=== PATIENT | female | born 1945 | race Caucasian/White ===

== ENCOUNTER → 2020-07-30 13:06 | Outpatient (REF) | payer MEDICARE, MEDICAID, SELFPAY ==
--- NOTE | 2020-07-30 13:00 | CA_ITS ---
Transthoracic Echocardiogram Patient (Last, First, Middle): Edie Morales, Gender: Female Date of : 1945 Age: 75 Procedure Date: 07/30/2020 Procedure Type: Transthoracic Echocardiogram Location: OP Height: 167.64 cm Weight: 73.48 kg BSA: 1.83 m2 Heart Rate: bpm BP: 140 / 76 mmHg Access Specialist: MICHAELLE Referring MD: Jose Alberto Vang MD Symptoms: 125.10 CAD Z95.5 Stented coronary artery Study Quality: Good ECG Rhythm: Sinus Conclusions: - The left ventricular systolic function is normal. The visually estimated ejection fraction is between 65-70%. - Aortic valve sclerosis but without any significant stenosis. - There is mild mitral annular calcification. Findings Left Ventricle Normal left ventricular cavity size. There is mildly increased left ventricular wall thickness. The left ventricular systolic function is normal. The visually estimated ejection fraction is between 65-70%. There is no evidence of regional wall motion abnormalities. Evidence suggests grade I (mild) diastolic dysfunction. Right Ventricle Normal right ventricular cavity size and systolic function. Aortic Valve There is a normal trileaflet aortic valve. There is mild calcification of the aortic valve. The peak aortic gradient is 20 mmHg.The mean gradient is 11 mmHg. There is no aortic valve regurgitation. No significant aortic stenosis. Mitral Valve The mitral valve appears normal. There is mild mitral annular calcification. There is no mitral valve regurgitation. There is no mitral valve stenosis. Pulmonic Valve The pulmonic valve was not well visualized. Tricuspid Valve Normal tricuspid valve structure. There is trace tricuspid valve regurgitation. The pulmonary artery systolic pressure is normal. Great Vessels The aortic annulus is normal in size. Venous The inferior vena cava is normal in size and collapses greater than 50% with inspiration. Pericardium/Pleural There is no evidence of pericardial effusion. Prior Study Comparison No significant change compared to prior study dated: 02/23/2018. Measurements 2D Linear Measurements IVSd: 1.22 0.6-0.9/0.6-1.0 cm LVIDd: 2.87 3.9-5.3/4.2-5.9 cm LVIDs: 1.86 2.0-3.6 cm LVPWd: 1.20 0.7-1.1 cm Ao Root: 3.09 2.1-3.5 cm LV Mass: 128.86 67-162/88-224 g LVOT Diam: 2.27 3.0+(-)1.3 cm 2D Systolic Function EF 4C: 66.00 >55% Mitral Valve MV Pk E: 0.55 MV PK A: 0.87 MV Decel Time: 232.92 E/A: 0.63 E'Lateral: 0.06 E'Medial: 0.06 E/E' Med: 9.07 Decel [place]: 2.34 Aortic Valve AoV Pk Maxi: 2.32 AoV Mn Maxi: 1.53 AoV VTI: 0.42 AoV Pk Grad: 20.09 Aov Mn Grad: 10.56 LYLE: 1.80 LVOT LVOT Pk Maxi: 0.92 LVOT Mn Maxi: 0.68 LVOT VTI: 0.19 LVOT Pk Grad: 3.35 LVOT Mn Grad: 2.04 LVOT Diam: 2.27 LVOT Area: 4.04 Diastolic Function MV Pk E: 0.55 MV Pk A: 0.87 E/A: 0.63 E'Medial: 0.06 E/E' Med: 9.07 E' Laterial: 0.06 Tricuspid Valve TR Pk Maxi: 2.54 TR Pk Grad: 25.79 RA Press: 3.00 RVSP: 28.00 Great Vessels Aorta Ao Root-2D: 3.09 2.0-3.7 cm Updated in Other Vendor System with Status of Final Fan Bee MD electronically signed on 07/31/2020 2:07:29 PM with status of Final
== END ==
LOC: HO.CARD 13:06
PROVIDERS: Visit Provider Internal Medicine Cardiovascular Disease
DX: I25.10 Atherosclerotic heart disease of native coronary artery without angina pectoris (principal); I48.0 Paroxysmal atrial fibrillation; Z95.5 Presence of coronary angioplasty implant and graft
CPT/HCPCS: 93306

== ENCOUNTER → 2020-09-30 15:00 | Outpatient (BNVA) | payer MEDICARE, MEDICAID, SELFPAY | PROVIDERS: PCP Internal Medicine; Visit Provider Internal Medicine Cardiovascular Disease | DX: Z51.81 Encounter for therapeutic drug level monitoring (principal) | CPT/HCPCS: 93005 ==

== ENCOUNTER 2020-10-01 11:24 | Outpatient (REF) | payer MEDICARE, MEDICAID, SELFPAY | END 2020-10-01 11:25 | disposition home or self-care (01) | LOC: HO.LAB 11:24 | PROVIDERS: Visit Provider Internal Medicine | DX: Z20.828 Contact with and (suspected) exposure to other viral communicable diseases (principal) | CPT/HCPCS: C9803; U0003 ==

== ENCOUNTER → 2020-12-30 13:28 | Outpatient (BNVA) | payer MEDICARE, MEDICAID, SELFPAY | PROVIDERS: PCP Internal Medicine; Visit Provider Internal Medicine Cardiovascular Disease | DX: I25.10 Atherosclerotic heart disease of native coronary artery without angina pectoris (principal); I48.0 Paroxysmal atrial fibrillation; Z79.899 Other long term (current) drug therapy | CPT/HCPCS: 93005; 99212 ==

== ENCOUNTER → 2021-01-08 11:17 | Outpatient (BNVA) | payer MEDICARE, MEDICAID, SELFPAY | PROVIDERS: PCP Internal Medicine; Visit Provider Urology | DX: Z13.89 Encounter for screening for other disorder (principal) | CPT/HCPCS: Q3014 ==

== ENCOUNTER → 2021-02-05 15:13 | Outpatient (BNVA) | payer MEDICARE, MEDICAID, SELFPAY | PROVIDERS: PCP Internal Medicine; Visit Provider Urology | DX: N32.81 Overactive bladder (principal); Z96.0 Presence of urogenital implants | CPT/HCPCS: 99212 ==

== ENCOUNTER 2021-02-23 07:52 | Day surgery (SDC) | payer MEDICARE, MEDICAID, SELFPAY ==
[2021-02-18 10:50] VITALS: BMI 27.4
[2021-02-18 11:53] VITALS: BMI 27.6
--- NOTE | 2021-02-19 14:28 | HO.ANESPROP2 ---
Documented by User: Dorothy Segura 02/19/21 14:29 HPI - Anesthesia Eval Consult details Narrative: 75yo F for Interstim Lead Removal and replacement prn opioids per routine cardiol visit 12/2020 - cad stable, paf stable PMFSH Active Problems Active Problems: All Active Problems (Updated 02/18/21 @ 11:54 by Nori Gonzalez) Gout (Acute) Overactive bladder (Acute) Mixed hyperlipidemia (Acute) Paroxysmal atrial fibrillation (Acute) CAD (coronary artery disease) (Acute) Past Medical History Medical History (Updated 02/18/21 @ 11:54 by Nori Gonzalez) CAD (coronary artery disease) COVID-19 vaccine series completed Mixed hyperlipidemia Paroxysmal atrial fibrillation Presence of Watchman left atrial appendage closure device Family History Family History Father Cancer Mother Heart disease Pancreatic cancer Sister Heart disease Surgical History Surgical History History of bladder surgery History of cataract surgery History of cholecystectomy History of hysterectomy Stented coronary artery Social History Social History Smoking Status: Former smoker Smoking Quit Date: 1999 Are you DNR?: No Advance Directives: No Advance Directives Information Provided: No Advance Directives on File: No Meds Allergies Allergy/AdvReac Type Severity Reaction Status Date / Time acetaminophen [From TYLENOL] AdvReac Intermediate DIZZINESS, Verified 02/18/21 11:52 VOMITING levofloxacin [From LEVAQUIN] AdvReac Intermediate NAUSEA & Verified 02/18/21 11:52 VOMITING Home Medications Medication Instructions Recorded Confirmed Last Taken Type alendronate 70 mg tablet 70 mg PO QWEEK 12/30/20 02/18/21 Unknown History budesonide-formoterol HFA 160 2 puff INHALATION BID 12/30/20 02/18/21 Unknown History mcg-4.5 mcg/actuation aerosol inhaler calcium carbonate 600 mg (1,500 1 tab PO DAILY 12/30/20 02/18/21 Unknown History mg)-vitamin D3 400 unit tablet docusate sodium 100 mg capsule 100 mg PO BID 12/30/20 02/18/21 Unknown History alprazolam 0.5 mg tablet 0.5 mg PO BID 01/08/21 02/18/21 02/23/21 History venlafaxine 150 mg 150 mg PO QAM 01/08/21 02/18/21 Unknown History capsule,extended release 24 hr aspirin [Aspir-81] 81 mg PO DAILY 02/18/21 02/18/21 Unknown History Exam Exam Date and Time: February 19, 2021 1428 Height,Weight and Vital Signs: Height 5 ft 5 in Weight 75.296 kg Narrative Narrative: EKG 12/2020 normal sinus rhythm with poor R-wave progression most likely due to lead placement with normal QT interval Assessment and Plan Assessment Anesthesia Assessment: Chart Reviewed Documented by User: Holley Meehan 02/23/21 09:39 [facility] Past Medical History Medical History (Updated 02/18/21 @ 11:54 by Nori Gonzalez) CAD (coronary artery disease) COVID-19 vaccine series completed Mixed hyperlipidemia Paroxysmal atrial fibrillation Presence of Watchman left atrial appendage closure device Family History Family History Father Cancer Mother Heart disease Pancreatic cancer Sister Heart disease Surgical History Surgical History History of bladder surgery History of cataract surgery History of cholecystectomy History of hysterectomy Stented coronary artery Social History Social History Smoking Status: Former smoker Smoking Quit Date: 1999 Are you DNR?: No Advance Directives: No Advance Directives Information Provided: No Advance Directives on File: No Meds Allergies Allergy/AdvReac Type Severity Reaction Status Date / Time acetaminophen [From TYLENOL] AdvReac Intermediate DIZZINESS, Verified 02/18/21 11:52 VOMITING levofloxacin [From LEVAQUIN] AdvReac Intermediate NAUSEA & Verified 02/18/21 11:52 VOMITING Home Medications Medication Instructions Recorded Confirmed Last Taken Type alendronate 70 mg tablet 70 mg PO QWEEK 12/30/20 02/18/21 Unknown History budesonide-formoterol HFA 160 2 puff INHALATION BID 12/30/20 02/18/21 Unknown History mcg-4.5 mcg/actuation aerosol inhaler calcium carbonate 600 mg (1,500 1 tab PO DAILY 12/30/20 02/18/21 Unknown History mg)-vitamin D3 400 unit tablet docusate sodium 100 mg capsule 100 mg PO BID 12/30/20 02/18/21 Unknown History alprazolam 0.5 mg tablet 0.5 mg PO BID 01/08/21 02/18/21 02/23/21 History venlafaxine 150 mg 150 mg PO QAM 01/08/21 02/18/21 Unknown History capsule,extended release 24 hr aspirin [Aspir-81] 81 mg PO DAILY 02/18/21 02/18/21 Unknown History Exam Airway Mallampati Class: II (Top front caps) TM Dist: >3cm Neck ROM: Full Heart: RRR Lungs: CtA Assessment and Plan Assessment Anesthesia Assessment: Anesthesia Plan Discussed and Chart Reviewed Final Anesthetic Review NPO: Yes ASA Class: III Final Preanesthetic Review: No Changes in Pt Med Stat and Consent Obtained/Reviewed Patient Risk: Intermediate Procedure Risk: Intermediate Anesthetic Plan Anesthetic Plan: MAC: Disposition: Standard PACU
[2021-02-23 08:49] VITALS: BP 153/101; PULSE 78; RESP 16; TEMP 35.8; O2SAT 97
[2021-02-23] MEDS: Lactated Ringers 1,000 ML 100 ML IVCONT (09:03)
[2021-02-23] MEDS: Metoclopramide HCl 10 MG/2 ML VIAL IVPUSH (09:49)
--- NOTE | 2021-02-23 09:54 | PC.NURSE ---
medicated for nasuea no vomitting.
--- NOTE | 2021-02-23 10:11 | PC.NURSE ---
patient states her nausea is alot better. the rep was by the bedside speaking to patient. aware of her plan
--- NOTE | 2021-02-23 10:18 | MHC.SHP ---
Pre-Procedural Eval Section A The patient is an INPATIENT: No Changes since office visit: No Cold of Flu in the past 2 weeks, No New Medical Problems, No Changes in Medication and No Patient answered all questions The History & Physical has been completed within 30 days and I have reviewed it.: Yes Section B Chief Complaint: overactive bladder Allergies: Allergies Allergy/AdvReac Type Severity Reaction Status Date / Time acetaminophen [From TYLENOL] AdvReac Intermediate DIZZINESS, Verified 02/18/21 11:52 VOMITING levofloxacin [From LEVAQUIN] AdvReac Intermediate NAUSEA & Verified 02/18/21 11:52 VOMITING Plan Diagnosis/Plan: Unchanged (Interstim battery change) I have reviewed the history and physical and performed a pertinent physical examination on my patient. No changes have occurred unless specified.
[2021-02-23 11:13] VITALS: BP 118/63; PULSE 65; RESP 16; TEMP 37.1; O2SAT 96
[2021-02-23 11:18] VITALS: BP 139/70; PULSE 65; RESP 16; O2SAT 97
--- NOTE | 2021-02-23 11:19 | W.PM.OPN ---
Operative Note Operative Note Date of Service: 02/23/21 Narrative: PreOperative Diagnosis: Interstim Battery Post Operative Diagnosis: Interstim Battery Procedure: Interstim battery placement Surgeon: Dr Keyon Darnell Anesthesia: Sedation Indications for procedure: interstim batery Procedure: After informed consent was verified the patient was brought to the operating room and placed in a prone position. Patient anesthesia was administered. The prior incision was prepped and draped. Checked post come out performed. Antibiotics have been given. Local anesthetic was infiltrated cc in skin. Using a 15 blade incision was made to the implanted device. Plantar device was freed and delivered from the incision. It was disconnected from its lead. A new device was then attached to the lead. It was sewn onto the fascia with a 2-0 silk suture. The pocket was deepened slightly the device placed. The fascia at top closed. The device was then tested using the transmitted. All leads were active. The skin incision was reapproximated with interrupted 3-0 Vicryl. Skin was closed with a 4-0 running Monocryl. Dressing was placed. She tolerated the procedure well and was transferred in stable condition to recovery area Pathology: battery Drains: []
[2021-02-23 11:23] VITALS: BP 149/78; PULSE 57; RESP 16; O2SAT 97
[2021-02-23 11:28] VITALS: BP 132/77; PULSE 52; RESP 16
[2021-02-23 11:35] VITALS: PULSE 56; RESP 16; O2SAT 97
== END 2021-02-23 12:46 | disposition home or self-care (01) ==
PROVIDERS: PCP Internal Medicine; Visit Provider Urology
PROC: (CPT 64590; principal; 2021-02-23 09:40)
DX: Z46.2 Encounter for fitting and adjustment of other devices related to nervous system and special senses (principal); N32.81 Overactive bladder; I25.10 Atherosclerotic heart disease of native coronary artery without angina pectoris; Z98.61 Coronary angioplasty status; I48.0 Paroxysmal atrial fibrillation; Z79.01 Long term (current) use of anticoagulants; Z79.82 Long term (current) use of aspirin; Z79.899 Other long term (current) drug therapy; Z87.891 Personal history of nicotine dependence
CPT/HCPCS: 64590; C1767; C1787; J0690; J2250; J2765; J3010

== ENCOUNTER → 2021-03-11 11:26 | Outpatient (BNVA) | payer MEDICARE, MEDICAID, SELFPAY | PROVIDERS: PCP Internal Medicine; Referring Provider Internal Medicine; Visit Provider Nurse Practitioner Family | DX: Z01.810 Encounter for preprocedural cardiovascular examination (principal); I25.10 Atherosclerotic heart disease of native coronary artery without angina pectoris; I48.0 Paroxysmal atrial fibrillation; Z95.818 Presence of other cardiac implants and grafts; E78.2 Mixed hyperlipidemia; N32.81 Overactive bladder | CPT/HCPCS: 93005; 99212 ==

== ENCOUNTER → 2021-06-30 13:40 | Outpatient (BNVA) | payer MEDICARE, MEDICAID, SELFPAY | PROVIDERS: PCP Internal Medicine; Referring Provider Internal Medicine; Visit Provider Internal Medicine Cardiovascular Disease | DX: I48.0 Paroxysmal atrial fibrillation (principal); I25.10 Atherosclerotic heart disease of native coronary artery without angina pectoris | CPT/HCPCS: 93005; 99212 ==

== ENCOUNTER 2021-08-27 13:31 | Outpatient (REF) | payer MEDICARE, MEDICAID, SELFPAY ==
--- NOTE | ~2021-08-27 | MM_ITS ---
EXAMINATION: MM SCREENING DIGITAL BREAST TOMOSYNTHESIS, BILATERAL CLINICAL INFORMATION: Screening. Asymptomatic. The lifetime risk of breast cancer based on the Tyrer-Cuzick Model is 3.4%. COMPARISON: Mammography: December 17, 2019 and studies dating back to August 20, 2016 TECHNIQUE: Digital breast tomosynthesis is performed in both the craniocaudal and mediolateral oblique views along with computer-aided detection (CAD). Synthesized 2D images are generated from the tomosynthesis. FINDINGS: There are scattered areas of fibroglandular density (ACR BI-RADS breast composition Category b). There are no significant masses, abnormal calcifications, or other abnormalities. MM/MM tomosynthesis screening BI IMPRESSION: There are no significant changes from prior study. ASSESSMENT: BI-RADS 1: Negative RECOMMENDATION: Routine annual mammography screening. This patient's information was entered into a reminder system with a target due date for their next mammogram.
[2021-08-27 14:59] LABS: Cholesterol 150 mg/dL; HDL Cholesterol 76 mg/dL; LDL Cholesterol Calculated 63 mg/dl; Triglycerides 58 mg/dL
[2021-08-27 15:00] LABS: Alanine Aminotransferase 17 U/L (0-31); Albumin Level 4.2 g/dL (3.5-5.0); Alkaline Phosphatase 29 U/L (39-117); Anion Gap 11 (12-20); Aspartate Amino Transferase 29 U/L (5-31); Bilirubin Total 0.5 mg/dL (0.0-1.0); Blood Urea Nitrogen 23 mg/dL (9-16); Calcium 9.5 mg/dL (8.4-10.2); Carbon Dioxide 29 mmol/L (22-29); Chloride 104 mmol/L (96-108); Estimated Glomerular Filt Rate 50; Glucose Fasting 85 mg/dL (60-99); Potassium 4.4 mmol/L (3.3-5.1); Sodium 140 mmol/L (135-145); Total Protein 6.4 g/dL (6.5-8.0)
[2021-08-27 15:26] LABS: Erythrocyte Sedimentation Rate 7 MM/HR (0-20)
[2021-08-29 08:11] LABS: Lyme Blot 1.78 index
[2021-08-29 10:37] LABS: Lyme Abs Screen POSITIVE
[2021-08-31 15:41] LABS: IgA 75 mg/dL (70-320); IgG 689 mg/dL (600-1540); IgM 33 mg/dL (50-300)
[2021-09-02 11:22] LABS: 18 KD (IgG) Band NON-REACTIVE; 23 KD (IgG) Band NON-REACTIVE; 23 KD (IgM) Band NON-REACTIVE; 28 KD (IgG) Band NON-REACTIVE; 30 KD (IgG) Band NON-REACTIVE; 39 KD (IgM) Band NON-REACTIVE; 41 KD (IgM) Band NON-REACTIVE; 45 KD (IgG) Band NON-REACTIVE; 58 KD (IgG) Band NON-REACTIVE; 66 KD (IgG) Band NON-REACTIVE; 93 KD (IgG) Band NON-REACTIVE; Lyme IgG Blot Interp NEGATIVE (NEGATIVE); Lyme IgM Blot Interp NEGATIVE (NEGATIVE)
== END 2021-08-27 13:32 | disposition home or self-care (01) ==
LOC: HO.MAMMO 13:31
PROVIDERS: Internal Medicine Cardiovascular Disease; Nurse Practitioner Family; Absent Provider Psychiatry & Neurology Neurology; PCP Internal Medicine; Visit Provider Internal Medicine
DX: Z12.31 Encounter for screening mammogram for malignant neoplasm of breast (principal); Z13.1 Encounter for screening for diabetes mellitus; G62.9 Polyneuropathy, unspecified; I25.10 Atherosclerotic heart disease of native coronary artery without angina pectoris
CPT/HCPCS: 36415; 77063; 77067; 80053; 80061; 82784; 85652; 86334; 86617; 86618

== ENCOUNTER → 2021-09-16 13:00 | Outpatient (BNVA) | payer MEDICARE, MEDICAID, SELFPAY | PROVIDERS: PCP Internal Medicine | DX: N32.81 Overactive bladder (principal) | CPT/HCPCS: 51798; 99212 ==

== ENCOUNTER → 2021-10-06 12:57 | Outpatient (BNVA) | payer MEDICARE, MEDICAID, SELFPAY | PROVIDERS: PCP Internal Medicine; Referring Provider Internal Medicine; Visit Provider Internal Medicine Cardiovascular Disease ==

== ENCOUNTER → 2022-01-05 13:16 | Outpatient (BNVA) | payer MEDICARE, MEDICAID, SELFPAY | PROVIDERS: PCP Internal Medicine; Referring Provider Internal Medicine; Visit Provider Internal Medicine Cardiovascular Disease | DX: I48.0 Paroxysmal atrial fibrillation (principal); I25.10 Atherosclerotic heart disease of native coronary artery without angina pectoris | CPT/HCPCS: 93005; 99212 ==

== ENCOUNTER → 2022-01-19 11:38 | Outpatient (REF) | payer MEDICARE, MEDICAID, SELFPAY ==
--- NOTE | 2022-01-19 11:43 | HM_ITS ---
Conclusion: 1. Patient was monitored for total period of 3 days and 3 hours 2. Baseline of normal sinus rhythm with average heart rate of 67 beats per minute 3. 5 short episodes of supra tachycardia longest lasting 8 beats 4. No episodes of atrial fibrillation 5. No significant pauses or bradycardia noted 6. Total of 463 PACs accounting for 0.15% total burden account for occasional PACs 7. 1 patient reported event correlated with PACs MTDD
== END ==
LOC: HO.CARD 11:38
PROVIDERS: Visit Provider Internal Medicine Cardiovascular Disease
DX: I48.0 Paroxysmal atrial fibrillation (principal)
CPT/HCPCS: 93242

== ENCOUNTER → 2022-02-09 10:22 | Outpatient (BNVA) | payer MEDICARE, MEDICAID, SELFPAY | PROVIDERS: PCP Internal Medicine; Visit Provider Surgery Vascular Surgery | DX: I83.11 Varicose veins of right lower extremity with inflammation (principal) | CPT/HCPCS: 99202 ==

== ENCOUNTER 2022-03-03 13:27 | Outpatient (REF) | payer MEDICARE, MEDICAID, SELFPAY ==
--- NOTE | ~2022-03-03 | US_ITS ---
EXAMINATION: NONINVASIVE ASSESSMENT OF THE ARTERIES OF BOTH LOWER EXTREMITIES WITH ANKLE PRESSURE MEASUREMENTS, ANKLE BRACHIAL INDICES, PVR MEASUREMENTS AND BILATERAL LOWER EXTREMITY DUPLEX. CLINICAL INFORMATION: Peripheral vascular disease. TECHNIQUE: Ankle pressure measurements, ankle brachial indices and PVR tracings were obtained of the lower extremity arterial system bilaterally. In addition, duplex Doppler techniques with wave form analysis and measurement of velocities in the common femoral, profunda femoral, superficial femoral, popliteal and tibial arteries was performed. The study was performed only at rest. COMPARISON: Lower extremity arterial ultrasound and JR on 08/08/2019 FINDINGS: NONINVASIVE ASSESSMENT OF THE ARTERIES OF BOTH LOWER EXTREMITIES WITH ABIs: RIGHT LEG: Right ankle-brachial index: 1.11 PVR (ankle): Irregular, dampened LEFT LEG: Ankle-brachial index: 1.10 PVR (ankle): Irregular, dampened BILATERAL LOWER EXTREMITY DUPLEX ULTRASOUND: RIGHT LEG: Common femoral artery: 184 cm/s, Diastolic flow reversal: Yes Profunda femoris artery: 54 cm/s, Diastolic flow reversal: Yes Superficial femoral artery (proximal): 86 cm/s, Diastolic flow reversal: Yes Superficial femoral artery (mid): 82 cm/s, Diastolic flow reversal: Yes Stent (mid SFA): Proximal: 88 cm/s, triphasic flow Mid: 81 cm/s, biphasic flow Distal: 128 cm/s, triphasic flow Superficial femoral artery (distal): 125 cm/s, Diastolic flow reversal: Yes Popliteal artery: 89 cm/s, Diastolic flow reversal: Yes Posterior tibial artery: 103 cm/s, Diastolic flow reversal: Yes Peroneal artery: 58 cm/s, Diastolic flow reversal: Yes LEFT LEG: Common femoral artery: 133 cm/s, Diastolic flow reversal: Yes Profunda femoris artery: 80 cm/s, Diastolic flow reversal: Yes Superficial femoral artery (proximal): 84 cm/s, Diastolic flow reversal: Yes Superficial femoral artery (mid): 66 cm/s, Diastolic flow reversal: Yes Superficial femoral artery (distal): 159 cm/s, Diastolic flow reversal: Yes Popliteal artery: 85 cm/s, Diastolic flow reversal: Yes Posterior tibial artery: 98 cm/s, Diastolic flow reversal: Yes Peroneal artery: 76 cm/s, Diastolic flow reversal: Yes US/US arterial duplex LE BI IMPRESSION: RIGHT LEG: JR 1.11. Duplex reveals a patent mid SFA stent. No hemodynamically significant stenosis identified. LEFT LEG: JR 1.1. No hemodynamically significant stenosis identified on duplex. JR Reference: - >0.97-1.25 = normal - no significant arterial disease - 0.75-0.96 = mild peripheral arterial disease - 0.5-0.74 = moderate peripheral arterial disease - <0.50 = severe peripheral arterial disease
== END 2022-03-03 13:28 | disposition home or self-care (01) ==
LOC: HO.US 13:27
PROVIDERS: Visit Provider Surgery Vascular Surgery
DX: I73.9 Peripheral vascular disease, unspecified (principal)
CPT/HCPCS: 93923; 93925

== ENCOUNTER → 2022-03-11 12:42 | Outpatient (BNVA) | payer MEDICARE, MEDICAID, SELFPAY | PROVIDERS: PCP Internal Medicine | DX: N32.81 Overactive bladder (principal); R33.9 Retention of urine, unspecified; Z79.899 Other long term (current) drug therapy | CPT/HCPCS: 51798; 99212 ==

== ENCOUNTER 2022-03-23 13:00 | Outpatient (REF) | payer MEDICARE, MEDICAID, SELFPAY ==
--- NOTE | ~2022-03-23 | US_ITS ---
EXAMINATION: US LOWER EXTREMITY VENOUS (REFLUX EXAM), BILATERAL CLINICAL INDICATION: Chronic venous insufficiency with lower extremity varicose veins COMPARISON: None. TECHNIQUE: Color flow triplex imaging and compression Doppler was performed to evaluate both the deep and the superficial systems bilaterally. To evaluate the superficial system, the examination was performed in the upright position. Color-flow Doppler ultrasound and compression ultrasound were utilized. In addition, maneuvers were utilized to demonstrate reflux. FINDINGS: 1. DEEP VENOUS ULTRASOUND OF THE RIGHT LOWER EXTREMITY: Common Femoral Vein: Compressible, normal respiratory variation and augmented flow. Femoral Vein: Compressible, normal color flow and augmentation. Popliteal Vein: Compressible, normal augmentation. Deep Reflux: There is no evidence of reflux in the deep system in either the common femoral vein or the popliteal vein. There is no evidence of a Mckeon's cyst. 2. SUPERFICIAL ULTRASOUND WITH DOPPLER OF RIGHT LOWER EXTREMITY: GREAT SAPHENOUS VEIN: Saphenofemoral Junction: 8.6 mm; No evidence of reflux. Proximal Thigh: 2.6 mm; No evidence of reflux. Mid Thigh: 1.9 mm; No evidence of reflux. Above Knee: 2.3 mm; No evidence of reflux. At Knee: 1.7 mm; No evidence of reflux. Below Knee: 2.0 mm; No evidence of reflux. Mid Calf: 1.4 mm; No evidence of reflux. Ankle: 1.3 mm; No evidence of reflux. DUPLICATED GREAT SAPHENOUS VEIN: There is a lateral duplicated great saphenous vein measuring 2.8 mm without significant reflux. SMALL SAPHENOUS VEIN: Proximal: 1.8 mm; No evidence of reflux. Distal: 1.8 mm; No evidence of reflux. VEIN OF GIACOMINI: None Imaged. PERFORATORS: None Imaged VARICOSITIES: There is a varicose vein branch in the posterior calf measuring 5.1 mm. There is a varicose vein branch arising from the lateral duplicated great saphenous vein in the proximal thigh measuring 2.1 mm extending through the mid to thigh without significant reflux. Varicose vein branches is seen in the thigh arising from the great saphenous vein measuring 2.1 mm without significant reflux 3. DEEP VENOUS ULTRASOUND OF THE LEFT LOWER EXTREMITY: Common Femoral Vein: Compressible, normal respiratory variation and augmented flow. Femoral Vein: Compressible, normal color flow and augmentation. Popliteal Vein: Compressible, normal augmentation. Deep Reflux: There is no evidence of reflux in the deep system in either the common femoral vein or the popliteal vein. There is no evidence of a Mckeon's cyst. 4. SUPERFICIAL ULTRASOUND WITH DOPPLER OF LEFT LOWER EXTREMITY: GREAT SAPHENOUS VEIN: Saphenofemoral Junction: 9.0 mm; No evidence of reflux. Proximal Thigh: 2.7 mm; No evidence of reflux. Mid Thigh: 3.0 mm; No evidence of reflux. Above Knee: 2.4 mm; No evidence of reflux. At Knee: 2.0 mm; No evidence of reflux. Below Knee: 2.2 mm; No evidence of reflux. Mid Calf: 1.6 mm; No evidence of reflux. Ankle: 1.8 mm; No evidence of reflux. DUPLICATED GREAT SAPHENOUS VEIN: There is a lateral duplicated great saphenous vein in the thigh measuring 5.3 mm extending into the mid to thigh without significant reflux SMALL SAPHENOUS VEIN: Proximal: 2.7 mm; No evidence of reflux. Distal: 2.0 mm; No evidence of reflux. VEIN OF GIACOMINI: None Imaged. PERFORATORS: There is a large library acquisitions technician vein in the distal posterior calf measuring 5.0 mm with reflux measuring 1.8 seconds. VARICOSITIES: Small varicosities are seen arising off the great saphenous vein in the mid thigh measuring 1.7 mm without significant reflux and at the the measuring 2.0 mm without significant reflux US/US venous duplex LE BI IMPRESSION: 1. No evidence of deep venous thrombosis 2. No significant reflux in the bilateral great saphenous and small saphenous veins. 3. There is a library acquisitions technician vein in the left posterior calf with moderate reflux 4. Multiple small bilateral varicose veins as described above
== END 2022-03-23 13:01 | disposition home or self-care (01) ==
LOC: HO.US 13:00
PROVIDERS: Visit Provider Surgery Vascular Surgery
DX: I83.11 Varicose veins of right lower extremity with inflammation (principal)
CPT/HCPCS: 93970

== ENCOUNTER → 2022-03-30 10:23 | Outpatient (BNVA) | payer MEDICARE, MEDICAID, SELFPAY | PROVIDERS: PCP Internal Medicine; Visit Provider Surgery Vascular Surgery | DX: I73.9 Peripheral vascular disease, unspecified (principal); I83.11 Varicose veins of right lower extremity with inflammation | CPT/HCPCS: 99212 ==

== ENCOUNTER → 2022-04-06 14:48 | Outpatient (BNVA) | payer MEDICARE, MEDICAID, SELFPAY | PROVIDERS: PCP Internal Medicine; Referring Provider Internal Medicine; Visit Provider Internal Medicine Cardiovascular Disease | DX: I48.0 Paroxysmal atrial fibrillation (principal) | CPT/HCPCS: 93005 ==

== ENCOUNTER → 2022-07-22 12:55 | Outpatient (BNVA) | payer MEDICARE, MEDICAID, SELFPAY | PROVIDERS: PCP Internal Medicine; Visit Provider Urology | DX: N32.81 Overactive bladder (principal); R33.9 Retention of urine, unspecified | CPT/HCPCS: 51798; 93005; 99212 ==

== ENCOUNTER 2022-09-03 13:00 | Outpatient (REF) | payer MEDICARE, MEDICAID, SELFPAY ==
--- NOTE | ~2022-09-03 | MM_ITS ---
EXAMINATION: MM SCREENING DIGITAL BREAST TOMOSYNTHESIS, BILATERAL CLINICAL INFORMATION: Screening. Asymptomatic. Family history breast cancer, sister. The lifetime risk of breast cancer based on the Tyrer-Cuzick Model is 4%. COMPARISON: Mammography: 08/27/2021, 12/17/2019, 10/19/2018 TECHNIQUE: Digital breast tomosynthesis is performed in both the craniocaudal and mediolateral oblique views along with computer-aided detection (CAD). Synthesized 2D images are generated from the tomosynthesis. FINDINGS: There are scattered areas of fibroglandular density (ACR BI-RADS breast composition Category b). There are no significant masses, abnormal calcifications, or other abnormalities. No developing density or architectural abnormality. The axilla are unremarkable. No significant changes. MM/MM tomosynthesis screening BI IMPRESSION: No mammographic evidence of malignancy. ASSESSMENT: BI-RADS 1: Negative RECOMMENDATION: Routine annual mammography screening. This patient's information was entered into a reminder system with a target due date for their next mammogram.
== END 2022-09-03 13:01 | disposition home or self-care (01) ==
LOC: HO.MAMMO 13:00
PROVIDERS: Visit Provider Internal Medicine
DX: Z12.31 Encounter for screening mammogram for malignant neoplasm of breast (principal)
CPT/HCPCS: 77063; 77067

== ENCOUNTER → 2022-10-05 14:52 | Outpatient (BNVA) | payer MEDICARE, MEDICAID, SELFPAY | PROVIDERS: PCP Internal Medicine; Referring Provider Internal Medicine; Visit Provider Internal Medicine Cardiovascular Disease | DX: R94.31 Abnormal electrocardiogram [ECG] [EKG] (principal) | CPT/HCPCS: 93005 ==

== ENCOUNTER 2022-12-10 08:52 | Outpatient (REF) | payer MEDICARE, MEDICAID, SELFPAY ==
[2022-12-10 11:26] LABS: MANUAL DIFF FLAG NO
[2022-12-10 11:52] LABS: Basophils Absolute Auto 0.1 X10*3/uL (0.0-0.2); Basophils Percent Auto 1.5 % (0-2); Eosinophils Absolute Auto 0.3 X10*3/uL (0.0-0.4); Eosinophils Percent Auto 6.9 % (0-4); Hematocrit 42.9 % (37.0-47.0); Hemoglobin 13.3 g/dl (12.0-16.0); Imm Gran Abs Auto 0.06 X10*3/uL (0.00-0.03); Imm Gran Pct Auto 1.3 % (0.0-0.4); Lymphocytes Absolute Auto 1.2 X10*3/uL (1.2-4.9); Lymphocytes Percent Auto 24.2 % (20-40); Mean Corpuscular Hemoglobin 27.7 pg (27.0-33.0); Mean Corpuscular Volume 89.4 fL (80.0-98.0); Mean Platelet Volume 10.5 fL (9.4-12.3); Monocytes Absolute Auto 0.4 X10*3/uL (0.1-1.2); Neutrophils Absolute Auto 2.8 x10*3/uL (2.0-8.3); Neutrophils Percent Auto 58.1 % (45-73); Platelet Count 253 X10*3/uL (160-400); Red Cell Distribution Width 13.9 % (11.0-16.0); White Blood Count 4.8 X10*3/uL (4.8-10.8)
[2022-12-10 12:37] LABS: Alanine Aminotransferase 14 U/L (0-31); Albumin Level 4.2 g/dL (3.5-5.0); Alkaline Phosphatase 27 U/L (39-117); Anion Gap 11 (12-20); Aspartate Amino Transferase 29 U/L (5-31); Bilirubin Total 0.7 mg/dL (0.0-1.0); Blood Urea Nitrogen 18 mg/dL (9-16); Calcium 9.4 mg/dL (8.4-10.2); Carbon Dioxide 32 mmol/L (22-29); Chloride 106 mmol/L (96-108); Cholesterol 156 mg/dL; Estimated Glomerular Filt Rate 49; Glucose Fasting 76 mg/dL (60-99); HDL Cholesterol 74 mg/dL; LDL Cholesterol Calculated 69 mg/dl; Potassium 4.2 mmol/L (3.3-5.1); Sodium 145 mmol/L (135-145); Thyroid Stimulating Hormone 2.54 uIU/mL (0.32-4.0); Total Protein 6.3 g/dL (6.5-8.0); Triglycerides 69 mg/dL
== END 2022-12-10 08:53 | disposition home or self-care (01) ==
LOC: HO.HMGCLDS 08:52
PROVIDERS: PCP Internal Medicine; Visit Provider Internal Medicine
DX: E03.9 Hypothyroidism, unspecified (principal); E78.5 Hyperlipidemia, unspecified; N28.9 Disorder of kidney and ureter, unspecified; D64.9 Anemia, unspecified
CPT/HCPCS: 36415; 80053; 80061; 84443; 85025

== ENCOUNTER 2023-01-11 10:35 | Outpatient (REF) | payer MEDICARE, MEDICAID, SELFPAY ==
--- NOTE | ~2023-01-11 | XR_ITS ---
EXAMINATION: XR HIP, RIGHT CLINICAL INFORMATION: Right hip pain. COMPARISON: CT scan of the abdomen and pelvis dated 04/11/2017. TECHNIQUE: Two views of the right hip. FINDINGS: There is generalized osteopenia. Minimal bilateral hip degenerative joint changes are seen. An osseous density seen lateral to the superolateral margin of the acetabulum. The soft tissues are unremarkable. XR/XR hip RT min 2V IMPRESSION: Mild right hip degenerative joint changes. Small osseous density along the superolateral margin of the acetabulum is nonspecific, but was seen on the previous CT scan is likely degenerative in nature or secondary to old injury.
== END 2023-01-11 10:36 | disposition home or self-care (01) ==
LOC: HO.HMGCX 10:35
PROVIDERS: PCP Internal Medicine; Visit Provider Nurse Practitioner Family
DX: M25.551 Pain in right hip (principal); I48.0 Paroxysmal atrial fibrillation; I25.10 Atherosclerotic heart disease of native coronary artery without angina pectoris
CPT/HCPCS: 73502; 93005; 99212

== ENCOUNTER → 2023-01-20 13:28 | Outpatient (BNVA) | payer MEDICARE, MEDICAID, SELFPAY | PROVIDERS: PCP Internal Medicine; Visit Provider Urology | DX: N32.81 Overactive bladder (principal); R33.9 Retention of urine, unspecified | CPT/HCPCS: 51798; 99212 ==

== ENCOUNTER 2023-03-29 13:02 | Outpatient (REF) | payer MEDICARE, MEDICAID, SELFPAY ==
--- NOTE | ~2023-03-29 | US_ITS ---
EXAMINATION: Noninvasive assessment of the bilateral lower extremities with ARTERIAL DUPLEX and ANKLE BRACHIAL INDICES (ABIs). CLINICAL INFORMATION: Peripheral vascular disease TECHNIQUE: Duplex Doppler techniques with waveform analysis and measurement of velocities in the bilateral common femoral, profunda femoris, superficial femoral, popliteal and tibial arteries were performed. Additionally, ankle pulse volume recordings, ankle pressure measurements and ankle brachial indices were obtained of the lower extremity arterial system bilaterally. The study was performed only at rest. COMPARISON: 03/03/2022 FINDINGS: DIRECT DUPLEX DOPPLER FINDINGS: RIGHT LEG: Common femoral artery: 196 cm/s, phasicity: Biphasic, focal calcified plaque Profunda femoris artery: 96 cm/s, phasicity: Biphasic Superficial femoral artery (proximal): 145 cm/s, phasicity: Triphasic Superficial femoral artery (mid): 213 cm/s, phasicity: Triphasic. Focal heavily calcified plaque Superficial femoral artery (distal): 88.5 cm/s, phasicity: Triphasic Popliteal artery: 122 cm/s, phasicity: Triphasic Posterior tibial artery: 102 cm/s, phasicity: Biphasic Peroneal artery: 50.7 cm/s, phasicity: Triphasic LEFT LEG: Common femoral artery: 146 cm/s, phasicity: Triphasic Profunda femoris artery: 129 cm/s, phasicity: Biphasic Superficial femoral artery (proximal): 105 cm/s, phasicity: Biphasic Superficial femoral artery (mid): 137 cm/s, phasicity: Biphasic. Focal calcified plaque Superficial femoral artery (distal): 83.8 cm/s, phasicity: Biphasic Popliteal artery: 90.3 cm/s, phasicity: Biphasic Posterior tibial artery: 112 cm/s, phasicity: Biphasic Peroneal artery: 58.1 cm/s, phasicity: Biphasic Focal nodular scarring seen in the proximal left thigh ANKLE-BRACHIAL INDEX: Right: 1.04? Left: 1.12 ANKLE PRESSURES: Right: PT 169, DP 163 Left: PT?182, DP?168 ANKLE PVR WAVEFORMS: Right: Abnormal Left: Normal US/US arterial duplex LE BI IMPRESSION: Right leg: Normal ankle brachial index. Focal calcified plaque in the mid superficial femoral artery with elevated velocity consistent with a moderate stenosis Left leg: Normal ankle brachial index. Focal calcified plaque in the mid superficial femoral artery without significant stenosis JR Reference: - >1.4 = calcified vessels - 0.9 - 1.4 = normal - no significant arterial disease - 0.7 - 0.89 = mild peripheral arterial disease - 0.51 - 0.69 = moderate peripheral arterial disease - ? 0.50 = severe peripheral arterial disease - < .30 = critical arterial disease
== END 2023-03-29 13:03 | disposition home or self-care (01) ==
LOC: HO.US 13:02
PROVIDERS: PCP Internal Medicine; Visit Provider Surgery Vascular Surgery
DX: I70.213 Atherosclerosis of native arteries of extremities with intermittent claudication, bilateral legs (principal)
CPT/HCPCS: 93923; 93925

== ENCOUNTER → 2023-04-20 14:59 | Outpatient (BNVA) | payer MEDICARE, MEDICAID, SELFPAY | PROVIDERS: PCP Internal Medicine; Visit Provider Internal Medicine Cardiovascular Disease | DX: I48.91 Unspecified atrial fibrillation (principal); Z79.899 Other long term (current) drug therapy | CPT/HCPCS: 93005; Q3014 ==

== ENCOUNTER 2023-05-10 14:22 | Outpatient (AMB) | payer MEDICARE, MEDICAID, SELFPAY ==
--- NOTE | 2023-05-10 14:23 | A.OFFVIS_ITS ---
Intake Intake Visit Reasons: 1 yr f/u s/p arterial 03/29/23 Intake Note: Patient is here for a 1 year follow up after arterial US 03/29/23. patient c/o Cedric LE pain more on the left Allergies acetaminophen [From TYLENOL] Adverse Reaction (Intermediate, Verified 05/10/23 14:26) DIZZINESS, VOMITING levofloxacin [From LEVAQUIN] Adverse Reaction (Intermediate, Verified 05/10/23 14:26) NAUSEA & VOMITING HPI 1 yr f/u s/p arterial 03/29/23 HPI Details Very pleasant 78-year-old female presents for follow-up regarding peripheral vascular disease. She has most recently lost about 60 lb through diet and exercise. She has been fairly active in she notes that her left leg has been causing her discomfort. She reports that after block she is describing some calf discomfort. She is a nonsmoker nondiabetic. She has been maintained on aspirin and statin. She now presents for follow-up with noninvasive testing. [facility] Medical History CAD (coronary artery disease) COVID-19 vaccine series completed Diabetic neuropathy Hyperlipidemia Mixed hyperlipidemia Neuropathy Paroxysmal atrial fibrillation Post-menopausal Presence of Watchman left atrial appendage closure device Retention of urine Screening for diabetes mellitus Surgical History History of bladder surgery History of cataract surgery History of cholecystectomy History of colonoscopy History of hysterectomy History of rotator cuff surgery Stented coronary artery Family History Father Cancer Mother Heart disease Pancreatic cancer Sister Heart disease Social History Housing: House Alcohol intake: never Patient Tobacco Use Status: Never used Tobacco e-Cigarette/Vaping Use: Never Used Second Hand Smoke Exposure: No service: No Current occupational status: retired Cognitive needs: No Hearing needs: Yes Vision needs: Yes Review of Systems Const All systems reviewed & are unremarkable except as noted in HPI and below Reports no additional complaints ENT Reports Normal hearing present Card Denies chest pain, Denies chest pain at rest, Denies chest pain with activity and Denies pedal edema Resp Denies cough GI Denies abdominal pain Musc Denies abnormal gait, Denies muscle cramps and Denies radiating pain into limb Skin/Breast Denies skin ulcer and Denies wounds Neuro Reports Normal hearing present and Denies abnormal gait Psych Reports no additional complaints Physical Exam Const General: cooperative, healthy appearing and comfortable Orientation/consciousness: oriented to person, oriented to place and oriented to time HEENT Head: Yes normal to inspection Neck Neck: Yes normal visual inspection Carotids: no bruits Chest Chest palpation & inspection: normal inspection of the chest Resp Effort & Inspection: normal respiratory effort and able to speak in complete sentences Auscultation: clear to auscultation bilaterally, no crackles, no rales, no rhonchi and no wheezes Cardio Other: Bilateral DP signals. In particular she does not have a palpable left DP or PT pulse Rate: regular rate Rhythm: regular rhythm Heart sounds: S1 normal heart sound present and S2 normal heart sound present Bruits: no carotid bruits Peripheral pulses: Peripheral pulses 2+ throughout GI Inspection: Yes normal to inspection Skin Wounds: no wounds Hair: normal Neuro General: oriented to person, oriented to place and oriented to time Cranial nerves: Yes CN's II-XII intact bilaterally and Yes Normal hearing present Cognition (Neuro): normal cognition Motor exam (neuro): 5/5 motor strength present throughout Extrem Other: venous exam: No significant superficial varicosities or spider telangiectasias, minimal edema General: No clubbing, No cyanosis and No edema Psych Appearance: grossly normal Mental Status: mental status grossly normal Speech and movement: Normal speech and movement present Results Reviewed Results Reviewed: Noninvasive arterial testing dated 03/29/2023 demonstrates JR on the right of 1.04 and on the left of 1.1 to of concern is there is a focal calcified plaque within the mid SFA. After which he goes down to monophasic flow. Assessment & Plan Assessment & Plan (1) PAD (peripheral artery disease): Code(s): I73.9 - Peripheral vascular disease, unspecified Plan: Patient notes leg pain when walking distances. I have discussed the pathophysiology of peripheral vascular disease with the patient. I have also discussed risk factor modification. I have reviewed the patient's arterial testing which reveals left SFA disease. the patient would benefit from a left leg endovascular peripheral angiogram with possible angioplasty, stent, and/or atherectomy. This has been discussed in detail with the patient along with risks, benefits, and complications. This includes but is not limited to bleeding, infection, heart attack, need for emergent surgical repair, limb isc hemia, blood vessel damage, bleeding, puncture, kidney injury, bruising, allergic reaction, and skin reaction. The patient demonstrates a clear understanding. We will schedule for the next appropriate time. Thank you for allowing us to assist in this patient's care. Coding Level of Care Code Est Pt Level 4 (83730) Diagnoses PAD (peripheral artery disease) I73.9
== END 2023-05-10 14:41 | disposition home or self-care (01) ==
PROVIDERS: PCP Internal Medicine; Visit Provider Surgery Vascular Surgery
DX: I73.9 Peripheral vascular disease, unspecified (principal)
CPT/HCPCS: 99214

== ENCOUNTER → 2023-05-10 14:22 | Outpatient (BNVA) | payer MEDICARE, MEDICAID, SELFPAY | PROVIDERS: PCP Internal Medicine; Visit Provider Surgery Vascular Surgery | DX: I73.9 Peripheral vascular disease, unspecified (principal) | CPT/HCPCS: 99212 ==

== ENCOUNTER 2023-05-11 07:35 | Day surgery (SDC) | payer MEDICARE, MEDICAID, SELFPAY ==
[2023-05-11] VITALS (10 sets, daily range): BP systolic 123–176; BP diastolic 64–87; PULSE 52–61; RESP 20; TEMP 36.1–37; O2SAT 93–97; BMI 26.3
[2023-05-11 08:10] LABS: MANUAL DIFF FLAG NO
[2023-05-11 08:17] LABS: Basophils Percent Auto 0.8 % (0-2); Eosinophils Absolute Auto 0.4 X10*3/uL (0.0-0.4); Eosinophils Percent Auto 6.8 % (0-4); Hematocrit 39.2 % (37.0-47.0); Hemoglobin 12.3 g/dl (12.0-16.0); Imm Gran Abs Auto 0.01 X10*3/uL (0.00-0.03); Imm Gran Pct Auto 0.2 % (0.0-0.4); Lymphocytes Absolute Auto 1.1 X10*3/uL (1.2-4.9); Lymphocytes Percent Auto 21.9 % (20-40); Mean Corpuscular HGB Conc 31.4 g/dl (31.0-35.0); Mean Corpuscular Hemoglobin 27.3 pg (27.0-33.0); Mean Corpuscular Volume 86.9 fL (80.0-98.0); Monocytes Absolute Auto 0.5 X10*3/uL (0.1-1.2); Monocytes Percent Auto 10.5 % (2-11); Neutrophils Absolute Auto 3.1 x10*3/uL (2.0-8.3); Neutrophils Percent Auto 59.8 % (45-73); Platelet Count 208 X10*3/uL (160-400); Red Blood Count 4.51 X10*6/uL (4.20-5.50); Red Cell Distribution Width 14.1 % (11.0-16.0); White Blood Count 5.2 X10*3/uL (4.8-10.8)
[2023-05-11 08:26] LABS: Blood Urea Nitrogen 21 mg/dL (9-16); Creatinine Clr Calc Pharmacy 48.9; Estimated Glomerular Filt Rate 56
[2023-05-11 09:18] LABS: Glucose, Whole Blood 88 mg/dL (60-115)
--- NOTE | 2023-05-11 11:02 | P.OP_ITS ---
Operative Note Operative Note Date of Service: 05/11/23 Narrative: Angiogram report from [facility] Preoperative diagnosis: Atherosclerosis of Left lower extremity with activity limiting claudication Postoperative diagnosis: Same Procedure: 1. Ultrasound-guided right common femoral access 2. Aortogram with left lower extremity runoff Surgeon:Aamir Roper M.D., FACS, RPVI School Office Assistant:None Anesthesia: Local with moderate conscious sedation. Total intraservice moderate sedation time was 28 minutes. I monitored the patient's level of consciousness and physiologic status continuously throughout the procedure. Specimens:none Drains:none Estimated blood loss: Less than 10 ml Implant: none Indications: very pleasant 78-year-old female presents for evaluation regarding left lower extremity discomfort. Upon workup in noninvasive testing there was concern of SFA disease. She now presents for endovascular intervention. The patient has signed the informed consent after reviewing risks, complications, benefits, and alternatives previously discussed with the patient. The patient was given the opportunity to ask any additional questions or voice any concerns. All questions were answered to the patient's satisfaction. Procedure in detail: Patient was brought to the angiography suite prior to which a time-out was called for patient identification and site verification. Bilateral groins were prepped and draped in the standard surgical fashion. Under ultrasound guidance Right common femoral was punctured with micro puncture needle and wire. Subsequently a precision 4 Icelandic sheath was then placed. Bentson wire was advanced to the level of the aorta. 4 Icelandic Flush catheter was brought up and parked at the level of the renal arteries. Aortogram was then undertaken. Catheter was brought down to the level of the iliac bifurcation. Iliacs were subsequently imaged. Catheter was then brought in up and over to the left side SFA. Runoff study was then undertaken. multiple orthogonal views were undertaken at the SFA region. No flow-limiting stenosis was noted. Completion runoff was also performed. It was then discovered no intervention was indicated. Catheter wire sheath was removed. Direct pressure was held for 10 minutes. Patient tolerated the procedure well returned to recovery with stable vitals. Interpretation of films: 1. Ultrasound demonstrates appropriate femoral puncture. Image of which was saved. 2. Aortogram demonstrates appropriate caliber aorta. Minimal disease. Appropriate take-off of the renals. 3. Iliac images demonstrate No significant disease moderate tortuosity 4. left Leg Common femoral artery: no significant disease Profundus Femoris: No significant disease Superficial femoral artery: mild calcifications at [place] Popliteal artery (p1,p2,p3): no significant disease Anterior tibial artery: patent Peroneal artery: patent but diminutive Posterior tibial artery: patent and dominant runoff Dorsalis pedis/plantar arch: incomplete Conclusion: 1. successful diagnostic angiogram no intervention indicated, significant scoliosis of the back noted. Suspect may be back related. 2. Anticoagulation status: no change This note is constructed using voice recognition software. While every effort has been made to ensure accuracy, flatwork feeder errors may have been included. Thank you for allowing me to participate in the care of your patient. Yours sincerely, Aamir Roper MD, FACS, R.P.V.I.
[2023-05-11] MEDS: oxyCODONE HCl Immed Release 5 MG TABLET PO (12:43)
== END 2023-05-11 15:45 | disposition home or self-care (01) ==
PROVIDERS: PCP Internal Medicine; Visit Provider Surgery Vascular Surgery
DX: I70.212 Atherosclerosis of native arteries of extremities with intermittent claudication, left leg (principal); E11.40 Type 2 diabetes mellitus with diabetic neuropathy, unspecified; M79.662 Pain in left lower leg; M41.9 Scoliosis, unspecified; E78.2 Mixed hyperlipidemia; I48.0 Paroxysmal atrial fibrillation; I25.10 Atherosclerotic heart disease of native coronary artery without angina pectoris; Z79.82 Long term (current) use of aspirin; Z79.899 Other long term (current) drug therapy; Z95.5 Presence of coronary angioplasty implant and graft; Z88.1 Allergy status to other antibiotic agents; Z88.8 Allergy status to other drugs, medicaments and biological substances
CPT/HCPCS: 36247; 36415; 75630; 76937; 82565; 82947; 84520; 85025; C1769; C1887; J1643; J2250; J3010; Q9967

== ENCOUNTER → 2023-05-11 07:35 | Outpatient (BNV) | payer MEDICARE, MEDICAID, SELFPAY | PROVIDERS: PCP Internal Medicine; Visit Provider Surgery Vascular Surgery | DX: I70.212 Atherosclerosis of native arteries of extremities with intermittent claudication, left leg (principal) | CPT/HCPCS: 36247; 75625; 75710; 76937; 99152 ==

== ENCOUNTER 2023-06-02 13:52 | Outpatient (AMB) | payer MEDICARE, MEDICAID, SELFPAY ==
--- NOTE | 2023-06-02 13:55 | A.OFFVIS_ITS ---
Intake Intake Visit Reasons: follow up left leg angiogram Intake Note: Patient is here for a 2 week follow up after left leg angiogram. patient c/o leg pain Allergies acetaminophen [From TYLENOL] Adverse Reaction (Intermediate, Verified 06/02/23 13:56) DIZZINESS, VOMITING levofloxacin [From LEVAQUIN] Adverse Reaction (Intermediate, Verified 06/02/23 13:56) NAUSEA & VOMITING HPI follow up left leg angiogram HPI Details Very pleasant 78-year-old female presents for follow-up evaluation status post angiogram. She had originally complaint of some lower extremity pain and claudication type symptoms. She had undergone diagnostic angiogram which demonstrated no significant flow-limiting stenosis. Upon further discussion with her she notes that she has significant pain in the calf it almost feels that she has a knife coming in to her leg. Upon further discussion she had prior pain management evaluation many years ago. She had even undergone physical therapy and back injections. Id provided minimal relief. She now presents for routine follow-up. Of note she has lost nearly 25 lb of intended weight loss through diet and exercise. [facility] Medical History CAD (coronary artery disease) COVID-19 vaccine series completed Diabetic neuropathy Hyperlipidemia Mixed hyperlipidemia Neuropathy Paroxysmal atrial fibrillation Post-menopausal Presence of Watchman left atrial appendage closure device Retention of urine Screening for diabetes mellitus Surgical History History of bladder surgery History of cataract surgery History of cholecystectomy History of colonoscopy History of hysterectomy History of rotator cuff surgery Stented coronary artery Family History Father Cancer Mother Heart disease Pancreatic cancer Sister Heart disease Social History Housing: House Alcohol intake: never Patient Tobacco Use Status: Never used Tobacco e-Cigarette/Vaping Use: Never Used Second Hand Smoke Exposure: No service: No Current occupational status: retired Cognitive needs: No Hearing needs: Yes Vision needs: Yes Review of Systems Const All systems reviewed & are unremarkable except as noted in HPI and below Reports no additional complaints ENT Reports Normal hearing present Card Denies chest pain, Denies chest pain at rest, Denies chest pain with activity and Denies pedal edema Resp Denies cough GI Denies abdominal pain Musc Denies abnormal gait, Denies muscle cramps and Denies radiating pain into limb Skin/Breast Denies skin ulcer and Denies wounds Neuro Reports Normal hearing present and Denies abnormal gait Psych Reports no additional complaints Physical Exam Const General: cooperative, healthy appearing and comfortable Orientation/consciousness: oriented to person, oriented to place and oriented to time HEENT Head: Yes normal to inspection Neck Neck: Yes normal visual inspection Carotids: no bruits Chest Chest palpation & inspection: normal inspection of the chest Resp Effort & Inspection: normal respiratory effort and able to speak in complete sentences Auscultation: clear to auscultation bilaterally, no crackles, no rales, no rhonchi and no wheezes Cardio Other: Bilateral DP signals Rate: regular rate Rhythm: regular rhythm Heart sounds: S1 normal heart sound present and S2 normal heart sound present Bruits: no carotid bruits Peripheral pulses: Peripheral pulses 2+ throughout GI Inspection: Yes normal to inspection Skin Wounds: no wounds Hair: normal Neuro General: oriented to person, oriented to place and oriented to time Cranial nerves: Yes CN's II-XII intact bilaterally and Yes Normal hearing present Cognition (Neuro): normal cognition Motor exam (neuro): 5/5 motor strength present throughout Extrem Other: venous exam: No significant superficial varicosities or spider telan giectasias, minimal edema General: No clubbing, No cyanosis and No edema Psych Appearance: grossly normal Mental Status: mental status grossly normal Speech and movement: Normal speech and movement present Results Reviewed Results Reviewed: Angiogram from 05/11/2023 was reviewed with images. No significant stenosis noted. 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 I did review the pathophysiology of peripheral vascular disease with the patient. In addition we did discuss routine conservative measures including a healthy diet and the importance of exercise and ambulation. We did discuss risk factor modification. The patient will continue to to follow-up with surveillance follow-up in approximately 1 year. Thank you for allowing us to participate in this patient's care. If there are any questions or concerns please do not hesitate to contact us. (2) Lower extremity pain: Code(s): M79.606 - Pain in leg, unspecified Plan: Unclear etiology of lower extremity pain it does not appear to be vascular is angiogram was within normal limits. I do believe this is more back and spine related. I have taken the liberty ordering a pain management referral. It has been several years since she has seen a pain management doctor. Also of note she did have a neurology evaluation on 06/01/2022 which is indicative of neuropathy as well. Once again I do not believe that this is vascular in nature but we will continue to have a surveillance follow-up with her. Thank you for allowing us to assist in her care. If there are any questions or concerns please do not hesitate to contact us Orders: Orders US arterial duplex LE BI 364 Days I73.9 - Peripheral vascular disease, unspecified Referrals Pain Management Referral G57.92 - Unspecified mononeuropathy of left lower limb, M54.9 - Dorsalgia, unspecified Coding Level of Care Code Est Pt Level 4 (67521) Diagnoses PAD (peripheral artery disease) I73.9 Lower extremity pain M79.606
== END 2023-06-02 14:11 | disposition home or self-care (01) ==
PROVIDERS: PCP Internal Medicine; Visit Provider Surgery Vascular Surgery
DX: I73.9 Peripheral vascular disease, unspecified (principal); M79.604 Pain in right leg; M79.605 Pain in left leg
CPT/HCPCS: 99214

== ENCOUNTER → 2023-06-02 13:52 | Outpatient (BNVA) | payer MEDICARE, MEDICAID, SELFPAY | PROVIDERS: PCP Internal Medicine; Visit Provider Surgery Vascular Surgery | DX: I73.9 Peripheral vascular disease, unspecified (principal); M79.606 Pain in leg, unspecified | CPT/HCPCS: 99212 ==

== ENCOUNTER 2023-06-22 13:50 | Outpatient (AMB) | payer MEDICARE, MEDICAID, SELFPAY ==
--- NOTE | 2023-06-22 13:55 | A.OFFVIS_ITS ---
Intake Vital Signs 06/22/23 13:56 Height 5 ft 5 in Weight 162 lb BMI 27.0 BP 142/92 H Blood Pressure Location Lt brachial Position Sitting Respiration 16 Pulse 86 Pulse Source Pulse Oximeter Pulse Oximetry (%) 98 Oxygen Delivery Method Room Air Intake Visit Reasons: Neuropathy of Left Lower Extremity/Back Pain Allergies acetaminophen [From TYLENOL] Adverse Reaction (Intermediate, Verified 06/22/23 13:54) DIZZINESS, VOMITING levofloxacin [From LEVAQUIN] Adverse Reaction (Intermediate, Verified 06/22/23 13:54) NAUSEA & VOMITING HPI HPI Comments History of Present Illness Details Edie is a very pleasant 78 year old female who presents to the office today for evaluation and management of her painful peripheral neuropathy. She reports suffering with this burning pain to both feet for the last 1.5 years. She has tried amitriptyline, gabapentin and lyrica without relief. She has tried home exercises and found only minimal relief with ice. She has been evaluated by neurology, had EMG and most recently was referred here for evaluation by vascular as they are concerned it is related to her back. Patient denies pain in back, buttocks, thighs or upper legs. She endorses intermittent cramping of her calves but denies burning, shocking pain of the lower legs. Patient reports she has had multiple evaluations over the last year with imaging and testing but still has no answers. She is not diabetic nor does she drink alcohol. Last ETOH use was 8 years ago. She endorses family history of peripheral neuropathy. Pain today is reported as 6/10, burning and tingling. Pain is worse during the night and often keeps her from sleeping. In terms of muscle damage condition is described as aching, hot, burning, tiring, exhausting, numb, throbbing, shocking, tingling, pins and needles. Pain is negatively impacting patient's mood, normal work, relationships with people, sleeping and walking. [facility] Medical History CAD (coronary artery disease) COVID-19 vaccine series completed Diabetic neuropathy Hyperlipidemia Mixed hyperlipidemia Neuropathy Paroxysmal atrial fibrillation Post-menopausal Presence of Watchman left atrial appendage closure device Retention of urine Screening for diabetes mellitus Surgical History History of bladder surgery History of cataract surgery History of cholecystectomy History of colonoscopy History of hysterectomy History of rotator cuff surgery Stented coronary artery Family History Father Cancer Mother Heart disease Pancreatic cancer Sister Heart disease Social History Housing: House Alcohol intake: never Patient Tobacco Use Status: Never used Tobacco e-Cigarette/Vaping Use: Never Used Second Hand Smoke Exposure: No service: No Current occupational status: retired Cognitive needs: No Hearing needs: Yes Vision needs: Yes Review of Systems Const All systems reviewed & are unremarkable except as noted in HPI and below Physical Exam Vital Signs: Last Vital Signs Pulse 86 06/22/23 13:56 Resp 16 06/22/23 13:56 BP 142/92 H 06/22/23 13:56 Pulse Ox 98 06/22/23 13:56 Oxygen Delivery Method Room Air 06/22/23 13:56 BMI result Body Mass Index 27.0 General: awake, alert, oriented. Answers questions appropriately. Fully engaged in examination. Skin: warm, dry. small abrasion noted to left medial midfoot without drainage, erythema or lymphadenopathy HEENT: Normocephalic. Hearing intact. Cardiac: External chest normal in appearance. Respiratory: No cough, audible wheezing or stridor. Abdomen: without gross distension. MS: No obvious swelling or deformities. Able to transition from sit to stand unassisted. Ambulates with bilaterally normal heel strike and toe off Neurological: Oriented to person, place, time and situation. Thought process intact. Psychiatric: Appropriate mood and affect. Good judgment and insight. Results Reviewed Results Reviewed: EMG results from progress note dated 03/02/2022 [facility]: Assessment & Plan Assessment & Plan (1) Peripheral neuropathy: Code(s): G62.9 - Polyneuropathy, unspecified Plan Edie is a very pleasant 78 year old female who presents to the office today for evaluation and management of her chronic bilateral peripheral edema. Patient has been suffering with this pain for greater than one year, failure of conservative treatment including multiple medications and home exercises. Discussed options for treatment including Qutenza and SCS. Patient advised that SCS would require psych eval prior to moving forward with trial. 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 Order has sent for insurance approval. If patient does not receive adequate pain relief with Qutenza will plan for SCS. Patient to follow up here for Qutenza application, she will be expecting a call to schedule once insurance has approved. She may follow up sooner if needed. Coding Level of Care Code New Pt Level 4 (43358) Diagnoses Peripheral neuropathy G62.9
[2023-06-22 13:56] VITALS: BP 142/92; PULSE 86; RESP 16; O2SAT 98; BMI 27.0
== END 2023-06-22 14:50 | disposition home or self-care (01) ==
PROVIDERS: PCP Internal Medicine; Visit Provider Registered Nurse Emergency
DX: G62.9 Polyneuropathy, unspecified (principal)
CPT/HCPCS: 99204

== ENCOUNTER → 2023-06-22 13:50 | Outpatient (BNVA) | payer MEDICARE, MEDICAID, SELFPAY | PROVIDERS: PCP Internal Medicine; Visit Provider Registered Nurse Emergency ==

== ENCOUNTER → 2023-07-14 10:20 | Outpatient (BNVA) | payer MEDICARE, MEDICAID, SELFPAY | PROVIDERS: PCP Internal Medicine; Visit Provider Internal Medicine Cardiovascular Disease ==

== ENCOUNTER 2023-07-19 19:10 | Inpatient (IN) | payer MEDICARE, MEDICAID, SELFPAY ==
--- NOTE | ~2023-07-19 | XR_ITS ---
EXAMINATION: XR CHEST CLINICAL INFORMATION: TIA COMPARISON: 10/27/2017 TECHNIQUE: Frontal view of the chest was obtained. FINDINGS: Heart size normal. No evidence of CHF. Bibasilar atelectasis is seen. No lung masses, consolidations or effusions. Degenerative changes in the spine with scoliosis. Again seen is right paratracheal opacity similar to prior consistent with tortuous vasculature. XR/XR chest 1V IMPRESSION: No acute intrathoracic disease. Bibasilar atelectasis.
--- NOTE | ~2023-07-19 | MR_ITS ---
MRI OF THE BRAIN WITHOUT IV CONTRAST INDICATION: TIA. COMPARISON: Head CT and CTA head and neck 07/29/2023. TECHNIQUE: Multiplanar multisequence MR imaging of the brain was obtained without IV contrast. FINDINGS: There is no hydrocephalus, extra-axial surface collection, or herniation. There is global cerebral volume loss and there is moderate chronic microangiopathy. The major flow voids at the skull base are preserved. There is no acute infarct on diffusion-weighted imaging. There is no intracranial hemorrhage on the gradient recalled echo acquisition. The midline structures are normal. The cerebellar tonsils are normally positioned. The cerebellum and brainstem are normal. The craniocervical junction is normal. Osseous marrow signal intensity is homogenous. The visualized soft tissues are unremarkable. MR/MR head/brain wo con IMPRESSION: - No acute intracranial findings. No acute infarcts. - There is global cerebral volume loss and there is moderate chronic microangiopathy.
--- NOTE | ~2023-07-19 | CT_ITS ---
EXAMINATION: CT ANGIOGRAM HEAD CT ANGIOGRAM NECK CLINICAL INFORMATION: Reason for Exam Slurred speech COMPARISON: None. TECHNIQUE: Test bolus sequences followed by intravenous administration 70 mL of Omnipaque 350. Helical imaging was performed in the axial plane from the aortic arch to the skull vertex. Delayed postcontrast imaging of the head was also performed. The data was processed at the technologist development's workstation for generation of MIP sequences. Angled MIPs and volume rendered reformatted images were also generated at an offline 3D workstation. Stenoses are assessed in accordance with Mcgee et al. Quantification of Carotid Stenosis on CT Angiography. AJR 2006. 27(1):13-19. [address] CT examination was performed using dose optimization techniques as appropriate, variously including the following: *Automated exposure control *Adjustment of mA and/or kV according to patient size (this includes techniques or standardized protocols for targeted exams where dose is matched to indication/reason for exam; i.e. extremities or head) *Use of iterative reconstruction technique DLP: 1475.89 mGy-cm FINDINGS: CT HEAD: Mild generalized parenchymal volume loss. Presumed mild chronic microangiopathy. Age indeterminate possibly chronic foci of ischemia within the bilateral basal ganglia/internal capsules. Postcontrast technique limits assessment for intracranial hemorrhage however none is suspected. No extra-axial fluid collection. No significant mass effect or herniation. No pathologic intracranial enhancement or regional oligemia within the limitations of CT. Lens extractions. Trace scattered paranasal sinus mucosal disease with sclerotic wall thickening of the left greater than right maxillary sinus [place] compatible with chronic sinusitis. Trace left mastoid effusion. Osseous structures are intact. CTA HEAD: Motion artifact and venous contamination significantly limits assessment of the distal vasculature, which is largely nondiagnostic. Apparent relatively abrupt tapering of an right M2 inferior division branch (image 129, series 8) is presumably artifactual however high-grade stenosis in this location is not excluded. However calcific plaque along the bilateral carotid siphons and intradural vertebral arteries without associated luminal narrowing. No aneurysms and no high flow vascular malformations. Timing of the contrast bolus allows assessment of the major dural venous sinuses, which all opacify normally CTA NECK: Suboptimal timing of contrast bolus. Two vessel branching pattern of the arch with left common carotid artery arising from the brachiocephalic trunk. Moderate calcific atherosclerosis of the aortic arch and great vessel origins contributes to approximately 60% stenosis of the left subclavian artery origin.The common carotid arteries are widely patent. Calcific plaque at the bilateral carotid bifurcations/carotid bulbs contributes to approximately 50% stenosis of the left ICA origin and mild (less than 50%) stenosis of the right proximal ICA. The remainder of the cervical segments opacify normally with short segment retropharyngeal course of the mid portions. The left vertebral artery is dominant. The vertebral artery ostia are widely patent. Both vertebral arteries are widely patent throughout their extracranial cervical course. CT NECK: Heterogeneous multinodular left thyroid gland with coarse calcification and dominant thyroid nodule measuring 9 mm below size criteria for imaging follow-up. Enlarged left level IIa lymph node without otherwise morphologically suspicious features, possibly reactive. Extensive emphysematous changes in the lungs. Advanced cervical spondylosis, notably contributing to apparent severe C4-C5 and C5-C6 greater than C3-C4 spinal canal stenosis with mass effect along the cord and multilevel high-grade neural foraminal stenosis. CT/CT angio head neck stroke IMPRESSION: 1. Age indeterminate possibly chronic foci of ischemia within the bilateral basal ganglia/internal capsules without acute intracranial hemorrhage. 2. Motion artifact and venous contamination significantly limits assessment of the distal vasculature, which is largely nondiagnostic. Apparent relatively abrupt tapering of a right M2 inferior division branch is presumably artifactual however high-grade stenosis in this location is not excluded. 3. Calcific atherosclerosis contributes to approximately 50% stenosis of the left ICA origin and mild stenosis of the right ICA origin, and approximately 60% stenosis of the left subclavian artery origin. 4. Advanced cervical spondylosis, notably contributing to apparent severe C4-C5 and C5-C6 greater than C3-C4 spinal canal stenosis with mass effect along the cord and multilevel high-grade neural foraminal stenosis. If there is referrable myelopathy/radiculopathy, further evaluation of these findings with dedicated cervical spine MRI may be performed as clinically warranted. Findings were communicated to Dr Araujo on 07/19/2023 at 9:14 PM and it was ascertained that the content and urgency of the report was understood at the time of direct communication.
--- NOTE | ~2023-07-19 | CT_ITS ---
EXAMINATION: CT head for stroke CLINICAL INFORMATION: Reason for Exam Stroke COMPARISON: None. TECHNIQUE: Contiguous axial imaging was performed from the skull base to vertex without intravenous contrast. Sagittal and coronal reformatted images were obtained. This CT examination was performed using dose optimization techniques as appropriate, variously including the following: * Automated exposure control * Adjustment of mA and/or kV according to patient size (this includes techniques or standardized protocols for targeted exams where dose is matched to indication/reason for exam; i.e. extremities or head) Use of iterative reconstruction technique DLP: 695.92 mGy-cm FINDINGS: Mild global cerebral volume loss. Asymmetry of the lateral ventricles with the left larger than the right. Patchy periventricular and deep white matter hypoattenuation is nonspecific but likely reflects sequelae of mild chronic microangiopathy. Age indeterminate hypodensities within the bilateral basal ganglia/anterior limbs of the internal capsules could be more definitively imaged on MRI. Otherwise no large territorial acute edematous infarction. No acute intracranial hemorrhage or extra-axial fluid collection. No mass lesion, significant mass effect, or herniation pattern. Intracranial calcific atherosclerosis. The orbits are grossly normal. Chronic mucoperiosteal thickening of the left maxillary sinus [place]. A couple of opacified left mastoid air cells. Osseous structures are intact. CT/CT head for stroke IMPRESSION: Age indeterminate hypodensities within the bilateral basal ganglia/anterior limbs of the internal capsules could be more definitively imaged on MRI. Otherwise no large territorial acute edematous infarction. No acute intracranial hemorrhage. Mild global cerebral volume loss and presumably chronic microangiopathic changes. Findings were communicated to Dr. Araujo on 07/19/2023 at 7:33 PM.
[2023-07-19 19:16] VITALS: BP 203/99; PULSE 64; O2SAT 100
--- NOTE | 2023-07-19 19:17 | ECG_ITS ---
Test Reason : stroke Blood Pressure : / mmHG Vent. Rate : 061 BPM Atrial Rate : 061 BPM P-R Int : 174 ms QRS Dur : 088 ms QT Int : 444 ms P-R-T Axes : 041 019 027 degrees QTc Int : 446 ms Normal sinus rhythm Normal ECG When compared with ECG of 27-OCT-2017 02:46, No significant change was found Referred By: Dania Araujo Electronically Signed By:MARY LINDSEY
[2023-07-19 19:18] VITALS: BP 191/83; PULSE 76; RESP 16; TEMP 36.7; O2SAT 96; BMI 27.5
--- NOTE | 2023-07-19 19:19 | ED.NEUROSD ---
HPI - Neuro Symptoms/Deficit General Chief Complaint: Stroke Stated Complaint: Stroke symptoms Time Seen by Provider: 07/19/23 19:15 Source: patient Mode of arrival: ambulatory Limitations: no limitations History of Present Illness HPI Narrative: 78-year-old female came in by ambulance for evaluation of stroke. Patient was speaking with her son over the phone about an hour ago (18:30) when she felt it was difficult to express herself and find the words, patient at the same time felt generalized weakness and mid chest pain, patient do not recall having a focal weakness or deficit. On arrival to the ED patient has no focal neurological deficit however however patient still thinks that she is speaking funny no aphasia is appreciated in the ED. Related Data Home Medications Medication Instructions Recorded Confirmed alendronate 70 mg tablet 70 mg PO QWEEK 12/30/20 03/08/23 budesonide-formoterol HFA 160 2 puff inhalation BID 12/30/20 03/08/23 mcg-4.5 mcg/actuation aerosol inhaler calcium carbonate 600 mg-vitamin 1 tab PO DAILY 12/30/20 03/08/23 D3 10 mcg (400 unit) tablet aspirin 81 mg tablet,delayed 81 mg PO DAILY 02/18/21 03/08/23 release vitamin B complex (B 1 tab PO DAILY 06/30/21 03/08/23 Complex-Vitamin B12 tablet) vitamin E 200 unit capsule 200 unit PO DAILY 06/30/21 03/08/23 buspirone 5 mg tablet 5 mg PO BID 07/22/22 03/08/23 pregabalin 75 mg capsule 75 mg PO BID 07/22/22 03/08/23 amitriptyline 10 mg tablet 10 mg PO DAILY 01/11/23 03/08/23 venlafaxine 150 mg 150 mg PO QAM 01/11/23 03/08/23 capsule,extended release 24 hr Previous Rx's Medication Instructions Recorded nitroglycerin 0.4 mg sublingual 0.4 mg sublingual Q5M PRN chest 04/21/21 tablet pain #90 tabs mirabegron 50 mg tablet,extended 50 mg PO .every other day 90 days 07/22/22 release 24 hr (Myrbetriq) #45 tabs sennosides 8.6 mg tablet (Senna 17.2 mg (2 x 8.6 mg) PO BEDTIME 08/26/22 Laxative) #180 tabs omeprazole 20 mg capsule,delayed 20 mg PO DAILY #90 caps 11/07/22 release fenofibrate nanocrystallized 145 145 mg PO DAILY #90 tabs 11/08/22 mg tablet rosuvastatin 40 mg tablet 40 mg PO DAILY #90 tabs 03/07/23 oxycodone-acetaminophen 5 mg-325 1 tab PO Q6H PRN pain #120 tabs 04/22/23 mg tablet (Percocet) dronedarone 400 mg tablet (Multaq) 400 mg PO BID #180 tabs 06/06/23 docusate sodium 100 mg capsule 100 mg PO BID PRN for constipation 07/19/23 #180 caps Allergies Allergy/AdvReac Type Severity Reaction Status Date / Time acetaminophen [From TYLENOL] AdvReac Intermediate DIZZINESS, Verified 07/19/23 19:37 VOMITING levofloxacin [From LEVAQUIN] AdvReac Intermediate NAUSEA & Verified 07/19/23 19:37 VOMITING Review of Systems Review of Systems: All other systems are reviewed and are negative Constitutional: Reports as per HPI and Reports no additional constitutional complaints Eyes: Reports as per HPI and Reports no additional eye complaints Reports system reviewed and no additional complaints, except as documented Cardiovascular: Reports as per HPI and Reports no additional cardiovascular complaints Respiratory: Reports as per HPI and Reports no additional respiratory complaints Gastrointestinal: Reports as per HPI and Reports no additional gastrointestinal complaints Genitourinary: Reports no additional female genitourinary complaints Musculoskeletal: Reports no additional musculoskeletal complaints Skin/Breast: Reports system reviewed and no additional complaints, except as docu Psychiatric: Reports no additional psychiatric complaints Endocrine: Reports no additional endocrine complaints Hematologic/Lymphatic: Reports no additional hematologic/lymphatic complaints Allergic/Immunologic: Reports no additional allergic/immunologic complaints Reports system reviewed and no additional complaints, except as documented and Reports Abnormal speech present [facility] Past Medical History Medical History Retention of urine Hyperlipidemia Neuropathy Diabetic neuropathy Post-menopausal Screening for diabetes mellitus COVID-19 vaccine series completed Presence of Watchman left atrial appendage closure device Mixed hyperlipidemia Paroxysmal atrial fibrillation CAD (coronary artery disease) Surgical History History of colonoscopy History of rotator cuff surgery Stented coronary artery History of cataract surgery History of bladder surgery History of hysterectomy History of cholecystectomy Family History Family History Father Cancer Mother Heart disease Pancreatic cancer Sister Heart disease Social History Social History Housing: House Alcohol intake: never Patient Tobacco Use Status: Never used Tobacco Smoked in Last 30 Days: No e-Cigarette/Vaping Use: Never Used Second Hand Smoke Exposure: No Use of substances other than those prescribed or required for medical reasons: No Advance Directives: Yes Advance Directives Information Provided: No Advance Directives on File: No service: No Current occupational status: retired Cognitive needs: No Hearing needs: Yes Vision needs: Yes Physical Exam Vital Signs: Vital Signs: Last Vital Signs Temp 98.2 F 07/19/23 19:44 Pulse 59 07/19/23 19:44 Resp 15 07/19/23 19:44 BP 200/88 H 07/19/23 19:44 Pulse Ox 96 07/19/23 19:44 O2 Del Method Room Air 07/19/23 19:44 BMI result Body Mass Index 27.5 Vital signs have been reviewed and appear to be correct. Blood pressure elevated. Heart rate normal. Respiratory rate normal. Temperature normal. Oxygen saturation normal. Appearance: Alert. Oriented X3. No acute distress. Head: Normal external exam. Normocephalic. Atraumatic. No Barriga signs noted. No raccoon eyes noted Eyes: PERRLA. EOMI. Conjunctiva and sclera normal. Eyelids normal. ENT: TM's Normal. Pharynx normal. Uvula midline. Moist mucous membranes. No trismus noted. No drooling noted. No muffled voice noted. Neck: Normal inspection. Neck supple. FROM. No adenopathy. Thyroid Normal. No meningeal signs. No neck mass noted. CVS: Normal heart rate and rhythm. Heart sound normal. No murmurs noted. Pulses normal throughout. Respiratory: No respiratory distress. Painless inspiration. Breath sounds normal. No wheezes/rales/rhonchi noted. Chest nontender. No accessory muscle usage noted or decreased air movement noted. Abdomen: Soft and nontender. Bowel sounds normal in all 4 quadrants. No distention noted. No organomegaly noted. No visible injury noted. Back: No CVA tenderness. Full range of motion noted. Skin: Skin warm and dry. Normal skin color. Normal skin turgor. No rashes/lesions/lacerations noted. Extremities: No lower extremity edema. Extremities exhibit normal range of motion. Extremities nontender. Neuro: Oriented X 3. Cranial nerve exam: II-XII are grossly intact No motor deficit. No sensory deficit. Reflexes normal. Course Reevaluation(s) Reevaluation #1: 78-year-old female history of hypertension presented with symptoms of TIA, patient's symptoms all resolved while she is in the emergency department, CT head showing no acute stroke, patient is not a candidate for anti thrombosis for improvement of the symptoms, CT angio unfortunately is sub optimal and not diagnostic. Will administer aspirin, 5 mg of amlodipine for blood pressure control. Time: 21:14 Medications Administered Discontinued Medications Generic Name Dose Route Start Last Admin Trade Name Freq PRN Reason Stop Dose Admin Iohexol 100 ml 07/19/23 20:33 07/19/23 20:33 Iohexol 350 Mg/Ml 100 Ml Infus..Btl IV 07/19/23 20:34 70 ml ONCE ONE Administration Medical Decision Making Differential Diagnosis Differential Diagnoses: The differential diagnosis associated with the presentation includes (CVA, TIA, hypertensive urgency, intracranial bleed, electrolyte abnormality, severe anemia, ACS.) Admission/Observation Consideration of admission/observation: Escalation of care including admission/observation considered Consult Healthcare Provider Management of the patient was discussed with: Hospitalist (Dr. Huffman) Lab Data MDM Lab Attestation statement: I reviewed the patient's lab results. 07/19/23 19:40 07/19/23 19:40 Labs: Lab Results 07/19/23 07/19/23 07/19/23 Range/Units 19:18 19:19 19:40 WBC 4.7 L (4.8-10.8) X10*3/uL RBC 4.38 (4.20-5.50) X10*6/uL Hgb 12.0 (12.0-16.0) g/dl Hct 37.8 (37.0-47.0) % MCV 86.3 (80.0-98.0) fL MCH 27.4 (27.0-33.0) pg MCHC 31.7 (31.0-35.0) g/dl RDW 14.4 (11.0-16.0) % Plt Count 212 (160-400) X10*3/uL MPV 10.6 (9.4-12.3) fL Immature Gran % (Auto) 0.4 (0.0-0.4) % Neut % (Auto) 61.2 (45-73) % Lymph % (Auto) 23.5 (20-40) % Davidson % (Auto) 8.5 (2-11) % Eos % (Auto) 5.8 H (0-4) % Baso % (Auto) 0.6 (0-2) % Lymph # (Auto) 1.1 L (1.2-4.9) X10*3/uL Davidson # (Auto) 0.4 (0.1-1.2) X10*3/uL Eos # (Auto) 0.3 (0.0-0.4) X10*3/uL Baso # (Auto) 0.0 (0.0-0.2) X10*3/uL Abs Immat Gran (auto) 0.02 (0.00-0.03) X10*3/uL Absolute Neuts (auto) 2.9 (2.0-8.3) x10*3/uL Absolute Nucleated RBC 0.000 (0.0-0.012) X10*3/uL Nucleated RBC % (auto) 0.0 (0.0-0.2) /100WBC PT 11.6 (11.1-13.3) SEC Whole Blood PT 12.5 (11.1-13.5) sec INR 1.0 (0.9-1.1) Whole Blood INR 1.0 (0.9-1.1) APTT 26.5 (26.0-36.4) SEC Sodium 140 (135-145) mmol/L Potassium 3.8 (3.3-5.1) mmol/L Chloride 107 (96-108) mmol/L Carbon Dioxide 25 (22-29) mmol/L Anion Gap 12 (12-20) BUN 21 H (9-16) mg/dL Creatinine 0.87 (0.5-1.4) mg/dL Estim Creat Clear Calc 55.0 Estimated GFR > 60 POC Glucose 91 (60-115) mg/dL Random Glucose 77 (60-115) mg/dL Calcium 9.5 (8.4-10.2) mg/dL Total Creatine Kinase 86 (26-140) U/L Troponin I High Sens 6.5 (<3.5-17.0) ng/L Independent Interpretation I performed an independent interpretation of an: EKG (Normal sinus rhythm at 61 beats per minute, normal intervals, no ST-T changes, no change from previous EKG.), Plain X-Ray (No acute pathology.) and CT Scan (Head: No acute intracranial pathology.) Radiology Impression Discussion of test interpretation with radiology: I have reviewed the radiologist's reading. NIH Stroke Scale Internal: Initial- Upon Arrival Level of Consciousness: Alert Level of Consciousness Questions: Answers both questions correctly Level of Consciousness Commands: Performs both tasks correctly Best Gaze: Normal Visual: No visual loss Facial Palsy: Normal Motor Arm (Right): No drift Motor Arm (Left): No drift Motor Leg (Right): No drift Motor Leg (Left): No drift Limb Ataxia: Absent Sensory: Normal Best Language: No aphasia Dysarthia: Normal Extinction and Inattention: No abnormality Score: 0 Discharge Plan Discharge Clinical Impression: Brain TIA, Hypertensive urgency Patient Disposition: Admitted As Inpatient Prescriptions: No Action nitroglycerin 0.4 mg tablet, sublingual 0.4 mg sublingual Q5M PRN (Reason: chest pain) Qty: 90 8RF Rx Instructions: do not exceed 3 doses per episode sennosides [Senna Laxative] 8.6 mg tablet 17.2 mg PO BEDTIME Qty: 180 4RF omeprazole 20 mg capsule,delayed release(DR/EC) 20 mg PO DAILY Qty: 90 8RF fenofibrate nanocrystallized 145 mg tablet 145 mg PO DAILY Qty: 90 3RF rosuvastatin 40 mg tablet 40 mg PO DAILY Qty: 90 3RF oxycodone-acetaminophen [Percocet] 5-325 mg tablet 1 tab PO Q6H PRN (Reason: pain) Qty: 120 0RF Multaq 400 mg tablet 400 mg PO BID Qty: 180 3RF docusate sodium 100 mg capsule 100 mg PO BID PRN (Reason: for constipation) Qty: 180 3RF aspirin 81 mg Tablet,Delayed Release (Dr/Ec) 81 mg PO DAILY alendronate 70 mg tablet 70 mg PO QWEEK budesonide-formoterol 160-4.5 mcg/actuation HFA aerosol inhaler 2 puff inhalation BID calcium carbonate-vitamin D3 600 mg(1,500mg) -400 unit tablet 1 tab PO DAILY vitamin E 200 unit capsule 200 unit PO DAILY vitamin B complex [B Complex-Vitamin B12] Tablet 1 tab PO DAILY amitriptyline 10 mg tablet 10 mg PO DAILY venlafaxine 150 mg capsule,extended release 24hr 150 mg PO QAM buspirone 5 mg tablet 5 mg PO BID pregabalin 75 mg capsule 75 mg PO BID Myrbetriq 50 mg tablet extended release 24 hr 50 mg PO .every other day 90 Days Qty: 45 3RF
[2023-07-19 19:24] LABS: Prothrombin Time Whole Bld POC 12.5 sec (11.1-13.5)
[2023-07-19 19:25] LABS: Glucose, Whole Blood 91 mg/dL (60-115)
[2023-07-19 19:44] VITALS: BP 200/88; PULSE 59; RESP 15; TEMP 36.8; O2SAT 96
--- NOTE | 2023-07-19 19:45 | MHC.EDTECH ---
THIS PCT JUST ASSUMED CARE OF PATIENT ,EKG TAKEN AND WAS READ BY PROVIDER ,RN RAUL IS AWARE OF PT HIGH BP ,PT WAS CHANGE INTO HOSPITAL ATTIRE ,BLOOD DRAWN AND SENT TO LAB .
[2023-07-19 19:46] LABS: MANUAL DIFF FLAG NO
[2023-07-19 19:52] LABS: Basophils Percent Auto 0.6 % (0-2); Eosinophils Absolute Auto 0.3 X10*3/uL (0.0-0.4); Eosinophils Percent Auto 5.8 % (0-4); Hematocrit 37.8 % (37.0-47.0); Imm Gran Abs Auto 0.02 X10*3/uL (0.00-0.03); Imm Gran Pct Auto 0.4 % (0.0-0.4); Lymphocytes Absolute Auto 1.1 X10*3/uL (1.2-4.9); Lymphocytes Percent Auto 23.5 % (20-40); Mean Corpuscular HGB Conc 31.7 g/dl (31.0-35.0); Mean Corpuscular Hemoglobin 27.4 pg (27.0-33.0); Mean Corpuscular Volume 86.3 fL (80.0-98.0); Mean Platelet Volume 10.6 fL (9.4-12.3); Monocytes Absolute Auto 0.4 X10*3/uL (0.1-1.2); Monocytes Percent Auto 8.5 % (2-11); Neutrophils Absolute Auto 2.9 x10*3/uL (2.0-8.3); Neutrophils Percent Auto 61.2 % (45-73); Platelet Count 212 X10*3/uL (160-400); Red Blood Count 4.38 X10*6/uL (4.20-5.50); Red Cell Distribution Width 14.4 % (11.0-16.0); White Blood Count 4.7 X10*3/uL (4.8-10.8)
[2023-07-19 19:59] LABS: Prothrombin Time 11.6 SEC (11.1-13.3)
--- OUTSIDE RECORDS SUMMARY | 2023-07-19 20:01 | XMS_ITS | Continuity of Care Document ---
Author Name Unknown Organization [facility] ion Address [address] [place] [address]- Care Team Providers Care Mac Developer Name Role Phone Shar Schmid MD Primary Care Physician [place] [facility] [place] - 09/25/[address] [address]- Discharge Disposition: A-D/C Home Attending Physician: Shar Schmid MD Admitting Physician: Shar Schmid MD Referring Physician: Shar Schmid MD Allergies, Adverse Reactions, Alerts Substance Reaction Severity Status Levaquin 1 Active Tylenol Active 1pt reports she got dizzy, and sick to her stomach Medications acetaminophen-oxyCODONE 325 mg-5 mg oral tablet Refills 0, Tot. Refills 0, Maintenance, 03/17/21 11:51:00 EDT, Partial fill upon patient request ifthe prescription is for a schedule II opioid drug. Start Date: 03/17/21 Status: Ordered alendronate 70 mg oral tablet 1 tablet = 70 mg, By Mouth, Every week, # 12 tablet, 0 Refills, Maintenance, 03/12/21 14:35:00 EDT,Tablet, Partial fill upon patient request if the prescription is for a schedule II opioid drug. Start Date: 03/12/21 Status: Ordered ALPRAZolam 0.5 mg oral tablet 0.5 mg, 1, tablet, By Mouth, 2 times a day, Refills 0, Maintenance, 03/12/21 14:37:00 EDT, Partial fill upon patient request if the prescription is for a schedule II opioid drug. Start Date: 03/12/21 Status: Ordered aspirin 81 mg oral delayed release tablet 81 mg, 1, tablet, By Mouth, Daily, # 30 tablet, Refills 0, Maintenance, 03/12/21 14:39:00 EDT, Partial fill upon patient request if the prescription is for a schedule II opioid drug. Start Date: 03/12/21 Status: Ordered calcium /vitamin d 3 calcium /vitamin d 3, By Mouth, Refills 0, Maintenance, 03/12/21 14:36:00 EDT, Supply Start Date: 03/12/21 Status: Ordered Crestor 40 mg oral tablet 1 tablet = 40 mg, By Mouth, Daily, # 30 tablet, 0 Refills, Maintenance, 03/12/21 14:37:00 EDT, Tablet, Partial fill upon patient request if the prescription is for a schedule II opioid drug. Start Date: 03/12/21 Status: Ordered Docusate = 100 mg, By Mouth, 2 times a day, 0 Refills, Maintenance, 03/12/21 14:36:00 EDT, Partial fill uponpatient request if the prescription is for a schedule II opioid drug. Start Date: 03/12/21 Status: Ordered fenofibrate fenofibrate, By Mouth, Refills 0, Maintenance, 03/12/21 14:38:00 EDT, Supply Start Date: 03/12/21 Status: Ordered Multaq = 400 mg, By Mouth, 2 times a day, 0 Refills, Maintenance, 09/30/20 14:29:00 EST, Partial fill uponpatient request if the prescription is for a schedule II opioid drug. Start Date: 09/30/20 Status: Ordered Myrbetriq = 50 mg, By Mouth, Daily, 0 Refills, Maintenance, 03/12/21 14:35:00 EDT, Partial fill upon patient request if the prescription is for a schedule II opioid drug. Start Date: 03/12/21 Status: Ordered pro air pro air, Refills 0, Maintenance, 03/12/21 14:39:00 EDT, Supply Start Date: 03/12/21 Status: Ordered Senna By Mouth, 0 Refills, Maintenance, 03/12/21 14:37:00 EDT, Partial fill upon patient request if the prescription is for a schedule II opioid drug. Start Date: 03/12/21 Status: Ordered Venlafaxine By Mouth, 0 Refills, Maintenance, 09/30/20 14:15:00 EST, Partial fill upon patient request if the prescription is for a schedule II opioid drug. Start Date: 09/30/20 Status: Ordered vitamin B 12 vitamin B 12, By Mouth, Refills 0, Maintenance, 03/12/21 14:37:00 EDT, Supply Start Date: 03/12/21 Status: Ordered vitamin e vitamin e, By Mouth, Refills 0, Maintenance, 03/12/21 14:39:00 EDT, Supply Start Date: 03/12/21 Status: Ordered Xanax 0.5 mg oral tablet 0.5 mg, 1, tablet, By Mouth, 3 times a day, Refills 0, Maintenance, 09/30/20 14:16:00 EST, Partial fill upon patient request if the prescription is for a schedule II opioid drug. Start Date: 09/30/20 Status: Ordered Problem List Condition Effective Dates Status Health Status Inform ant Left rotator cuff tear(Confirmed) Active
--- OUTSIDE RECORDS SUMMARY | 2023-07-19 20:01 | XMS_ITS | Continuity of Care Document ---
Author Name Unknown Organization [facility] Address [address] [place] [id number]- Care Team Providers Care Community Recreation Coordinator Name Role Phone Shar Schmid MD Primary Care Physician [phone] Encounter [facility] [place] Date(s): 12/16/20 - 01/15/[address] [address] Attending Physician: Nallely Parker Admitting Physician: Admtr, Nallely Referring Physician: Admtr, Ar8 Allergies, Adverse Reactions, Alerts Substance Reaction Severity Status Levaquin 1 Active 1pt reports she got dizzy, and sick to her stomach Medications Multaq = 400 mg, By Mouth, 2 times a day, 0 Refills, Maintenance, 09/30/20 14:29:00 EST, Partial fill uponpatient request if the prescription is for a schedule II opioid drug. Start Date: 09/30/20 Status: Ordered Omeprazole By Mouth, Daily, 0 Refills, Maintenance, 09/30/20 14:14:00 EST, Partial fill upon patient request if the prescription is for a schedule II opioid drug. Start Date: 09/30/20 Status: Ordered Venlafaxine By Mouth, 0 Refills, Maintenance, 09/30/20 14:15:00 EST, Partial fill upon patient request if the prescription is for a schedule II opioid drug. Start Date: 09/30/20 Status: Ordered Xanax 0.5 mg oral tablet 0.5 mg, 1, tablet, By Mouth, 3 times a day, Refills 0, Maintenance, 09/30/20 14:16:00 EST, Partial fill upon patient request if the prescription is for a schedule II opioid drug. Start Date: 09/30/20 Status: Ordered
--- OUTSIDE RECORDS SUMMARY | 2023-07-19 20:01 | XMS_ITS | Continuity of Care Document ---
Author Name Unknown Organization [facility] ter Address [address] [place] [address]- Care Team Providers Care Fbi Sharpshooter Name Role Phone Sharmaine GALLARDO, Shar Schulte Primary Care Physician Encounter [facility] Date(s): 09/27/19 - 09/27/[address] [address]- [facility] Attending Physician: Amber GALLARDO, Perfecto Askew
--- OUTSIDE RECORDS SUMMARY | 2023-07-19 20:01 | XMS_ITS | Continuity of Care Document ---
Author Name Unknown Organization [facility] ion Address [address] [place] [address]- Care Team Providers Care Inventory Control Specialist Name Role Phone Sharmaine GALLARDO, Shar Schulte Primary Care Physician [phone] Encounter [facility] [place] Date(s): 06/25/21 - 07/25/[address] [address] Attending Physician: Nallely Parker Admitting Physician: AdmtrNallely Referring Physician: Admtr, Ar8 Allergies, Adverse Reactions, [...]
--- OUTSIDE RECORDS SUMMARY | 2023-07-19 20:01 | XMS_ITS | Continuity of Care Document ---
Author Name Unknown Organization [facility] ion Address [address] [place] [address]- Care Team Providers Care Pilot Steam Yacht Name Role Phone Shar Schmid MD Primary Care Physician [phone] [place] [facility] [place] 03/24/21 - 08/18/[address] [address]- Discharge Disposition: A-D/C Home Attending Physician: Shar Serra MD Admitting Physician: Shar Serra MD Referring Physician: Shar Serra MD Allergies, Adverse Reactions, Alerts Substance Reaction [...]
--- OUTSIDE RECORDS SUMMARY | 2023-07-19 20:01 | XMS_ITS | Continuity of Care Document ---
Author Name Unknown Organization [facility] Address [address] [place] [address]- Care Team Providers Care Twist Tester Name Role Phone Shar Schmid MD Primary Care Physician [place] [facility] [place] - 12/22/[address] [address]- Discharge Disposition: A-D/C Home Attending Physician: Shar [...]
[2023-07-19 20:02] LABS: Partial Thromboplastin Time 26.5 SEC (26.0-36.4)
[2023-07-19 20:05] LABS: Anion Gap 12 (12-20); Blood Urea Nitrogen 21 mg/dL (9-16); Calcium 9.5 mg/dL (8.4-10.2); Carbon Dioxide 25 mmol/L (22-29); Chloride 107 mmol/L (96-108); Estimated Glomerular Filt Rate > 60; Glucose Random 77 mg/dL (60-115); Potassium 3.8 mmol/L (3.3-5.1); Sodium 140 mmol/L (135-145)
[2023-07-19 20:06] LABS: Stroke Lab Use COMPLETE
[2023-07-19 20:12] LABS: Troponin-I High Sensitivity 6.5 ng/L (<3.5-17.0)
[2023-07-19] MEDS: iohexoL 350 MG/ML 100 ML INFUS..BTL IV (20:33)
[2023-07-19] MEDS: amLODIPine Besylate 5 MG TABLET PO (21:37)
[2023-07-19] MEDS: Aspirin 325 MG TABLET PO (21:38)
--- NOTE | 2023-07-19 21:46 | PHA.MEDREC ---
Pharmacy Consult ? Medication Reconciliation Pharmacy has completed the medication reconciliation. Patient was able to confirm medications based on list in EMR/claim. Patient reported buspar is BID instead of TID and mirabegron is now daily instead of every other day. At the end of interview, patient stated she wished her doctor would take her of the blood thinner. I ask what blood thinner she was on because there were none in the list we went through. Patient report Eliquis or whatever the generic is and reported it was prescribed by Dr. Vang. I read through all of Dr. Vang's reports, patient has no history on Eliquis since 2020. Called pharmacy to confirm that it has not been prescribed, [facility] has no records of Eliquis. Joanne Pimentel, PharmD
[2023-07-19 21:57] VITALS: BP 192/93; PULSE 63; RESP 16; TEMP 36.8; O2SAT 98
--- NOTE | 2023-07-19 22:06 | PM.IMHP ---
History of Present Illness Date of Service: 07/19/23 Chief Complaint: Difficulty talking 78-year-old female with history of proximal atrial fibrillation status post Watchman device, hyperlipidemia who presented to the emergency room with expressive aphasia. patient was on the phone with her son and all of sudden was having difficulty with word finding, dizziness, headache and chest discomfort. CT of the head and CT of the head and neck demonstrate no acute finding. Her blood pressure has been extremely elevated with a peak systolic of 200 and has been given 5 mg of Norvasc. Her symptom at this point have all resolved. Review of Systems Review of Systems: Gen: no fever Resp: no sob, no cough CV: no chest, no BRAND, no leg edema GI: No n/v, no abd pain Neuro: No confusion Yes all other systems are reviewed and are negative [facility] Medical History Retention of urine Hyperlipidemia Neuropathy Diabetic neuropathy Post-menopausal Screening for diabetes mellitus COVID-19 vaccine series completed Presence of Watchman left atrial appendage closure device Mixed hyperlipidemia Paroxysmal atrial fibrillation CAD (coronary artery disease) Family History Father Cancer Mother Heart disease Pancreatic cancer Sister Heart disease Surgical History History of colonoscopy History of rotator cuff surgery Stented coronary artery History of cataract surgery History of bladder surgery History of hysterectomy History of cholecystectomy Social History Housing: House Alcohol intake: never Patient Tobacco Use Status: Never used Tobacco Smoked in Last 30 Days: No e-Cigarette/Vaping Use: Never Used Second Hand Smoke Exposure: No Use of substances other than those prescribed or required for medical reasons: No Advance Directives: Yes Advance Directives Information Provided: No Advance Directives on File: No service: No Current occupational status: retired Cognitive needs: No Hearing needs: Yes Vision needs: Yes Meds Allergies Allergy/AdvReac Type Severity Reaction Status Date / Time acetaminophen [From TYLENOL] AdvReac Intermediate DIZZINESS, Verified 07/19/23 19:37 VOMITING levofloxacin [From LEVAQUIN] AdvReac Intermediate NAUSEA & Verified 07/19/23 19:37 VOMITING Home Medications Medication Instructions Recorded Confirmed Last Taken Type alendronate 70 mg tablet 70 mg PO SHERIDAN 12/30/20 07/19/23 Unknown History budesonide-formoterol HFA 160 2 puff inhalation BID 12/30/20 07/19/23 Unknown History mcg-4.5 mcg/actuation aerosol inhaler calcium carbonate 600 mg-vitamin 1 tab PO DAILY 12/30/20 07/19/23 Unknown History D3 10 mcg (400 unit) tablet aspirin 81 mg tablet,delayed 81 mg PO BEDTIME 02/18/21 07/19/23 Unknown History release vitamin B complex (B 1 tab PO BEDTIME 06/30/21 07/19/23 Unknown History Complex-Vitamin B12 tablet) vitamin E 200 unit capsule 200 unit PO BEDTIME 06/30/21 07/19/23 Unknown History buspirone 5 mg tablet 5 mg PO BID 07/22/22 07/19/23 Unknown History amitriptyline 10 mg tablet 20 mg PO DAILY 01/11/23 07/19/23 Unknown History venlafaxine 150 mg 150 mg PO QAM 01/11/23 07/19/23 Unknown History capsule,extended release 24 hr albuterol sulfate 90 mcg/actuation 1 puff inhalation Q4-6H PRN 07/19/23 07/19/23 Unknown History aerosol inhaler Wheezing fenofibrate nanocrystallized 145 145 mg PO BEDTIME 07/19/23 07/19/23 Unknown History mg tablet mirabegron 50 mg tablet,extended 50 mg PO DAILY 07/19/23 07/19/23 Unknown History release 24 hr (Myrbetriq) omeprazole 20 mg capsule,delayed 20 mg PO BEDTIME 07/19/23 07/19/23 Unknown History release rosuvastatin 40 mg tablet 40 mg PO BEDTIME 07/19/23 07/19/23 Unknown History Physical Exam Vital Signs and Narrative: Vital Signs: Last Vital Signs Temp 98.2 F 07/19/23 21:57 Pulse 63 07/19/23 21:57 Resp 16 07/19/23 21:57 BP 192/93 H 07/19/23 21:57 Pulse Ox 98 07/19/23 21:57 O2 Del Method Room Air 07/19/23 21:57 BMI result Body Mass Index 27.5 Const: Other: Constitutional: Alert, in no distress, overweight. Mental Status: Oriented to person, place and time. Eyes: Pupils are equal, round and reactive to light. Ear, Nose and Throat: Oropharynx clear, mucous membranes moist. Respiratory: Clear to auscultation. No wheezing, rales or rhonchi. Cardiovascular: S1 S2 regular. No murmurs, rubs or gallops. Gastrointestinal: Abdomen soft, non-tender, non-distended. Normal bowel sounds.? Neurologic: Cranial nerves II-XII grossly intact. No focal neurological deficits. Moves all extremities spontaneously.? Skin: No rashes or lesions.? Musculoskeletal: No cyanosis or clubbing. Psychiatric: Normal mood and affect? Results Labs 07/19/23 19:40 07/19/23 19:40 Labs: Laboratory Results - last 24 hr 07/19/23 07/19/23 07/19/23 19:18 19:19 19:40 MCV 86.3 MCH 27.4 MCHC 31.7 RDW 14.4 Plt Count 212 MPV 10.6 Immature Gran % (Auto) 0.4 Neut % (Auto) 61.2 Lymph % (Auto) 23.5 [place] % (Auto) 8.5 Eos % (Auto) 5.8 H Baso % (Auto) 0.6 Lymph # (Auto) 1.1 L [place] # (Auto) 0.4 Eos # (Auto) 0.3 Baso # (Auto) 0.0 Abs Immat Gran (auto) 0.02 Absolute Neuts (auto) 2.9 Absolute Nucleated RBC 0.000 Nucleated RBC % (auto) 0.0 PT 11.6 Whole Blood PT 12.5 INR 1.0 Whole Blood INR 1.0 APTT 26.5 Anion Gap 12 Estim Creat Clear Calc 55.0 Estimated GFR > 60 POC Glucose 91 Random Glucose 77 Calcium 9.5 Total Creatine Kinase 86 Imaging Radiologist's Impressions: Impressions Head CT 07/19/23 19:23 IMPRESSION: Age indeterminate hypodensities within the bilateral basal ganglia/anterior limbs of the internal capsules could be more definitively imaged on MRI. Otherwise no large territorial acute edematous infarction. No acute intracranial hemorrhage. Mild global cerebral volume loss and presumably chronic microangiopathic changes. Findings were communicated to Dr. Araujo on 07/19/2023 at 7:33 PM. Head/Neck CTA 07/19/23 20:45 IMPRESSION: 1. Age indeterminate possibly chronic foci of ischemia within the bilateral basal ganglia/internal capsules without acute intracranial hemorrhage. 2. Motion artifact and venous contamination significantly limits assessment of the distal vasculature, which is largely nondiagnostic. Apparent relatively abrupt tapering of a right M2 inferior division branch is presumably artifactual however high-grade stenosis in this location is not excluded. 3. Calcific atherosclerosis contributes to approximately 50% stenosis of the left ICA origin and mild stenosis of the right ICA origin, and approximately 60% stenosis of the left subclavian artery origin. 4. Advanced cervical spondylosis, notably contributing to apparent severe C4-C5 and C5-C6 greater than C3-C4 spinal canal stenosis with mass effect along the cord and multilevel high-grade neural foraminal stenosis. If there is referrable myelopathy/radiculopathy, further evaluation of these findings with dedicated cervical spine MRI may be performed as clinically warranted. Findings were communicated to Dr Araujo on 07/19/2023 at 9:14 PM and it was ascertained that the content and urgency of the report was understood at the time of direct communication. Assessment and Plan (1) Hypertensive urgency: Status: Acute (2) Brain TIA: Status: Acute Plan 78-year-old female with a proximal atrial fibrillation not anticoagulated hypertension that is not treated. Presented to the emergency room with expressive aphasia that has been transient, clinical presentation consistent with hypertension emergency, TIA or even stroke not manifested on CT HTN urgency--started on Norvasc 5 in ED, IV Hydralazine or Labetalol for SBP> 190 TIA or possible stroke--high risk for stroke in light of history of AFIB and not anticoagulated, Neuro eval, MRI to definatively rule stroke, neurology consultation. Continue aspirin, continue statin. paroxysmal AFIB, s/p Watchman device, EKG shows sinus rhythm. 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 Time Spent With Patient Time: Total time managing care of this patient today ____ minutes. Quality Stroke Does the patient have a stroke diagnosis?: No VTE Prior VTE?: No VTE Risk Level:: Medical - moderate - high VTE Device Contraindication: Treatment Not Indicated VTE Drug Contraindication: N/A - Med Ordered
[2023-07-19 22:44] VITALS: BP 168/87; PULSE 72; RESP 16; TEMP 36.1; O2SAT 98
[2023-07-20] VITALS (8 sets, daily range): BP systolic 139–182; BP diastolic 67–86; PULSE 54–64; RESP 13–20; TEMP 35.7–36.8; O2SAT 94–98; BMI 26.4
[2023-07-20] MEDS: busPIRone HCl 5 MG TABLET PO ×3 (01:27→21:16)
--- NOTE | 2023-07-20 01:56 | MHC.EDTECH ---
0200 rounding done ,vitals sign taken ,pt was hungry ,saltines crackers and helene josseline given ,pt not happy because its too noisy ,rn aware ,pt continue to be on library monitor ,will continue to monitor .
--- NOTE | 2023-07-20 05:57 | PC.NURSE ---
report given to NISA Jarvis on med/tele
[2023-07-20 07:22] LABS: Cholesterol 152 mg/dL (<200); HDL Cholesterol 70 mg/dL (>40); LDL Cholesterol Calculated 73 mg/dL (<100); Triglycerides 48 mg/dL (<150)
[2023-07-20] MEDS: Mirabegron 50 MG TAB.ER.24H PO (07:46)
[2023-07-20] MEDS: Venlafaxine HCl ER 150 MG CAP.ER.24H PO (07:47)
[2023-07-20] MEDS: Calcium + Vitamin D 250 MG TABLET 500 MG PO (07:47)
[2023-07-20] MEDS: Amitriptyline HCl 10 MG TABLET 20 MG PO (07:47)
[2023-07-20] MEDS: Dronedarone HCl 400 MG TABLET PO ×2 (07:48→21:15)
--- NOTE | 2023-07-20 09:01 | MHC.CM.PN ---
IMM 07/20/23 Pt lives alone in her own home, she does not have any home health services or equipment, she was independent. Her son is HCP, copy of document was requested, she will ask her son to bring it in today. She has used [facility] in the past and agrees to again if it is recommended. Plan is home with services if needed, her son will transport her home. CM to follow and assist with dc.
--- NOTE | 2023-07-20 14:36 | P.PNIM_ITS ---
Subjective Subjective Date of Service: 07/20/23 Interval History: Admitted for expressive aphasia, all symptoms resolved has normal speech, passed swallow eval, complaining of chronic headaches, denies visual symptoms, no weakness numbness, no prior history of CVA, tolerating diet no nausea, no vomiting ,no abdominal pain. Review of Systems All other symptoms reviewed and negative. Physical Exam 2 Vital Signs: Vital Signs: Last Vital Signs Temp 97.8 F 07/20/23 11:39 Pulse 59 07/20/23 11:39 Resp 20 07/20/23 11:39 BP 168/78 H 07/20/23 11:39 Pulse Ox 95 07/20/23 11:39 O2 Del Method Room Air 07/20/23 11:39 BMI result Body Mass Index 26.4 Const: Other: General awake alert x3, sitting comfortably, in no acute distress. Neck supple no JVD. CVS regular rate rhythm, Respiratory lungs clear to auscultation, no respiratory distress, no wheeze, no rhonchi. Gastrointestinal abdomen soft, non tender, bowel sounds audible Extremities no edema. Neuro nonfocal , speech clear pupils equal reactive to light and accommodation Skin no rash Psych appropriate affect Objective Data Active Medications Acetaminophen (Acetaminophen 325 Mg Tablet) 650 mg PO Q6H PRN PRN Reason: Pain, Mild (Pain Scale 1-3) Al Hydroxide/Mg Hydroxide (Magnesium Hydrox/Alum Hydrox 30 Ml Oral.Susp) 30 ml PO Q4H PRN PRN Reason: Heartburn/Nausea Albuterol Sulfate (Albuterol Sulfate 90 Mcg 8 Gm Inhaler) 1 puff INHALE Q4H PRN PRN Reason: Wheezing Amitriptyline HCl (Amitriptyline Hcl 10 Mg Tablet) 20 mg PO DAILY [facility] Last Admin: 07/20/23 07:47 Dose: 20 mg Documented By: SERGEY Aspirin (Aspirin Enteric Coated 81 Mg Tablet.) 81 mg PO BEDTIME [facility] Atorvastatin Calcium (Atorvastatin Calcium 80 Mg Tablet) 80 mg PO BEDTIME [facility] Buspirone HCl (Buspirone Hcl 5 Mg Tablet) 5 mg PO BID [facility] Last Admin: 07/20/23 07:47 Dose: 5 mg Documented By: SERGEY Calcium Carbonate/Cholecalciferol (Calcium + Vitamin D 250 Mg Tablet) 500 mg PO DAILY [facility] Last Admin: 07/20/23 07:47 Dose: 500 mg Documented By: SERGEY Docusate Sodium (Docusate Sodium 100 Mg Capsule) 100 mg PO BID PRN PRN Reason: for constipation Dronedarone (Dronedarone Hcl 400 Mg Tablet) 400 mg PO BID [facility] Last Admin: 07/20/23 07:48 Dose: 400 mg Documented By: SERGEY Fenofibrate (Fenofibrate 160 Mg Tablet) 160 mg PO BEDTIME [facility] Last Admin: 07/20/23 02:36 Dose: Not Given Documented By: CHRISTIANNE Non-Admin Reason: Med Not Available Fluticasone/Vilanterol (Fluticasone/Vilanterol 200/25 Blst.W.Dev) 1 puff INHALE RDAILY [facility] Last Admin: 07/20/23 07:53 Dose: Not Given Documented By: INCK Non-Admin Reason: pharmacy called Hydralazine HCl (Hydralazine Hcl 20 Mg/Ml Vial) 5 mg IVPUSH Q6H PRN; Protocol PRN Reason: SBP > 180 Melatonin (Melatonin 3 Mg Tablet) 6 mg PO BEDTIME PRN PRN Reason: Insomnia Mirabegron (Mirabegron 50 Mg Tab.Er.24h) 50 mg PO DAILY [facility] Last Admin: 07/20/23 07:46 Dose: 50 mg Documented By: SERGEY Multivitamins/Vitamin C (Multivitamin Tablet) 1 tab PO BEDTIME [facility] Nitroglycerin (Nitroglycerin 0.4 Mg Tab.Subl) 0.4 mg SUBLINGUAL Q5M PRN PRN Reason: chest pain Omeprazole (Omeprazole 20 Mg Capsule.Dr) 20 mg PO BEDTIME [facility] Ondansetron HCl (Ondansetron Hcl 4 Mg/2 Ml Vial) 4 mg IVPUSH Q8H PRN PRN Reason: Nausea and Vomiting Oxycodone HCl (Oxycodone Hcl Immed Release 5 Mg Tablet) 5 mg PO Q6H PRN PRN Reason: Headache Senna (Sennosides 8.6 Mg Tablet) 17.2 mg PO BEDTIME [facility] Venlafaxine HCl (Venlafaxine Hcl Er 150 Mg Cap.Er.24h) 150 mg PO DAILY [facility] Last Admin: 07/20/23 07:47 Dose: 150 mg Documented By: SERGEY Labs 07/19/23 19:40 07/19/23 19:40 Labs: Laboratory Results - last 24 hr 07/19/23 07/19/23 07/19/23 19:18 19:19 19:40 MCV 86.3 MCH 27.4 MCHC 31.7 RDW 14.4 Plt Count 212 MPV 10.6 Immature Gran % (Auto) 0.4 Neut % (Auto) 61.2 Lymph % (Auto) 23.5 Leake % (Auto) 8.5 Eos % (Auto) 5.8 H Baso % (Auto) 0.6 Lymph # (Auto) 1.1 L Leake # (Auto) 0.4 Eos # (Auto) 0.3 Baso # (Auto) 0.0 Abs Immat Gran (auto) 0.02 Absolute Neuts (auto) 2.9 Absolute Nucleated RBC 0.000 Nucleated RBC % (auto) 0.0 Hold Purple Top PT 11.6 Whole Blood PT 12.5 INR 1.0 Whole Blood INR 1.0 APTT 26.5 Anion Gap 12 Estim Creat Clear Calc 55.0 Estimated GFR > 60 POC Glucose 91 Random Glucose 77 Calcium 9.5 Total Creatine Kinase 86 Triglycerides Cholesterol LDL Cholesterol, Calc HDL Cholesterol 07/20/23 06:43 MCV MCH MCHC RDW Plt Count MPV Immature Gran % (Auto) Neut % (Auto) Lymph % (Auto) Leake % (Auto) Eos % (Auto) Baso % (Auto) Lymph # (Auto) Leake # (Auto) Eos # (Auto) Baso # (Auto) Abs Immat Gran (auto) Absolute Neuts (auto) Absolute Nucleated RBC Nucleated RBC % (auto) Hold Purple Top SEE NOTE PT Whole Blood PT INR Whole Blood INR APTT Anion Gap Estim Creat Clear Calc Estimated GFR POC Glucose Random Glucose Calcium Total Creatine Kinase Triglycerides 48 Cholesterol 152 LDL Cholesterol, Calc 73 HDL Cholesterol 70 Assessment and Plan (1) Hypertensive urgency: Status: Acute Plan 78-year-old female with a proximal atrial fibrillation not anticoagulated hypertension that is not treated. Presented to the emergency room with expressive aphasia that has been transient, clinical presentation consistent with hypertension emergency, TIA or even stroke not manifested on CT HTN urgency--started on Norvasc 5mg cont.prn IV Hydralazine for SBP> 190 Transient expressive aphasia ddx TIA /question related to migraine headache- MRI brain showed no acute intracranial findings, no acute infarction, global cerebral volume loss and moderate chronic microangiopathy, LDL 73, total cholesterol 152, goal for better BP control, Neuro eval, Continue aspirin, continue statin, added oxycodone for headache. Seen by speech therapy they recommend to continue monitoring for expressive speech and language. paroxysmal AFIB, continue Multaq, s/p Watchman device, EKG shows sinus rhythm. HLD--continue Statin Neuropathy--continue home meds, follows with Dr. Krause as outpatient and is referred to pain management Mood disorder--continue FX, Elavil and BuSpar DVT prophylaxis:subQ lovenox full code Patient will need continued inpatient hospitalization for management of hypertension urgency and TIA waiting for expert consultation Time Spent With Patient Time: Total time managing care of this patient today ____ minutes. Quality Stroke Does the patient have a stroke diagnosis?: No VTE Prior VTE?: No VTE Risk Level:: Medical - moderate - high VTE Device Contraindication: Treatment Not Indicated VTE Drug Contraindication: N/A - Med Ordered
[2023-07-20] MEDS: amLODIPine Besylate 5 MG TABLET PO (16:51)
--- NOTE | 2023-07-20 16:54 | PM.NEUROCN ---
History of Present Illness Data of Consult Service Date: 07/20/23 Primary Care Provider: Perfecto Clark MD [facility] Reason for consult: Transient speech problem This is a 78-year-old female with history of paroxysmal atrial fibrillation, status post Watchman device, hyperlipidemia, peripheral neuropathy, COPD and anxiety who presented to the emergency room with expressive aphasia. She was on the phone with her son when she suddenly had difficulty with word finding, dizziness, headache and chest discomfort. CT of the head and CT of the head and neck demonstrate no acute finding. MRI shows no acute infarct, only mild chronic microvascular changes, CTA was negative. Her blood pressure has been extremely elevated with a peak systolic of 200 and has been given 5 mg of Norvasc. Her symptom at this point have all resolved. Review of Systems Review of Systems: All other symptoms reviewed and negative. Yes all other systems are reviewed and are negative PMF Past Medical History Medical History Retention of urine Hyperlipidemia Neuropathy Diabetic neuropathy Post-menopausal Screening for diabetes mellitus COVID-19 vaccine series completed Presence of Watchman left atrial appendage closure device Mixed hyperlipidemia Paroxysmal atrial fibrillation CAD (coronary artery disease) Family History Family History Father Cancer Mother Heart disease Pancreatic cancer Sister Heart disease Surgical History Surgical History History of colonoscopy History of rotator cuff surgery Stented coronary artery History of cataract surgery History of bladder surgery History of hysterectomy History of cholecystectomy Social History Social History Household Members: None Housing: Condominium Alcohol intake: never Patient Tobacco Use Status: Never used Tobacco Smoked in Last 30 Days: No e-Cigarette/Vaping Use: Never Used Second Hand Smoke Exposure: No Use of substances other than those prescribed or required for medical reasons: No Currently Displaying Signs/Symptoms of Drug Intoxication Withdrawal: No Have you been hit, kicked, punched, or otherwise hurt by someone within the past year? If so, by whom?: No Do you feel safe in your current relationship?: No Current Relationship Is there a partner from a previous relationship who is making you feel unsafe now?: No Are you made to feel afraid or neglected: No Advance Directives: Yes Advance Directives Information Provided: No Advance Directives on File: No Advance Directives Date on File: 07/20/23 Do you have thoughts of harming others: None Do you have a plan to hurt others: No Plan Recently lost weight without trying: No Nutrition Risks: No Nutritional Risk Patient : No service: No Current occupational status: retired Cognitive needs: No Hearing needs: Yes Vision needs: Yes Meds Allergies Allergy/AdvReac Type Severity Reaction Status Date / Time acetaminophen [From TYLENOL] AdvReac Intermediate DIZZINESS, Verified 07/19/23 19:37 VOMITING levofloxacin [From LEVAQUIN] AdvReac Intermediate NAUSEA & Verified 07/19/23 19:37 VOMITING Active Medications: Current Medications Acetaminophen (Acetaminophen 325 Mg Tablet) 650 mg PO Q6H PRN PRN Reason: Pain, Mild (Pain Scale 1-3) Al Hydroxide/Mg Hydroxide (Magnesium Hydrox/Alum Hydrox 30 Ml Oral.Susp) 30 ml PO Q4H PRN PRN Reason: Heartburn/Nausea Albuterol Sulfate (Albuterol Sulfate 90 Mcg 8 Gm Inhaler) 1 puff INHALE Q4H PRN PRN Reason: Wheezing Amitriptyline HCl (Amitriptyline Hcl 10 Mg Tablet) 20 mg PO DAILY [facility] Last Admin: 07/20/23 07:47 Dose: 20 mg Amlodipine Besylate (Amlodipine Besylate 5 Mg Tablet) 5 mg PO DAILY [facility]; Protocol Aspirin (Aspirin Enteric Coated 81 Mg Tablet.Dr) 81 mg PO BEDTIME [facility] Atorvastatin Calcium (Atorvastatin Calcium 80 Mg Tablet) 80 mg PO BEDTIME [facility] Buspirone HCl (Buspirone Hcl 5 Mg Tablet) 5 mg PO BID [facility] Last Admin: 07/20/23 07:47 Dose: 5 mg Calcium Carbonate/Cholecalciferol (Calcium + Vitamin D 250 Mg Tablet) 500 mg PO DAILY [facility] Last Admin: 07/20/23 07:47 Dose: 500 mg Docusate Sodium (Docusate Sodium 100 Mg Capsule) 100 mg PO BID PRN PRN Reason: for constipation Dronedarone (Dronedarone Hcl 400 Mg Tablet) 400 mg PO BID [facility] Last Admin: 07/20/23 07:48 Dose: 400 mg Fenofibrate (Fenofibrate 160 Mg Tablet) 160 mg PO BEDTIME [facility] Last Admin: 07/20/23 02:36 Dose: Not Given Fluticasone/Vilanterol (Fluticasone/Vilanterol 200/25 Blst.W.Dev) 1 puff INHALE RDAILY [facility] Last Admin: 07/20/23 07:53 Dose: Not Given Hydralazine HCl (Hydralazine Hcl 20 Mg/Ml Vial) 5 mg IVPUSH Q6H PRN; Protocol PRN Reason: SBP > 180 Melatonin (Melatonin 3 Mg Tablet) 6 mg PO BEDTIME PRN PRN Reason: Insomnia Mirabegron (Mirabegron 50 Mg Tab.Er.24h) 50 mg PO DAILY [facility] Last Admin: 07/20/23 07:46 Dose: 50 mg Multivitamins/Vitamin C (Multivitamin Tablet) 1 tab PO BEDTIME [facility] Nitroglycerin (Nitroglycerin 0.4 Mg Tab.Subl) 0.4 mg SUBLINGUAL Q5M PRN PRN Reason: chest pain Omeprazole (Omeprazole 20 Mg Capsule.Dr) 20 mg PO BEDTIME [facility] Ondansetron HCl (Ondansetron Hcl 4 Mg/2 Ml Vial) 4 mg IVPUSH Q8H PRN PRN Reason: Nausea and Vomiting Oxycodone HCl (Oxycodone Hcl Immed Release 5 Mg Tablet) 5 mg PO Q6H PRN PRN Reason: Headache Senna (Sennosides 8.6 Mg Tablet) 17.2 mg PO BEDTIME [facility] Venlafaxine HCl (Venlafaxine Hcl Er 150 Mg Cap.Er.24h) 150 mg PO DAILY [facility] Last Admin: 07/20/23 07:47 Dose: 150 mg Home Medications Medication Instructions Recorded Confirmed Last Taken Type alendronate 70 mg tablet 70 mg PO SHERIDAN 12/30/20 07/19/23 Unknown History budesonide-formoterol HFA 160 2 puff inhalation BID 12/30/20 07/19/23 Unknown History mcg-4.5 mcg/actuation aerosol inhaler calcium carbonate 600 mg-vitamin 1 tab PO DAILY 12/30/20 07/19/23 Unknown History D3 10 mcg (400 unit) tablet aspirin 81 mg tablet,delayed 81 mg PO BEDTIME 02/18/21 07/19/23 Unknown History release vitamin B complex (B 1 tab PO BEDTIME 06/30/21 07/19/23 Unknown History Complex-Vitamin B12 tablet) vitamin E 200 unit capsule 200 unit PO BEDTIME 06/30/21 07/19/23 Unknown History buspirone 5 mg tablet 5 mg PO BID 07/22/22 07/19/23 Unknown History amitriptyline 10 mg tablet 20 mg PO DAILY 01/11/23 07/19/23 Unknown History venlafaxine 150 mg 150 mg PO QAM 01/11/23 07/19/23 Unknown History capsule,extended release 24 hr albuterol sulfate 90 mcg/actuation 1 puff inhalation Q4-6H PRN 07/19/23 07/19/23 Unknown History aerosol inhaler Wheezing fenofibrate nanocrystallized 145 145 mg PO BEDTIME 07/19/23 07/19/23 Unknown History mg tablet mirabegron 50 mg tablet,extended 50 mg PO DAILY 07/19/23 07/19/23 Unknown History release 24 hr (Myrbetriq) omeprazole 20 mg capsule,delayed 20 mg PO BEDTIME 07/19/23 07/19/23 Unknown History release rosuvastatin 40 mg tablet 40 mg PO BEDTIME 07/19/23 07/19/23 Unknown History Physical Exam Vital Signs: Vital Signs: Last Vital Signs Temp 96.3 F L 07/20/23 15:38 Pulse 59 07/20/23 15:38 Resp 16 07/20/23 15:38 BP 180/82 H 07/20/23 15:38 Pulse Ox 95 07/20/23 15:38 O2 Del Method Room Air 07/20/23 15:38 BMI result Body Mass Index 26.4 Const: Other: General awake alert x3, sitting comfortably, in no acute distress. Neck supple no JVD. CVS regular rate rhythm, Respiratory lungs clear to auscultation, no respiratory distress, no wheeze, no rhonchi. Gastrointestinal abdomen soft, non tender, bowel sounds audible Extremities no edema. Neuro nonfocal , speech clear pupils equal reactive to light and accommodation Skin no rash Psych appropriate affect Neuro: Other: normal Results Labs 07/19/23 19:40 07/19/23 19:40 Labs: Short CBC 07/19/23 Range/Units 19:40 WBC 4.7 L (4.8-10.8) X10*3/uL Hgb 12.0 (12.0-16.0) g/dl Hct 37.8 (37.0-47.0) % Plt Count 212 (160-400) X10*3/uL BMP 07/19/23 19:40 Sodium 140 Potassium 3.8 Chloride 107 Carbon Dioxide 25 BUN 21 H Creatinine 0.87 Calcium 9.5 Cardiac Enzymes 07/19/23 Range/Units 19:40 Total Creatine Kinase 86 (26-140) U/L Assessment and Plan (1) Brain TIA: Status: Acute Possible left hemisphere TIA from recurrence of A fib. Migraine phenomenon less likely. This happened in spite of being on ASA 81mg. Elevated BP could hav ebeen just from her extreme anxiety about the situation. Recom. Discuss with DR. Scott about the advisability of starting Eliquis. (2) Hypertensive urgency: Status: Acute Plan 78-year-old female with a proximal atrial fibrillation not anticoagulated hypertension that is not treated. Presented to the emergency room with expressive aphasia that has been transient, clinical presentation consistent with hypertension emergency, TIA or even stroke not manifested on CT HTN urgency--started on Norvasc 5mg cont.prn IV Hydralazine for SBP> 190 Transient expressive aphasia ddx TIA /question related to migraine headache- MRI brain showed no acute intracranial findings, no acute infarction, global cerebral volume loss and moderate chronic microangiopathy, LDL 73, total cholesterol 152, goal for better BP control, Neuro eval, Continue aspirin, continue statin, added oxycodone for headache. Seen by speech therapy they recommend to continue monitoring for expressive speech and language. paroxysmal AFIB, continue Multaq, s/p Watchman device, EKG shows sinus rhythm. HLD--continue Statin Neuropathy--continue home meds, follows with Dr. Krause as outpatient and is referred to pain management Mood disorder--continue FX, Elavil and BuSpar DVT prophylaxis:subQ lovenox full code Patient will need continued inpatient hospitalization for management of hypertension urgency and TIA waiting for expert consultation Time Spent With Patient Time: Total time managing care of this patient today ____ minutes. Procedures Date of Service Date of Service: 07/20/23
--- NOTE | 2023-07-20 16:55 | MHC.SP.ADU ---
Referring provider: MD Nathanael Reason for Referral: expressive aphasia Type of Treatment: 20142 Standardized Cognitive Performance Testing, per hour Date of Plan of Treatment: 07/20/23 Onset of Symptoms/Illness: 07/20/23 Date Treatment Started: 07/20/23 Medical Diagnosis: Hypertensive urgency Primary Speech Language Diagnosis: R47.01 Aphasia History Patient is 78 female who came to ED on 07/19 d/t difficulty reported difficulty speaking, weakness, and chest pain. Per ED notes, patient reported her speech was still funny when in ED however ED notes no expressive aphasia observed. 07/20 Brain MRI: - No acute intracranial findings. No acute infarcts. - There is global cerebral volume loss and there is moderate chronic microangiopathy. Medical History: Retention of urine Hyperlipidemia Neuropathy Diabetic neuropathy Post-menopausal Screening for diabetes mellitus COVID-19 vaccine series completed Presence of Watchman left atrial appendage closure device Mixed hyperlipidemia Paroxysmal atrial fibrillation CAD (coronary artery disease) Surgical History History of colonoscopy History of rotator cuff surgery Stented coronary artery History of cataract surgery History of bladder surgery History of hysterectomy History of cholecystectomy Recent Hospitalizations: No Respiratory Needs: Room Air Patient Orientation: Alert & Oriented x 4 Social History: Assistive Devices in use: Unknown Past Speech Language Therapy: None reported Other Therapies Seen in Current Calendar Year: Unknown Swallowing History: Dysphagia Specific: Comments: Per RN and 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 Patient not seen swallow by VICE PRESIDENT BUSINESS DEVELOPMENT. Pre-evaluation Dietary Consistencies: Regular Pre-eval Liquid Intake: Thin Reported Speech, Language, Cognition difficulties: Comments: Speaking Assessment Speech Production: Clinical Impression: Patient screened for language/speech/cognition. Patient's son present at bedside. He reports her speech is much improved since yesterday, describing that yesterday speech sounded mixed up. He went on to describe expressive fluent aphasia reporting that patient was saying words but it didn't make sense. At bedside, patient presented with typical fluent speech with no jargon or significant word finding difficulty. During patient interview, patient presented w/ semantic paraphasia 1X ( breakfast /lunch), intermittent word repetitions, and intermittent decreased clarity of sounds (i.e. tss-got for got ). Patient initially reported that her speech was normal, then reported that her tongue feels tied up sometimes, which is new as of yesterday. Patient may be describing word repetitions and/or articulation. Patient was administered parts of the Western Aphasia Battery (WAB) bedside screener. Patient responded appropriately and accurately to questions (how are you today? address? why are you here?). Patient presenting with typical length and complexity of sentences. No paraphasias or word finding difficulty WAB screener. Auditory comprehension, sequential commands, repetition, object naming, writing all judged to be largely WNL. When asked to repeat a longer 9-word sentence: The quick brown hernandez jumps over the lazy dog, patient replaced jumps with jumped. Patient named objects around room and answered verbal comprehension questions with 100% accuracy. Writing tasks were completed with 100% accuracy including writing name, address, and a verbally dictated sentence. Recommend patient continue to monitor expressive speech and language. Recommend f/u with [employer] PRES[employer]ELOPMENT during hospitalization. Patient also given business card for speech & hearing clinic and encouraged to reach out if any future concerns arise. Recommendation for Speech Therapy: Frequency/Duration: 1 f/u Patient Education: Completed: Yes Patient/Caregiver Education: Described Results of Evaluation Patient expressed understanding of evaluation Patient agrees with goals and treatment plan Information Systems Audit Manager Clinican/Clinical Fellow: No Supervisory Statement: No Speech Language Pathologist: Sarah Woodall M.A., CCC-[employer]ELOPMENT
[2023-07-20] MEDS: Atorvastatin Calcium 80 MG TABLET PO (21:15)
[2023-07-20] MEDS: Sennosides 8.6 MG TABLET 17.2 MG PO (21:15)
[2023-07-20] MEDS: oxyCODONE HCl Immed Release 5 MG TABLET PO (21:15)
[2023-07-20] MEDS: Aspirin Enteric Coated 81 MG TABLET.DR PO (21:16)
[2023-07-20] MEDS: Multivitamin TABLET 1 TAB PO (21:16)
[2023-07-20] MEDS: Omeprazole 20 MG CAPSULE.DR PO (21:16)
[2023-07-20] MEDS: Fenofibrate 160 MG TABLET PO (21:16)
[2023-07-20] MEDS: Docusate Sodium 100 MG CAPSULE PO (21:24)
[2023-07-21] VITALS (8 sets, daily range): BP systolic 133–169; BP diastolic 66–81; PULSE 53–63; RESP 18–20; TEMP 36.2–36.8; O2SAT 92–98
[2023-07-21] MEDS: Calcium + Vitamin D 250 MG TABLET 500 MG PO (09:17)
[2023-07-21] MEDS: amLODIPine Besylate 5 MG TABLET PO (09:18)
[2023-07-21] MEDS: Mirabegron 50 MG TAB.ER.24H PO (09:18)
[2023-07-21] MEDS: Venlafaxine HCl ER 150 MG CAP.ER.24H PO (09:18)
[2023-07-21] MEDS: Dronedarone HCl 400 MG TABLET PO (09:18)
[2023-07-21] MEDS: busPIRone HCl 5 MG TABLET PO ×2 (09:18→21:29)
--- NOTE | 2023-07-21 10:19 | PM.CNCAR ---
History of Present Illness History of Present Illness Date of Service: 07/21/23 Chief complaint: TIA, hypertension emergency Narrative: This is a cardiology consultation regarding question of anticoagulation. Patient generally sees Dr. Vang in clinic. His notes as well as chart reviewed. Patient has a history of paroxysmal atrial fibrillation but it seems that she has been fairly suppressed with Multaq and done well with rhythm control according to his note. She also has Watchman device in place. According to patient, she was bruising a lot but did have any major bleeding episodes. Any case, she went to [place] and got the device implanted around 2019 or so. She remains only on aspirin. She also has diffuse vascular disease including coronary disease, prior RCA stenting as well as peripheral vascular stenting. Current admission because of her TIA type episode where there was some speech issue. She had a vague sensation in somewhat of the right side of sternum where she keeps repeating the phrase ' felt like it disc' on the chest. However, there was no evidence of ACS and troponin completely normal. She has been thought to have had rather TIA type episode. Blood pressure was markedly high upon arrival and is still on the higher side. She otherwise feels okay now. Almost back to her baseline. Review of Systems Review of Systems: Yes all other systems are reviewed and are negative Constitutional: Constitutional: Reports as per HPI and Reports no additional constitutional complaints Eyes: Eyes: Reports as per HPI and Denies no additional eye complaints ENT: Denies system reviewed and no additional complaints, except as documented and Reports as per HPI Cardiovascular: Cardiovascular: Reports as per HPI, Reports no additional cardiovascular complaints, Denies acrocyanosis, Denies cool extremities, Denies chest pain, Denies leg edema, Denies lightheadedness, Denies palpitations and Denies dyspnea Respiratory: Respiratory: Reports as per HPI, Denies no additional respiratory complaints and Denies dyspnea Gastrointestinal: Gastrointestinal: Reports as per HPI and Denies no additional gastrointestinal complaints Genitourinary: Genitourinary: Reports as per HPI Musculoskeletal: Musculoskeletal: Reports no additional musculoskeletal complaints and Reports as per HPI Integumentary/Breasts: Skin/Breast: Reports system reviewed and no additional complaints, except as docu Neurologic: Reports system reviewed and no additional complaints, except as documented and Reports as per HPI Psychiatric: Psychiatric: Reports no additional psychiatric complaints and Reports as per HPI Endocrine: Endocrine: Reports no additional endocrine complaints, Reports as per HPI and Denies palpitations Hematologic/Lymphatic: Hematologic/Lymphatic: Reports no additional hematologic/lymphatic complaints and Reports as per HPI Allergic/Immunologic: Allergic/Immunologic: Reports no additional allergic/immunologic complaints and Reports as per HPI PMFSH Past Medical History Medical History Retention of urine Hyperlipidemia Neuropathy Diabetic neuropathy Post-menopausal Screening for diabetes mellitus COVID-19 vaccine series completed Presence of Watchman left atrial appendage closure device Mixed hyperlipidemia Paroxysmal atrial fibrillation CAD (coronary artery disease) Family History Family History Father Cancer Mother Heart disease Pancreatic cancer Sister Heart disease Surgical History Surgical History History of colonoscopy History of rotator cuff surgery Stented coronary artery History of cataract surgery History of bladder surgery History of hysterectomy History of cholecystectomy Social History Social History Household Members: None Housing: Condominium Alcohol intake: never Patient Tobacco Use Status: Never used Tobacco Smoked in Last 30 Days: No e-Cigarette/Vaping Use: Never Used Second Hand Smoke Exposure: No Use of substances other than those prescribed or required for medical reasons: No Currently Displaying Signs/Symptoms of Drug Intoxication Withdrawal: No Have you been hit, kicked, punched, or otherwise hurt by someone within the past year? If so, by whom?: No Do you feel safe in your current relationship?: No Current Relationship Is there a partner from a previous relationship who is making you feel unsafe now?: No Are you made to feel afraid or neglected: No Advance Directives: Yes Advance Directives Information Provided: No Advance Directives on File: No Advance Directives Date on File: 07/20/23 Do you have thoughts of harming others: None Do you have a plan to hurt others: No Plan Recently lost weight without trying: No Nutrition Risks: No Nutritional Risk Patient : No service: No Current occupational status: retired Cognitive needs: No Hearing needs: Yes Vision needs: Yes Meds Allergies Allergy/AdvReac Type Severity Reaction Status Date / Time acetaminophen [From TYLENOL] AdvReac Intermediate DIZZINESS, Verified 07/19/23 19:37 VOMITING levofloxacin [From LEVAQUIN] AdvReac Intermediate NAUSEA & Verified 07/19/23 19:37 VOMITING Active Medications: Current Medications Acetaminophen (Acetaminophen 325 Mg Tablet) 650 mg PO Q6H PRN PRN Reason: Pain, Mild (Pain Scale 1-3) Al Hydroxide/Mg Hydroxide (Magnesium Hydrox/Alum Hydrox 30 Ml Oral.Susp) 30 ml PO Q4H PRN PRN Reason: Heartburn/Nausea Albuterol Sulfate (Albuterol Sulfate 90 Mcg 8 Gm Inhaler) 1 puff INHALE Q4H PRN PRN Reason: Wheezing Amitriptyline HCl (Amitriptyline Hcl 10 Mg Tablet) 20 mg PO BEDTIME [facility] Amlodipine Besylate (Amlodipine Besylate 5 Mg Tablet) 5 mg PO DAILY [facility]; Protocol Last Admin: 07/21/23 09:18 Dose: 5 mg Aspirin (Aspirin Enteric Coated 81 Mg Tablet.Dr) 81 mg PO BEDTIME [facility] Last Admin: 07/20/23 21:16 Dose: 81 mg Atorvastatin Calcium (Atorvastatin Calcium 80 Mg Tablet) 80 mg PO BEDTIME [facility] Last Admin: 07/20/23 21:15 Dose: 80 mg Buspirone HCl (Buspirone Hcl 5 Mg Tablet) 5 mg PO BID [facility] Last Admin: 07/21/23 09:18 Dose: 5 mg Calcium Carbonate/Cholecalciferol (Calcium + Vitamin D 250 Mg Tablet) 500 mg PO DAILY [facility] Last Admin: 07/21/23 09:17 Dose: 500 mg Docusate Sodium (Docusate Sodium 100 Mg Capsule) 100 mg PO BID PRN PRN Reason: for constipation Last Admin: 07/20/23 21:24 Dose: 100 mg Dronedarone (Dronedarone Hcl 400 Mg Tablet) 400 mg PO BID [facility] Last Admin: 07/21/23 09:18 Dose: 400 mg Fenofibrate (Fenofibrate 160 Mg Tablet) 160 mg PO BEDTIME [facility] Last Admin: 07/20/23 21:16 Dose: 160 mg Fluticasone/Vilanterol (Fluticasone/Vilanterol 200/25 Blst.W.Dev) 1 puff INHALE RDAILY [facility] Last Admin: 07/20/23 07:53 Dose: Not Given Hydralazine HCl (Hydralazine Hcl 20 Mg/Ml Vial) 5 mg IVPUSH Q6H PRN; Protocol PRN Reason: SBP > 180 Melatonin (Melatonin 3 Mg Tablet) 6 mg PO BEDTIME PRN PRN Reason: Insomnia Mirabegron (Mirabegron 50 Mg Tab.Er.24h) 50 mg PO DAILY [facility] Last Admin: 07/21/23 09:18 Dose: 50 mg Multivitamins/Vitamin C (Multivitamin Tablet) 1 tab PO BEDTIME [facility] Last Admin: 07/20/23 21:16 Dose: 1 tab Nitroglycerin (Nitroglycerin 0.4 Mg Tab.Subl) 0.4 mg SUBLINGUAL Q5M PRN PRN Reason: chest pain Omeprazole (Omeprazole 20 Mg Capsule.Dr) 20 mg PO BEDTIME [facility] Last Admin: 07/20/23 21:16 Dose: 20 mg Ondansetron HCl (Ondansetron Hcl 4 Mg/2 Ml Vial) 4 mg IVPUSH Q8H PRN PRN Reason: Nausea and Vomiting Oxycodone HCl (Oxycodone Hcl Immed Release 5 Mg Tablet) 5 mg PO Q6H PRN PRN Reason: Headache Last Admin: 07/20/23 21:15 Dose: 5 mg Senna (Sennosides 8.6 Mg Tablet) 17.2 mg PO BEDTIME [facility] Last Admin: 07/20/23 21:15 Dose: 17.2 mg Venlafaxine HCl (Venlafaxine Hcl Er 150 Mg Cap.Er.24h) 150 mg PO DAILY [facility] Last Admin: 07/21/23 09:18 Dose: 150 mg Home Medications Medication Instructions Recorded Confirmed Last Taken Type alendronate 70 mg tablet 70 mg PO SHERIDAN 12/30/20 07/19/23 Unknown History budesonide-formoterol HFA 160 2 puff inhalation BID 12/30/20 07/19/23 Unknown History mcg-4.5 mcg/actuation aerosol inhaler calcium carbonate 600 mg-vitamin 1 tab PO DAILY 12/30/20 07/19/23 Unknown History D3 10 mcg (400 unit) tablet aspirin 81 mg tablet,delayed 81 mg PO BEDTIME 02/18/21 07/19/23 Unknown History release vitamin B complex (B 1 tab PO BEDTIME 06/30/21 07/19/23 Unknown History Complex-Vitamin B12 tablet) vitamin E 200 unit capsule 200 unit PO BEDTIME 06/30/21 07/19/23 Unknown History buspirone 5 mg tablet 5 mg PO BID 07/22/22 07/19/23 Unknown History amitriptyline 10 mg tablet 20 mg PO DAILY 01/11/23 07/19/23 Unknown History venlafaxine 150 mg 150 mg PO QAM 01/11/23 07/19/23 Unknown History capsule,extended release 24 hr albuterol sulfate 90 mcg/actuation 1 puff inhalation Q4-6H PRN 07/19/23 07/19/23 Unknown History aerosol inhaler Wheezing fenofibrate nanocrystallized 145 145 mg PO BEDTIME 07/19/23 07/19/23 Unknown History mg tablet mirabegron 50 mg tablet,extended 50 mg PO DAILY 07/19/23 07/19/23 Unknown History release 24 hr (Myrbetriq) omeprazole 20 mg capsule,delayed 20 mg PO BEDTIME 07/19/23 07/19/23 Unknown History release rosuvastatin 40 mg tablet 40 mg PO BEDTIME 07/19/23 07/19/23 Unknown History Physical Exam Vital Signs: Vital Signs: Last Vital Signs Temp 97.4 F 07/21/23 07:40 Pulse 55 07/21/23 07:40 Resp 20 07/21/23 07:40 BP 169/81 H 07/21/23 07:40 Pulse Ox 94 07/21/23 07:40 O2 Del Method Room Air 07/21/23 07:40 BMI result Body Mass Index 26.4 Const: General: comfortable and no acute distress Orientation/consciousness: patient oriented x3 HEENT: Other: Unremarkable Head: Yes normal to inspection Neck: Neck: Yes normal visual inspection Chest: Chest palpation & inspection: normal inspection of the chest Resp: Auscultation: clear to auscultation bilaterally Cardio: Palpation: normal PMI Heart sounds: S1 normal heart sound present, S2 normal heart sound present, no gallops, no murmurs and no rubs GI: Palpation (GI): Soft to palpation Back/Spine/Pelvis: Other: unremarkable Skin: General skin exam: no rashes or lesions noted Neuro: General: patient oriented x3 Extrem: General: Yes normal to inspection Psych: Mental Status: mental status grossly normal Objective Labs and Meds 07/19/23 19:40 07/19/23 19:40 ECG Interpretation: EKG with sinus rhythm at 61/Min; no significant ST-T changes and otherwise unremarkable. Normal MO and corrected QT. Imaging Radiologist's impression: Impressions Brain MRI 07/20/23 13:29 IMPRESSION: - No acute intracranial findings. No acute infarcts. - There is global cerebral volume loss and there is moderate chronic microangiopathy. Assessment and Plan (1) Brain TIA: Status: Acute (2) Hypertensive urgency: Status: Acute (3) Atherosclerotic cardiovascular disease: Status: Acute (4) Paroxysmal atrial fibrillation: Status: Acute Plan Based on the CTA of the head and neck, there is clear evidence of vascular disease. Troponin levels within normal limits. The question is if she will benefit from anticoagulation. Her Watchman device a few years old around approximately 2019 or so. She has remained only on aspirin. Based on notes, it seems that she is well controlled from the atrial fibrillation standpoint and has mostly been in sinus. In telemetry, she is in sinus and there is no evidence of any atrial fibrillation. Overall, low likelihood that this is truly an embolic episode from cardiac. Much more likely related to vascular disease as there is clear evidence based on brain imaging. Hence do not recommend adding Eliquis at this time. Possibly consider adding Plavix Otherwise, blood pressure is poorly controlled. Will need to optimize medications for the same including amlodipine/lisinopril extra. Echocardiogram can be performed. Discussed in detail with Dr. Conner. Time Spent With Patient Time: Total time managing care of this patient today ____ minutes. Procedures Date of Service Date of Service: 07/21/23
[2023-07-21] MEDS: Fluticasone/Vilanterol 200/25 BLST.W.DEV 1 PUFF INHALE (11:19)
--- NOTE | 2023-07-21 12:03 | MHC.SL.SOA ---
Referring Provider: MD Nathanael Reason for Referral: expressive aphasia Date of Plan of Treatment:07/20/23 Onset of Symptoms/Illness:07/20/23 Date Treatment Started:07/20/23 Medical Diagnosis: Hypertensive urgency Primary Speech Language Diagnosis:R47.01 Aphasia Secondary Speech Language Diagnosis: Number of Authorized Visits Remaining: Authorization End Date: Reason for Visit:[id number] Individual Treatment Other: Subjective:Patient was awake and alert, sitting on edge/side of bed, very pleasant, very talkative, oriented X4. Patient described the onset of her symptoms and the initial difficulty she had with speaking and communicating, but states she is back to normal with her communication skills. CLAIM INSPECTOR DX yesterday reporting verbal hesitation and some repetition of sounds as well as occasional paraphasia/word production errors, recommended 1x follow up, but no ongoing Speech/Language TX. Objective: Patient was administered a narrative subtest of the BDAE. Assessment:Patient fluently communicating spontaneously today, no evidence of hesitations, repetitions or paraphasia/word production errors. Patient was given the [employer] picture to describe, produced fluent, articulate speech, a cohesive narrative, no hesitations, repetitions or misnomers. Patient reports and appears to be at baseline receptive and expressive language/communication skills. Recommend discharge from Speech Therapy, no additional Speech or Language recommended at this time or at the next level of care. Notes: n/a Plan: Goal # : Status of Goal: Goal # : Status of Goal: Goal # : Status of Goal: Goal # : Status of Goal: Seen by: Graduate/Clinical Fellow: No Supervisory Statement: f_Reg Query Last Value , MHC.[facility] Speech Language Pathologist: Bobbi Cannon M.A., [facility]-CLAIM INSPECTOR
[2023-07-21] MEDS: oxyCODONE HCl Immed Release 5 MG TABLET PO (15:12)
--- NOTE | 2023-07-21 17:17 | HO.PM.IMPN ---
Subjective Subjective Date of Service: 07/21/23 Interval History: Feeling better, feels speech is back to baseline, denies visual symptoms no numbness weakness no headache ,no dizziness, no other acute neurological symptoms, tolerating diet, no nausea, no vomiting, no abdominal pain, no chest pain, complaining of intermittent palpitations but remains in normal sinus rhythm on tele monitor. Review of Systems All other systems reviewed and negative Physical Exam Vital Signs: Vital Signs: Last Vital Signs Temp 97.4 F 07/21/23 15:25 Pulse 57 07/21/23 15:25 Resp 18 07/21/23 15:25 BP 139/66 07/21/23 15:25 Pulse Ox 95 07/21/23 15:25 O2 Del Method Room Air 07/21/23 15:25 BMI result Body Mass Index 26.4 Const: Other: General awake alert x3, sitting comfortably, in no acute distress. Neck supple no JVD. CVS regular rate rhythm, Respiratory lungs clear to auscultation, no respiratory distress, no wheeze, no rhonchi. Gastrointestinal abdomen soft, non tender, bowel sounds audible Extremities no edema. Neuro nonfocal , speech clear pupils equal reactive to light and accommodation Skin no rash Psych appropriate affect Objective Data Active Medications Acetaminophen (Acetaminophen 325 Mg Tablet) 650 mg PO Q6H PRN PRN Reason: Pain, Mild (Pain Scale 1-3) Al Hydroxide/Mg Hydroxide (Magnesium Hydrox/Alum Hydrox 30 Ml Oral.Susp) 30 ml PO Q4H PRN PRN Reason: Heartburn/Nausea Albuterol Sulfate (Albuterol Sulfate 90 Mcg 8 Gm Inhaler) 1 puff INHALE Q4H PRN PRN Reason: Wheezing Amitriptyline HCl (Amitriptyline Hcl 10 Mg Tablet) 20 mg PO BEDTIME [facility] Amlodipine Besylate (Amlodipine Besylate 5 Mg Tablet) 5 mg PO DAILY [facility]; Protocol Last Admin: 07/21/23 09:18 Dose: 5 mg Documented By: ODELL Aspirin (Aspirin Enteric Coated 81 Mg Tablet.) 81 mg PO BEDTIME [facility] Last Admin: 07/20/23 21:16 Dose: 81 mg Documented By: BARTOLOME Atorvastatin Calcium (Atorvastatin Calcium 80 Mg Tablet) 80 mg PO BEDTIME [facility] Last Admin: 07/20/23 21:15 Dose: 80 mg Documented By: BARTOLOME Buspirone HCl (Buspirone Hcl 5 Mg Tablet) 5 mg PO BID [facility] Last Admin: 07/21/23 09:18 Dose: 5 mg Documented By: ODELL Calcium Carbonate/Cholecalciferol (Calcium + Vitamin D 250 Mg Tablet) 500 mg PO DAILY [facility] Last Admin: 07/21/23 09:17 Dose: 500 mg Documented By: ODELL Docusate Sodium (Docusate Sodium 100 Mg Capsule) 100 mg PO BID PRN PRN Reason: for constipation Last Admin: 07/20/23 21:24 Dose: 100 mg Documented By: BARTOLOME Dronedarone (Dronedarone Hcl 400 Mg Tablet) 400 mg PO BID [facility] Last Admin: 07/21/23 09:18 Dose: 400 mg Documented By: ODELL Fenofibrate (Fenofibrate 160 Mg Tablet) 160 mg PO BEDTIME [facility] Last Admin: 07/20/23 21:16 Dose: 160 mg Documented By: BARTOLOME Fluticasone/Vilanterol (Fluticasone/Vilanterol 200/25 Blst.W.Dev) 1 puff INHALE RDAILY [facility] Last Admin: 07/21/23 11:19 Dose: 1 puff Documented By: EDUARDO Hydralazine HCl (Hydralazine Hcl 20 Mg/Ml Vial) 5 mg IVPUSH Q6H PRN; Protocol PRN Reason: SBP > 180 Lisinopril (Lisinopril 10 Mg Tablet) 10 mg PO DAILY [facility]; Protocol Last Admin: 07/21/23 12:13 Dose: 10 mg Documented By: ODELL Melatonin (Melatonin 3 Mg Tablet) 6 mg PO BEDTIME PRN PRN Reason: Insomnia Mirabegron (Mirabegron 50 Mg Tab.Er.24h) 50 mg PO DAILY [facility] Last Admin: 07/21/23 09:18 Dose: 50 mg Documented By: ODELL Multivitamins/Vitamin C (Multivitamin Tablet) 1 tab PO BEDTIME [facility] Last Admin: 07/20/23 21:16 Dose: 1 tab Documented By: BARTOLOME Nitroglycerin (Nitroglycerin 0.4 Mg Tab.Subl) 0.4 mg SUBLINGUAL Q5M PRN PRN Reason: chest pain Omeprazole (Omeprazole 20 Mg Capsule.Dr) 20 mg PO BEDTIME [facility] Last Admin: 07/20/23 21:16 Dose: 20 mg Documented By: BARTOLOME Ondansetron HCl (Ondansetron Hcl 4 Mg/2 Ml Vial) 4 mg IVPUSH Q8H PRN PRN Reason: Nausea and Vomiting Oxycodone HCl (Oxycodone Hcl Immed Release 5 Mg Tablet) 5 mg PO Q6H PRN PRN Reason: Headache Last Admin: 07/21/23 15:12 Dose: 5 mg Documented By: ODELL Senna (Sennosides 8.6 Mg Tablet) 17.2 mg PO BEDTIME [facility] Last Admin: 07/20/23 21:15 Dose: 17.2 mg Documented By: BARTOLOME Venlafaxine HCl (Venlafaxine Hcl Er 150 Mg Cap.Er.24h) 150 mg PO DAILY [facility] Last Admin: 07/21/23 09:18 Dose: 150 mg Documented By: ODELL Labs 07/19/23 19:40 07/19/23 19:40 Assessment and Plan (1) Hypertensive urgency: Status: Acute Plan 78-year-old female with a proximal atrial fibrillation not anticoagulated hypertension that is not treated. Presented to the emergency room with expressive aphasia that has been transient, clinical presentation consistent with hypertension emergency, TIA or even stroke not manifested on CT HTN urgency--persistent elevated blood pressure continue Norvasc and add lisinopril 10 mg daily follow blood pressure closely, cont.prn IV Hydralazine for SBP> 190 Transient expressive aphasia Seen by Neurology possible left hemispheric TIA they recommend to discuss Eliquis with Cardiology MRI brain showed no acute intracranial findings, no acute infarction, global cerebral volume loss and moderate chronic microangiopathy, LDL 73, total cholesterol 152, Reviewed CT a head and neck findings with radiology due to abrupt tapering of right M2 inferior division branch presumably artifact however high-grade stenosis not excluded, due to significant motion artifact Difficult to rule out stenosis with certainty but since abnormality is on the right-side not corresponding to patient's symptoms will hold off on further testing, cerebral angiogram will be the this study if noted to have recurrent neurological symptoms. Continue aspirin, continue statin, oxycodone prn for headache. Seen by speech therapy and discharged since appear to be at baseline. Case discussed with Dr. Bee since patient is in normal sinus rhythm, with no obvious abnormality on MRI suggestive of embolic stroke, likely has vascular disease with moderate a microangiopathy he recommend Plavix, follow echocardiogram. paroxysmal AFIB, continue Multaq, s/p Watchman device due to history of bruising more and has been on aspirin, EKG shows sinus rhythm. HLD--continue Statin Neuropathy--continue home meds, follows with Dr. Krause as outpatient and is referred to pain management Mood disorder--continue Elavil and BuSpar DVT prophylaxis:subQ lovenox. full code Patient will need continued inpatient hospitalization for management of hypertension urgency and TIA waiting for echo and further medication adjustment. Time Spent With Patient Time: Total time managing care of this patient today ____ minutes. Quality Stroke Does the patient have a stroke diagnosis?: No VTE Prior VTE?: No VTE Risk Level:: Medical - moderate - high VTE Device Contraindication: Treatment Not Indicated VTE Drug Contraindication: N/A - Med Ordered
[2023-07-21] MEDS: Docusate Sodium 100 MG CAPSULE PO (21:28)
[2023-07-21] MEDS: Fenofibrate 160 MG TABLET PO (21:29)
[2023-07-21] MEDS: Sennosides 8.6 MG TABLET 17.2 MG PO (21:29)
[2023-07-21] MEDS: Omeprazole 20 MG CAPSULE.DR PO (21:29)
[2023-07-22 02:50] VITALS: BP 133/67; PULSE 58; RESP 20; TEMP 36.1; O2SAT 93
[2023-07-22 07:18] VITALS: BP 167/76; PULSE 59; RESP 17; TEMP 36.4; O2SAT 94
[2023-07-22] MEDS: Fluticasone/Vilanterol 200/25 BLST.W.DEV 1 PUFF INHALE (07:38)
[2023-07-22 07:43] VITALS: PULSE 64; RESP 17; O2SAT 95
[2023-07-22] MEDS: busPIRone HCl 5 MG TABLET PO (08:08)
[2023-07-22] MEDS: Calcium + Vitamin D 250 MG TABLET 500 MG PO (08:08)
[2023-07-22] MEDS: Venlafaxine HCl ER 150 MG CAP.ER.24H PO (08:08)
[2023-07-22 11:10] VITALS: BP 117/63; PULSE 55; RESP 18; TEMP 36.4; O2SAT 95
--- NOTE | 2023-07-22 11:24 | PM.PNCARD ---
Subjective Subjective Date of Service: 07/22/23 Interval history: Patient states she feels okay. No cardiac symptoms but having lot of headache. That might be from high blood pressure. Review of Systems Review of Systems Yes all other systems are reviewed and are negative Constitutional: Reports as per HPI and Reports no additional constitutional complaints Eyes: Reports as per HPI and Denies no additional eye complaints Denies system reviewed and no additional complaints, except as documented and Reports as per HPI Cardiovascular: Reports as per HPI, Reports no additional cardiovascular complaints, Denies acrocyanosis, Denies cool extremities, Denies chest pain, Denies leg edema, Denies lightheadedness, Denies palpitations and Denies dyspnea Respiratory: Reports as per HPI, Denies no additional respiratory complaints and Denies dyspnea Gastrointestinal: Reports as per HPI and Denies no additional gastrointestinal complaints Genitourinary: Reports as per HPI Musculoskeletal: Reports no additional musculoskeletal complaints and Reports as per HPI Skin/Breast: Reports system reviewed and no additional complaints, except as docu Reports system reviewed and no additional complaints, except as documented and Reports as per HPI Psychiatric: Reports no additional psychiatric complaints and Reports as per HPI Endocrine: Reports no additional endocrine complaints, Reports as per HPI and Denies palpitations Hematologic/Lymphatic: Reports no additional hematologic/lymphatic complaints and Reports as per HPI Allergic/Immunologic: Reports no additional allergic/immunologic complaints and Reports as per HPI Physical Exam Vital Signs: Last Vital Signs Temp 97.6 F 07/22/23 11:10 Pulse 55 07/22/23 11:10 Resp 18 07/22/23 11:10 BP 117/63 07/22/23 11:10 Pulse Ox 95 07/22/23 11:10 O2 Del Method Room Air 07/22/23 11:10 BMI result Body Mass Index 26.4 Const General: comfortable and no acute distress Orientation/consciousness: patient oriented x3 HEENT Other: Unremarkable Head: Yes normal to inspection Neck Neck: Yes normal visual inspection Chest Chest palpation & inspection: normal inspection of the chest Resp Auscultation: clear to auscultation bilaterally Cardio Palpation: normal PMI Heart sounds: S1 normal heart sound present, S2 normal heart sound present, no gallops, no murmurs and no rubs GI Palpation (GI): Soft to palpation Back/Spine/Pelvis Other: unremarkable Skin General skin exam: no rashes or lesions noted Neuro General: patient oriented x3 Extrem General: Yes normal to inspection Psych Mental Status: mental status grossly normal Objective Labs and Meds 07/19/23 19:40 07/19/23 19:40 Progress Note: A&P Assessment and plan (1) Brain TIA: Status: Acute (2) Hypertensive urgency: Status: Acute (3) Atherosclerotic cardiovascular disease: Status: Acute (4) Paroxysmal atrial fibrillation: Status: Acute Plan Based on the CTA of the head and neck, there is clear evidence of vascular disease. Troponin levels within normal limits. The question is if she will benefit from anticoagulation. Her Watchman device a few years old around approximately 2019 or so. She has remained only on aspirin. Based on notes, it seems that she is well controlled from the atrial fibrillation standpoint and has mostly been in sinus. In telemetry, she is in sinus and there is no evidence of any atrial fibrillation. Overall, low likelihood that this is truly an embolic episode from cardiac. Much more likely related to vascular disease as there is clear evidence based on brain imaging. Based on the above, no need for any Eliquis. May add Plavix to her aspirin. Otherwise, blood pressure seems poorly controlled. When she arrived, it was as much as 200/88 mm Hg. It is much better now. Meds are being optimized. Headache is probably from the blood pressures self. Otherwise, echocardiogram shows preserved LVEF. Inferior wall motion abnormality likely from her known coronary disease. She also has moderate aortic stenosis. Will arrange follow-up in the clinic. Discussed with . Time Spent With Patient Time: Total time managing care of this patient today ____ minutes. Progress Note: Quality Stroke Does the patient have a stroke diagnosis?: No Procedures Date of Service Date of Service: 07/22/23
--- NOTE | 2023-07-22 12:14 | PM.DS ---
DS: Providers Provider Date of Service: 07/22/23 Date of admission: 07/19/23 22:26 Primary care physician: Perfecto Clark MD Consults: 07/19/23 22:26 Consult to Neurology Routine Consulting Provider: Blaine Nguyen Reason for consultation: TIA Has provider been notified: No 07/21/23 08:22 Consult to Cardiology Routine Consulting Provider[place] [facility] [facility] Reason for consultation: at fib /TIA ? eliquis Has provider been notified: No DS: Diagnosis Discharge Diagnosis (1) Brain TIA: Status: Acute (2) Hypertensive urgency: Status: Acute (3) Atherosclerotic cardiovascular disease: Status: Acute (4) Paroxysmal atrial fibrillation: Status: Acute DS: Summary Hospital Course Hospital Course: History of presenting illness: Date of Service: 07/19/23 Chief Complaint: Difficulty talking 78-year-old female with history of proximal atrial fibrillation status post Watchman device, hyperlipidemia who presented to the emergency room with expressive aphasia. patient was on the phone with her son and all of sudden was having difficulty with word finding, dizziness, headache and chest discomfort. CT of the head and CT of the head and neck demonstrate no acute finding. Her blood pressure has been extremely elevated with a peak systolic of 200 and has been given 5 mg of Norvasc. Her symptom at this point have all resolved. Hospital course: 78-year-old female with a proximal atrial fibrillation not anticoagulated hypertension that is not treated. Presented to the emergency room with expressive aphasia that has been transient, clinical presentation consistent with hypertension urgency, TIA and admitted to intermediate care unit. HTN urgency-placed on Norvasc with good blood pressure control patient was not on antihypertensive at home recommend to follow blood pressure closely. Transient expressive aphasia the Seen by Neurology possible left hemispheric TIA ,MRI brain showed no acute intracranial findings, no acute infarction, global cerebral volume loss and moderate chronic microangiopathy, LDL 73, total cholesterol 152, CTA head and neck showed abrupt tapering of right M2 inferior division branch presumably artifact however high-grade stenosis not excluded, due to significant motion artifact, Difficult to rule out stenosis with certainty but since abnormality is on the right-side not corresponding to patient's symptoms will hold off on further testing, cerebral angiogram will be the study if noted to have recurrent neurological symptoms,Continue aspirin, continue statin, Case discussed with Dr. Bee regarding use of Eliquis with underlying atrial fibrillation with high risk for embolic stroke, but since patient is in normal sinus rhythm, with no obvious abnormality on MRI suggestive of embolic stroke, likely has vascular disease with moderate a microangiopathy he recommend Plavix, echocardiogram showed preserved EF, inferior wall motion abnormality likely from known coronary disease and moderate aortic stenosis. Recommend outpatient follow-up with primary care physician.Seen by speech therapy and discharged since appear to be at baseline. paroxysmal AFIB, continue Multaq, s/p Watchman device due to history of bruising more and has been on aspirin, EKG shows sinus rhythm. HLD--continue Statin Neuropathy--continue home meds, continue outpatient follow-up with Dr. Krause and pain management. Mood disorder--continue Elavil and BuSpar Time Spent with Patient Time attestation: Total time managing care of this patient today ____ minutes. Discharge coordination time: Greater than 30 minutes Quality: Safe Use of Opioids Does Pt have an Active Cancer Diagnosis on the Problem List?: No Quality: Stroke Does the patient have a stroke diagnosis?: No Physical Exam Vital Signs: Vital Signs: Last Vital Signs Temp 97.6 F 07/22/23 11:10 Pulse 55 07/22/23 11:10 Resp 18 07/22/23 11:10 BP 117/63 07/22/23 11:10 Pulse Ox 95 07/22/23 11:10 O2 Del Method Room Air 07/22/23 11:10 BMI result Body Mass Index 26.4 Const: Other: General awake alert x3, sitting comfortably, in no acute distress. Neck supple no JVD. CVS regular rate rhythm, Respiratory lungs clear to auscultation, no respiratory distress, no wheeze, no rhonchi. Gastrointestinal abdomen soft, non tender, bowel sounds audible Extremities no edema. Neuro nonfocal , speech clear pupils equal reactive to light and accommodation Skin no rash Psych appropriate affect Discharge Plan Discharge Anticipated Discharge Date/Time: 07/22/23 12:07 Patient Disposition: Home, Self-Care Discharge Diagnosis: TIA Hypertensive urgency Referrals: Perfecto Clark MD [Primary Care Provider] - 1 Week Discharge Medications: New clopidogrel 75 mg Tablet 75 mg PO DAILY Qty: 30 0RF amlodipine 10 mg Tablet 10 mg PO DAILY Qty: 30 0RF Protocol: Hold for SBP< HOLD for SBP < : 90 Continued nitroglycerin 0.4 mg tablet, sublingual 0.4 mg sublingual Q5M PRN (Reason: chest pain) Qty: 90 8RF Rx Instructions: do not exceed 3 doses per episode sennosides [Senna Laxative] 8.6 mg tablet 17.2 mg PO BEDTIME Qty: 180 4RF Multaq 400 mg tablet 400 mg PO BID Qty: 180 3RF docusate sodium 100 mg capsule 100 mg PO BID PRN (Reason: for constipation) Qty: 180 3RF aspirin 81 mg Tablet,Delayed Release (Dr/Ec) 81 mg PO BEDTIME albuterol sulfate 90 mcg/actuation HFA aerosol inhaler 1 puff inhalation Q4-6H PRN (Reason: Wheezing) omeprazole 20 mg capsule,delayed release(DR/EC) 20 mg PO BEDTIME rosuvastatin 40 mg tablet 40 mg PO BEDTIME fenofibrate nanocrystallized 145 mg tablet 145 mg PO BEDTIME Myrbetriq 50 mg tablet extended release 24 hr 50 mg PO DAILY alendronate 70 mg tablet 70 mg PO SHERIDAN budesonide-formoterol 160-4.5 mcg/actuation HFA aerosol inhaler 2 puff inhalation BID calcium carbonate-vitamin D3 600 mg(1,500mg) -400 unit tablet 1 tab PO DAILY vitamin E 200 unit capsule 200 unit PO BEDTIME vitamin B complex [B Complex-Vitamin B12] Tablet 1 tab PO BEDTIME amitriptyline 10 mg tablet 20 mg PO DAILY venlafaxine 150 mg capsule,extended release 24hr 150 mg PO QAM buspirone 5 mg tablet 5 mg PO BID Discharge Orders: Discharge Order (Routine); Ordered 07/22/23 Ordered By: Aftab Conner Diet: Advance to usual diet Activity on Discharge: As tolerated Stand Alone Forms: Patient Portal Discharge page Care Plan Goals: Speech impairment resolved continue aspirin and take Plavix Elevated blood pressure placed on Norvasc 10 mg daily Health Concerns: Atrial fibrillation Neuropathy Plan of Treatment: Outpatient follow-up with neurologist Dr. Krause as previously planned Outpatient follow-up with Cardiology Follow-up with primary care physician call for appointment Assessment: As above
--- NOTE | 2023-07-22 13:02 | MHC.CM.PN ---
Pt has been medically cleared for DC. Family will pick her up, referral submitted to [facility] and discussed with Pt.
--- NOTE | 2023-08-02 12:06 | MHC.STROKE ---
ADDENDUM CLARIFICATION REFUSED ANTICOAGULATION DUE TO WATCHMAN DEVICE.
== END 2023-07-22 16:14 | disposition home or self-care (01) | DRG 69 ==
LOC: HO.ED 21:22 → HO.EDOVER 22:33 → HO.IMC 07-20 05:49
PROVIDERS: Admitting Provider Internal Medicine; Emergency Provider Emergency Medicine; PCP Internal Medicine; Visit Provider Hospitalist
DX: G45.9 Transient cerebral ischemic attack, unspecified (principal); I16.0 Hypertensive urgency; I48.0 Paroxysmal atrial fibrillation; I25.10 Atherosclerotic heart disease of native coronary artery without angina pectoris; E11.40 Type 2 diabetes mellitus with diabetic neuropathy, unspecified; F39 Unspecified mood [affective] disorder; E78.2 Mixed hyperlipidemia; Z95.818 Presence of other cardiac implants and grafts; Z79.01 Long term (current) use of anticoagulants; Z79.82 Long term (current) use of aspirin; Z79.899 Other long term (current) drug therapy
CPT/HCPCS: 36415; 70450; 70496; 70498; 70551; 71045; 80048; 80061; 82550; 82947; 84484; 85025; 85610; 85730; 92507; 93005; 93306; 93356; 96125; 99222; 99285; Q9957; Q9967

== ENCOUNTER → 2023-07-19 19:58 | Outpatient (BNV) | payer MEDICARE, MEDICAID, SELFPAY | PROVIDERS: Emergency Provider Emergency Medicine; PCP Internal Medicine; Visit Provider Internal Medicine | DX: I48.0 Paroxysmal atrial fibrillation (principal); G45.9 Transient cerebral ischemic attack, unspecified; I16.0 Hypertensive urgency; I25.10 Atherosclerotic heart disease of native coronary artery without angina pectoris | CPT/HCPCS: 99223; 99233; 99239 ==

== ENCOUNTER 2023-07-19 22:26 | Outpatient (BNV) | payer MEDICARE, MEDICAID, SELFPAY | END 2023-07-21 09:07 | PROVIDERS: Admitting Provider Internal Medicine; Emergency Provider Emergency Medicine; PCP Internal Medicine; Visit Provider Internal Medicine | DX: I35.0 Nonrheumatic aortic (valve) stenosis (principal) | CPT/HCPCS: 93306 ==

== ENCOUNTER → 2023-07-19 22:26 | Outpatient (BNV) | payer MEDICARE, MEDICAID, SELFPAY | PROVIDERS: Admitting Provider Internal Medicine; Emergency Provider Emergency Medicine; PCP Internal Medicine; Visit Provider Internal Medicine | DX: G45.9 Transient cerebral ischemic attack, unspecified (principal); I16.0 Hypertensive urgency; I25.10 Atherosclerotic heart disease of native coronary artery without angina pectoris; I48.0 Paroxysmal atrial fibrillation | CPT/HCPCS: 99223; 99233 ==

== ENCOUNTER 2023-07-27 13:49 | Outpatient (AMB) | payer MEDICARE, MEDICAID, SELFPAY ==
[2023-07-27 13:58] VITALS: BP 130/68; PULSE 75; O2SAT 97; BMI 25.8
--- NOTE | 2023-07-27 13:58 | MHC.PC.OV ---
Vital Signs 07/27/23 13:58 Height 5 ft 6 in Weight 160 lb BMI 25.8 BP 130/68 Blood Pressure Location Lt brachial Position Sitting Pulse 75 Pulse Source Pulse Oximeter Pulse Oximetry (%) 97 Oxygen Delivery Method Room Air Intake Visit Reasons: [facility] 07/24/23-Stroke Allergies acetaminophen [From TYLENOL] Adverse Reaction (Intermediate, Verified 07/27/23 13:59) DIZZINESS, VOMITING levofloxacin [From LEVAQUIN] Adverse Reaction (Intermediate, Verified 07/27/23 13:59) NAUSEA & VOMITING Medication List - Last Reconciled 07/28/23 by Perfecto Clark MD albuterol sulfate 90 mcg/actuation 1 puff inhalation Q4-6H PRN alendronate 70 mg PO SHERIDAN amitriptyline 20 mg PO DAILY amlodipine 10 mg See Protocol PO DAILY aspirin 81 mg PO BEDTIME budesonide-formoterol 160-4.5 mcg/actuation 2 puffs inhalation BID buspirone 5 mg PO BID calcium carbonate-vitamin D3 600 mg-10 mcg (400 unit) 1 tab PO DAILY clopidogrel 75 mg PO DAILY docusate sodium 100 mg PO BID PRN dronedarone (Multaq) 400 mg PO BID fenofibrate nanocrystallized 145 mg PO BEDTIME mirabegron ER (Myrbetriq) 50 mg PO DAILY nitroglycerin 0.4 mg sublingual Q5M PRN omeprazole 20 mg PO BEDTIME rosuvastatin 40 mg PO BEDTIME sennosides (Senna Laxative) 17.2 mg (2 x 8.6 mg) PO BEDTIME venlafaxine ER 150 mg PO QAM vitamin B complex (B Complex-Vitamin B12 tablet) 1 tab PO BEDTIME vitamin E 200 units PO BEDTIME Tobacco use date assessed: 03/08/23 Fall risk assessment: No Falls in past year Last assessed Fall Risk: 07/27/23 Dental Screening Dental Screen Date: 07/27/23 Did you have a dental visit in the last 12 months?: Yes Did you have a dental problem in the last 6 months where you did not have access to dental care?: No Was dental information given to patient?: Patient has dentist HPI [facility] 07/24/23-Stroke HPI 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; no physical symptoms PFSH Medical History Retention of urine Hyperlipidemia Neuropathy Diabetic neuropathy Post-menopausal Screening for diabetes mellitus COVID-19 vaccine series completed Presence of Watchman left atrial appendage closure device Mixed hyperlipidemia Paroxysmal atrial fibrillation CAD (coronary artery disease) Surgical History History of colonoscopy History of rotator cuff surgery Stented coronary artery History of cataract surgery History of bladder surgery History of hysterectomy History of cholecystectomy Family History Father Cancer Mother Heart disease Pancreatic cancer Sister Heart disease Social History Household Members: None Housing: Condominium Alcohol intake: never Patient Tobacco Use Status: Never used Tobacco e-Cigarette/Vaping Use: Never Used Second Hand Smoke Exposure: No Advance Directives Date on File: 07/20/23 service: No Current occupational status: retired Cognitive needs: Yes Hearing needs: Yes Vision needs: Yes Questionnaire PHQ-9 Over the last 2 weeks, how often have you been bothered by any of the following problems? 1. Little interest or pleasure in doing things: not at all 2. Feeling down, depressed, or hopeless: not at all 3. Trouble falling or staying asleep, or sleeping too much: not at all 4. Feeling tired or having little energy: not at all 5. Poor appetite or overeating: not at all 6. Feeling bad about yourself - or that you are a failure or have let yourself or your family down: not at all 7. Trouble concentrating on things, such as reading the newspaper or watching television: not at all 8. Moving or speaking so slowly that other people could have noticed. Or the opposite - being so fidgety or restless that you have been moving around a lot more than usual: not at all 9. Thoughts that you would be better off or of hurting yourself in some way: not at all Total score: 0 Depression Screening Interpretation: Positive Depression Screening Done: Yes Source: Developed by Drs. Neto Franco, Jacqueline Fry, Jones Valdivia and colleagues, with an educational dre from [employer]. Thrive Questionnaire Date Thrive assessed: 07/20/23 AUDIT C Alcohol Use Questionnaire (AUDIT-C) 1. How often do you have a drink containing alcohol?: Never Total Score: 0 Score Reviewed/Action Taken: Yes VERENA-7 AMB Questionnaire VERENA-7 Date VERENA - 7 assessed: 12/02/22 Source: Developed by Drs. Neto Franco, Jacqueline Fry, Jones Valdivia and colleagues, with an educational dre from [employer]. Review of Systems Const Denies chills, Denies headache(s) and Denies weight loss ENT Denies headache(s) Card Denies chest pain, Denies syncope, Denies irregular heart rhythm and Denies dyspnea Resp Denies chest congestion, Denies cough and Denies dyspnea GI Denies abdominal pain, Denies change in stool character, Denies nausea and Denies vomiting Musc Denies deformity and Denies joint swelling Neuro Denies syncope and Denies headache(s) Physical exam (Primary Care) Vital Signs: Last Vital Signs Pulse 75 07/27/23 13:58 BP 130/68 07/27/23 13:58 Pulse Ox 97 07/27/23 13:58 Oxygen Delivery Method Room Air 07/27/23 13:58 BMI result Body Mass Index 25.8 Tobacco/Smoking Status: Tobacco use Status Tobacco use date assessed 03/08/23 07/27/23 14:08 Patient Tobacco Use Status Never used Tobacco 07/27/23 14:08 e-Cigarette/Vaping Use Never Used 07/27/23 14:08 PHQ-9: PHQ-9 Score PHQ-9: Total score 0 07/27/23 14:34 Depression Screening Interpretation: Positive Thrive Assessment: Date of Thrive Assessment Date Thrive assessed 07/20/23 07/27/23 14:08 Const General: cooperative, comfortable, no acute distress and alert Neck Neck: Yes no lymphadenopathy Thyroid: Thyroid normal Resp Effort & Inspection: normal respiratory effort Auscultation: clear to auscultation bilaterally Percussion: percussion normal Cardio Jugular venous distension: no JVD Palpation: normal PMI Rate: regular rate Rhythm: regular rhythm Heart sounds: S1 normal heart sound present and S2 normal heart sound present GI Inspection: Yes normal to inspection Palpation (GI): No hepatosplenomegaly present Skin General skin exam: no rashes or lesions noted Extrem General: Yes no clubbing, cyanosis or edema Office Procedures Flu Questionnaire Does the patient have a severe egg allergy?: No Does the patient have severe life threatening allergies?: No Does the patient have a fever or illness today?: No Has the patient ever had Guillain-Mcdermott Syndrome?: No Has the patient ever had any past reaction to a flu shot?: No Immunizations flu vacc [id number] 6mos up(PF) 60 mcg(15 mcgx4)/0.5 mL IM syringe Performing Provider: Perfecto Clark MD [facility] [place] Administered by: FERNANDO Montoya on 07/27/23 14:34 Dose Route Admin Location Dispensed Lot Number Expiration Date NDC [employer]qu[employer] 0.5 mL IM Left Deltoid 0.5 mL [id number] 04/15/24 [id number] [employer] VIS Given Date VIS Provided VIS Publication Date 07/27/23 Single Vaccine 21 Eligibility Eligibility Date Funding Source Not [facility] Eligible 07/27/23 Private Assessment and Plan Assessment & Plan (1) Brain TIA: Code(s): G45.9 - Transient cerebral ischemic attack, unspecified Plan: referred to neuro Orders: Orders Influenza [id number] Immunization 07/27/23 Z23 - Encounter for immunization Coding Level of Care Code Est Pt Level 3 (77857) Diagnoses Brain TIA G45.9
== END 2023-07-27 14:20 | disposition home or self-care (01) ==
PROVIDERS: PCP Internal Medicine; Visit Provider Internal Medicine
DX: Z23 Encounter for immunization (principal)
CPT/HCPCS: 90471; 90686; 99213

== ENCOUNTER 2023-08-04 14:33 | Outpatient (AMB) | payer MEDICARE, MEDICAID, SELFPAY ==
--- NOTE | 2023-08-04 14:39 | A.OFFVIS_ITS ---
Intake Intake Visit Reasons: 6m/OAB Intake Note: Patient presents today for a follow-up on OAB: Meds- Myrbetriq Allergies to Antibiotic- Levofloxacin Blood Thinner- Aspirin PVR- 0ml Allergies acetaminophen [From TYLENOL] Adverse Reaction (Intermediate, Verified 08/22/23 14:50) DIZZINESS, VOMITING levofloxacin [From LEVAQUIN] Adverse Reaction (Intermediate, Verified 08/22/23 14:50) NAUSEA & VOMITING HPI HPI Comments History of Present Illness Details Edie is a 78-year-old female who presents today to the office for a follow-up. 08/04/23? She is followed today for OAB, LUTS. She was last seen by me on 01/20/23 for urinary frequency. The patient was advised to continue Myrbetriq 50 mg QD. She states that she recently hospitalized for TIA and she is slowly improving. She states her bladder symptoms are stable. Review of charts: Last visit: 01/20/2023-- Edie is a 77-year-old female who is on Myrbetriq 50 mg QD. The patient underwent Medtronic interstim placement in 2014.? On 02/23/2021-- the patient had new battery/pacemaker placed by Dr. Darnell.? The patient states her Medtronic interstim is working well.? States since she was last seen in the office she had shingles on her right cheek and bilateral lower limbs.? The patient wears a pad which is usually dry.? Denies having UTI in the past.? Evaluation today: Blood: negative, leukocytes: negative. Bladder scan PVR: 0 mL.? 08/04/23: Plan: Continue Myrbetriq 50 mg. Timed Voiding. [facility] Medical History (Updated 08/22/23 @ 17:10 by Cadence Short, ELECTRONIC SYSTEMS TECHNICIAN-C) Presence of Watchman left atrial appendage closure device Paroxysmal atrial fibrillation Atherosclerotic cardiovascular disease Retention of urine Hyperlipidemia Neuropathy Diabetic neuropathy Post-menopausal Screening for diabetes mellitus COVID-19 vaccine series completed Mixed hyperlipidemia CAD (coronary artery disease) Surgical History History of colonoscopy History of rotator cuff surgery Stented coronary artery History of cataract surgery History of bladder surgery History of hysterectomy History of cholecystectomy Family History Father Cancer Mother Heart disease Pancreatic cancer Sister Heart disease Social History Household Members: None Housing: Condominium Alcohol intake: never Patient Tobacco Use Status: Never used Tobacco e-Cigarette/Vaping Use: Never Used Second Hand Smoke Exposure: No Advance Directives Date on File: 07/20/23 service: No Current occupational status: retired Cognitive needs: Yes Hearing needs: Yes Vision needs: Yes Review of Systems Const Denies weight loss Eyes Denies change in vision ENT Reports no additional complaints Card Details: h/o atrial fib s/p Watchman Denies chest pain Resp Reports no additional complaints GI Denies abdominal pain Reports as per HPI Musc Details: occasional joint pain Skin/Breast Reports system reviewed and no additional complaints, except as documented Neuro Reports no additional complaints Psych Reports no additional complaints Endo Reports no additional complaints Mariano/Lymph Details: pt on aspirin Reports easy bruising Office Procedures Post Void Residual Post Residual Void Post Void Residual (PVR): 0 34196-Flpy Void Residual by ultrasound Results AMB Urinalysis, Automated UA Leukoctes 0 Dave/uL Last Edit by Gracie Preciado [facility] on 08/04/23 14:52 UA Nitrite Negative Last Edit by Gracie Preciado [facility] on 08/04/23 14:52 UA Urobilinogen 1 mg/dL Last Edit by Gracie Preciado A on 08/04/23 14:52 UA Protein 15 mg/dL Last Edit by Gracie Preciado [facility] on 08/04/23 14:52 UA pH 6.0 Last Edit by Gracie Preciado [facility] on 08/04/23 14:52 UA Blood 0 Sam/uL Last Edit by Gracie Preciado [facility] on 08/04/23 14:52 UA Specific [place] 1.020 Last Edit by Gracie Preciado [facility] on 08/04/23 14: 52 UA Ketone Negative Last Edit by Gracie Preciado [facility] on 08/04/23 14:52 UA Bilirubin 0 mg/dL Last Edit by Gracie Preciado [facility] on 08/04/23 14:52 UA Glucose 0 mg/dL Last Edit by Gracie Preciado [facility] on 08/04/23 14:52 Results Reviewed Results Reviewed: Laboratory Last Values Urine pH (Auto) 6.0 08/04/23 14:44 Specific [place] (Auto) 1.020 08/04/23 14:44 Urine Protein (Auto) 15 mg/dL 08/04/23 14:44 Glucose (UA)(Auto) 0 mg/dL 08/04/23 14:44 Urine Ketones (Auto) Negative 08/04/23 14:44 Urine Blood (Auto) 0 Sam/uL 08/04/23 14:44 Urine Nitrite (Auto) Negative 08/04/23 14:44 Urine Bilirubin (Auto) 0 mg/dL 08/04/23 14:44 Urine Urobilinogen (Auto) 1 mg/dL 08/04/23 14:44 Leukocyte Esterase (Auto) 0 Dave/uL 08/04/23 14:44 Assessment & Plan Assessment & Plan (1) Overactive bladder: Code(s): N32.81 - Overactive bladder Plan Continue Myrbetriq 50 mg. Timed Voiding. Orders: Orders AMB Post Void Residual by ultrasound 08/04/23 N32.81 - Overactive bladder AMB Urinalysis Automated 08/04/23 Z13.9 - Encounter for screening, unspecified Patient Instructions: The patient had an opportunity to ask questions regarding treatment plan. All questions were answered. Imaging, Laboratory studies and physical exam results were discussed and reviewed in detail. No major barriers to understanding were identified. The patient expressed understanding and agreement with the above treatment plan.? ? ? The patient is aware they should contact our office by phone for worsening of their current condition or the appearance of new symptoms. Compliance is encouraged with any medications and followup testing that is ordered.? ? ? It is a privilege to be allowed the opportunity to participate in the urologic care of your patient. If you have any questions or concerns regarding treatment for the above conditions please do not hesitate to contact me. The office telephone contact is [phone].? ? ? This note is constructed in part using voice recognition software. While every effort has been made to ensure accuracy city dispatch supervisor errors may have been included.? ? ? Yours sincerely,? ? ? Bella Villa MD? Coding Level of Care Code Tele Est Pt Level 3 (91755) Diagnoses Overactive bladder N32.81 CPT Codes Post Residual Void - PVR CPT Code: 58924-Femo Void Residual by ultrasound ([id number])
== END 2023-08-04 15:09 | disposition home or self-care (01) ==
PROVIDERS: Visit Provider Urology
DX: N32.81 Overactive bladder (principal)
CPT/HCPCS: 99213

== ENCOUNTER → 2023-08-04 14:33 | Outpatient (BNVA) | payer MEDICARE, MEDICAID, SELFPAY | PROVIDERS: Visit Provider Urology | DX: N32.81 Overactive bladder (principal) | CPT/HCPCS: 51798; 81003; 99212 ==

== ENCOUNTER 2023-08-22 14:33 | Outpatient (AMB) | payer MEDICARE, MEDICAID, SELFPAY ==
[2023-08-22 14:47] VITALS: BP 130/84; PULSE 80
--- NOTE | 2023-08-22 14:47 | A.OFFVIS_ITS ---
Intake Vital Signs 08/22/23 14:47 Height 5 ft 6 in BP 130/84 Blood Pressure Location Lt brachial Position Sitting Pulse 80 Pulse Source Pulse Oximeter Intake Visit Reasons: [facility] [place] Intake Note: [facility] [place] Help Desk Support Specialist Required: No Allergies acetaminophen [From TYLENOL] Adverse Reaction (Intermediate, Verified 08/22/23 14:50) DIZZINESS, VOMITING levofloxacin [From LEVAQUIN] Adverse Reaction (Intermediate, Verified 08/22/23 14:50) NAUSEA & VOMITING Medication List - Last Reconciled 08/22/23 by Cadence Short NP-Jamilah albuterol sulfate 90 mcg/actuation 1 puff inhalation Q4-6H PRN alendronate 70 mg PO SHERIDAN amlodipine 10 mg See Protocol PO DAILY aspirin 81 mg PO BEDTIME budesonide-formoterol 160-4.5 mcg/actuation 2 puffs inhalation BID buspirone 5 mg PO BID calcium carbonate-vitamin D3 600 mg-10 mcg (400 unit) 1 tab PO DAILY clopidogrel 75 mg PO DAILY docusate sodium 100 mg PO BID PRN dronedarone (Multaq) 400 mg PO BID fenofibrate nanocrystallized 145 mg PO BEDTIME mirabegron ER (Myrbetriq) 50 mg PO DAILY mirabegron ER (Myrbetriq) 50 mg PO .every other day 90 days nitroglycerin 0.4 mg sublingual Q5M PRN omeprazole 20 mg PO BEDTIME oxycodone-acetaminophen 5-325 mg (Percocet) 1 tab PO Q6H PRN rosuvastatin 40 mg PO BEDTIME sennosides (Senna Laxative) 17.2 mg (2 x 8.6 mg) PO BEDTIME venlafaxine ER 150 mg PO QAM vitamin B complex (B Complex-Vitamin B12 tablet) 1 tab PO BEDTIME vitamin E 200 units PO BEDTIME HPI [facility] [place] HPI Details Edie is a 78-year-old female with past medical history of hyperlipidemia, coronary artery disease with RCA stents, paroxysmal atrial fibrillation suppressed with Multaq, Watchman device in place, recent [facility] admission for TIA episode. She was started on Plavix in addition to her aspirin. Today she presents for follow-up. Today she states that she has been doing generally well since her hospital discharge. She is noticing some mild forgetfulness. She does tell me that on the day of the event she was talking to her son on the phone and then could not find the right words. She has some difficulty recalling exactly what happened but knows that her son called EMS and they transported to her to the hospital. She was admitted for 3 days. She was told she had a TIA, no CVA. Her speech return to normal. She had no difficulty with movement of her extremities. She denies any chest discomfort at rest or with activity. She denies shortness of breath, presyncope, syncope, PND, orthopnea or edema. She has noticed some flutters in her chest lasting seconds which she believes is AFib. She takes her medications as directed. She has noticed some increased bruising with the use of Plavix. [facility] Medical History (Updated 08/22/23 @ 17:10 by Cadence Short NP-C) Presence of Watchman left atrial appendage closure device Paroxysmal atrial fibrillation Atherosclerotic cardiovascular disease Retention of urine Hyperlipidemia Neuropathy Diabetic neuropathy Post-menopausal Screening for diabetes mellitus COVID-19 vaccine series completed Mixed hyperlipidemia CAD (coronary artery disease) Surgical History History of colonoscopy History of rotator cuff surgery Stented coronary artery History of cataract surgery History of bladder surgery History of hysterectomy History of cholecystectomy Family History Father Cancer Mother Heart disease Pancreatic cancer Sister Heart disease Social History Household Members: None Housing: Condominium Alcohol intake: never Patient Tobacco Use Status: Never used Tobacco e-Cigarette/Vaping Use: Never Used Second Hand Smoke Exposure: No Advance Directives Date on File: 07/20/23 service: No Current occupational status: retired Cognitive needs: Yes Hearing needs: Yes Vision needs: Yes Review of Systems Const Details: mild forgetfullness All systems reviewed & are unremarkable except as noted in HPI and below ENT Denies dizziness Card Details: brief palpitations Denies chest pain, Denies chest pain at rest, Denies chest pain with activity, Reports rapid heart rate, Denies pedal edema, Denies edema, Denies leg edema, Denies lightheadedness, Denies palpitations, Denies dyspnea, Denies dyspnea on exertion and Denies orthopnea Resp Denies cough, Denies dyspnea and Denies dyspnea on exertion GI Denies hematochezia and Denies change in stool character Musc Denies abnormal gait, Reports limited range of motion, Reports muscle cramps, Denies muscle weakness, Denies numbness, Denies radiating pain into limb, Denies stiffness and Denies tingling Neuro Denies abnormal gait, Denies dizziness, Denies numbness and Denies tingling Endo Denies palpitations Physical Exam Vital Signs: Last Vital Signs Pulse 80 08/22/23 14:47 BP 130/84 08/22/23 14:47 Const General: cooperative, healthy appearing, comfortable and no acute distress Orientation/consciousness: patient oriented x3 Neck Neck: Yes normal visual inspection Resp Effort & Inspection: normal respiratory effort Auscultation: clear to auscultation bilaterally, no crackles, no rales, no rhonchi and no wheezes Cardio Jugular venous distension: no JVD Rate: regular rate Rhythm: regular rhythm Heart sounds: S1 normal heart sound present, S2 normal heart sound present, Murmur heart sound present (2/6 systolic, right sternal border) and no rubs Neuro General: patient oriented x3 Extrem General: Yes normal to inspection Psych Appearance: grossly normal Mental Status: mental status grossly normal Speech and movement: Normal speech and movement present Office Procedures EKG Details: Today read by me, normal sinus rhythm, no acute ST or T-wave abnormalities, rate 80, QTC 433 millisecond [id number], Complete Assessment & Plan Assessment & Plan (1) Paroxysmal atrial fibrillation: Code(s): I48.0 - Paroxysmal atrial fibrillation Plan: History of paroxysmal atrial fibrillation. Currently suppressed with Multaq. EKG done today showing normal sinus rhythm with no acute ST or T-wave abnormalities, QTC 433 milliseconds, rate 80. She does report feeling brief flutters in her chest recently lasting seconds. She believes this to be recurrent AFib. Will check a Holter monitor to assess for AFib. If found to have recurrent AFib she may need to change in her anti arrhythmic. She has done well with rhythm control. She has a history of Watchman device placement. She is on aspirin and Plavix was recently added. She did get admitted for TIA symptoms however MRI showed no acute infarcts. Per Dr. Bee consult notew her TIA is more likely to be related to her history of peripheral vascular disease rather then her AFib. Continue current management. Plan to call her with Holter results when available cardiology office visit in 3 months, sooner if needed (2) Brain TIA: Code(s): G45.9 - Transient cerebral ischemic attack, unspecified Plan: Speech disturbance, memory lapse (3) CAD (coronary artery disease): Code(s): I25.10 - Atherosclerotic heart disease of [place] coronary artery without angina pectoris Plan: Hx prior [place], CAD with JACOBY to RCA, R PDA and R PLV remotely. Last echo 07/21/23 shows EF 62%, moderate aortic stenosis, basal inferior and basal inferior lateral hypokinesis, wall motion abnormality likely present on last echo as well. No reports of anginal symptoms. EKG today shows no ischemia. Continue aspirin indefinitely. Continue rosuvastatin and fenobirate. Labs done 07/20/2023 showed LDL 73. s/s angina reviewed. (4) Hyperlipidemia: Code(s): E78.5 - Hyperlipidemia, unspecified Plan: [place] LDL goal less than 70. Recent labs showing LDL 73. Near goal. Continue rosuvastatin and fenofibrate. (5) PAD (peripheral artery disease): Code(s): I73.9 - Peripheral vascular disease, unspecified Plan: History of peripheral vascular disease. Followed by Dr. Roper (6) Aortic stenosis: Code(s): I35.0 - Nonrheumatic aortic (valve) stenosis Plan: History of aortic stenosis. Recent echo showing moderate , mean gradient 21 mmHg, aortic valve area 1.13 centimeter sq. Systolic murmur noted on examination. No clinical signs of heart failure on examination. Diagnosis of reviewed with her. Plan for repeat echo in 1 year, sooner if needed. (7) Hospital discharge follow-up: Code(s): Z09 - Encounter for follow-up examination after completed treatment for conditions other than malignant neoplasm Plan: As above Orders: Orders ECG 3 day holter monitor Today I48.0 - Paroxysmal atrial fibrillation Coding Level of Care Code Est Pt Level 4 (08985) Diagnoses Paroxysmal atrial fibrillation I48.0 Brain TIA G45.9 CAD (coronary artery disease) I25.10 Hyperlipidemia E78.5 PAD (peripheral artery disease) I73.9 Aortic stenosis I35.0 Hospital discharge follow-up Z09 CPT Codes EKG - CPT: 93978-[id number], Complete ([id number]) Time Spent (min) 28
== END 2023-08-22 15:30 | disposition home or self-care (01) ==
PROVIDERS: PCP Internal Medicine; Visit Provider Nurse Practitioner Family
DX: I48.0 Paroxysmal atrial fibrillation (principal); G45.9 Transient cerebral ischemic attack, unspecified; I25.10 Atherosclerotic heart disease of native coronary artery without angina pectoris; E78.5 Hyperlipidemia, unspecified; I73.9 Peripheral vascular disease, unspecified; I35.0 Nonrheumatic aortic (valve) stenosis; Z09 Encounter for follow-up examination after completed treatment for conditions other than malignant neoplasm
CPT/HCPCS: 93010; 99214

== ENCOUNTER → 2023-08-22 14:33 | Outpatient (BNVA) | payer MEDICARE, MEDICAID, SELFPAY | PROVIDERS: PCP Internal Medicine; Visit Provider Nurse Practitioner Family | DX: I48.0 Paroxysmal atrial fibrillation (principal); I25.10 Atherosclerotic heart disease of native coronary artery without angina pectoris; E78.5 Hyperlipidemia, unspecified; I35.0 Nonrheumatic aortic (valve) stenosis; I73.9 Peripheral vascular disease, unspecified; I25.2 Old myocardial infarction; Z86.73 Personal history of transient ischemic attack (TIA), and cerebral infarction without residual deficits; Z79.82 Long term (current) use of aspirin; Z79.899 Other long term (current) drug therapy | CPT/HCPCS: 93005; 99212 ==

== ENCOUNTER 2023-09-07 12:56 | Outpatient (REF) | payer MEDICARE, SELFPAY ==
--- NOTE | ~2023-09-07 | MM_ITS ---
EXAMINATION: MM SCREENING DIGITAL BREAST TOMOSYNTHESIS, BILATERAL CLINICAL INFORMATION: Screening. Asymptomatic. COMPARISON: Mammography: This study is compared with prior exams dating back to 2017. TECHNIQUE: Digital breast tomosynthesis is performed in both the craniocaudal and mediolateral oblique views along with computer-aided detection (CAD). Synthesized 2D images are generated from the tomosynthesis. FINDINGS: There are scattered areas of fibroglandular density (ACR BI-RADS breast composition Category b). There are no significant masses, abnormal calcifications, or other abnormalities. Few, benign calcifications are present in each breast. MM/MM tomosynthesis screening BI IMPRESSION: No mammographic evidence of malignancy. ASSESSMENT: BI-RADS BI-RADS 2 - Benign Findings RECOMMENDATION: Routine annual mammography screening. 1 year F/U This examination should not preclude the clinical evaluation of a suspicious palpable abnormality. This patient's information was entered into a reminder system with a target due date for their next mammogram.
== END 2023-09-07 12:57 | disposition home or self-care (01) ==
LOC: HO.MAMMO 12:56
PROVIDERS: PCP Internal Medicine; Visit Provider Internal Medicine
DX: Z12.31 Encounter for screening mammogram for malignant neoplasm of breast (principal)
CPT/HCPCS: 77063; 77067

== ENCOUNTER → 2023-09-07 13:00 | Outpatient (BNV) | payer MEDICARE, SELFPAY | PROVIDERS: PCP Internal Medicine; Visit Provider Radiology Diagnostic Radiology | DX: Z12.31 Encounter for screening mammogram for malignant neoplasm of breast (principal) | CPT/HCPCS: 77063; 77067 ==

== ENCOUNTER → 2023-09-12 13:22 | Outpatient (REF) | payer MEDICARE, SELFPAY ==
--- NOTE | 2023-09-12 13:27 | HM_ITS ---
Conclusion: 1. Patient was monitored for total period of 3 days 2. Baseline was normal sinus with average heart of 66 beats per minute 3. Frequent sinus bradycardia noted with about 50% of time heart rate below 60 beats per minute, but no significant pauses noted 4. Occasional PACs and PVCs noted 5. No episodes of atrial fibrillation noted 6. No patient reported events MTDD
== END ==
LOC: HO.CARD 13:22
PROVIDERS: PCP Internal Medicine; Visit Provider Nurse Practitioner Family
DX: I48.0 Paroxysmal atrial fibrillation (principal)
CPT/HCPCS: 93242

== ENCOUNTER → 2023-09-12 13:27 | Outpatient (BNV) | payer MEDICARE, SELFPAY | PROVIDERS: PCP Internal Medicine; Visit Provider Internal Medicine Cardiovascular Disease | DX: R00.1 Bradycardia, unspecified (principal) | CPT/HCPCS: 93244 ==

== ENCOUNTER 2023-11-29 13:47 | Outpatient (AMB) | payer MEDICARE, SELFPAY ==
[2023-11-29 13:51] VITALS: BP 100/72; PULSE 52; O2SAT 96; BMI 25.8
--- NOTE | 2023-11-29 13:51 | MHC.PC.OV ---
Vital Signs 11/29/23 13:51 Height 5 ft 6 in Weight 160 lb BMI 25.8 BP 100/72 Blood Pressure Location Lt brachial Position Sitting Pulse 52 Pulse Source Pulse Oximeter Pulse Oximetry (%) 96 Oxygen Delivery Method Room Air Intake Visit Reasons: bp/ not feeling well Intake Note: Dr. Clark's patient is here regarding concerns about blood pressure and anxiety, having experienced a stroke in July. The patient has an upcoming appointment with Dr. Vang in Cardiology for a three-month follow-up/EKG. Hose Mender Required: No Accompanied by: Self / Same As Patient Allergies acetaminophen [From TYLENOL] Adverse Reaction (Intermediate, Verified 11/29/23 14:35) DIZZINESS, VOMITING levofloxacin [From LEVAQUIN] Adverse Reaction (Intermediate, Verified 11/29/23 14:35) NAUSEA & VOMITING Medication List - Last Reconciled 11/29/23 by Trenton Goodwin PA-C albuterol sulfate 90 mcg/actuation 1 puff inhalation Q4-6H PRN alendronate 70 mg PO SHERIDAN amlodipine 10 mg PO DAILY aspirin 81 mg PO BEDTIME budesonide-formoterol 160-4.5 mcg/actuation 2 puffs inhalation BID buspirone 5 mg PO BID calcium carbonate-vitamin D3 600 mg-10 mcg (400 unit) 1 tab PO DAILY clopidogrel 75 mg PO DAILY docusate sodium 100 mg PO BID PRN dronedarone (Multaq) 400 mg PO BID fenofibrate nanocrystallized 145 mg PO DAILY lidocaine-prilocaine 2.5-2.5 % 1 appl topical ONCE mirabegron ER (Myrbetriq) 50 mg PO DAILY mirabegron ER (Myrbetriq) 50 mg PO .every other day 90 days nitroglycerin 0.4 mg sublingual Q5M PRN omeprazole 20 mg PO DAILY oxycodone-acetaminophen 5-325 mg (Percocet) 1 tab PO Q6H PRN rosuvastatin 40 mg PO BEDTIME sennosides (Senna Laxative) 17.2 mg (2 x 8.6 mg) PO BEDTIME venlafaxine ER 150 mg PO QAM vitamin B complex (B Complex-Vitamin B12 tablet) 1 tab PO BEDTIME vitamin E 200 units PO BEDTIME Tobacco use date assessed: 03/08/23 HPI bp/ not feeling well HPI Details Patient is a 78-year-old female here today for an urgent visit. He reports waking up this morning not feeling too well. She feels kind of on easy and feels palpitations in her chest. Today does have irregular irregular fast rhythm on auscultation. EKG showing AFib with rapid ventricular conduction at a rate of 43. Patient's sent to ER for evaluation [facility] Medical History Presence of Watchman left atrial appendage closure device Paroxysmal atrial fibrillation Atherosclerotic cardiovascular disease Retention of urine Hyperlipidemia Neuropathy Diabetic neuropathy Post-menopausal Screening for diabetes mellitus COVID-19 vaccine series completed Mixed hyperlipidemia CAD (coronary artery disease) Surgical History History of colonoscopy History of rotator cuff surgery Stented coronary artery History of cataract surgery History of bladder surgery History of hysterectomy History of cholecystectomy Family History Father Cancer Mother Heart disease Pancreatic cancer Sister Heart disease Social History Household Members: None Housing: Condominium Alcohol intake: former Patient Tobacco Use Status: Never used Tobacco Smoked in Last 30 Days: No e-Cigarette/Vaping Use: Never Used Second Hand Smoke Exposure: No Use of substances other than those prescribed or required for medical reasons: No Advance Directives: Yes Advance Directives Information Provided: No Advance Directives on File: No Advance Directives Date on File: 07/20/23 service: No Current occupational status: retired Cognitive needs: Yes Hearing needs: Yes Vision needs: Yes Questionnaire PHQ-9 Over the last 2 weeks, how often have you been bothered by any of the following problems? 1. Little interest or pleasure in doing things: not at all 2. Feeling down, depressed, or hopeless: not at all 3. Trouble falling or staying asleep, or sleeping too much: not at all 4. Feeling tired or having little energy: not at all 5. Poor appetite or overeating: not at all 6. Feeling bad about yourself - or that you are a failure or have let yourself or your family down: not at all 7. Trouble concentrating on things, such as reading the newspaper or watching television: not at all 8. Moving or speaking so slowly that other people could have noticed. Or the opposite - being so fidgety or restless that you have been moving around a lot more than usual: not at all 9. Thoughts that you would be better off or of hurting yourself in some way: not at all Total score: 0 Depression Screening Interpretation: Negative Depression Screening Done: Yes 19532 - PHQ-9 Billing: Yes Source: Developed by Drs. Neto Franco, Jacqueline Fry, Jones Valdivia and colleagues, with an educational dre from [employer]. Thrive Questionnaire Date Thrive assessed: 11/29/23 I am a: Patient What is your living situation today?: I have a steady place to live Within the past 12 months, did the food you bought not last and you didn't have the money to get more?: Never true Within the past 12 months, did you worry whether your food would run out before you got money to buy more?: Never true Do you have trouble paying for medicines?: No Do you have trouble getting transportation to medical appointments?: No Do you have trouble paying your heating and electricity bill?: No Do you have trouble taking care of your child, family member or friend?: No Do you have trouble with day-to-day activities such as bathing, preparing meals, shopping, managing finances, etc.?: No Are you currently unemployed and looking for a job?: No Are you interested in more education?: No Please select the resources that you would like help with: None Currently or been in a relationship where the following occur: no concerns reported THRIVE Score: 0 AUDIT C Alcohol Use Questionnaire (AUDIT-C) 1. How often do you have a drink containing alcohol?: Never Total Score: 0 Score Reviewed/Action Taken: Yes VERENA-7 AMB Questionnaire VERENA-7 Date VERENA - 7 assessed: 11/29/23 Feeling nervous, anxious, or on edge: 0 = Not at all Not being able to stop or control worryin = Not at all Worrying too much about different things: 0 = Not at all Trouble relaxin = Not at all Being so restless that it is hard to sit still: 0 = Not at all Becoming easily annoyed or irritable: 0 = Not at all Feeling afraid as if something awful might happen: 0 = Not at all Total VERENA-7 score (0-4 normal; 5-9 mild; 10-14 moderate; 15-21 severe): 0 Source: Developed by Drs. Neto Franco, Jacqueline Fry, Jones Valdivia and colleagues, with an educational dre from [employer]. VERENA-7 Assessment Billing VERENA-7 Assessment Tool: VERENA-7 Assessment 95777 Review of Systems Const Denies headache(s) Eyes Denies loss of vision ENT Denies vertigo, Reports dizziness, Denies headache(s) and Denies sore throat Card Denies chest pain, Reports rapid heart rate, Reports irregular heart rhythm, Denies leg edema and Reports lightheadedness Resp Denies cough, Denies hemoptysis and Denies wheezing GI Denies abdominal pain, Denies melena, Denies constipation, Denies diarrhea and Denies vomiting Denies urinary frequency, Denies dysuria and Denies urinary urgency Musc Denies arthralgias, Denies joint swelling, Denies numbness and Denies tingling Neuro Denies Abnormal speech present, Denies behavioral changes, Denies vertigo, Reports dizziness, Denies headache(s), Denies loss of vision, Denies memory loss, Denies numbness and Denies tingling Psych Denies anxiety, Denies behavioral changes, Denies depression, Denies memory loss and Denies panic attacks Mariano/Lymph Denies easy bleeding and Denies easy bruising Aller/Immun Denies wheezing Physical exam (Primary Care) Vital Signs: Last Vital Signs Pulse 52 11/29/23 13:51 BP 100/72 11/29/23 13:51 Pulse Ox 96 11/29/23 13:51 Oxygen Delivery Method Room Air 11/29/23 13:51 BMI result Body Mass Index 25.8 Tobacco/Smoking Status: Tobacco use Status Tobacco use date assessed 03/08/23 11/29/23 13:53 Patient Tobacco Use Status Never used Tobacco 11/29/23 13:53 e-Cigarette/Vaping Use Never Used 11/29/23 13:53 PHQ-9: PHQ-9 Score PHQ-9: Total score 0 11/29/23 14:16 Depression Screening Interpretation: Negative Thrive Assessment: Date of Thrive Assessment Date Thrive assessed 11/29/23 11/29/23 13:55 Currently or been in a relationship where the following occur: no concerns reported Const General: healthy appearing, no acute distress, alert and awake Nutritional Appearance: well nourished Orientation/consciousness: oriented to person, oriented to place and oriented to time HENMT Ears: TM's normal bilaterally General nose exam: Normal nasal mucous membranes and turbinates present Eyes Conjunctivae: conjunctivae normal Sclerae: sclerae normal Pupils: Equal, round and reactive pupils present Neck Neck: Yes no lymphadenopathy and Yes no JVD Thyroid: Thyroid normal Carotids: no bruits Resp Effort & Inspection: normal respiratory effort and not tachypneic Auscultation: no crackles, no rales, no rhonchi and no wheezes Cardio Rate: regular rate Rhythm: regular rhythm Heart sounds: no murmurs and normal S1 and S2 GI Palpation (GI): Soft to palpation, nontender, no hepatomegaly and no splenomegaly Auscultation: normal bowel sounds Skin General skin exam: no rashes or lesions noted and dry skin Neuro General: oriented to person, oriented to place and oriented to time Cranial nerves: Yes Equal, round and reactive pupils present Speech: No Abnormal speech present Gait exam (Neuro): Normal gait present Motor exam (neuro): no tremor noted Extrem Right upper extremity: full ROM Left upper extremity: full ROM Right lower extremity: full ROM; no edema Left lower extremity: full ROM; no edema Psych Mental Status: mental status grossly normal Speech and movement: Normal speech and movement present Affect: normal affect Attitude: cooperative Thought process: Normal thought process present Office Procedures EKG Details: AFib with rapid rate, rate of 140 See scanned in document [id number], Complete Assessment and Plan Assessment & Plan (1) Atrial fibrillation with rapid ventricular response: Code(s): I48.91 - Unspecified atrial fibrillation Plan: Patient with a several hour history of feeling uneasy, dizzy and heart palpitations. As per HPI EKG showing AFib with RVR at a rate of 140. Patient transported to ER for evaluation and treatment Orders: Orders AMB EKG-In Office 11/29/23 I48.0 - Paroxysmal atrial fibrillation Coding Level of Care Code Est Pt Level 3 (93021) Diagnoses Atrial fibrillation with rapid ventricular response I48.91 CPT Codes EKG - CPT: 53805-[id number], Complete ([id number]) Additional Codes VERENA-7 Assessment Billing - VERENA-7 Assessment Tool: VERENA-7 Assessment 45801 ([id number])
== END 2023-11-29 14:42 | disposition home or self-care (01) ==
PROVIDERS: PCP Internal Medicine; Visit Provider Physician Assistant
DX: R00.2 Palpitations (principal)
CPT/HCPCS: 93000; 99213

== ENCOUNTER 2023-11-29 14:18 | Emergency (ER) | payer MEDICARE, SELFPAY ==
--- NOTE | ~2023-11-29 | XR_ITS ---
EXAMINATION: XR CHEST CLINICAL INFORMATION: SOB COMPARISON: None available. TECHNIQUE: Frontal view of the chest was obtained. FINDINGS: The lungs are well-expanded and clear. Heart size and pulmonary vascularity is normal. No gross bony abnormality seen. XR/XR chest 1V IMPRESSION: Unremarkable chest exam.
--- NOTE | 2023-11-29 14:20 | ECG_ITS ---
Test Reason : afib Blood Pressure : / mmHG Vent. Rate : 141 BPM Atrial Rate : 000 BPM P-R Int : 000 ms QRS Dur : 078 ms QT Int : 302 ms P-R-T Axes : 000 047 053 degrees QTc Int : 462 ms Atrial fibrillation with rapid ventricular response Nonspecific ST and T wave abnormality Abnormal ECG When compared with ECG of 19-JUL-2023 19:36, Atrial fibrillation has replaced Sinus rhythm Vent. rate has increased BY [address] now depressed in Anterior leads Nonspecific T wave abnormality now evident in Lateral leads Referred By: Generic ED Physician Electronically Signed By:Bimal Hi
[2023-11-29 14:33] VITALS: BP 152/110; PULSE 123; RESP 20; TEMP 36.7; O2SAT 94; BMI 26.6
--- NOTE | 2023-11-29 14:34 | ED.GENADULT ---
HPI - General Adult General Chief complaint: Arrhythmia/Palpitations Stated complaint: rapid heart rate, afib Time Seen by Provider: 11/29/23 14:53 Source: patient, RN notes reviewed and old records reviewed Mode of arrival: ambulatory History of Present Illness HPI narrative: 78-year-old female with a past medical history of HLD, CAD with RCA stents, proximal AFib suppressed with Multaq, Watchman device in place, TIA, on ASA and Plavix, presenting to the ED complaining of palpitations, chest pressure, SOB and lightheadedness/dizziness starting this afternoon after getting out of the shower. States had a PCP appointment, went to PCP's office was noted to be in AFib with RVR and sent to the ED. denies cough, fever/chills, recent illness, abdominal pain, nausea/vomiting, pedal edema. Reports compliance with home medications. Related Data Home Medications Medication Instructions Recorded Confirmed alendronate 70 mg tablet 70 mg PO SHERIDAN 12/30/20 11/29/23 budesonide-formoterol HFA 160 2 puff inhalation BID 12/30/20 11/29/23 mcg-4.5 mcg/actuation aerosol inhaler calcium carbonate 600 mg-vitamin 1 tab PO DAILY 12/30/20 11/29/23 D3 10 mcg (400 unit) tablet aspirin 81 mg tablet,delayed 81 mg PO BEDTIME 02/18/21 11/29/23 release vitamin B complex (B 1 tab PO BEDTIME 06/30/21 11/29/23 Complex-Vitamin B12 tablet) vitamin E 200 unit capsule 200 unit PO BEDTIME 06/30/21 11/29/23 buspirone 5 mg tablet 5 mg PO BID 07/22/22 11/29/23 venlafaxine 150 mg 150 mg PO QAM 01/11/23 11/29/23 capsule,extended release 24 hr albuterol sulfate 90 mcg/actuation 1 puff inhalation Q4-6H PRN 07/19/23 11/29/23 aerosol inhaler Wheezing mirabegron 50 mg tablet,extended 50 mg PO DAILY 07/19/23 11/29/23 release 24 hr (Myrbetriq) rosuvastatin 40 mg tablet 40 mg PO BEDTIME 07/19/23 11/29/23 Previous Rx's Medication Instructions Recorded nitroglycerin 0.4 mg sublingual 0.4 mg sublingual Q5M PRN chest 04/21/21 tablet pain #90 tabs dronedarone 400 mg tablet (Multaq) 400 mg PO BID #180 tabs 06/06/23 docusate sodium 100 mg capsule 100 mg PO BID PRN for constipation 07/19/23 #180 caps mirabegron 50 mg tablet,extended 50 mg PO .every other day 90 days 08/01/23 release 24 hr (Myrbetriq) #45 tabs oxycodone-acetaminophen 5 mg-325 1 tab PO Q6H PRN pain #120 tabs 08/09/23 mg tablet (Percocet) sennosides 8.6 mg tablet (Senna 17.2 mg (2 x 8.6 mg) PO BEDTIME 09/13/23 Laxative) #180 tabs lidocaine-prilocaine 2.5 %-2.5 % 1 appl topical ONCE preprocedure 09/16/23 topical cream #30 grams fenofibrate nanocrystallized 145 145 mg PO DAILY #90 tabs 09/20/23 mg tablet omeprazole 20 mg capsule,delayed 20 mg PO DAILY #90 caps 11/27/23 release amlodipine 10 mg tablet 10 mg PO DAILY #90 tabs 11/28/23 clopidogrel 75 mg tablet 75 mg PO DAILY #90 tabs 11/28/23 metoprolol succinate 25 mg 25 mg PO DAILY 30 days #30 tabs 11/29/23 tablet,extended release 24 hr (Toprol XL) Allergies Allergy/AdvReac Type Severity Reaction Status Date / Time acetaminophen [From TYLENOL] AdvReac Intermediate DIZZINESS, Verified 11/29/23 14:35 VOMITING levofloxacin [From LEVAQUIN] AdvReac Intermediate NAUSEA & Verified 11/29/23 14:35 VOMITING Review of Systems Review of Systems: Constitutional: No Fever, No Chills ENT/Mouth: No Ear Pain, No Nasal Congestion, No sore throat, No Rhinorrhea, No Swallowing Difficulty Cardiovascular: +Chest Pain, + SOB, + palpitations Respiratory: No Cough, No Sputum Gastrointestinal: No Nausea, No Vomiting, No Diarrhea, No Constipation, No Abdominal pain Genitourinary: No Dysuria, No Hematuria, No Flank Pain Musculoskeletal: No joint pain, No Myalgias, No Joint Swelling Skin: No Skin Lesions, No rash Neuro: No Weakness, No Numbness, No Paresthesias, + lightheadedness/dizziness Yes all other systems are reviewed and are negative Constitutional: Constitutional: Reports as per [facility] Past Medical History Attestation statement: The following information was validated with the patient. Source: old records reviewed Medical History Presence of Watchman left atrial appendage closure device Paroxysmal atrial fibrillation Atherosclerotic cardiovascular disease Retention of urine Hyperlipidemia Neuropathy Diabetic neuropathy Post-menopausal Screening for diabetes mellitus COVID-19 vaccine series completed Mixed hyperlipidemia CAD (coronary artery disease) Surgical History History of colonoscopy History of rotator cuff surgery Stented coronary artery History of cataract surgery History of bladder surgery History of hysterectomy History of cholecystectomy Family History Family History Father Cancer Mother Heart disease Pancreatic cancer Sister Heart disease Social History Social History Household Members: None Housing: Condominium Alcohol intake: former Patient Tobacco Use Status: Never used Tobacco Smoked in Last 30 Days: No e-Cigarette/Vaping Use: Never Used Second Hand Smoke Exposure: No Use of substances other than those prescribed or required for medical reasons: No Advance Directives: Yes Advance Directives Information Provided: No Advance Directives on File: No Advance Directives Date on File: 07/20/23 service: No Current occupational status: retired Cognitive needs: Yes Hearing needs: Yes Vision needs: Yes Physical Exam ED Vital Signs: Vital Signs - 24 hr 11/29/23 14:33 11/29/23 15:44 11/29/23 18:20 Temperature 98.1 F Pulse Rate 123 H 91 58 Respiratory Rate 20 15 Blood Pressure 152/110 H 147/99 H 176/85 H Pulse Oximetry 94 95 Oxygen Delivery Method Room Air Room Air 11/29/23 18:22 11/29/23 18:24 Temperature Pulse Rate 68 70 Respiratory Rate Blood Pressure 149/82 H 149/80 H Pulse Oximetry Oxygen Delivery Method BMI result Body Mass Index 26.6 Const General: cooperative, healthy appearing and no acute distress Orientation/consciousness: patient oriented x3 Limitations: no limitations HENMT Head: Yes normal to inspection and Yes atraumatic Ears: hearing grossly normal bilaterally General nose exam: Normal external nose present Face and sinus: Yes normal facial exam Eyes General: appearance normal, both eyes and all related structures EOM: EOMs intact bilaterally Neck Neck: Yes normal visual inspection and Yes no meningeal signs Resp Effort & Inspection: normal respiratory effort and no respiratory distress Auscultation: clear to auscultation bilaterally, no crackles, no rales, no rhonchi and no wheezes Cardio Rate: tachycardic Rhythm: abnormal rhythm Heart sounds: S1 normal heart sound present and S2 normal heart sound present GI Inspection: Yes normal to inspection Palpation (GI): Soft to palpation, nontender, no guarding and not rigid Skin Rashes: no rashes Wounds: no wounds Neuro General: patient oriented x3, tone normal, moves all extremities, no meningeal signs, no focal motor deficits and CN's II-XI intact bilaterally Cranial nerves: Yes CN's II-XII intact bilaterally Extrem General: Yes normal to inspection and Yes no pedal edema Course Course Course Narrative: Patient complains of episode of chest pressure shortness of breath dizziness shakiness, which is waxing and waning but not going away, started about 1-2 hours ago EKG and labs are ordered This rapid medical exam pending full evaluation by ER provider -initial troponin 7.7 > will obtain 3 hour repeat. Labs otherwise reassuring -COVID and flu negative > case discussed with patient's log roller, Dr. Vang who recommended adding Toprol 25 >> patient admits she has an appointment with her log roller on , 2 days from now. -1630-- ED care transferred to [facility] pending orthostatics,& repeat troponin Reevaluation(s) Reevaluation #1: Delta troponin negative. Ambulatory with a steady gait. No persistent dizziness palpitations pain or shortness of breath. Orthostatic vital signs were obtained, there was a drop of 30 points in systolic blood pressure from supine to sitting position, 170s-to 140s, but asymptomatic during this time. She is requesting to be discharged home at this time, I Feel that she is stable for discharge and outpatient follow-up with cardiology as scheduled. Time: 20:03 Medications Administered Discontinued Medications Generic Name Dose Route Start Last Admin Trade Name Freq PRN Reason Stop Dose Admin Sodium Chloride 500 mls @ 999 mls/hr 11/29/23 15:15 11/29/23 17:17 Ns IV 11/29/23 15:45 Infused .Q31M CATY Infusion Metoprolol Succinate 25 mg 11/29/23 15:55 11/29/23 16:19 Metoprolol Succinate Er 25 Mg Tab.Er.24h PO 11/29/23 15:56 25 mg ONCE ONE Administration Protocol Medical Decision Making Medical Decision Making MDM Narrative: 78-year-old female with a past medical history of HLD, CAD with RCA stents, proximal AFib suppressed with Multaq, Watchman device in place, TIA, on ASA and Plavix, presenting to the ED complaining of palpitations, chest pressure, SOB and lightheadedness/dizziness starting this afternoon after getting out of the shower. On exam hypertensive, EKG showing AFib with RVR at a rate of 141. Lungs CTA. On this video games storywriter's evaluation patient converted while standing in the room to normal sinus rhythm w/HR in the 90s. Concern for AFib with RVR. Rule out infectious/metabolic etiologies vs ACS. Low suspicion for PE/DVT Plan: EKG, labs, CXR, viral testing, orthostatics, re-evaluate Please refer to course for remaining clinical decision making, interpretation of labs/imaging results, and discussions with consultants and/or family members. Differential Diagnosis Differential Diagnoses: The differential diagnosis associated with the presentation includes As above Admission/Observation Consideration of admission/observation: Escalation of care including admission/observation considered Consult Healthcare Provider Management of the patient was discussed with: Radiation Monitor (Cardiology, Dr. Vang) Lab Data [facility] Lab Attestation statement: I reviewed the patient's lab results. 11/29/23 14:52 11/29/23 14:52 Labs: Lab Results 11/29/23 11/29/23 11/29/23 Range/Units 14:52 15:15 17:47 WBC 7.0 (4.8-10.8) X10*3/uL RBC 5.48 D (4.20-5.50) X10*6/uL Hgb 14.5 D (12.0-16.0) g/dl Hct 46.6 D (37.0-47.0) % MCV 85.0 (80.0-98.0) fL MCH 26.5 L (27.0-33.0) pg MCHC 31.1 (31.0-35.0) g/dl RDW 13.9 (11.0-16.0) % Plt Count 316 D (160-400) X10*3/uL MPV 9.7 (9.4-12.3) fL Immature Gran % (Auto) 0.3 (0.0-0.4) % Neut % (Auto) 68.4 (45-73) % Lymph % (Auto) 18.6 L (20-40) % Dewitt % (Auto) 8.3 (2-11) % Eos % (Auto) 3.8 (0-4) % Baso % (Auto) 0.6 (0-2) % Lymph # (Auto) 1.3 (1.2-4.9) X10*3/uL Dewitt # (Auto) 0.6 (0.1-1.2) X10*3/uL Eos # (Auto) 0.3 (0.0-0.4) X10*3/uL Baso # (Auto) 0.0 (0.0-0.2) X10*3/uL Abs Immat Gran (auto) 0.02 (0.00-0.03) X10*3/uL Absolute Neuts (auto) 4.8 (2.0-8.3) x10*3/uL Absolute Nucleated RBC 0.000 (0.0-0.012) X10*3/uL Nucleated RBC % (auto) 0.0 (0.0-0.2) /100WBC PT 12.2 (11.1-13.3) SEC INR 1.0 (0.9-1.1) Sodium 142 (135-145) mmol/L Potassium 3.8 (3.3-5.1) mmol/L Chloride 102 (96-108) mmol/L Carbon Dioxide 30 H (22-29) mmol/L Anion Gap 14 (12-20) BUN 18 H (9-16) mg/dL Creatinine 0.94 (0.5-1.4) mg/dL Estim Creat Clear Calc 50.2 Estimated GFR 57 Random Glucose 98 (60-115) mg/dL Calcium 10.9 H D (8.4-10.2) mg/dL Magnesium 1.9 (1.6-2.6) mg/dL Total Bilirubin 0.4 (0.0-1.0) mg/dL Direct Bilirubin 0.2 (0.0-0.5) mg/dL AST 26 (5-31) U/L ALT 13 (0-31) U/L Alkaline Phosphatase 35 L (39-117) U/L Troponin I High Sens 7.7 13.3 D (<3.5-17.0) ng/L B-Natriuretic Peptide 89 (<100) pg/mL Total Protein 7.7 (6.5-8.0) g/dL Albumin 4.4 (3.5-5.0) g/dL COVID-19 (KALI) Negative (Negative) COVID-19 Clin Com See Note Influenza Type A (KIKE) Negative (Negative) Influenza Type B (KIKE) Negative (Negative) Influenza A & B Note See Note Independent Interpretation I performed an independent interpretation of an: EKG (My interpretation EKG AFib with RVR at a rate of 141. QTC 462. ST no depressed in anterior leads. No STEMI. ) Interpretation: EKG #2. My interpretation normal sinus rhythm rate of 96. SC interval 186. QTC 449. No STEMI. Q-wave in lead 3 Radiology Impression Discussion of test interpretation with radiology: I have reviewed the radiologist's reading. External Record Review External record reviewed: Inpatient record, Office record, Outpatient record, Prior outpatient labs, Prior outpatient radiology, Primary care record and Outside ED record Tests considered The following testing was considered but not selected: As above Chronic Conditions Patient?s care impacted by: Other (AFib with RVR, HLD) Critical Care Time Critical Care Time Critical Care Time: Yes Total Critical Care Time: 40 Attestation: I have personally provided critical care time exclusive of time spent on separately billable procedures. Time includes review of lab data, radiology results, discussion with consultants, and monitoring for potential decompensation. Intervention performed as documented. Discharge Plan Discharge Clinical Impression: Atrial fibrillation with rapid ventricular response Patient Disposition: Home, Self-Care Instructions: A-fib (Atrial Fibrillation) (DC) Additional Instructions: Please continue home prescribed medications, in addition start taking Toprol 25 mg daily as prescribed YOU NEED TO HAVE CLOSE FOLLOW-UP WITH YOUR SHIPPING PACKER If symptoms persist or worsen, you constant worsening chest pain/shortness of breath, palpitations or weakness return to the ED immediately Prescriptions: New metoprolol succinate [Toprol XL] 25 mg tablet extended release 24 hr 25 mg PO DAILY 30 Days Qty: 30 0RF No Action nitroglycerin 0.4 mg tablet, sublingual 0.4 mg sublingual Q5M PRN (Reason: chest pain) Qty: 90 8RF Rx Instructions: do not exceed 3 doses per episode Multaq 400 mg tablet 400 mg PO BID Qty: 180 3RF docusate sodium 100 mg capsule 100 mg PO BID PRN (Reason: for constipation) Qty: 180 3RF Myrbetriq 50 mg tablet extended release 24 hr 50 mg PO .every other day 90 Days Qty: 45 3RF oxycodone-acetaminophen [Percocet] 5-325 mg tablet 1 tab PO Q6H PRN (Reason: pain) Qty: 120 0RF sennosides [Senna Laxative] 8.6 mg tablet 17.2 mg PO BEDTIME Qty: 180 4RF lidocaine-prilocaine 2.5-2.5 % cream 1 appl topical ONCE Qty: 30 0RF Rx Instructions: cleanse feet thoroughly, apply to both feet 30 minutes prior to appointment. fenofibrate nanocrystallized 145 mg tablet 145 mg PO DAILY Qty: 90 3RF omeprazole 20 mg capsule,delayed release(DR/EC) 20 mg PO DAILY Qty: 90 8RF clopidogrel 75 mg tablet 75 mg PO DAILY Qty: 90 3RF amlodipine 10 mg tablet 10 mg PO DAILY Qty: 90 3RF aspirin 81 mg Tablet,Delayed Release (Dr/Ec) 81 mg PO BEDTIME albuterol sulfate 90 mcg/actuation HFA aerosol inhaler 1 puff inhalation Q4-6H PRN (Reason: Wheezing) rosuvastatin 40 mg tablet 40 mg PO BEDTIME Myrbetriq 50 mg tablet extended release 24 hr 50 mg PO DAILY alendronate 70 mg tablet 70 mg PO SHERIDAN budesonide-formoterol 160-4.5 mcg/actuation HFA aerosol inhaler 2 puff inhalation BID calcium carbonate-vitamin D3 600 mg(1,500mg) -400 unit tablet 1 tab PO DAILY vitamin E 200 unit capsule 200 unit PO BEDTIME vitamin B complex [B Complex-Vitamin B12] Tablet 1 tab PO BEDTIME venlafaxine 150 mg capsule,extended release 24hr 150 mg PO QAM buspirone 5 mg tablet 5 mg PO BID Referrals: [facility] [Provider Group] - 2 days (As scheduled)
[2023-11-29 14:57] LABS: MANUAL DIFF FLAG NO
[2023-11-29 15:00] LABS: Basophils Percent Auto 0.6 % (0-2); Eosinophils Absolute Auto 0.3 X10*3/uL (0.0-0.4); Eosinophils Percent Auto 3.8 % (0-4); Hematocrit 46.6 % (37.0-47.0); Hemoglobin 14.5 g/dl (12.0-16.0); Imm Gran Abs Auto 0.02 X10*3/uL (0.00-0.03); Imm Gran Pct Auto 0.3 % (0.0-0.4); Lymphocytes Absolute Auto 1.3 X10*3/uL (1.2-4.9); Lymphocytes Percent Auto 18.6 % (20-40); Mean Corpuscular HGB Conc 31.1 g/dl (31.0-35.0); Mean Corpuscular Hemoglobin 26.5 pg (27.0-33.0); Mean Platelet Volume 9.7 fL (9.4-12.3); Monocytes Absolute Auto 0.6 X10*3/uL (0.1-1.2); Monocytes Percent Auto 8.3 % (2-11); Neutrophils Absolute Auto 4.8 x10*3/uL (2.0-8.3); Neutrophils Percent Auto 68.4 % (45-73); Platelet Count 316 X10*3/uL (160-400); Red Blood Count 5.48 X10*6/uL (4.20-5.50); Red Cell Distribution Width 13.9 % (11.0-16.0)
--- NOTE | 2023-11-29 15:01 | ECG_ITS ---
Test Reason : AFIB Blood Pressure : / mmHG Vent. Rate : 096 BPM Atrial Rate : 096 BPM P-R Int : 186 ms QRS Dur : 082 ms QT Int : 356 ms P-R-T Axes : 044 016 026 degrees QTc Int : 449 ms Normal sinus rhythm Normal ECG When compared with ECG of 29-NOV-2023 14:24, Sinus rhythm has replaced Atrial fibrillation Nonspecific T wave abnormality no longer evident in Lateral leads Referred By: Izzy Galicia Electronically Signed By:Bimal Hi
[2023-11-29 15:07] LABS: Prothrombin Time 12.2 SEC (11.1-13.3)
[2023-11-29 15:25] LABS: Anion Gap 14 (12-20); Blood Urea Nitrogen 18 mg/dL (9-16); Calcium 10.9 mg/dL (8.4-10.2); Carbon Dioxide 30 mmol/L (22-29); Chloride 102 mmol/L (96-108); Creatinine Clr Calc Pharmacy 50.2; Estimated Glomerular Filt Rate 57; Glucose Random 98 mg/dL (60-115); Potassium 3.8 mmol/L (3.3-5.1); Sodium 142 mmol/L (135-145)
[2023-11-29 15:27] LABS: Troponin-I High Sensitivity 7.7 ng/L (<3.5-17.0)
[2023-11-29 15:36] LABS: B Type Natriuretic Peptide 89 pg/mL (<100)
[2023-11-29 15:40] LABS: COVID-19 Test Negative (Negative); IDNOW Serial# 08D9AD1C; IDNOW Serial# 152EDE1D; Influenza A Negative (Negative); Influenza B2 Negative (Negative)
[2023-11-29 15:42] LABS: Alanine Aminotransferase 13 U/L (0-31); Albumin Level 4.4 g/dL (3.5-5.0); Alkaline Phosphatase 35 U/L (39-117); Aspartate Amino Transferase 26 U/L (5-31); Bilirubin Direct 0.2 mg/dL (0.0-0.5); Bilirubin Total 0.4 mg/dL (0.0-1.0); Magnesium 1.9 mg/dL (1.6-2.6); Total Protein 7.7 g/dL (6.5-8.0)
[2023-11-29 15:44] VITALS: BP 147/99; PULSE 91; RESP 15; O2SAT 95
[2023-11-29] MEDS: 0.9 % Sodium Chloride 500 ML 999 ML IV (15:53)
[2023-11-29] MEDS: Metoprolol Succinate ER 25 MG TAB.ER.24H PO (16:19)
[2023-11-29 18:19] LABS: Troponin-I High Sensitivity 13.3 ng/L (<3.5-17.0)
[2023-11-29 18:20] VITALS: BP 176/85; PULSE 58
[2023-11-29 18:22] VITALS: BP 149/82; PULSE 68
[2023-11-29 18:24] VITALS: BP 149/80; PULSE 70
== END 2023-11-29 20:31 | disposition home or self-care (01) ==
PROVIDERS: Physician Assistant; Physician Assistant Medical; Emergency Provider Emergency Medicine Emergency Medical Services; PCP Internal Medicine
DX: I48.20 Chronic atrial fibrillation, unspecified (principal); R00.2 Palpitations; I25.10 Atherosclerotic heart disease of native coronary artery without angina pectoris; R07.89 Other chest pain; Z11.52 Encounter for screening for COVID-19; Z79.899 Other long term (current) drug therapy
CPT/HCPCS: 36415; 71045; 80048; 80076; 83735; 83880; 84484; 85025; 85610; 87502; 87635; 93005; 96360; 99284; 99285

== ENCOUNTER → 2023-11-29 14:20 | Outpatient (BNV) | payer MEDICARE, SELFPAY | PROVIDERS: Emergency Provider Emergency Medicine Emergency Medical Services; PCP Internal Medicine; Visit Provider Internal Medicine Cardiovascular Disease | DX: I48.91 Unspecified atrial fibrillation (principal) | CPT/HCPCS: 93010 ==

== ENCOUNTER 2023-12-01 12:57 | Outpatient (AMB) | payer MEDICARE, MEDICAID, SELFPAY ==
[2023-12-01 13:04] VITALS: BP 110/66; PULSE 83; BMI 26.7
--- NOTE | 2023-12-01 13:04 | A.OFFVIS_ITS ---
Intake Vital Signs 12/01/23 13:04 Height 5 ft 6 in Weight 165 lb 5.547 oz BMI 26.7 BP 110/66 Blood Pressure Location Lt brachial Position Sitting Pulse 83 Intake Visit Reasons: 3 mth f/up w/ EKG Intake Note: 3 month follow-up with ekg was in the ED for afib House Principal Required: No Allergies acetaminophen [From TYLENOL] Adverse Reaction (Intermediate, Verified 11/29/23 14:35) DIZZINESS, VOMITING levofloxacin [From LEVAQUIN] Adverse Reaction (Intermediate, Verified 11/29/23 14:35) NAUSEA & VOMITING Medication List - Last Reconciled 12/01/23 by Jose Alberto Vang MD albuterol sulfate 90 mcg/actuation 1 puff inhalation Q4-6H PRN alendronate 70 mg PO SHERIDAN amlodipine 10 mg PO DAILY aspirin 81 mg PO BEDTIME budesonide-formoterol 160-4.5 mcg/actuation 2 puffs inhalation BID buspirone 5 mg PO BID calcium carbonate-vitamin D3 600 mg-10 mcg (400 unit) 1 tab PO DAILY clopidogrel 75 mg PO DAILY docusate sodium 100 mg PO BID PRN dronedarone (Multaq) 400 mg PO BID fenofibrate nanocrystallized 145 mg PO DAILY lidocaine-prilocaine 2.5-2.5 % 1 appl topical ONCE metoprolol succinate ER (Toprol XL) 25 mg PO DAILY 30 days mirabegron ER (Myrbetriq) 50 mg PO DAILY nitroglycerin 0.4 mg sublingual Q5M PRN omeprazole 20 mg PO DAILY oxycodone-acetaminophen 5-325 mg (Percocet) 1 tab PO Q6H PRN rosuvastatin 40 mg PO BEDTIME sennosides (Senna Laxative) 17.2 mg (2 x 8.6 mg) PO BEDTIME venlafaxine ER 150 mg PO QAM vitamin B complex (B Complex-Vitamin B12 tablet) 1 tab PO BEDTIME vitamin E 200 units PO BEDTIME HPI HPI Comments History of Present Illness Details Edie comes for follow-up after recent ED presentation with recurrent atrial fibrillation with rapid ventricular response. The episodes triggered after she was told that her physician appointment was canceled without informing her. She got upset and then subsequently starting having symptoms of rapid heart rate and chest pressure shortness of breath. She tried to go home but could not tolerate event to the PCP's office again and was noted to be in rapid heart rate was referred to the emergency room. In the emergency room while she waited she converted back to sinus rhythm. She was then advised metoprolol XL 25 mg daily but she is currently not taking it as she says she does not want additional medications. This episode was clearly triggered by emotional reaction. She has not had any exertional chest pain or shortness of breath. [facility] Medical History Presence of Watchman left atrial appendage closure device Paroxysmal atrial fibrillation Atherosclerotic cardiovascular disease Retention of urine Hyperlipidemia Neuropathy Diabetic neuropathy Post-menopausal Screening for diabetes mellitus COVID-19 vaccine series completed Mixed hyperlipidemia CAD (coronary artery disease) Surgical History History of colonoscopy History of rotator cuff surgery Stented coronary artery History of cataract surgery History of bladder surgery History of hysterectomy History of cholecystectomy Family History Father Cancer Mother Heart disease Pancreatic cancer Sister Heart disease Social History Household Members: None Housing: Condominium Alcohol intake: former Patient Tobacco Use Status: Never used Tobacco e-Cigarette/Vaping Use: Never Used Second Hand Smoke Exposure: No Advance Directives Date on File: 07/20/23 service: No Current occupational status: retired Cognitive needs: Yes Hearing needs: Yes Vision needs: Yes Review of Systems Const Denies chills, Denies fatigue, Denies fever(s), Denies frequent falls, Denies weakness, Denies weight gain and Denies weight loss ENT Denies dizziness Card Denies chest pain, Denies leg edema, Denies lightheadedness, Denies palpitations, Denies dyspnea, Denies dyspnea on exertion, Denies orthopnea and Denies other (loss of consciousness) Resp Denies cough, Denies dyspnea and Denies dyspnea on exertion GI Denies hematochezia and Denies change in stool character Musc Denies abnormal gait, Denies muscle weakness, Denies numbness, Denies radiating pain into limb and Denies tingling Neuro Denies abnormal gait, Denies dizziness, Denies frequent falls, Denies numbness, Denies tingling and Denies weakness Endo Denies fatigue and Denies palpitations Physical Exam Vital Signs: Last Vital Signs Pulse 83 12/01/23 13:04 BP 110/66 12/01/23 13:04 BMI result Body Mass Index 26.7 Const General: cooperative, healthy appearing, comfortable and no acute distress Orientation/consciousness: patient oriented x3 Neck Neck: Yes normal visual inspection Resp Effort & Inspection: normal respiratory effort Auscultation: clear to auscultation bilaterally, no crackles, no rales, no rhonchi and no wheezes Cardio Jugular venous distension: no JVD Rate: regular rate Rhythm: regular rhythm Heart sounds: S1 normal heart sound present, S2 normal heart sound present, Murmur heart sound present (2/6 systolic, right sternal border) and no rubs Neuro General: patient oriented x3 Extrem General: Yes normal to inspection Psych Appearance: grossly normal Mental Status: mental status grossly normal Speech and movement: Normal speech and movement present Office Procedures EKG Details: EKG shows normal sinus rhythm normal EKG at 83 beats per minute with normal intervals [id number], Complete Assessment & Plan Assessment & Plan (1) Paroxysmal atrial fibrillation: Code(s): I48.0 - Paroxysmal atrial fibrillation Plan: Highly symptomatic paroxysmal atrial fibrillation with recent recurrence due to a stressful event. She generally does not have any significant recurrence at this point time. We discussed about management of atrial fibrillation details. She is done very well with rhythm control approach and will continue pursue rhythm control approach. Continue Multaq therapy which has helped her significantly. Will use p.r.n. metoprolol therapy when she has another episode. At this point time will avoid altering her antiarrhythmic drug therapy. Avoi dance of stimulants was discussed. Stress mitigation strategies was discussed. Status post Watchman device. Currently on dual antiplatelet therapy due to TIA like event last fall. (2) Aortic stenosis: Code(s): I35.0 - Nonrheumatic aortic (valve) stenosis Plan: Aortic stenosis which is moderate by last echocardiogram. Will follow with annual echocardiogram. Continue aspirin therapy for it. Continue aggressive risk factor modification as below. Cardinal symptoms associated with aortic stenosis were discussed. (3) CAD (coronary artery disease): Code(s): I25.10 - Atherosclerotic heart disease of pauma coronary artery without angina pectoris Plan: CAD which has remained stable and she has had no recurrent anginal sounding chest discomfort with exertion. Currently on dual antiplatelet therapy which will be continued. Continue aggressive lipid modification, currently on triple therapy. Target goal LDL closer to 60 mg/dL. Continue aggressive blood pressure control as well which has been well on current medical therapy. Encouraged to continue to participate in physical activity as tolerated. Will follow up in the clinic in 3 months for EKG in 6 months with me. Thank you for allowing me to partake in the care Medications: Changed From metoprolol succinate ER (Toprol XL) 25 mg PO DAILY 30 days 30 tabs 0RF To metoprolol succinate ER (Toprol XL) 25 mg PO DAILY 30 days PRN 30 tabs 0RF For recurrent AFib Refilled nitroglycerin do not exceed 3 doses per episode 0.4 mg sublingual Q5M PRN 20 tabs 2RF chest pain Coding Level of Care Code Est Pt Level 4 (01057) Diagnoses Paroxysmal atrial fibrillation I48.0 Aortic stenosis I35.0 CAD (coronary artery disease) I25.10 CPT Codes EKG - CPT: 75040-[id number], Complete ([id number])
== END 2023-12-01 13:47 | disposition home or self-care (01) ==
PROVIDERS: PCP Internal Medicine; Visit Provider Internal Medicine Cardiovascular Disease
DX: I48.0 Paroxysmal atrial fibrillation (principal); I35.0 Nonrheumatic aortic (valve) stenosis; I25.10 Atherosclerotic heart disease of native coronary artery without angina pectoris
CPT/HCPCS: 93010; 99214

== ENCOUNTER → 2023-12-01 12:57 | Outpatient (BNVA) | payer MEDICARE, MEDICAID, SELFPAY | PROVIDERS: PCP Internal Medicine; Visit Provider Internal Medicine Cardiovascular Disease | DX: I48.0 Paroxysmal atrial fibrillation (principal); I35.0 Nonrheumatic aortic (valve) stenosis; I25.10 Atherosclerotic heart disease of native coronary artery without angina pectoris | CPT/HCPCS: 93005; 99212 ==

== ENCOUNTER 2024-01-05 14:14 | Outpatient (AMB) | payer MEDICARE, MEDICAID, SELFPAY ==
--- NOTE | 2024-01-05 14:24 | MHC.OFFVIS ---
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 She was ultimately lost to follow-up for our office but now returns as every thing else has stabilized. She denies any changes to her peripheral neuropathy other than slight worsening of the burning and tingling on the left side. She thinks this is due to a arterial puncture at her left ankle. Patient is now ready to proceed with bilateral tensor applications Prior: Edie is a very pleasant 78 year old female who presents to the office today for evaluation and management of her painful peripheral neuropathy. She reports suffering with this burning pain to both feet for the last 1.5 years. She has tried amitriptyline, gabapentin and lyrica without relief. She has tried home exercises and found only minimal relief with ice. She has been evaluated by neurology, had EMG and most recently was referred here for evaluation by vascular as they are concerned it is related to her back. Patient denies pain in back, buttocks, thighs or upper legs. She endorses intermittent cramping of her calves but denies burning, shocking pain of the lower legs. Patient reports she has had multiple evaluations over the last year with imaging and testing but still has no answers. She is not diabetic nor does she drink alcohol. Last ETOH use was 8 years ago. She endorses family history of peripheral neuropathy. Pain today is reported as 6/10, burning and tingling. Pain is worse during the night and often keeps her from sleeping. In terms of muscle damage condition is described as aching, hot, burning, tiring, exhausting, numb, throbbing, shocking, tingling, pins and needles. Pain is negatively impacting patient's mood, normal work, relationships with people, sleeping and walking. [facility] Medical History Presence of Watchman left atrial appendage closure device Paroxysmal atrial fibrillation Atherosclerotic cardiovascular disease Retention of urine Hyperlipidemia Neuropathy Diabetic neuropathy Post-menopausal Screening for diabetes mellitus COVID-19 vaccine series completed Mixed hyperlipidemia CAD (coronary artery disease) Surgical History History of colonoscopy History of rotator cuff surgery Stented coronary artery History of cataract surgery History of bladder surgery History of hysterectomy History of cholecystectomy Family History Father Cancer Mother Heart disease Pancreatic cancer Sister Heart disease Social History Household Members: None Housing: Condominium Alcohol intake: former Patient Tobacco Use Status: Never used Tobacco e-Cigarette/Vaping Use: Never Used Second Hand Smoke Exposure: No Advance Directives Date on File: 07/20/23 service: No Current occupational status: retired Cognitive needs: Yes Hearing needs: Yes Vision needs: Yes Review of Systems Const All systems reviewed & are unremarkable except as noted in HPI and below Physical Exam Vital Signs: Last Vital Signs Pulse 82 01/05/24 14:35 BP 144/78 H 01/05/24 14:35 Pulse Ox 99 01/05/24 14:35 Oxygen Delivery Method Room Air 01/05/24 14:35 BMI result Body Mass Index 27.1 General: awake, alert, oriented. Answers questions appropriately. Fully engaged in examination. Skin: warm, dry, intact without wounds, abrasions, bruising or open areas. HEENT: Normocephalic. Hearing intact. Cardiac: External chest normal in appearance. No peripheral edema, intact DP and PT pulses bilaterally Respiratory: No cough, audible wheezing or stridor. Abdomen: without gross distension. MS: No obvious swelling or deformities. Able to transition from sit to stand unassisted. Ambulates with bilaterally normal heel strike and toe off Neurological: Oriented to person, place, time and situation. Thought process intact. Psychiatric: Appropriate mood and affect. Good judgment and insight. Assessment & Plan Assessment & Plan (1) Peripheral neuropathy: Code(s): G62.9 - Polyneuropathy, unspecified Plan Edie is a very pleasant 78 year old female who presents to the office today for follow-up chronic bilateral peripheral neuropathy. Patient has been suffering with this pain for almost 2 years, failure of conservative treatment including multiple medications and home exercises. Discussed options for treatment including Qutenza and SCS. Patient advised that SCS would require psych eval prior to moving forward with trial, she will also need clearance from her front office java developer. Will submit PA for Qutenza topical application. Patient advised on procedure including preparation and EMLA application prior to appointment. She is aware treatment is done in office and she will be here for 30minutes during each visit. Also discussed option for Nevro SCS trial/implant. Will discuss further if patient does not receive benefit from Qutenza topical. All questions and concerns have been answered and patient agrees with the plan. Patient aware she will be called to schedule appointment for Qutenza pending insurance approval. Coding Level of Care Code Est Pt Level 3 (14767) Diagnoses Peripheral neuropathy G62.9
[2024-01-05 14:35] VITALS: BP 144/78; PULSE 82; O2SAT 99; BMI 27.1
== END 2024-01-05 15:09 | disposition home or self-care (01) ==
PROVIDERS: PCP Internal Medicine; Visit Provider Registered Nurse Emergency
DX: G62.9 Polyneuropathy, unspecified (principal)
CPT/HCPCS: 99213

== ENCOUNTER → 2024-01-05 14:14 | Outpatient (BNVA) | payer MEDICARE, MEDICAID, SELFPAY | PROVIDERS: PCP Internal Medicine; Visit Provider Registered Nurse Emergency | DX: G62.9 Polyneuropathy, unspecified (principal) | CPT/HCPCS: 99212 ==

== ENCOUNTER 2024-02-03 14:52 | Outpatient (AMB) | payer MEDICARE, MEDICAID, SELFPAY ==
[2024-02-03 15:08] VITALS: BP 153/86; PULSE 90; RESP 16; O2SAT 95; BMI 24.8
--- NOTE | 2024-02-03 15:08 | A.OFFVIS_ITS ---
Vital Signs 02/03/24 15:08 02/03/24 15:40 02/03/24 16:04 Height 5 ft 8 in Weight 163 lb BMI 24.8 BP 153/86 H 119/65 126/77 Blood Pressure Location Lt brachial Lt brachial Lt brachial Position Sitting Sitting Sitting Respiration 16 Pulse 90 Pulse Source Pulse Oximeter Pulse Oximetry (%) 95 Oxygen Delivery Method Room Air Intake Visit Reasons: Qutenza Allergies acetaminophen [From TYLENOL] Adverse Reaction (Intermediate, Verified 01/05/24 14:33) DIZZINESS, VOMITING levofloxacin [From LEVAQUIN] Adverse Reaction (Intermediate, Verified 01/05/24 14:33) NAUSEA & VOMITING HPI Comments Details: Edie is a very pleasant 78-year-old female who presented to the office today for follow-up bilateral painful peripheral neuropathy and 1st capsaicin topical application. She use the cream last night, she did not apply EMLA cream prior to the procedure as directed. She elects to proceed despite being warned that it may be painful. Denies any changes in her painful bilateral peripheral neuropathy since last visit. Denies new meds, allergies or diagnoses. Patient denies any recent injuries or wounds to his feet. Prior: Edie presents back to the office today for follow-up of her painful peripheral neuropathy Patient reports after last visit here she had a stroke and then some troubles with AFib requiring multiple visits to doctors, inpatient states the hospital and emergency room visits. She was ultimately lost to follow-up for our office but now returns as every thing else has stabilized. She denies any changes to her peripheral neuropathy other than slight worsening of the burning and tingling on the left side. She thinks this is due to a arterial puncture at her left ankle. Patient is now ready to proceed with bilateral tensor applications Prior: Edie is a very pleasant 78 year old female who presents to the office today for evaluation and management of her painful peripheral neuropathy. She reports suffering with this burning pain to both feet for the last 1.5 years. She has tried amitriptyline, gabapentin and lyrica without relief. She has tried home exercises and found only minimal relief with ice. She has been evaluated by neurology, had EMG and most recently was referred here for evaluation by vascular as they are concerned it is related to her back. Patient denies pain in back, buttocks, thighs or upper legs. She endorses intermittent cramping of her calves but denies burning, shocking pain of the lower legs. Patient reports she has had multiple evaluations over the last year with imaging and testing but still has no answers. She is not diabetic nor does she drink alcohol. Last ETOH use was 8 years ago. She endorses family history of peripheral neuropathy. Pain today is reported as 6/10, burning and tingling. Pain is worse during the night and often keeps her from sleeping. In terms of muscle damage condition is described as aching, hot, burning, tiring, exhausting, numb, throbbing, shocking, tingling, pins and needles. Pain is negatively impacting patient's mood, normal work, relationships with people, sleeping and walking. [facility] Medical History Presence of Watchman left atrial appendage closure device Paroxysmal atrial fibrillation Atherosclerotic cardiovascular disease Retention of urine Hyperlipidemia Neuropathy Diabetic neuropathy Post-menopausal Screening for diabetes mellitus COVID-19 vaccine series completed Mixed hyperlipidemia CAD (coronary artery disease) Surgical History History of colonoscopy History of rotator cuff surgery Stented coronary artery History of cataract surgery History of bladder surgery History of hysterectomy History of cholecystectomy Family History Father Cancer Mother Heart disease Pancreatic cancer Sister Heart disease Social History Household Members: None Housing: Condominium Alcohol intake: former Patient Tobacco Use Status: Never used Tobacco e-Cigarette/Vaping Use: Never Used Second Hand Smoke Exposure: No Advance Directives Date on File: 07/20/23 service: No Current occupational status: retired Cognitive needs: Yes Hearing needs: Yes Vision needs: Yes Physical Exam Vital Signs: Last Vital Signs Pulse 90 02/03/24 15:08 Resp 16 02/03/24 15:08 BP 126/77 02/03/24 16:04 Pulse Ox 95 02/03/24 15:08 Oxygen Delivery Method Room Air 02/03/24 15:08 BMI result Body Mass Index 24.8 General: awake, alert, oriented. Answers questions appropriately. Fully engaged in examination. Skin: warm, dry, intact without wounds, abrasions, bruising or open areas. HEENT: Normocephalic. Hearing intact. Cardiac: External chest normal in appearance. No peripheral edema, intact DP and PT pulses bilaterally Respiratory: No cough, audible wheezing or stridor. Abdomen: without gross distension. MS: No obvious swelling or deformities. Able to transition from sit to stand unassisted. Ambulates with bilaterally normal heel strike and toe off Neurological: Oriented to person, place, time and situation. Thought process intact. Psychiatric: Appropriate mood and affect. Good judgment and insight. 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 Qutenza application as per above. Patient tolerated well, discharged home with no reported untoward effects. Cleansing gel applied prior to discharge, patient given cleansing gel for home use if needed. All questions and concerns were answered. Patient will follow up in the office as planned for next Qutenza application, sooner if needed. Orders: Orders AMB Capsaicin Patch - Practice Supplied Today G62.9 - Polyneuropathy, unspecified Medications: New capsaicin-skin cleanser 8 % 4 ea topical ONCE 1 ea 0RF G62.9 - Polyneuropathy, unspecified
[2024-02-03 15:40] VITALS: BP 119/65
[2024-02-03 16:04] VITALS: BP 126/77
== END 2024-02-03 16:11 | disposition home or self-care (01) ==
PROVIDERS: PCP Internal Medicine; Visit Provider Registered Nurse Emergency
DX: G62.9 Polyneuropathy, unspecified (principal)
CPT/HCPCS: 17999; 99214

== ENCOUNTER → 2024-02-03 14:52 | Outpatient (BNVA) | payer MEDICARE, MEDICAID, SELFPAY | PROVIDERS: PCP Internal Medicine; Visit Provider Registered Nurse Emergency | DX: E11.42 Type 2 diabetes mellitus with diabetic polyneuropathy (principal); G62.9 Polyneuropathy, unspecified | CPT/HCPCS: 17999; 99212; J7336 ==

== ENCOUNTER 2024-02-16 14:01 | Outpatient (AMB) | payer MEDICARE, SELFPAY ==
[2024-02-16 14:06] VITALS: BP 130/82; PULSE 73; O2SAT 86; BMI 27.1
--- NOTE | 2024-02-16 14:06 | MHC.PC.OV ---
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: No Shipping/Receiving Clerk: Not Required per policy Accompanied by: Self / Same As Patient Allergies acetaminophen [From TYLENOL] Adverse Reaction (Intermediate, Verified 02/16/24 14:06) DIZZINESS, VOMITING levofloxacin [From LEVAQUIN] Adverse Reaction (Intermediate, Verified 02/16/24 14:06) NAUSEA & VOMITING Medication List - Last Reconciled 02/17/24 by Perfecto Clark MD albuterol sulfate 90 mcg/actuation 1 puff inhalation Q4-6H PRN alendronate 70 mg PO SHERIDAN amlodipine 10 mg PO DAILY aspirin 81 mg PO BEDTIME budesonide-formoterol 160-4.5 mcg/actuation 2 puffs inhalation BID buspirone 5 mg PO BID calcium carbonate-vitamin D3 600 mg-10 mcg (400 unit) 1 tab PO DAILY clopidogrel 75 mg PO DAILY docusate sodium 100 mg PO BID PRN dronedarone (Multaq) 400 mg PO BID fenofibrate nanocrystallized 145 mg PO DAILY lidocaine-prilocaine 2.5-2.5 % 1 appl topical ONCE metoprolol succinate ER (Toprol XL) 25 mg PO DAILY PRN 30 days mirabegron ER (Myrbetriq) 50 mg PO DAILY nitroglycerin 0.4 mg sublingual Q5M PRN omeprazole 20 mg PO DAILY oxycodone-acetaminophen 5-325 mg (Percocet) 1 tab PO Q6H PRN rosuvastatin 40 mg PO BEDTIME sennosides (Senna Laxative) 17.2 mg (2 x 8.6 mg) PO BEDTIME venlafaxine ER 150 mg PO QAM vitamin B complex (B Complex-Vitamin B12 tablet) 1 tab PO BEDTIME vitamin E 200 units PO BEDTIME Tobacco use date assessed: 02/16/24 Fall risk assessment: No Falls in past year Last assessed Fall Risk: 02/16/24 Dental Screening Dental Screen Date: 02/16/24 Did you have a dental visit in the last 12 months?: Yes Did you have a dental problem in the last 6 months where you did not have access to dental care?: No Was dental information given to patient?: Patient has dentist HPI 3M F/U - see comments HPI Details HTN hyperlipidemia and osteoporosis; doing well and stable on rx; compliant [facility] Medical History Presence of Watchman left atrial appendage closure device Paroxysmal atrial fibrillation Atherosclerotic cardiovascular disease Retention of urine Hyperlipidemia Neuropathy Diabetic neuropathy Post-menopausal Screening for diabetes mellitus COVID-19 vaccine series completed Mixed hyperlipidemia CAD (coronary artery disease) Surgical History History of colonoscopy History of rotator cuff surgery Stented coronary artery History of cataract surgery History of bladder surgery History of hysterectomy History of cholecystectomy Family History Father Cancer Mother Heart disease Pancreatic cancer Sister Heart disease Social History Household Members: None Housing: Condominium Alcohol intake: former Patient Tobacco Use Status: Never used Tobacco e-Cigarette/Vaping Use: Never Used Second Hand Smoke Exposure: No Advance Directives Date on File: 07/20/23 service: No Current occupational status: retired Cognitive needs: Yes Hearing needs: Yes Vision needs: Yes Questionnaire Thrive Questionnaire Date Thrive assessed: 11/29/23 VERENA-7 AMB Questionnaire VERENA-7 Date VERENA - 7 assessed: 11/29/23 Source: Developed by Drs. Neto Franco, Jacqueline Fry, Jones Valdivia and colleagues, with an educational dre from [employer]. Review of Systems Const Denies chills, Denies headache(s) and Denies weight loss ENT Denies headache(s) Card Denies chest pain, Denies syncope, Denies irregular heart rhythm and Denies dyspnea Resp Denies chest congestion, Denies cough and Denies dyspnea GI Denies abdominal pain, Denies change in stool character, Denies nausea and Denies vomiting Musc Denies deformity and Denies joint swelling Neuro Denies syncope and Denies headache(s) Physical exam (Primary Care) Vital Signs: Last Vital Signs Pulse 73 02/16/24 14:06 BP 130/82 02/16/24 14:06 Pulse Ox 86 L 02/16/24 14:06 Oxygen Delivery Method Room Air 02/16/24 14:06 BMI result Body Mass Index 27.1 Tobacco/Smoking Status: Tobacco use Status Tobacco use date assessed 02/16/24 02/16/24 14:14 Patient Tobacco Use Status Never used Tobacco 02/16/24 14:14 e-Cigarette/Vaping Use Never Used 02/16/24 14:14 Thrive Assessment: Date of Thrive Assessment Date Thrive assessed 11/29/23 02/16/24 14:14 Const General: cooperative, comfortable, no acute distress and alert Neck Neck: Yes no lymphadenopathy Thyroid: Thyroid normal Resp Effort & Inspection: normal respiratory effort Auscultation: clear to auscultation bilaterally Percussion: percussion normal Cardio Jugular venous distension: no JVD Palpation: normal PMI Rate: regular rate Rhythm: regular rhythm Heart sounds: S1 normal heart sound present and S2 normal heart sound present GI Inspection: Yes normal to inspection Palpation (GI): No hepatosplenomegaly present Skin General skin exam: no rashes or lesions noted Extrem General: Yes no clubbing, cyanosis or edema Assessment and Plan Assessment & Plan (1) Osteoporosis: Code(s): M81.0 - Age-related osteoporosis without current pathological fracture Plan: stable; same rx (2) Hyperlipidemia: Code(s): E78.5 - Hyperlipidemia, unspecified Plan: stable; same rx (3) Hypertension: Code(s): I10 - Essential (primary) hypertension Plan: stable; same rx Coding Level of Care Code Est Pt Level 4 (12876) Diagnoses Osteoporosis M81.0 Hyperlipidemia E78.5 Hypertension I10
== END 2024-02-16 14:32 | disposition home or self-care (01) ==
PROVIDERS: PCP Internal Medicine; Visit Provider Internal Medicine
DX: M81.0 Age-related osteoporosis without current pathological fracture (principal); E78.5 Hyperlipidemia, unspecified; I10 Essential (primary) hypertension
CPT/HCPCS: 99214

== ENCOUNTER → 2024-02-16 14:52 | Outpatient (BNVA) | payer MEDICARE, MEDICAID, SELFPAY | PROVIDERS: PCP Internal Medicine; Visit Provider Internal Medicine Cardiovascular Disease ==

== ENCOUNTER 2024-05-03 09:41 | Outpatient (AMB) | payer MEDICARE, MEDICAID, SELFPAY ==
[2024-05-03 09:43] VITALS: BP 150/72; PULSE 57; O2SAT 95; BMI 26.5
--- NOTE | 2024-05-03 09:43 | MHC.PC.OV ---
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 Required: No Accompanied by: Son-Rubens Allergies acetaminophen [From TYLENOL] Adverse Reaction (Intermediate, Verified 05/03/24 10:02) DIZZINESS, VOMITING levofloxacin [From LEVAQUIN] Adverse Reaction (Intermediate, Verified 05/03/24 10:02) NAUSEA & VOMITING Medication List - Last Reconciled 05/03/24 by Perfecto Clark MD albuterol sulfate 90 mcg/actuation 1 puff inhalation Q4-6H PRN amiodarone 200 mg PO DAILY apixaban 5 mg PO BID aspirin 81 mg PO BEDTIME budesonide-formoterol 160-4.5 mcg/actuation 2 puffs inhalation BID buspirone 5 mg PO BID calcium carbonate-vitamin D3 600 mg-10 mcg (400 unit) 1 tab PO DAILY docusate sodium 100 mg PO BID PRN fenofibrate nanocrystallized 145 mg PO DAILY metoprolol succinate ER mg PO metoprolol tartrate 25 mg PO BID mirabegron ER (Myrbetriq) 50 mg PO DAILY nitroglycerin 0.4 mg sublingual Q5M PRN omeprazole 20 mg PO DAILY oxycodone-acetaminophen 5-325 mg (Percocet) 1 tab PO Q6H PRN rosuvastatin 40 mg PO DAILY sennosides (Senna Laxative) 17.2 mg (2 x 8.6 mg) PO BEDTIME sucralfate 1 g PO BID venlafaxine ER 150 mg PO QAM vitamin B complex (B Complex-Vitamin B12 tablet) 1 tab PO BEDTIME vitamin E 200 units PO BEDTIME Tobacco use date assessed: 02/16/24 Dental Screening Dental Screen Date: 02/16/24 HPI Follow up after ER/Hospital Visit in [place] HPI Details Admitted in [place] with gastroenteritis and had some cardiac issues while there; Afib problems and positive stress test; has appt with cardiology today [facility] Medical History Presence of Watchman left atrial appendage closure device Paroxysmal atrial fibrillation Atherosclerotic cardiovascular disease Retention of urine Hyperlipidemia Neuropathy Diabetic neuropathy Post-menopausal Screening for diabetes mellitus COVID-19 vaccine series completed Mixed hyperlipidemia CAD (coronary artery disease) Surgical History History of colonoscopy History of rotator cuff surgery Stented coronary artery History of cataract surgery History of bladder surgery History of hysterectomy History of cholecystectomy Family History Father Cancer Mother Heart disease Pancreatic cancer Sister Heart disease Social History Household Members: None Housing: Condominium Alcohol intake: former Patient Tobacco Use Status: Never used Tobacco e-Cigarette/Vaping Use: Never Used Second Hand Smoke Exposure: No Advance Directives Date on File: 07/20/23 service: No Current occupational status: retired Cognitive needs: Yes Hearing needs: Yes Vision needs: Yes Questionnaire Thrive Questionnaire Date Thrive assessed: 11/29/23 VERENA-7 AMB Questionnaire VERENA-7 Date VERENA - 7 assessed: 11/29/23 Source: Developed by Drs. Neto Franco, Jacqueline Fry, Jones Valdivia and colleagues, with an educational dre from [employer]. Review of Systems Const Denies chills, Denies headache(s) and Denies weight loss ENT Denies headache(s) Card Denies chest pain, Denies syncope, Denies irregular heart rhythm and Denies dyspnea Resp Denies chest congestion, Denies cough and Denies dyspnea GI Denies abdominal pain, Denies change in stool character, Denies nausea and Denies vomiting Musc Denies deformity and Denies joint swelling Neuro Denies syncope and Denies headache(s) Physical exam (Primary Care) Vital Signs: Last Vital Signs Pulse 57 05/03/24 09:43 BP 150/72 H 05/03/24 09:43 Pulse Ox 95 05/03/24 09:43 Oxygen Delivery Method Room Air 05/03/24 09:43 BMI result Body Mass Index 26.5 Tobacco/Smoking Status: Tobacco use Status Tobacco use date assessed 02/16/24 05/03/24 09:51 Patient Tobacco Use Status Never used Tobacco 05/03/24 09:51 e-Cigarette/Vaping Use Never Used 05/03/24 09:51 Thrive Assessment: Date of Thrive Assessment Date Thrive assessed 11/29/23 05/03/24 09:51 Const General: cooperative, comfortable, no acute distress and alert Neck Neck: Yes no lymphadenopathy Thyroid: Thyroid normal Resp Effort & Inspection: normal respiratory effort Auscultation: clear to auscultation bilaterally Percussion: percussion normal Cardio Jugular venous distension: no JVD Palpation: normal PMI Rate: regular rate Rhythm: regular rhythm Heart sounds: S1 normal heart sound present and S2 normal heart sound present GI Inspection: Yes normal to inspection Palpation (GI): No hepatosplenomegaly present Skin General skin exam: no rashes or lesions noted Extrem General: Yes no clubbing, cyanosis or edema Assessment and Plan Assessment & Plan (1) Paroxysmal atrial fibrillation: Code(s): I48.0 - Paroxysmal atrial fibrillation Plan: as per cardiology Orders: Orders CT head/brain wo IV con Today R41.89 - Other symptoms and signs involving cognitive functions and awareness Complete Blood Count Auto Diff Today Z13.0 - Encounter for screening for diseases of the blood and blood-forming organs and certain disorders involving the immune mechanism Comprehensive [place]. Panel Fast Today Z13.9 - Encounter for screening, unspecified Lipid Panel Today Z13.220 - Encounter for screening for lipoid disorders Lyme IgG/IgM w/reflex to WB Today W57.XXXA - Bitten or stung by nonvenomous insect and other nonvenomous arthropods, initial encounter Thyroid Stimulating Hormone Today Z13.29 - Encounter for screening for other suspected endocrine disorder Vitamin B12 and Folate Today R41.89 - Other symptoms and signs involving cognitive functions and awareness Referrals [facility] Referral I48.91 - Unspecified atrial fibrillation Medications: Changed From metoprolol tartrate 37.5 mg PO BID 60 tabs 0RF To metoprolol tartrate 25 mg PO BID Coding Level of Care Code Est Pt Level 3 (15248) Diagnoses Paroxysmal atrial fibrillation I48.0
== END 2024-05-03 10:34 | disposition home or self-care (01) ==
PROVIDERS: PCP Internal Medicine; Visit Provider Internal Medicine
DX: I48.0 Paroxysmal atrial fibrillation (principal)
CPT/HCPCS: 99213

== ENCOUNTER 2024-05-03 13:05 | Outpatient (AMB) | payer MEDICARE, MEDICAID, SELFPAY ==
--- NOTE | 2024-05-03 13:06 | A.OFFVIS_ITS ---
Vital Signs 3 05/03/24 13:10 05/03/24 14:05 05/03/24 14:20 Height 5 ft 8 in Weight 165 lb BMI 25.1 BP 171/85 H 177/72 H 156/72 H Blood Pressure Location Rt brachial Rt brachial Rt brachial Position Sitting Sitting Sitting Pulse 65 Pulse Source Pulse Oximeter Pulse Oximetry (%) 95 Oxygen Delivery Method Room Air Comment 15 minute blood pressure on Qutenza 30 minute blood pressure on Qutenz a Intake Visit Reasons: Qutenza Allergies acetaminophen [From TYLENOL] Adverse Reaction (Intermediate, Verified 05/03/24 10:02) DIZZINESS, VOMITING levofloxacin [From LEVAQUIN] Adverse Reaction (Intermediate, Verified 05/03/24 10:02) NAUSEA & VOMITING Medication List - Last Reconciled 05/03/24 by Darby Barry albuterol sulfate 90 mcg/actuation 1 puff inhalation Q4-6H PRN amiodarone 200 mg PO DAILY apixaban 5 mg PO BID aspirin 81 mg PO BEDTIME budesonide-formoterol 160-4.5 mcg/actuation 2 puffs inhalation BID buspirone 5 mg PO BID calcium carbonate-vitamin D3 600 mg-10 mcg (400 unit) 1 tab PO DAILY docusate sodium 100 mg PO BID PRN fenofibrate nanocrystallized 145 mg PO DAILY metoprolol succinate ER mg PO metoprolol tartrate 25 mg PO BID mirabegron ER (Myrbetriq) 50 mg PO DAILY nitroglycerin 0.4 mg sublingual Q5M PRN omeprazole 20 mg PO DAILY oxycodone-acetaminophen 5-325 mg (Percocet) 1 tab PO Q6H PRN rosuvastatin 40 mg PO DAILY sennosides (Senna Laxative) 17.2 mg (2 x 8.6 mg) PO BEDTIME sucralfate 1 g PO BID venlafaxine ER 150 mg PO QAM vitamin B complex (B Complex-Vitamin B12 tablet) 1 tab PO BEDTIME vitamin E 200 units PO BEDTIME HPI Comments Details: Edie is a very pleasant 79-year-old female who presented to the office today for follow-up bilateral painful peripheral neuropathy and 2nd capsaicin topical application. Patient did not apply the EMLA cream as directed. Forgot to pick it up from the pharmacy. She was advised this could cause some burning or discomfort, elects to proceed despite being warned that it may be painful. Denies any changes in her painful bilateral peripheral neuropathy since last visit. Patient denies any recent injuries or wounds to her feet. Since last visit patient went to visit her son in [place]. She was rushed in the emergency room twice for uncontrolled AFib. States since returning her other son is managing her care. Working with all the doctors to coordinate visits and medications. Would like to proceed with treatment for her bilateral peripheral neuropathy. Prior: Edie presents back to the office today for follow-up of her painful peripheral neuropathy Patient reports after last visit here she had a stroke and then some troubles with AFib requiring multiple visits to doctors, inpatient states the hospital and emergency room visits. She was ultimately lost to follow-up for our office but now returns as every thing else has stabilized. She denies any changes to her peripheral neuropathy other than slight worsening of the burning and tingling on the left side. She thinks this is due to a arterial puncture at her left ankle. Patient is now ready to proceed with bilateral tensor applications Prior: Edie is a very pleasant 78 year old female who presents to the office today for evaluation and management of her painful peripheral neuropathy. She reports suffering with this burning pain to both feet for the last 1.5 years. She has tried amitriptyline, gabapentin and lyrica without relief. She has tried home exercises and found only minimal relief with ice. She has been evaluated by neurology, had EMG and most recently was referred here for evaluation by vascular as they are concerned it is related to her back. Patient denies pain in back, buttocks, thighs or upper legs. She endorses intermittent cramping of her calves but denies burning, shocking pain of the lower legs. Patient reports she has had multiple evaluations over the last year with imaging and testing but still has no answers. She is not diabetic nor does she drink alcohol. Last ETOH use was 8 years ago. She endorses family history of peripheral neuropathy. Pain today is reported as 6/10, burning and tingling. Pain is worse during the night and often keeps her from sleeping. In terms of muscle damage condition is described as aching, hot, burning, tiring, exhausting, numb, throbbing, shocking, tingling, pins and needles. Pain is negatively impacting patient's mood, normal work, relationships with people, sleeping and walking. PENDING SALE TO [facility] Medical History Presence of Watchman left atrial appendage closure device Paroxysmal atrial fibrillation Atherosclerotic cardiovascular disease Retention of urine Hyperlipidemia Neuropathy Diabetic neuropathy Post-menopausal Screening for diabetes mellitus COVID-19 vaccine series completed Mixed hyperlipidemia CAD (coronary artery disease) Surgical History History of colonoscopy History of rotator cuff surgery Stented coronary artery History of cataract surgery History of bladder surgery History of hysterectomy History of cholecystectomy Family History Father Cancer Mother Heart disease Pancreatic cancer Sister Heart disease Social History Household Members: None Housing: Condominium Alcohol intake: former Patient Tobacco Use Status: Never used Tobacco e-Cigarette/Vaping Use: Never Used Second Hand Smoke Exposure: No Advance Directives Date on File: 07/20/23 service: No Current occupational status: retired Cognitive needs: Yes Hearing needs: Yes Vision needs: Yes Review of Systems Const All systems reviewed & are unremarkable except as noted in HPI and below Physical Exam Vital Signs: Last Vital Signs Pulse 65 05/03/24 13:10 BP 156/72 H 05/03/24 14:20 Pulse Ox 95 05/03/24 13:10 Oxygen Delivery Method Room Air 05/03/24 13:10 BMI result Body Mass Index 25.1 General: awake, alert, oriented. Answers questions appropriately. Fully engaged in examination. Skin: Feet: warm, dry, intact without wounds, abrasions, bruising or open areas. HEENT: Normocephalic. Hearing intact. Cardiac: External chest normal in appearance. No peripheral edema, intact DP and PT pulses bilaterally Respiratory: No cough, audible wheezing or stridor. Abdomen: without gross distension. MS: No obvious swelling or deformities. Able to transition from sit to stand unassisted. Ambulates with bilaterally normal heel strike and toe off Neurological: Oriented to person, place, time and situation. Thought process intact. Psychiatric: Appropriate mood and affect. Good judgment and insight. Office Meds capsaicin-skin cleanser 8 % topical kit Performing Provider: Lulu Ortega APRN, AUTO SLIP COVER INSTALLER Performing Location: [facility] Administered by: Lulu Ortega APRN, AUTO SLIP COVER INSTALLER on 05/03/24 13:38 2 Dose Route Admin Location Dispensed Lot Number Expiration Date NDC Cloud Security Architect 4 ea topical 4 ea [id number] 04/16/26 60179-059-35 [employer] Comments: Feet exposed, no wounds, rashes or breaks in skin noted. Light touch sensation intact bilaterally. Four single use topical patches (179mg capsaicin) divided between feet, 2 patches per foot, wrapped and secured per package instructions. Patient monitored throughout the procedure with BP checks every 15 minutes. She tolerated the 30 minute application well. Results Reviewed Results Reviewed: EMG results from progress note dated 03/02/2022 [facility]: Assessment & Plan Assessment & Plan (1) Peripheral neuropathy: Code(s): G62.9 - Polyneuropathy, unspecified Category: Medical Plan Edie presented to the office today for 2nd Qutenza topical application for bilateral peripheral neuropathy. Qutenza application as per above. Patient tolerated well, discharged home with no reported untoward effects. Cleansing gel applied prior to discharge, patient given cleansing gel for home use if needed. All questions and concerns were answered. Patient will follow up in the office as planned for next Qutenza application, sooner if needed. Orders: Orders 2 AMB Capsaicin Patch - Practice Supplied Today G62.9 - Polyneuropathy, unspecified Medications: Refilled 2 lidocaine-prilocaine 2.5-2.5 % cleanse feet thoroughly, apply to both feet 30 minutes prior to appointment. 1 appl topical ONCE 30 grams 0RF preprocedure Coding Level of Care Code Est Pt Level 4 (91118) Diagnoses Peripheral neuropathy G62.9
[2024-05-03 13:10] VITALS: BP 171/85; PULSE 65; O2SAT 95; BMI 25.1
[2024-05-03 14:05] VITALS: BP 177/72
[2024-05-03 14:20] VITALS: BP 156/72
== END 2024-05-03 14:47 | disposition home or self-care (01) ==
PROVIDERS: PCP Internal Medicine; Visit Provider Registered Nurse Emergency
DX: G62.9 Polyneuropathy, unspecified (principal)
CPT/HCPCS: 17999; 99214

== ENCOUNTER → 2024-05-03 13:05 | Outpatient (BNVA) | payer MEDICARE, MEDICAID, SELFPAY | PROVIDERS: PCP Internal Medicine; Visit Provider Registered Nurse Emergency | DX: I48.0 Paroxysmal atrial fibrillation (principal); I25.10 Atherosclerotic heart disease of native coronary artery without angina pectoris; Z79.01 Long term (current) use of anticoagulants; Z79.82 Long term (current) use of aspirin; G62.9 Polyneuropathy, unspecified | CPT/HCPCS: 17999; 93005; 99212; J7336 ==

== ENCOUNTER 2024-05-03 15:14 | Outpatient (AMB) | payer MEDICARE, MEDICAID, SELFPAY ==
--- NOTE | 2024-05-03 15:27 | A.OFFVIS_ITS ---
Vital Signs 05/03/24 15:34 Height 5 ft 8 in Weight 165 lb 5.547 oz BMI 25.1 BP 120/82 Blood Pressure Location Lt brachial Position Sitting Pulse 48 L Intake Visit Reasons: follow-up from [place]ib in [place] Intake Note: Follow-up was in Hosptial in [place] with afib c/o fatigue Chemistry Technical Officer Required: No Database Engineer: Database Engineer Present Accompanied by: Son Allergies acetaminophen [From TYLENOL] Adverse Reaction (Intermediate, Verified 05/03/24 10:02) DIZZINESS, VOMITING levofloxacin [From LEVAQUIN] Adverse Reaction (Intermediate, Verified 05/03/24 10:02) NAUSEA & VOMITING Medication List - Last Reconciled 05/03/24 by Jose Alberto Vang MD alendronate 70 mg PO QWEEK amiodarone 200 mg PO DAILY apixaban 5 mg PO BID aspirin 81 mg PO BEDTIME budesonide-formoterol 160-4.5 mcg/actuation 2 puffs inhalation BID buspirone 5 mg PO BID calcium carbonate-vitamin D3 600 mg-10 mcg (400 unit) 1 tab PO DAILY docusate sodium 100 mg PO BID PRN fenofibrate nanocrystallized 145 mg PO DAILY metoprolol succinate ER 25 mg PO BID mirabegron ER (Myrbetriq) 50 mg PO DAILY nitroglycerin 0.4 mg sublingual Q5M PRN omeprazole 20 mg PO BID oxycodone-acetaminophen 5-325 mg (Percocet) 1 tab PO Q6H PRN rosuvastatin 40 mg PO DAILY sennosides (Senna Laxative) 17.2 mg (2 x 8.6 mg) PO BEDTIME sucralfate 1 g PO Q4H venlafaxine ER 150 mg PO QAM vitamin B complex (B Complex-Vitamin B12 tablet) 1 tab PO BEDTIME vitamin E 200 units PO BEDTIME HPI Comments Details: Edie comes for follow-up after recent hospitalizations in [place]. She presents and is accompanied by her son from [place]. I do not have the details of both admissions although patient did come up with patient portal related discharge instructions. Heart patient said the 1st admission was in mid March when she reached [place] and then subsequently was having symptoms of nausea vomiting and not feeling well. She subsequently started having symptoms of palpitations. She was then admitted to the hospital and was cardioverted at that time was treated for dehydration and gastroenteritis. Unclear cause. Subsequently few days later she had recurrent atrial fibrillation ended up coming to the hospital again. At that time she was advised ablation although started on amiodarone therapy. They did consult with me from there and we discussed to continue with amiodarone therapy and hold off on ablation therapy at this point in time. Patient has done well. She did undergo ARYAN guided cardioversion to rule out intracardiac thrombi. She did not have any thrombi but was started on Eliquis therapy which has been on for about 3 weeks. She has not had any major bleeding issues. She has not had any major other cardiac issues. She was continued on aspirin as well as continue metoprolol therapy. She comes here and says that with exertion especially when she was in AFib she had significant shortness of breath climbing a flight of stairs. Currently at her home she also has shortness of breath and fatigue when she climbs a flight of stairs but this is improved compared to before. Denies any orthopnea, PND. No obvious chest discomfort suggestive of angina. She is taking all her medications adequately. [facility] Medical History Presence of Watchman left atrial appendage closure device Paroxysmal atrial fibrillation Atherosclerotic cardiovascular disease Retention of urine Hyperlipidemia Neuropathy Diabetic neuropathy Post-menopausal Screening for diabetes mellitus COVID-19 vaccine series completed Mixed hyperlipidemia CAD (coronary artery disease) Surgical History History of colonoscopy History of rotator cuff surgery Stented coronary artery History of cataract surgery History of bladder surgery History of hysterectomy History of cholecystectomy Family History Father Cancer Mother Heart disease Pancreatic cancer Sister Heart disease Social History Household Members: None Housing: Condominium Alcohol intake: former Patient Tobacco Use Status: Never used Tobacco e-Cigarette/Vaping Use: Never Used Second Hand Smoke Exposure: No Advance Directives Date on File: 07/20/23 service: No Current occupational status: retired Cognitive needs: Yes Hearing needs: Yes Vision needs: Yes Review of Systems Const Denies chills, Denies fatigue, Denies fever(s), Denies frequent falls, Denies weakness, Denies weight gain and Denies weight loss ENT Denies dizziness Card Denies chest pain, Denies leg edema, Denies lightheadedness, Denies palpitations, Denies dyspnea, Denies dyspnea on exertion, Denies orthopnea and Denies other (loss of consciousness) Resp Denies cough, Denies dyspnea and Denies dyspnea on exertion GI Denies hematochezia and Denies change in stool character Musc Denies abnormal gait, Denies muscle weakness, Denies numbness, Denies radiating pain into limb and Denies tingling Neuro Denies abnormal gait, Denies dizziness, Denies frequent falls, Denies numbness, Denies tingling and Denies weakness Endo Denies fatigue and Denies palpitations Physical Exam Vital Signs: Last Vital Signs Pulse 48 L 05/03/24 15:34 BP 120/82 05/03/24 15:34 BMI result Body Mass Index 25.1 Const General: cooperative, healthy appearing, comfortable and no acute distress Orientation/consciousness: patient oriented x3 Neck Neck: Yes normal visual inspection Resp Effort & Inspection: normal respiratory effort Auscultation: clear to auscultation bilaterally, no crackles, no rales, no rhonchi and no wheezes Cardio Jugular venous distension: no JVD Rate: regular rate Rhythm: regular rhythm Heart sounds: S1 normal heart sound present, S2 normal heart sound present, Murmur heart sound present (2/6 systolic, right sternal border) and no rubs Skin General skin exam: no rashes or lesions noted and ecchymosis Neuro General: patient oriented x3 Extrem General: Yes normal to inspection Psych Appearance: grossly normal Mental Status: mental status grossly normal Speech and movement: Normal speech and movement present Office Procedures EKG Details: EKG shows sinus bradycardia at 49 beats per minute [id number], Complete Assessment & Plan Assessment & Plan (1) Paroxysmal atrial fibrillation: Code(s): I48.0 - Paroxysmal atrial fibrillation Category: Medical Plan: Recent recurrent atrial fibrillation induced by acute medical illness most likely from gastroenteritis. She was then switched from Multaq to amiodarone therapy during 2nd hospitalization was considered for ablation therapy. Since then she has been maintaining rhythm. Advised to monitor heart rate at home. She has symptoms of exertional shortness of breath fatigue most likely related to sinus bradycardia and chronotropic incompetence. At this point time I have advised her to taper and discontinue metoprolol therapy slowly. Advised to continue monitor symptoms at home. If her symptoms improve no further workup is to be pursued. However she persists with exertional symptoms will need to pursue myocardial perfusion imaging to evaluate for myocardial ischemia. Meanwhile she is status post Watchman device and was given Eliquis which should be usually 4 weeks post cardioversion. Will discontinue this in 1 week's time to reduce bleeding risk as she had significant bleeding in the past. Lifelong aspirin therapy beyond that. Continue amiodarone at 200 mg daily which is helping to maintain rhythm. We discussed about risk of amiodarone toxicity is low in the short term. Will follow-up in 3 months time. Obtain Holter monitor in 6 weeks time. If she persists with normal sinus rhythm in 3 months time will eventually try to switch her back to Multaq therapy which has worked well for her for the nursing home. Will obtain echo reports from hospital in [place]. (2) CAD (coronary artery disease): Code(s): I25.10 - Atherosclerotic heart disease of [place] coronary artery without angina pectoris Category: Medical Plan: Coronary artery disease with prior remote stenting. Currently having symptoms of exertional shortness of breath which I think are more likely related to chronotropic incompetence. Follow-up Holter monitor in 6 weeks time after tapering and discontinuing her metoprolol therapy. This was discussed with him. Advised to monitor heart rate at home. If she develops any new symptoms she is advised to call my office. Will follow-up echocardiogram from [facility]. Continue aggressive lipid modification. Currently on Eliquis and aspirin. Long-term will stop Eliquis and continue aspirin therapy. Will follow up with her in 3 months time. Thank you for allowing me to partake in the care Orders: Orders ECG 3 day holter monitor 05/03/24 Jose Alberto Vang MD I48.0 - Paroxysmal atrial fibrillation Medications: Changed From omeprazole 20 mg PO DAILY 90 caps 8RF To omeprazole 20 mg PO BID Perfecto Clark MD From sucralfate 1 g PO BID 120 tabs 0RF To sucralfate before meal and at bedtime 1 g PO Q4H Perfecto Clark MD Refilled amiodarone 200 mg PO DAILY 30 tabs 0RF Jose Alberto Vang MD Coding Level of Care Code Est Pt Level 4 (14360) Diagnoses Paroxysmal atrial fibrillation I48.0 CAD (coronary artery disease) I25.10 CPT Codes EKG - CPT: [id number], Complete ([id number])
[2024-05-03 15:34] VITALS: BP 120/82; PULSE 48; BMI 25.1
== END 2024-05-03 16:23 | disposition home or self-care (01) ==
PROVIDERS: PCP Internal Medicine; Visit Provider Internal Medicine Cardiovascular Disease
DX: I48.0 Paroxysmal atrial fibrillation (principal); I25.10 Atherosclerotic heart disease of native coronary artery without angina pectoris
CPT/HCPCS: 93010; 99214

== ENCOUNTER 2024-05-11 08:40 | Outpatient (REF) | payer MEDICARE, SELFPAY ==
[2024-05-11 08:59] LABS: MANUAL DIFF FLAG NO
[2024-05-11 09:31] LABS: Basophils Percent Auto 0.7 % (0-2); Eosinophils Absolute Auto 0.2 X10*3/uL (0.0-0.4); Hematocrit 45.2 % (37.0-47.0); Hemoglobin 13.8 g/dl (12.0-16.0); Imm Gran Abs Auto 0.02 X10*3/uL (0.00-0.03); Imm Gran Pct Auto 0.4 % (0.0-0.4); Lymphocytes Percent Auto 23.1 % (20-40); Mean Corpuscular HGB Conc 30.5 g/dl (31.0-35.0); Mean Corpuscular Hemoglobin 26.1 pg (27.0-33.0); Mean Corpuscular Volume 85.4 fL (80.0-98.0); Mean Platelet Volume 10.2 fL (9.4-12.3); Monocytes Absolute Auto 0.4 X10*3/uL (0.1-1.2); Monocytes Percent Auto 9.4 % (2-11); Neutrophils Absolute Auto 2.8 x10*3/uL (2.0-8.3); Neutrophils Percent Auto 62.4 % (45-73); Platelet Count 254 X10*3/uL (160-400); Red Blood Count 5.29 X10*6/uL (4.20-5.50); Red Cell Distribution Width 14.4 % (11.0-16.0); White Blood Count 4.5 X10*3/uL (4.8-10.8)
[2024-05-11 10:24] LABS: Alanine Aminotransferase 11 U/L (0-31); Alkaline Phosphatase 28 U/L (39-117); Anion Gap 13 (12-20); Aspartate Amino Transferase 23 U/L (5-31); Bilirubin Total 0.5 mg/dL (0.0-1.0); Blood Urea Nitrogen 17 mg/dL (9-16); Calcium 9.8 mg/dL (8.4-10.2); Carbon Dioxide 29 mmol/L (22-29); Chloride 107 mmol/L (96-108); Cholesterol 149 mg/dL (<200); Estimated Glomerular Filt Rate 57; Glucose Fasting 98 mg/dL (60-99); HDL Cholesterol 69 mg/dL (>40); LDL Cholesterol Calculated 67 mg/dL (<100); Potassium 3.6 mmol/L (3.3-5.1); Sodium 145 mmol/L (135-145); Total Protein 6.7 g/dL (6.5-8.0); Triglycerides 66 mg/dL (<150)
[2024-05-11 10:43] LABS: Thyroid Stimulating Hormone 3.46 uIU/mL (0.32-4.0)
[2024-05-11 11:33] LABS: Folate 5.7 ng/mL (> or = 4.0); Vitamin B12 1325 pg/mL (200-900)
[2024-05-14 23:13] LABS: Lyme Blot 2.09 index
[2024-05-15 10:26] LABS: Lyme Abs Screen POSITIVE
[2024-05-15 13:04] LABS: 18 KD (IgG) Band NON-REACTIVE; 23 KD (IgG) Band NON-REACTIVE; 23 KD (IgM) Band NON-REACTIVE; 28 KD (IgG) Band NON-REACTIVE; 30 KD (IgG) Band NON-REACTIVE; 39 KD (IgM) Band NON-REACTIVE; 39KD (IgG) Band NON-REACTIVE; 41 KD (IgM) Band NON-REACTIVE; 41KD (IgG) Band NON-REACTIVE; 45 KD (IgG) Band NON-REACTIVE; 58 KD (IgG) Band NON-REACTIVE; 66 KD (IgG) Band NON-REACTIVE; 93 KD (IgG) Band NON-REACTIVE; Lyme IgG Blot Interp NEGATIVE (NEGATIVE); Lyme IgM Blot Interp NEGATIVE (NEGATIVE)
== END 2024-05-11 08:41 | disposition home or self-care (01) ==
LOC: HO.LAB 08:40
PROVIDERS: PCP Internal Medicine; Visit Provider Internal Medicine
DX: Z13.0 Encounter for screening for diseases of the blood and blood-forming organs and certain disorders involving the immune mechanism (principal); Z13.29 Encounter for screening for other suspected endocrine disorder; Z13.9 Encounter for screening, unspecified; Z13.220 Encounter for screening for lipoid disorders; R41.89 Other symptoms and signs involving cognitive functions and awareness; T14.8XXA Other injury of unspecified body region, initial encounter; W57.XXXA Bitten or stung by nonvenomous insect and other nonvenomous arthropods, initial encounter
CPT/HCPCS: 36415; 80053; 80061; 82607; 82746; 84443; 85025; 86617; 86618

== ENCOUNTER 2024-06-08 12:59 | Outpatient (REF) | payer MEDICARE, SELFPAY ==
--- NOTE | ~2024-06-08 | CT_ITS ---
EXAMINATION: CT HEAD WITHOUT CONTRAST CLINICAL INFORMATION: Symptoms and signs involving cognitive function and awareness, cognitive decline COMPARISON: CT scan of brain on 07/19/2023 TECHNIQUE: Contiguous axial imaging was performed from the skull base to vertex without intravenous administration of contrast. This CT examination was performed using dose optimization techniques as appropriate, variously including the following: *Automated exposure control *Adjustment of mA and/or kV according to patient size (this includes techniques or standardized protocols for targeted exams where dose is matched to indication/reason for exam; i.e. extremities or head) *Use of iterative reconstruction technique DLP: 821 mGy-cm FINDINGS: Ventricles, sulci and cisterns are dilated. Bilateral frontal and parietal deep white matters show patchy decreased attenuation. Anterior left external capsule and the right internal capsule anterior limb show decreased attenuation. There is no midline shift, no abnormal intra- or extra- axial fluid accumulation. Knox and white matter differentiation is normal. Bone window images show no evidence of skull fracture. CT/CT head/brain wo IV con IMPRESSION: 1. Unchanged age-related cerebral atrophy, scattered ischemic white matter disease compatible with microangiopathy. 2. No intracranial hemorrhage or skull fracture is seen. 3. No evidence of space occupying lesion could be found. 4. The current plain CT scan of the brain shows no diagnostic evidence of acute cerebral infarction. Electronically signed by: Jatinder Hermosillo MD 06/08/2024 04:22 PM EDT
--- NOTE | 2024-06-08 13:45 | HM_ITS ---
* Total monitoring time 5 days 15 hours. * Underlying rhythm is sinus with an average rate of 65/Min. * Rare supraventricular ectopy. * Rare ventricular ectopy. * No significant pauses or AV blocks. * No patient markers. * Diary with report of having atrial fibrillation episodes, but no day or time mentioned. MTDD
== END 2024-06-08 13:00 | disposition home or self-care (01) ==
LOC: HO.CT 12:59
PROVIDERS: PCP Internal Medicine; Visit Provider Internal Medicine Cardiovascular Disease
DX: I48.0 Paroxysmal atrial fibrillation (principal); R41.89 Other symptoms and signs involving cognitive functions and awareness
CPT/HCPCS: 70450; 93242

== ENCOUNTER → 2024-06-08 13:45 | Outpatient (BNV) | payer MEDICARE, SELFPAY | PROVIDERS: PCP Internal Medicine; Visit Provider Internal Medicine | DX: I47.10 Supraventricular tachycardia, unspecified (principal) | CPT/HCPCS: 93244 ==

== ENCOUNTER 2024-06-20 15:05 | Outpatient (REF) | payer MEDICARE, SELFPAY ==
--- NOTE | ~2024-06-20 | US_ITS ---
EXAMINATION: NONINVASIVE ASSESSMENT OF THE ARTERIES OF BOTH LOWER EXTREMITIES INCLUDING PVR EXAM AND BILATERAL LOWER EXTREMITY DUPLEX CLINICAL INFORMATION: Peripheral vascular disease COMPARISON: ABs, and lower extremity duplex March 29, 2023 TECHNIQUE: Ankle pulse volume recordings, ankle pressure measurements and ankle brachial indices were obtained of the lower extremity arterial system bilaterally in addition to duplex Doppler techniques with wave form analysis and measurement of velocities in the common femoral, profunda femoral, superficial femoral, popliteal, tibial and peroneal arteries. The study was performed only at rest. FINDINGS: RIGHT LEG 1. Right Ankle-Brachial Index: 1.18 (higher of the DP/PT) >0.97-1.25 = normal - no significant arterial disease 0.75-0.96 = mild peripheral arterial disease 0.5-0.74 = moderate peripheral arterial disease <0.50 = severe peripheral arterial disease <0.30 = critical arterial disease 2. Segmental Pressures (mmHg): Brachial: 156 Ankle: PT 200, DP 171 3. PVR Waveforms: Ankle: Normal 4. Direct Duplex: Common femoral artery: 137 cm/s, biphasic Profunda femoris artery: 116 cm/s, biphasic Superficial femoral artery (proximal): 95.7 cm/s, biphasic Superficial femoral artery (mid): 88.2 cm/s, biphasic Superficial femoral artery (distal): 130 cm/s, triphasic Proximal Popliteal artery: 102 cm/s, triphasic Mid posterior tibial artery: 107 cm/s, biphasic Peroneal artery: 27.6 cm/s cm/s, Multiphasic Dorsalis pedis artery: 34.8 cm/s Anterior tibial artery: 22.9 cm/s LEFT LE. Left Ankle-Brachial Index: 1.18 (higher of the DP/PT) >0.97-1.25 = normal - no significant arterial disease 0.75-0.96 = mild peripheral arterial disease 0.5-0.74 = moderate peripheral arterial disease <0.50 = severe peripheral arterial disease <0.30 = critical arterial disease 2. Segmental Pressures: Brachial: 169 Ankle: PT 200, DP 144 3. PVR Waveforms: Ankle: Normal 4. Direct Duplex: Common femoral artery: 117 cm/s, triphasic Profunda femoris artery: 39.8 cm/s, biphasic Superficial femoral artery (proximal): 88.4 cm/s, biphasic Superficial femoral artery (mid): 82.3 cm/s, biphasic Superficial femoral artery (distal): 111 cm/s, biphasic Proximal Popliteal artery: 85.1 cm/s, triphasic Mid posterior tibial artery: 132 cm/s, biphasic Peroneal artery: Not visualized Results diffuse artery: 42.3 cm/s Anterior tibial artery: 13.2 cm/s US/US arterial duplex BI w/ JR IMPRESSION: 1. Normal bilateral ABIs and PVR waveforms. 2. Atherosclerotic plaque in the distal right SFA with slightly increased velocities, at most mild stenosis. Electronically signed by: Herrera Alberto MD 06/23/2024 04:32 PM EDT
== END 2024-06-20 15:06 | disposition home or self-care (01) ==
LOC: HO.US 15:05
PROVIDERS: PCP Internal Medicine; Visit Provider Surgery Vascular Surgery
DX: I73.9 Peripheral vascular disease, unspecified (principal)
CPT/HCPCS: 93922; 93925

== ENCOUNTER 2024-07-24 13:45 | Outpatient (AMB) | payer MEDICARE, SELFPAY ==
--- NOTE | 2024-07-24 13:47 | A.OFFVIS_ITS ---
Intake Visit Reasons: 1yr follow up s/p Art US 06/20/24 Intake Note: Patient presents for follow up arterial. States she is in pain . Up all night from cramping. She has swelling on both ankles. Allergies acetaminophen [From TYLENOL] Adverse Reaction (Intermediate, Verified 07/24/24 13:49) DIZZINESS, VOMITING levofloxacin [From LEVAQUIN] Adverse Reaction (Intermediate, Verified 07/24/24 13:49) NAUSEA & VOMITING HPI HPI 1yr follow up s/p Art 06/20/24: Details: Very complex 79-year-old female presents for follow-up regarding peripheral vascular disease. She had undergone an angiogram. It was noted that she had no significant flow-limiting stenosis. She has been seen by primary care along with pain management. In the past she has also been seen by Neurology. She does have a diagnosis of peripheral neuropathy and has been treated for that. She now presents for routine follow-up. [facility] Medical History Presence of Watchman left atrial appendage closure device Paroxysmal atrial fibrillation Atherosclerotic cardiovascular disease Retention of urine Hyperlipidemia Neuropathy Diabetic neuropathy Post-menopausal Screening for diabetes mellitus COVID-19 vaccine series completed Mixed hyperlipidemia CAD (coronary artery disease) Surgical History History of colonoscopy History of rotator cuff surgery Stented coronary artery History of cataract surgery History of bladder surgery History of hysterectomy History of cholecystectomy Family History Father Cancer Mother Heart disease Pancreatic cancer Sister Heart disease Social History Household Members: None Housing: Condominium Alcohol intake: former Patient Tobacco Use Status: Never used Tobacco e-Cigarette/Vaping Use: Never Used Second Hand Smoke Exposure: No Advance Directives Date on File: 07/20/23 service: No Current occupational status: retired Cognitive needs: Yes Hearing needs: Yes Vision needs: Yes Review of Systems Const All systems reviewed & are unremarkable except as noted in HPI and below Reports no additional complaints ENT Reports Normal hearing present Card Denies chest pain, Denies chest pain at rest, Denies chest pain with activity and Denies pedal edema Resp Denies cough GI Denies abdominal pain Musc Denies abnormal gait, Denies muscle cramps and Denies radiating pain into limb Skin/Breast Denies skin ulcer and Denies wounds Neuro Reports Normal hearing present and Denies abnormal gait Psych Reports no additional complaints Physical Exam Const General: cooperative, healthy appearing and comfortable Orientation/consciousness: oriented to person, oriented to place and oriented to time HEENT Head: Yes normal to inspection Neck Neck: Yes normal visual inspection Carotids: no bruits Chest Chest palpation & inspection: normal inspection of the chest Resp Effort & Inspection: normal respiratory effort and able to speak in complete sentences Auscultation: clear to auscultation bilaterally, no crackles, no rales, no rhonchi and no wheezes Cardio Rate: regular rate Rhythm: regular rhythm Heart sounds: S1 normal heart sound present and S2 normal heart sound present Bruits: no carotid bruits Peripheral pulses: Peripheral pulses 2+ throughout GI Inspection: Yes normal to inspection Skin Wounds: no wounds Hair: normal Neuro General: oriented to person, oriented to place and oriented to time Cranial nerves: Yes CN's II-XII intact bilaterally and Yes Normal hearing present Cognition (Neuro): normal cognition Motor exam (neuro): 5/5 motor strength present throughout Extrem Other: venous exam: No significant superficial varicosities or spider telangiectasias, minimal edema General: No clubbing, No cyanosis and No edema Psych Appearance: grossly normal Mental Status: mental status grossly normal Speech and movement: Normal speech and movement present Results Reviewed Results Reviewed: Noninvasive arterial testing dated 06/20/2024 demonstrates JR on the right and left of 1.18 with no significant flow-limiting stenosis Assessment & Plan Assessment & Plan (1) PAD (peripheral artery disease): Code(s): I73.9 - Peripheral vascular disease, unspecified Category: Medical Plan: In short patient has lower extremity pain. It does not appear to be peripheral vascular disease that we have been surveillance. I did spend a fair amount of time explaining that she does have an element of neuropathy. This was positive in previous testing and is currently being managed by pain management. May be beneficial to have a repeat evaluation by Neurology as well. In addition she does appear to have some bone spurs and foot issues. May benefit from a podiatric evaluation as well. She will follow up with us in approximately 1 year's time with noninvasive arterial testing. She will follow up with us after testing. Thank you for allowing us to assist in her care Please note a longitudinal relationship has been created with the patient and we have been following and surveillance this chronic condition.. Orders: Orders US arterial duplex LE BI 1 Year I73.9 - Peripheral vascular disease, unspecified Coding Level of Care Code Est Pt Level 4 (59698) Complex EM visit Add On G2211 Diagnoses PAD (peripheral artery disease) I73.9
== END 2024-07-24 14:04 | disposition home or self-care (01) ==
PROVIDERS: PCP Internal Medicine; Visit Provider Surgery Vascular Surgery
DX: I73.9 Peripheral vascular disease, unspecified (principal)
CPT/HCPCS: 99214; G2211

== ENCOUNTER → 2024-07-24 13:45 | Outpatient (BNVA) | payer MEDICARE, SELFPAY | PROVIDERS: PCP Internal Medicine; Visit Provider Surgery Vascular Surgery | DX: I73.9 Peripheral vascular disease, unspecified (principal) | CPT/HCPCS: 99212 ==

== ENCOUNTER 2024-07-31 14:37 | Outpatient (AMB) | payer MEDICARE, MEDICAID, SELFPAY ==
--- NOTE | 2024-07-31 14:39 | A.OFFVIS_ITS ---
Vital Signs 07/31/24 14:40 Height 5 ft 8 in Weight 158 lb 11.725 oz BMI 24.1 BP 116/72 Blood Pressure Location Lt brachial Position Sitting Pulse 71 Intake Visit Reasons: 3m follow up Intake Note: 3 month follow-up with ekg c/o leg cramps Office Messenger Required: No Allergies acetaminophen [From TYLENOL] Adverse Reaction (Intermediate, Verified 07/24/24 13:49) DIZZINESS, VOMITING levofloxacin [From LEVAQUIN] Adverse Reaction (Intermediate, Verified 07/24/24 13:49) NAUSEA & VOMITING Medication List - Last Reconciled 07/31/24 by Jose Alberto Vang MD alendronate 70 mg PO QWEEK amiodarone 200 mg PO DAILY aspirin 81 mg PO BEDTIME budesonide-formoterol 160-4.5 mcg/actuation 2 puffs inhalation BID buspirone 5 mg PO BID calcium carbonate-vitamin D3 600 mg-10 mcg (400 unit) 1 tab PO DAILY docusate sodium 100 mg PO BID PRN fenofibrate nanocrystallized 145 mg PO DAILY [grab bar As directed] mirabegron ER (Myrbetriq) 50 mg PO DAILY nitroglycerin 0.4 mg sublingual Q5M PRN omeprazole 20 mg PO BID rosuvastatin 40 mg PO DAILY sennosides (Senna Laxative) 17.2 mg (2 x 8.6 mg) PO BEDTIME [shower chair As directed] sucralfate 1 g PO Q4H venlafaxine ER 150 mg PO QAM vitamin B complex (B Complex-Vitamin B12 tablet) 1 tab PO BEDTIME vitamin E 200 units PO BEDTIME HPI Comments Details: Edie comes for follow-up. She has done well from cardiac perspective. She has not had any recurrent episodes of atrial fibrillation. Taking all her medications. Off Eliquis therapy at this point time. Denies any exertional chest pain or shortness of breath. Complains of numbness in his a legs predominantly in the left leg. Has been worked up from a vascular perspective she has no significant arterial disease as per her. No progressive symptoms of chest pain, shortness of breath, lightheadedness. No syncopal episodes. No neurologic events. [facility] Medical History (Updated 07/31/24 @ 15:26 by Jose Alberto Vang MD) Atrial fibrillation with rapid ventricular response Presence of Watchman left atrial appendage closure device Paroxysmal atrial fibrillation Atherosclerotic cardiovascular disease Retention of urine Hyperlipidemia Neuropathy Diabetic neuropathy Post-menopausal Screening for diabetes mellitus COVID-19 vaccine series completed Mixed hyperlipidemia CAD (coronary artery disease) Surgical History History of colonoscopy History of rotator cuff surgery Stented coronary artery History of cataract surgery History of bladder surgery History of hysterectomy History of cholecystectomy Family History Father Cancer Mother Heart disease Pancreatic cancer Sister Heart disease Social History Household Members: None Housing: Condominium Alcohol intake: former Patient Tobacco Use Status: Never used Tobacco e-Cigarette/Vaping Use: Never Used Second Hand Smoke Exposure: No Advance Directives Date on File: 07/20/23 service: No Current occupational status: retired Cognitive needs: Yes Hearing needs: Yes Vision needs: Yes Review of Systems Const Denies chills, Denies fatigue, Denies fever(s), Denies frequent falls, Denies weakness, Denies weight gain and Denies weight loss ENT Denies dizziness Card Denies chest pain, Denies leg edema, Denies lightheadedness, Denies palpitations, Denies dyspnea, Denies dyspnea on exertion, Denies orthopnea and Denies other (loss of consciousness) Resp Denies cough, Denies dyspnea and Denies dyspnea on exertion GI Denies hematochezia and Denies change in stool character Musc Denies abnormal gait, Denies muscle weakness, Denies numbness, Denies radiating pain into limb and Denies tingling Neuro Denies abnormal gait, Denies dizziness, Denies frequent falls, Denies numbness, Denies tingling and Denies weakness Endo Denies fatigue and Denies palpitations Physical Exam Vital Signs: Last Vital Signs Pulse 71 07/31/24 14:40 BP 116/72 07/31/24 14:40 BMI result Body Mass Index 24.1 Const General: cooperative, healthy appearing, comfortable and no acute distress Orientation/consciousness: patient oriented x3 Neck Neck: Yes normal visual inspection Resp Effort & Inspection: normal respiratory effort Auscultation: clear to auscultation bilaterally, no crackles, no rales, no rhonchi and no wheezes Cardio Jugular venous distension: no JVD Rate: regular rate Rhythm: regular rhythm Heart sounds: S1 normal heart sound present, S2 normal heart sound present, Murmur heart sound present (2/6 systolic, right sternal border) systolic mid, decrescendo and crescendo and no rubs Skin General skin exam: no rashes or lesions noted and ecchymosis Neuro General: patient oriented x3 Extrem General: Yes normal to inspection Psych Appearance: grossly normal Mental Status: mental status grossly normal Speech and movement: Normal speech and movement present Office Procedures EKG Details: EKG shows normal sinus rhythm with poor R-wave progression most likely due to lead placement [id number], Complete Assessment & Plan Assessment & Plan (1) Paroxysmal atrial fibrillation: Code(s): I48.0 - Paroxysmal atrial fibrillation Category: Medical Plan: Paroxysmal atrial fibrillation which has remained suppressed on amiodarone therapy has done well with rhythm control approach. She is remained stable has had no acute medical issues at this point time. Most likely her AFib in [place] was triggered by acute medical illness. Will switch her back to Multaq 400 mg b.i.d. from amiodarone therapy to reduce long-term amiodarone toxicity. Possible outcomes were discussed. She would advised to call me with any r ecurrent episodes of atrial fibrillation. Will follow up in 3 months for EKG in 6 months with me. She is status post Watchman device and therefore does not require long-term anticoagulation should be on aspirin therapy. (2) Aortic stenosis: Code(s): I35.0 - Nonrheumatic aortic (valve) stenosis Category: Medical Plan: Aortic stenosis which is moderate. Will continue monitor by echocardiogram will follow-up echocardiogram 6 months time. Continue aggressive medical risk factors. Currently on low-dose aspirin therapy. Continue high-intensity statin therapy with target goal LDL less than 60 mg/dL. (3) CAD (coronary artery disease): Code(s): I25.10 - Atherosclerotic heart disease of kake coronary artery without angina pectoris Category: Medical Plan: Stable CAD without any symptoms of angina at current point time. Continue aspirin therapy. Continue aggressive risk factor modification. Blood pressure is currently well optimized. She was currently on therapy with fenofibrate advised rosuvastatin with well optimized LDL at this point time. Continue maintain activity as lot tolerated. Advised to call me with any new symptoms. Will follow up in the clinic in 3 months for EKG in 6 months. Thank you for allowing me to partake in his care Orders: Orders CA echo transthoracic complete 6 Months I35.0 - Nonrheumatic aortic (valve) stenosis Medications: New dronedarone (Multaq) must administer with a meal/food 400 mg PO BID 60 tabs 5RF Coding Level of Care Code Est Pt Level 4 (34279) Complex EM visit Add On G2211 Diagnoses Paroxysmal atrial fibrillation I48.0 Aortic stenosis I35.0 CAD (coronary artery disease) I25.10 CPT Codes EKG - CPT: 77795-[id number], Complete ([id number])
[2024-07-31 14:40] VITALS: BP 116/72; PULSE 71; BMI 24.1
== END 2024-07-31 15:09 | disposition home or self-care (01) ==
PROVIDERS: PCP Internal Medicine; Visit Provider Internal Medicine Cardiovascular Disease
DX: I48.0 Paroxysmal atrial fibrillation (principal); I35.0 Nonrheumatic aortic (valve) stenosis; I25.10 Atherosclerotic heart disease of native coronary artery without angina pectoris
CPT/HCPCS: 93010; 99214; G2211

== ENCOUNTER → 2024-07-31 14:37 | Outpatient (BNVA) | payer MEDICARE, MEDICAID, SELFPAY | PROVIDERS: PCP Internal Medicine; Visit Provider Internal Medicine Cardiovascular Disease | DX: I48.0 Paroxysmal atrial fibrillation (principal); I35.0 Nonrheumatic aortic (valve) stenosis; I25.10 Atherosclerotic heart disease of native coronary artery without angina pectoris; I10 Essential (primary) hypertension | CPT/HCPCS: 93005; 99212 ==

== ENCOUNTER 2024-08-01 13:01 | Outpatient (AMB) | payer MEDICARE, MEDICAID, SELFPAY ==
[2024-08-01 13:08] VITALS: BP 137/105; PULSE 67; O2SAT 93; BMI 24.1
--- NOTE | 2024-08-01 13:08 | A.OFFVIS_ITS ---
Vital Signs 3 08/01/24 13:08 08/01/24 13:45 08/01/24 14:00 Height 5 ft 8 in Weight 158 lb 11.725 oz BMI 24.1 BP 137/105 H 151/76 H 166/96 H Blood Pressure Location Lt brachial Lt brachial Lt brachial Position Sitting Sitting Sitting Pulse 67 54 64 Pulse Source Pulse Oximeter Pulse Oximeter Pulse Oximeter Pulse Oximetry (%) 93 95 93 Oxygen Delivery Method Room Air Room Air Room Air Comment Pre Qutenza 15 mins on Qutenza 30 mins on Qutenza Intake Visit Reasons: Qutenza Allergies acetaminophen [From TYLENOL] Adverse Reaction (Intermediate, Verified 08/01/24 13:09) DIZZINESS, VOMITING levofloxacin [From LEVAQUIN] Adverse Reaction (Intermediate, Verified 08/01/24 13:09) NAUSEA & VOMITING Medication List - Last Reconciled 08/01/24 by Darby Barry alendronate 70 mg PO QWEEK aspirin 81 mg PO BEDTIME budesonide-formoterol 160-4.5 mcg/actuation 2 puffs inhalation BID buspirone 5 mg PO BID calcium carbonate-vitamin D3 600 mg-10 mcg (400 unit) 1 tab PO DAILY docusate sodium 100 mg PO BID PRN dronedarone (Multaq) 400 mg PO BID fenofibrate nanocrystallized 145 mg PO DAILY [grab bar As directed] mirabegron ER (Myrbetriq) 50 mg PO DAILY nitroglycerin 0.4 mg sublingual Q5M PRN omeprazole 20 mg PO BID rosuvastatin 40 mg PO DAILY sennosides (Senna Laxative) 17.2 mg (2 x 8.6 mg) PO BEDTIME [shower chair As directed] sucralfate 1 g PO Q4H venlafaxine ER 150 mg PO QAM vitamin B complex (B Complex-Vitamin B12 tablet) 1 tab PO BEDTIME vitamin E 200 units PO BEDTIME HPI Comments Details: Edie is a very pleasant 79-year-old female who presented to the office today for follow-up bilateral painful peripheral neuropathy and 3rd capsaicin topical application. Patient did not apply the EMLA cream as directed. States she ran out of it. She was advised this could cause some burning or discomfort, elects to proceed despite being warned that it may be painful. Tolerated last application without EMLA and would like to proceed with application today. Denies any changes in her painful bilateral peripheral neuropathy since last visit. Patient denies any recent injuries or wounds to her feet. [facility] Medical History (Updated 07/31/24 @ 15:26 by Jose Alberto Vang MD) Atrial fibrillation with rapid ventricular response Presence of Watchman left atrial appendage closure device Paroxysmal atrial fibrillation Atherosclerotic cardiovascular disease Retention of urine Hyperlipidemia Neuropathy Diabetic neuropathy Post-menopausal Screening for diabetes mellitus COVID-19 vaccine series completed Mixed hyperlipidemia CAD (coronary artery disease) Surgical History History of colonoscopy History of rotator cuff surgery Stented coronary artery History of cataract surgery History of bladder surgery History of hysterectomy History of cholecystectomy Family History Father Cancer Mother Heart disease Pancreatic cancer Sister Heart disease Social History Household Members: None Housing: Condominium Alcohol intake: former Patient Tobacco Use Status: Never used Tobacco e-Cigarette/Vaping Use: Never Used Second Hand Smoke Exposure: No Advance Directives Date on File: 07/20/23 service: No Current occupational status: retired Cognitive needs: Yes Hearing needs: Yes Vision needs: Yes Review of Systems Const All systems reviewed & are unremarkable except as noted in HPI and below Physical Exam Vital Signs: Last Vital Signs Pulse 67 08/01/24 13:08 BP 137/105 H 08/01/24 13:08 Pulse Ox 93 08/01/24 13:08 Oxygen Delivery Method Room Air 08/01/24 13:08 BMI result Body Mass Index 24.1 Office Meds capsaicin-skin cleanser 8 % topical kit Performing Provider: Lulu Ortega APRN, CNP Performing Location: [facility] Administered by: Lulu Ortega APRN, CNP on 08/01/24 13:30 2 Dose Route Admin Location Dispensed Lot Number Expiration Date 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 Light touch sensation intact bilaterally. Four single use topical patches (179mg capsaicin) divided between feet, 2 patches per foot, wrapped and secured per package instructions. Patient monitored throughout the procedure with BP checks every 15 minutes. She tolerated the 30 minute application well. Results Reviewed Results Reviewed: EMG results from progress note dated 03/02/2022 [facility]: Assessment & Plan Assessment & Plan (1) Peripheral neuropathy: Code(s): G62.9 - Polyneuropathy, unspecified Category: Medical Plan Edie presented to the office today for 3rd Qutenza topical application for bilateral peripheral neuropathy. Qutenza application as per above. Patient tolerated well, discharged home with no reported untoward effects. Cleansing gel applied prior to discharge, patient given cleansing gel for home use if needed. Discussed options for adding oral medications such as gabapentin, Lyrica or Savella. Patient states she did not tolerate gabapentin in the past that gave her an upset stomach. She is not interested in adding another medication as she already takes too many medications. All questions and concerns were answered. Patient will follow up in the office as planned for next Qutenza application, sooner if needed. Orders: Orders 2 AMB Capsaicin Patch - Practice Supplied Today G62.9 - Polyneuropathy, unspecified Coding Level of Care Code Est Pt Level 4 (84379) Complex EM visit Add On G2211 Diagnoses Peripheral neuropathy G62.9
[2024-08-01 13:45] VITALS: BP 151/76; PULSE 54; O2SAT 95
[2024-08-01 14:00] VITALS: BP 166/96; PULSE 64; O2SAT 93
== END 2024-08-01 14:27 | disposition home or self-care (01) ==
PROVIDERS: PCP Internal Medicine; Visit Provider Registered Nurse Emergency
DX: G62.9 Polyneuropathy, unspecified (principal)
CPT/HCPCS: 17999; 99214

== ENCOUNTER → 2024-08-01 13:01 | Outpatient (BNVA) | payer MEDICARE, MEDICAID, SELFPAY | PROVIDERS: PCP Internal Medicine; Visit Provider Registered Nurse Emergency | DX: E11.42 Type 2 diabetes mellitus with diabetic polyneuropathy (principal) | CPT/HCPCS: 17999; 99212; J7336 ==

== ENCOUNTER 2024-08-02 13:54 | Outpatient (AMB) | payer MEDICARE, MEDICAID, SELFPAY ==
--- NOTE | 2024-08-02 14:03 | A.OFFVIS_ITS ---
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 Allergies acetaminophen [From TYLENOL] Adverse Reaction (Intermediate, Verified 08/20/24 13:04) DIZZINESS, VOMITING levofloxacin [From LEVAQUIN] Adverse Reaction (Intermediate, Verified 08/20/24 13:04) NAUSEA & VOMITING Medication List - Last Reconciled 08/02/24 by Bella Villa MD alendronate 70 mg PO QWEEK aspirin 81 mg PO BEDTIME budesonide-formoterol 160-4.5 mcg/actuation 2 puffs inhalation BID buspirone 5 mg PO BID calcium carbonate-vitamin D3 600 mg-10 mcg (400 unit) 1 tab PO DAILY docusate sodium 100 mg PO BID PRN dronedarone (Multaq) 400 mg PO BID fenofibrate nanocrystallized 145 mg PO DAILY [grab bar As directed] mirabegron ER (Myrbetriq) 50 mg PO DAILY nitroglycerin 0.4 mg sublingual Q5M PRN omeprazole 20 mg PO BID rosuvastatin 40 mg PO DAILY sennosides (Senna Laxative) 17.2 mg (2 x 8.6 mg) PO BEDTIME [shower chair As directed] sucralfate 1 g PO Q4H venlafaxine ER 150 mg PO QAM vitamin B complex (B Complex-Vitamin B12 tablet) 1 tab PO BEDTIME vitamin E 200 units PO BEDTIME HPI Comments Details: Edie is a 79-year-old female who presents today to the office for a follow-up for OAB. h/o TIA, h/o Medtronic interstim, on Myrbetriq 50 mg daily. She states she is doing well. Annual FU. Review of charts: 08/04/23? She is followed today for OAB, LUTS. She was last seen by me on 01/20/23 for urinary frequency. The patient was advised to continue Myrbetriq 50 mg QD. She states that she recently hospitalized for TIA and she is slowly improving. She states her bladder symptoms are stable. Last visit: 01/20/2023-- Edie is a 77-year-old female who is on Myrbetriq 50 mg QD. The patient underwent Medtronic interstim placement in 2014.? On 02/23/2021-- the patient had new battery/pacemaker placed by Dr. Darnell.? The patient states her Medtronic interstim is working well.? States since she was last seen in the office she had shingles on her right cheek and bilateral lower limbs.? The patient wears a pad which is usually dry.? Denies having UTI in the past.? Evaluation today: Blood: negative, leukocytes: negative. Bladder scan PVR: 0 mL.? PFSH Medical History Atrial fibrillation with rapid ventricular response Presence of Watchman left atrial appendage closure device Paroxysmal atrial fibrillation Atherosclerotic cardiovascular disease Retention of urine Hyperlipidemia Neuropathy Diabetic neuropathy Post-menopausal Screening for diabetes mellitus COVID-19 vaccine series completed Mixed hyperlipidemia CAD (coronary artery disease) Surgical History History of colonoscopy History of rotator cuff surgery Stented coronary artery History of cataract surgery History of bladder surgery History of hysterectomy History of cholecystectomy Family History Father Cancer Mother Heart disease Pancreatic cancer Sister Heart disease Social History Household Members: None Housing: Condominium Alcohol intake: former Patient Tobacco Use Status: Never used Tobacco e-Cigarette/Vaping Use: Never Used Second Hand Smoke Exposure: No Advance Directives Date on File: 07/20/23 service: No Current occupational status: retired Cognitive needs: Yes Hearing needs: Yes Vision needs: Yes Review of Systems Const All systems reviewed & are unremarkable except as noted in HPI and below Reports no additional complaints Eyes Reports no additional complaints ENT Reports no additional complaints Card Reports no additional complaints Resp Reports no additional complaints GI Reports no additional complaints Reports as per HPI Musc Reports no additional complaints Skin/Breast Reports system reviewed and no additional complaints, except as documented Neuro Reports no additional complaints Psych Reports no additional complaints Endo Reports no additional complaints Mariano/Lymph Reports no additional complaints Aller/Immun Reports no additional complaints Office Procedures Post Void Residual Post Residual Void Post Void Residual (PVR): 0 07169-Pgmz Void Residual by ultrasound Results AMB Urinalysis, Automated UA Leukoctes 15 Dave/uL Last Edit by MILDRED Chun on 08/02/24 14:14 UA Nitrite Negative Last Edit by Sha Fernandez [facility] on 08/02/24 14:14 UA Urobilinogen 1 mg/dL Last Edit by Sha Fernandez [facility] on 08/02/24 14:14 UA Protein 30 mg/dL Last Edit by Sha Fernandez [facility] on 08/02/24 14:14 UA pH 6.0 Last Edit by Sha Fernandez [facility] on 08/02/24 14:14 UA Blood 0 Sam/uL Last Edit by Sha Fernandez [facility] on 08/02/24 14:14 UA Specific Dixie 1.020 Last Edit by Sha Fernandez [facility] on 08/02/24 14: 14 UA Ketone Negative Last Edit by Sha Fernandez [facility] on 08/02/24 14:14 UA Bilirubin 1 mg/dL Last Edit by Sha Fernandez [facility] on 08/02/24 14:14 UA Glucose 0 mg/dL Last Edit by Sha Fernnadez [facility] on 08/02/24 14:14 Results Reviewed Results Reviewed: Laboratory Last Values Urine pH (Auto) 6.0 08/02/24 14:14 Specific Dixie (Auto) 1.020 08/02/24 14:14 Urine Protein (Auto) 30 mg/dL 08/02/24 14:14 Glucose (UA)(Auto) 0 mg/dL 08/02/24 14:14 Urine Ketones (Auto) Negative 08/02/24 14:14 Urine Blood (Auto) 0 Sam/uL 08/02/24 14:14 Urine Nitrite (Auto) Negative 08/02/24 14:14 Urine Bilirubin (Auto) 1 mg/dL 08/02/24 14:14 Urine Urobilinogen (Auto) 1 mg/dL 08/02/24 14:14 Leukocyte Esterase (Auto) 15 Dave/uL 08/02/24 14:14 Assessment & Plan Assessment & Plan (1) Overactive bladder: Code(s): N32.81 - Overactive bladder Category: Medical Plan Continue Myrbetriq 50 mg. Timed Voiding. Orders: Orders AMB Urinalysis Automated 08/02/24 Z13.9 - Encounter for screening, unspecified Medications: Refilled mirabegron ER (Myrbetriq) 50 mg PO DAILY 90 tabs 3RF Patient Instructions: The patient had an opportunity to ask questions regarding treatment plan. The patient expressed understanding and agreement with the above treatment plan. The patient is aware they should contact our office by phone for worsening of their current condition or the appearance of new symptoms. Compliance is encouraged with any medications and followup testing that is ordered. It is a privilege to be allowed the opportunity to participate in the urologic care of your patient. If you have any questions or concerns regarding treatment for the above conditions please do not hesitate to contact me. The office telephone contact is [phone]. This note is constructed in part using voice recognition software. While every effort has been made to ensure accuracy manufacturing baker errors may have been included. Yours sincerely, Bella Villa MD Coding Level of Care Code Est Pt Level 3 (56032) Diagnoses Overactive bladder N32.81 CPT Codes Post Residual Void - PVR CPT Code: 30012-Brrp Void Residual by ultrasound ([id number])
== END 2024-08-02 14:29 | disposition home or self-care (01) ==
PROVIDERS: PCP Internal Medicine; Visit Provider Urology
DX: N32.81 Overactive bladder (principal)
CPT/HCPCS: 99213

== ENCOUNTER → 2024-08-02 13:54 | Outpatient (BNVA) | payer MEDICARE, MEDICAID, SELFPAY | PROVIDERS: PCP Internal Medicine; Visit Provider Urology | DX: N32.81 Overactive bladder (principal) | CPT/HCPCS: 51798; 81003; 99212 ==

== ENCOUNTER 2024-08-20 12:58 | Outpatient (AMB) | payer MEDICARE, SELFPAY ==
--- NOTE | 2024-08-20 13:03 | MHC.PC.OV ---
Vital Signs 08/20/24 13:04 Height 5 ft 8 in Weight 157 lb 4 oz BMI 23.9 BP 130/80 Blood Pressure Location Lt brachial Position Sitting Pulse 83 Pulse Source Pulse Oximeter Pulse Oximetry (%) 97 Oxygen Delivery Method Room Air Intake Visit Reasons: Annual PE Intake Note: Patient is here today for a physical. 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 per policy Accompanied by: Self / Same As Patient Allergies acetaminophen [From TYLENOL] Adverse Reaction (Intermediate, Verified 08/20/24 13:04) DIZZINESS, VOMITING levofloxacin [From LEVAQUIN] Adverse Reaction (Intermediate, Verified 08/20/24 13:04) NAUSEA & VOMITING Tobacco use date assessed: 08/20/24 Fall risk assessment: No Falls in past year Last assessed Fall Risk: 08/20/24 Dental Screening Dental Screen Date: 02/16/24 HPI Annual PE HPI Details hypertension afib and hyperlipidemia PFSH Medical History Atrial fibrillation with rapid ventricular response Presence of Watchman left atrial appendage closure device Paroxysmal atrial fibrillation Atherosclerotic cardiovascular disease Retention of urine Hyperlipidemia Neuropathy Diabetic neuropathy Post-menopausal Screening for diabetes mellitus COVID-19 vaccine series completed Mixed hyperlipidemia CAD (coronary artery disease) Surgical History History of colonoscopy History of rotator cuff surgery Stented coronary artery History of cataract surgery History of bladder surgery History of hysterectomy History of cholecystectomy Family History Father Cancer Mother Heart disease Pancreatic cancer Sister Heart disease Social History Household Members: None Housing: Condominium Alcohol intake: former Patient Tobacco Use Status: Never used Tobacco e-Cigarette/Vaping Use: Never Used Second Hand Smoke Exposure: No Advance Directives Date on File: 07/20/23 service: No Current occupational status: retired Cognitive needs: Yes Hearing needs: Yes Vision needs: Yes Questionnaire PHQ-9 Over the last 2 weeks, how often have you been bothered by any of the following problems? 2. Feeling down, depressed, or hopeless: not at all 3. Trouble falling or staying asleep, or sleeping too much: several days 4. Feeling tired or having little energy: nearly every day 5. Poor appetite or overeating: several days 6. Feeling bad about yourself - or that you are a failure or have let yourself or your family down: not at all 7. Trouble concentrating on things, such as reading the newspaper or watching television: not at all 8. Moving or speaking so slowly that other people could have noticed. Or the opposite - being so fidgety or restless that you have been moving around a lot more than usual: more than half the days 9. Thoughts that you would be better off or of hurting yourself in some way: not at all Depression Screening Interpretation: Positive Depression Screening Done: Yes Source: Developed by Drs. Neto Franco, Jacqueline Fry, Jonse Valdivia and colleagues, with an educational dre from [employer]. Thrive Questionnaire Date Thrive assessed: 11/29/23 I am a: Patient What is your living situation today?: I have a steady place to live Within the past 12 months, did the food you bought not last and you didn't have the money to get more?: Sometimes True Within the past 12 months, did you worry whether your food would run out before you got money to buy more?: Sometimes True Do you have trouble paying for medicines?: No Do you have trouble getting transportation to medical appointments?: No Do you have trouble paying your heating and electricity bill?: Yes Do you have trouble taking care of your child, family member or friend?: Yes Do you have trouble with day-to-day activities such as bathing, preparing meals, shopping, managing finances, etc.?: No Are you currently unemployed and looking for a job?: No Are you interested in more education?: No Please select the resources that you would like help with: Daily support Currently or been in a relationship where the following occur: No concerns reported THRIVE Score: 3 AUDIT C Alcohol Use Questionnaire (AUDIT-C) 1. How often do you have a drink containing alcohol?: Never Total Score: 0 VERENA-7 AMB Questionnaire VERENA-7 Date VERENA - 7 assessed: 08/20/24 Feeling nervous, anxious, or on edge: 2 = More than half the days Not being able to stop or control worryin = Several days Worrying too much about different things: 1 = Several days Trouble relaxin = Nearly every day Being so restless that it is hard to sit still: 2 = More than half the days Becoming easily annoyed or irritable: 1 = Several days Feeling afraid as if something awful might happen: 1 = Several days Total VERENA-7 score (0-4 normal; 5-9 mild; 10-14 moderate; 15-21 severe): 11 Source: Developed by Drs. Neto Franco, Jacqueline Fry, Jones Valdivia and colleagues, with an educational dre from [employer]. VERENA-7 Assessment Billing VERENA-7 Assessment Tool: VERENA-7 Assessment 19624 Review of Systems Const Denies chills, Denies fatigue, Denies headache(s) and Denies weight loss Eyes Denies change in vision, Denies diplopia and Denies eye pain ENT Denies vertigo, Denies dizziness, Denies headache(s) and Denies nasal discharge Card Denies chest pain, Denies rapid heart rate and Denies dyspnea on exertion Resp Denies chest congestion, Denies cough, Denies pain with cough and Denies dyspnea on exertion GI Denies abdominal pain, Denies hematochezia and Denies change in bowel habits Musc Denies myalgias, Denies arthralgias and Denies joint swelling Skin/Breast Denies lesions and Denies unusual bruising Neuro Denies vertigo, Denies dizziness, Denies headache(s) and Denies focal weakness Endo Denies fatigue Physical exam (Primary Care) Vital Signs: Last Vital Signs Pulse 83 08/20/24 13:04 BP 130/80 08/20/24 13:04 Pulse Ox 97 08/20/24 13:04 Oxygen Delivery Method Room Air 08/20/24 13:04 BMI result Body Mass Index 23.9 Tobacco/Smoking Status: Tobacco use Status Tobacco use date assessed 08/20/24 08/20/24 13:10 Patient Tobacco Use Status Never used Tobacco 08/20/24 13:10 e-Cigarette/Vaping Use Never Used 08/20/24 13:10 Depression Screening Interpretation: Positive Thrive Assessment: Date of Thrive Assessment Date Thrive assessed 11/29/23 08/20/24 13:10 Currently or been in a relationship where the following occur: No concerns reported Const General: cooperative, healthy appearing and no acute distress Orientation/consciousness: oriented to person, oriented to place and oriented to time HENMT Head: Yes normal to inspection, Yes normocephalic and Yes atraumatic Mouth: Normal oral and palatal mucosa present and tongue normal Throat: Yes posterior oropharynx normal and Yes uvula midline Eyes General: appearance normal, both eyes and all related structures Neck Neck: Yes normal visual inspection, Yes full ROM and Yes no lymphadenopathy Thyroid: Thyroid normal Carotids: normal carotid upstroke Chest Chest palpation & inspection: normal inspection of the chest Resp Effort & Inspection: normal respiratory effort and able to speak in complete sentences Auscultation: clear to auscultation bilaterally Cardio Jugular venous distension: no JVD Palpation: normal PMI Rate: regular rate Rhythm: regular rhythm Heart sounds: S1 normal heart sound present and S2 normal heart sound present GI Inspection: Yes normal to inspection Palpation (GI): Soft to palpation and No hepatosplenomegaly present Auscultation: normal bowel sounds General: Yes no CVA tenderness Back/Spine/Pelvis Back: no CVA tenderness Skin General skin exam: no rashes or lesions noted Neuro General: oriented to person, oriented to place and oriented to time Extrem General: Yes normal to inspection and Yes full ROM Coding Level of Care Code Est Pt Prev Care >65y(40301) Diagnoses Physical exam Z00.00 Hypertension I10 Paroxysmal atrial fibrillation I48.0 Hyperlipidemia E78.5 Additional Codes VERENA-7 Assessment Billing - VERENA-7 Assessment Tool: VERENA-7 Assessment 71860 ([id number]) Assessment & Plan Assessment & Plan (1) Physical exam: Code(s): Z00.00 - Encounter for general adult medical examination without abnormal findings Category: Medical Plan: stable; do labs (2) Hypertension: Code(s): I10 - Essential (primary) hypertension Category: Medical Plan: stable; same rx (3) Paroxysmal atrial fibrillation: Code(s): I48.0 - Paroxysmal atrial fibrillation Category: Medical Plan: stable; same rx (4) Hyperlipidemia: Code(s): E78.5 - Hyperlipidemia, unspecified Category: Medical Plan: stable; same rx Medications: New doxycycline hyclate 150 mg PO BID 20 tabs 0RF triamcinolone acetonide 0.5% 1 appl topical TID 15 grams 3RF
[2024-08-20 13:04] VITALS: BP 130/80; PULSE 83; O2SAT 97; BMI 23.9
== END 2024-08-20 16:55 | disposition home or self-care (01) ==
LOC: HO.HMCH 12:59
PROVIDERS: PCP Internal Medicine; Visit Provider Internal Medicine
DX: Z00.00 Encounter for general adult medical examination without abnormal findings (principal); I10 Essential (primary) hypertension; I48.0 Paroxysmal atrial fibrillation; E78.5 Hyperlipidemia, unspecified

== ENCOUNTER → 2024-08-20 12:58 | Outpatient (BNVA) | payer MEDICARE, SELFPAY | PROVIDERS: PCP Internal Medicine; Visit Provider Internal Medicine | DX: Z00.01 Encounter for general adult medical examination with abnormal findings (principal); I10 Essential (primary) hypertension; E78.5 Hyperlipidemia, unspecified; I48.0 Paroxysmal atrial fibrillation | CPT/HCPCS: 96127; 99397 ==

== ENCOUNTER 2024-09-12 13:02 | Outpatient (REF) | payer MEDICARE, SELFPAY ==
--- NOTE | ~2024-09-12 | MM_ITS ---
EXAMINATION: MM SCREENING DIGITAL BREAST TOMOSYNTHESIS, BILATERAL CLINICAL INFORMATION: Screening. Asymptomatic. COMPARISON: Mammography: Comparison is made with available priors TECHNIQUE: Digital breast mammography with tomosynthesis is performed in both the craniocaudal and mediolateral oblique views along with computer-aided detection (CAD). FINDINGS: There are scattered areas of fibroglandular density (ACR BI-RADS breast composition Category b). There are no significant masses, abnormal calcifications, or other abnormalities. MM/MM tomosynthesis screening BI IMPRESSION: No mammographic evidence of malignancy. ASSESSMENT: BI-RADS BI-RADS 1 - Negative RECOMMENDATION: Routine annual mammography screening. 1 year F/U This examination should not preclude the clinical evaluation of a suspicious palpable abnormality. This patient's information was entered into a reminder system with a target due date for their next mammogram. Electronically signed by: Vandana Urbina DO 09/21/2024 10:12 AM [facility]
== END 2024-09-12 13:03 | disposition home or self-care (01) ==
LOC: HO.MAMMO 13:02
PROVIDERS: PCP Internal Medicine; Visit Provider Internal Medicine
DX: Z12.31 Encounter for screening mammogram for malignant neoplasm of breast (principal)
CPT/HCPCS: 77063; 77067

== ENCOUNTER → 2024-09-12 13:15 | Outpatient (BNV) | payer MEDICARE, SELFPAY | PROVIDERS: PCP Internal Medicine; Visit Provider Internal Medicine | DX: Z12.31 Encounter for screening mammogram for malignant neoplasm of breast (principal) | CPT/HCPCS: 77063; 77067 ==

== ENCOUNTER 2024-10-03 12:39 | Outpatient (REF) | payer MEDICARE, SELFPAY ==
--- NOTE | ~2024-10-03 | XR_ITS ---
EXAMINATION: XR ANKLE, LEFT CLINICAL INFORMATION: LEFT ANKLE PAIN COMPARISON: None available. TECHNIQUE: AP, lateral, and mortise views of the left ankle. FINDINGS: No fracture. Alignment is anatomic. No erosions. Joint spaces are maintained. Soft tissues are normal. The talar dome and ankle mortise are intact. XR/XR ankle LT min 3V IMPRESSION: No acute fracture, subluxation or suspicious bone lesion in the left ankle. Electronically signed by: Johnny Cummings MD 10/03/2024 02:14 PM [facility]
== END 2024-10-03 12:40 | disposition home or self-care (01) ==
LOC: HO.XRAY 12:39
PROVIDERS: PCP Internal Medicine; Visit Provider Psychiatry & Neurology Neurology
DX: M25.572 Pain in left ankle and joints of left foot (principal)
CPT/HCPCS: 73610

== ENCOUNTER → 2024-11-09 13:17 | Outpatient (BNVA) | payer MEDICARE, SELFPAY | PROVIDERS: PCP Internal Medicine | DX: Z79.899 Other long term (current) drug therapy (principal) ==

== ENCOUNTER → 2025-01-17 13:13 | Outpatient (REF) | payer MEDICARE, SELFPAY ==
--- NOTE | 2025-01-17 13:16 | CA_ITS ---
Transthoracic Echocardiogram Patient (Last, First, Middle): Edie Morales, Gender: Female Date of : 1945 Age: 79 Procedure Date: 01/17/2025 Procedure Type: Transthoracic Echocardiogram Location: OP Height: 165.1 cm Weight: 74.39 kg BSA: 1.82 m2 Heart Rate: bpm BP: 160 / 88 mmHg Analysis Internship: [facility] Referring MD: Jose Alberto Vang MD Symptoms: I35.0 - Nonrheumatic aortic (valve) stenosis Study Quality: Adequate ECG Rhythm: Sinus Conclusions: - The left ventricular systolic function is normal. The calculated ejection fraction is 62% by biplane method. - The basal inferior and basal inferolateral segments are hypokinetic. - There is moderate aortic valve stenosis. - There is moderate mitral annular calcification. Findings Left Ventricle Normal left ventricular cavity size. The left ventricular systolic function is normal. The calculated ejection fraction is 62% by biplane method. Diastolic function is normal for age. There is mild septal asymmetric hypertrophy. Wall Motion Rest Echo Findings The basal inferior and basal inferolateral segments are hypokinetic. Right Ventricle Normal right ventricular cavity size and systolic function. Atria The left atrium is mildly dilated. The right atrium is normal in size. Aortic Valve There is moderate calcification of the aortic valve. There is moderate aortic valve stenosis. The peak aortic velocity is 3.31 m/s with a calculated peak gradient of 44 mmHg. The mean gradient is 25 mmHg. The aortic valve area is 1.04 cm2. Mitral Valve There is mild anterior mitral leaflet thickening. There is moderate mitral annular calcification. There is no mitral valve regurgitation. There is no mitral valve stenosis. Pulmonic Valve The pulmonic valve is likely normal. Tricuspid Valve There is trace tricuspid valve regurgitation. There is no evidence of pulmonary hypertension. Great Vessels The aorta was not well visualized. The sinuses of valsalva is normal in size. Venous The inferior vena cava is normal in size and collapses greater than 50% with inspiration. Pericardium/Pleural There is no evidence of pericardial effusion. Prior Study Comparison No significant change compared to prior study dated: 07/21/2023. Measurements 2D Linear Measurements IVSd: 1.07 0.6-0.9/0.6-1.0 cm LVIDd: 4.44 3.9-5.3/4.2-5.9 cm LVIDd Index: 2.44 2.4-3.2/2.2-3.1 cm/m2 LVIDs: 2.98 2.0-3.6 cm LVPWd: 1.11 0.7-1.1 cm LA Diam: 4.20 2.7-3.8/3.0-4.0 cm LAIDs Index: 2.31 1.5-2.3 cm/m2 LV Mass: 210.69 67-162/88-224 g LV Mass Index: 115.77 43-95/49-115 g/m2 LVOT Diam: 2.20 3.0+(-)1.3 cm 2D Systolic Function EF 4C: 63.80 >55% EF 2C: 60.00 >55% EF BiP: 62.30 >55% Mitral Valve MV Pk E: 0.59 MV PK A: 1.10 MV Decel Time: 317.00 E/A: 0.50 E'Lateral: 7.62 E'Medial: 6.31 E/E' Med: 9.30 E/E' Lat: 7.70 PHT: 93.00 MVA PHT: 2.37 Decel Weld: 1.85 Aortic Valve AoV Pk Maxi: 3.31 AoV Mn Maxi: 2.35 AoV VTI: 0.85 AoV Pk Grad: 44.00 Aov Mn Grad: 25.00 LYLE Cont.VTI: 1.04 LVOT LVOT Pk Maxi: 1.00 LVOT Mn Maxi: 0.67 LVOT VTI: 0.23 LVOT Pk Grad: 4.00 LVOT Mn Grad: 2.00 LVOT Diam: 2.20 LVOT Area: 3.80 Diastolic Function MV Pk E: 0.59 MV Pk A: 1.10 E/A: 0.50 E'Medial: 6.31 E/E' Med: 9.30 E' Laterial: 7.62 E/E' Lat: 7.70 Right Ventricle TAPSE (mm): 21.30 TVS' Maxi: 10.40 Tricuspid Valve RA Press: 3.00 Updated in Other Vendor System with Status of Final Fan Bee MD electronically signed on 01/19/2025 10:05:23 AM with status of Final
== END ==
LOC: HO.CARD 13:13
PROVIDERS: PCP Internal Medicine; Visit Provider Internal Medicine Cardiovascular Disease
DX: I35.0 Nonrheumatic aortic (valve) stenosis (principal)
CPT/HCPCS: 93306

== ENCOUNTER → 2025-01-17 13:16 | Outpatient (BNV) | payer MEDICARE, SELFPAY | PROVIDERS: PCP Internal Medicine; Visit Provider Internal Medicine | DX: I35.0 Nonrheumatic aortic (valve) stenosis (principal); I35.8 Other nonrheumatic aortic valve disorders; I34.81 Nonrheumatic mitral (valve) annulus calcification; I42.2 Other hypertrophic cardiomyopathy | CPT/HCPCS: 93306 ==

== ENCOUNTER 2025-01-29 13:58 | Outpatient (AMB) | payer MEDICARE, SELFPAY ==
--- NOTE | 2025-01-29 14:11 | MHC.OFFVIS ---
Vital Signs 01/29/25 14:12 Height 5 ft 8 in Weight 167 lb 8.821 oz BMI 25.5 BP 130/84 Blood Pressure Location Lt brachial Position Sitting Pulse 89 Intake Visit Reasons: 6 mth f/up w/ ekg Intake Note: 6 month follow-up with ekg c/o feeling the afib a few times Collar Baster Required: No Allergies acetaminophen [From TYLENOL] Adverse Reaction (Intermediate, Verified 08/20/24 13:04) DIZZINESS, VOMITING levofloxacin [From LEVAQUIN] Adverse Reaction (Intermediate, Verified 08/20/24 13:04) NAUSEA & VOMITING Medication List - Last Reconciled 01/29/25 by Jose Alberto Vang MD alendronate 70 mg PO QWEEK aspirin 81 mg PO BEDTIME budesonide-formoterol 160-4.5 mcg/actuation 2 puffs inhalation BID buspirone 5 mg PO BID calcium carbonate-vitamin D3 600 mg-10 mcg (400 unit) 1 tab PO DAILY docusate sodium 100 mg PO BID PRN dronedarone (Multaq) 400 mg PO BID fenofibrate nanocrystallized 145 mg PO DAILY [grab bar As directed] mirabegron ER (Myrbetriq) 50 mg PO DAILY nitroglycerin 0.4 mg sublingual Q5M PRN omeprazole 20 mg PO DAILY rosuvastatin 40 mg PO DAILY sennosides (Senna Laxative) 17.2 mg (2 x 8.6 mg) PO BEDTIME [shower chair As directed] sucralfate 1 g PO Q4H triamcinolone acetonide 0.5% 1 appl topical TID venlafaxine ER 150 mg PO QAM vitamin B complex (B Complex-Vitamin B12 tablet) 1 tab PO BEDTIME vitamin E 200 units PO BEDTIME HPI Comments Details: Edie comes for follow-up. She has had no significant prolonged irregular heartbeat or palpitation. Occasionally gets fluttering or quick heartbeats. She was no worsening shortness of breath, orthopnea, PND. No exertional chest pain. Has bilateral ankle edema. Has seen vascular surgery for venous insufficiency. Also has neuropathy. She had couple of falls for that. Takes all her medications. [facility] Medical History Atrial fibrillation with rapid ventricular response Presence of Watchman left atrial appendage closure device Paroxysmal atrial fibrillation Atherosclerotic cardiovascular disease Retention of urine Hyperlipidemia Neuropathy Diabetic neuropathy Post-menopausal Screening for diabetes mellitus COVID-19 vaccine series completed Mixed hyperlipidemia CAD (coronary artery disease) Surgical History History of colonoscopy History of rotator cuff surgery Stented coronary artery History of cataract surgery History of bladder surgery History of hysterectomy History of cholecystectomy Family History Father Cancer Mother Heart disease Pancreatic cancer Sister Heart disease Social History Household Members: None [facility] Alcohol intake: former Patient Tobacco Use Status: Never used Tobacco e-Cigarette/Vaping Use: Never Used Second Hand Smoke Exposure: No Advance Directives Date on File: 07/20/23 service: No Current occupational status: retired Cognitive needs: Yes Hearing needs: Yes Vision needs: Yes Review of Systems Const Denies chills, Denies fatigue, Denies fever(s), Denies frequent falls, Denies weakness, Denies weight gain and Denies weight loss ENT Denies dizziness Card Denies chest pain, Denies leg edema, Denies lightheadedness, Denies palpitations, Denies dyspnea, Denies dyspnea on exertion, Denies orthopnea and Denies other (loss of consciousness) Resp Denies cough, Denies dyspnea and Denies dyspnea on exertion GI Denies hematochezia and Denies change in stool character Musc Denies abnormal gait, Denies muscle weakness, Denies numbness, Denies radiating pain into limb and Denies tingling Neuro Denies abnormal gait, Denies dizziness, Denies frequent falls, Denies numbness, Denies tingling and Denies weakness Endo Denies fatigue and Denies palpitations Physical Exam Vital Signs: Last Vital Signs Pulse 89 01/29/25 14:12 BP 130/84 01/29/25 14:12 BMI result Body Mass Index 25.5 Const General: cooperative, healthy appearing, comfortable and no acute distress Orientation/consciousness: patient oriented x3 Neck Neck: Yes normal visual inspection Resp Effort & Inspection: normal respiratory effort Auscultation: clear to auscultation bilaterally, no crackles, no rales, no rhonchi and no wheezes Cardio Jugular venous distension: no JVD Rate: regular rate Rhythm: regular rhythm Heart sounds: S1 normal heart sound present, S2 normal heart sound present, Murmur heart sound present (2/6 systolic, right sternal border) systolic mid, decrescendo and crescendo and no rubs Skin General skin exam: no rashes or lesions noted and ecchymosis Neuro General: patient oriented x3 Extrem General: Yes normal to inspection Psych Appearance: grossly normal Mental Status: mental status grossly normal Speech and movement: Normal speech and movement present Office Procedures EKG Details: EKG shows normal sinus rhythm normal EKG with normal axis normal intervals [id number], Complete Assessment & Plan Assessment & Plan (1) Paroxysmal atrial fibrillation: Code(s): I48.0 - Paroxysmal atrial fibrillation Category: Medical Plan: Paroxysmal atrial fibrillation highly symptomatic. Has remained suppressed on therapy with Multaq. Continue the same. Avoidance of stimulants was discussed. Status post Watchman device. Continue low-dose aspirin therapy. Advised to call me with new symptoms. Will need EKGs every 3 months. (2) Aortic stenosis: Code(s): I35.0 - Nonrheumatic aortic (valve) stenosis Category: Medical Plan: Aortic stenosis which remains moderate. Continue aggressive medical therapy. Low-dose aspirin therapy for life. Continue aggressive risk factor modification. Blood pressure is well optimized. Target goal LDL less than 70 mg/dL. Annual follow-up will be required. Symptoms associated with aortic stenosis were discussed. (3) CAD (coronary artery disease): Code(s): I25.10 - Atherosclerotic heart disease of [place] coronary artery without angina pectoris Category: Medical Plan: CAD with prior stenting of RCA. Continue aggressive medical therapy. Currently on multiple lipid modification therapy with well optimized lipids. Lifelong aspirin therapy is advised. Continue aggressive blood pressure control. Advised to monitor blood pressure at home maintain a log. Advised to maintain adequate activity level. Advised to call me with any new symptoms. Follow up in the clinic in 3 months for EKG in 6 months with me. Thank you for allowing me to partake in her care Coding Level of Care Code Est Pt Level 4 (87724) Complex EM visit Add On G2211 Diagnoses Paroxysmal atrial fibrillation I48.0 Aortic stenosis I35.0 CAD (coronary artery disease) I25.10 CPT Codes EKG - CPT: 62067-[id number], Complete ([id number])
[2025-01-29 14:12] VITALS: BP 130/84; PULSE 89; BMI 25.5
== END 2025-01-29 14:41 | disposition home or self-care (01) ==
LOC: HO.HCS 13:58
PROVIDERS: PCP Internal Medicine; Visit Provider Internal Medicine Cardiovascular Disease
DX: I48.0 Paroxysmal atrial fibrillation (principal); I35.0 Nonrheumatic aortic (valve) stenosis; I25.10 Atherosclerotic heart disease of native coronary artery without angina pectoris
CPT/HCPCS: 93010; 99214; G2211

== ENCOUNTER → 2025-01-29 13:58 | Outpatient (BNVA) | payer MEDICARE, SELFPAY | PROVIDERS: PCP Internal Medicine; Visit Provider Internal Medicine Cardiovascular Disease | DX: I48.0 Paroxysmal atrial fibrillation (principal); I35.0 Nonrheumatic aortic (valve) stenosis; I25.10 Atherosclerotic heart disease of native coronary artery without angina pectoris | CPT/HCPCS: 93005; 99212 ==

== ENCOUNTER 2025-02-08 11:40 | Outpatient (AMB) | payer MEDICARE, SELFPAY ==
[2025-02-08 12:54] VITALS: BP 126/80; PULSE 101; O2SAT 99
--- NOTE | 2025-02-08 12:54 | MHC.OFFWIV ---
Intake Vital Signs 02/08/25 12:54 BMI Reason not done Patient refused/unable BP 126/80 Blood Pressure Location Lt brachial Position Sitting Pulse 101 H Pulse Source Pulse Oximeter Pulse Oximetry (%) 99 Oxygen Delivery Method Room Air Intake Visit Reasons: EP injury to RT shoulder/back Intake Note: Patient here for right shoulder and back pain after a fall on tuesday. Patient Tobacco Use Status: Never used Tobacco Allergies acetaminophen [From TYLENOL] Adverse Reaction (Intermediate, Verified 02/08/25 13:04) DIZZINESS, VOMITING levofloxacin [From LEVAQUIN] Adverse Reaction (Intermediate, Verified 02/08/25 13:04) NAUSEA & VOMITING Do you need a note to return to daycare/school/sports/work: No HPI EP injury to RT shoulder/back HPI Details 79-year-old female patient presents to the walk-in clinic today with right shoulder/right upper back pain following an incident that occurred 2 days ago, on Tuesday. She states that she was reaching for something behind her nightstand, and she started to slide backwards on the floor, and in order to catch herself, she put her hand down, and felt a pop in her right shoulder. Over the last 2 days, she has had increasing pain surrounding right shoulder, right axillary area, and right upper back. [facility] Medical History Atrial fibrillation with rapid ventricular response Presence of Watchman left atrial appendage closure device Paroxysmal atrial fibrillation Atherosclerotic cardiovascular disease Retention of urine Hyperlipidemia Neuropathy Diabetic neuropathy Post-menopausal Screening for diabetes mellitus COVID-19 vaccine series completed Mixed hyperlipidemia CAD (coronary artery disease) Surgical History History of colonoscopy History of rotator cuff surgery Stented coronary artery History of cataract surgery History of bladder surgery History of hysterectomy History of cholecystectomy Family History Father Cancer Mother Heart disease Pancreatic cancer Sister Heart disease Social History Household Members: None Housing: Condominium Alcohol intake: former Patient Tobacco Use Status: Never used Tobacco e-Cigarette/Vaping Use: Never Used Second Hand Smoke Exposure: No Advance Directives Date on File: 07/20/23 service: No Current occupational status: retired Cognitive needs: Yes Hearing needs: Yes Vision needs: Yes Review of Systems Const All systems reviewed & are unremarkable except as noted in HPI and below Physical Exam Vital Signs: Last Vital Signs Pulse 101 H 02/08/25 12:54 BP 126/80 02/08/25 12:54 Pulse Ox 99 02/08/25 12:54 Oxygen Delivery Method Room Air 02/08/25 12:54 Const General: cooperative Limitations: ambulation with cane HEENT Head: Yes normal to inspection Ears: hearing grossly normal bilaterally General nose exam: Normal external nose present Resp Effort & Inspection: normal respiratory effort Auscultation: clear to auscultation bilaterally Cardio Rate: regular rate Rhythm: regular rhythm Skin General skin exam: no rashes or lesions noted Extrem Other: TTP anterior cuff, axillary area, and trapezius/rhomboids of right side. Normal cap refill and sensation right arm. Right shoulder with limited/painful ROM in extension and adduction. No bruising or joint enlargement noted. Psych Appearance: grossly normal Mental Status: mental status grossly normal Speech and movement: Normal speech and movement present Assessment & Plan Assessment & Plan (1) Injury of right shoulder: Code(s): S49.91XA - Unspecified injury of right shoulder and upper arm, initial encounter Qualifiers: Encounter type: initial encounter Qualified Code(s): S49.91XA - Unspecified injury of right shoulder and upper arm, initial encounter Plan: XR of right shoulder obtained in the office today revealed: No acute bony abnormalities. Moderate degenerative arthritis glenohumeral joint. Suspect calcific tendinopathy of the infraspinatus tendon. Reviewed this with patient in the office. Advised conservative measures at this time for her shoulder injury - ice application, gentle ROM exercises, NSAIDs. She states she cannot take Tylenol and would like to try something different than Motrin. Will start her on Naproxen and also a low dose of Cyclobenzaprine at HS. We reviewed indications, use, possible s/e of medications. She has an appointment with a new PCP with [facility] next week and can f/u on this as needed at this time, as she may possibly benefit from course of PT if pain is ongoing. All questions were answered and patient verbalizes understanding and agrees to plan. (2) Right shoulder pain: Code(s): M25.511 - Pain in right shoulder Qualifiers: Chronicity: acute Qualified Code(s): M25.511 - Pain in right shoulder Plan: As above Orders: Orders XR shoulder RT min 2V Today S49.91XA - Unspecified injury of right shoulder and upper arm, initial encounter Medications: New cyclobenzaprine Take one tablet at bedtime as needed for muscle pain/spasms. 5 mg PO BEDTIME PRN 7 tabs 0RF muscle spasm M25.511 - Pain in right shoulder naproxen Take one tablet up to twice a day as needed for pain. 250 mg PO BID PRN 30 tabs 0RF pain S49.91XA - Unspecified injury of right shoulder and upper arm, initial encounter Coding Level of Care Code Est Pt Level 4 (02598) Diagnoses Injury of right shoulder, initial encounter S49.91XA Encounter type: initial encounter Acute pain of right shoulder M25.511 Chronicity: acute
== END 2025-02-08 14:00 | disposition home or self-care (01) ==
PROVIDERS: PCP Internal Medicine; Visit Provider Nurse Practitioner Family
DX: S49.91XA Unspecified injury of right shoulder and upper arm, initial encounter (principal); M25.511 Pain in right shoulder

== ENCOUNTER 2025-02-08 11:40 | Outpatient (REF) | payer MEDICARE, SELFPAY ==
--- NOTE | ~2025-02-08 | XR_ITS ---
EXAMINATION: XR SHOULDER, RIGHT CLINICAL INFORMATION: S49.91XA - Unspecified injury of right shoulder and upper arm, initial e... COMPARISON: None available. TECHNIQUE: AP external rotation, Grashey, scapular Y, and axillary views of the right shoulder. FINDINGS: Normal bone mineralization. No fracture, dislocation, or suspicious bone lesion. Normal alignment. The glenohumeral joint demonstrates moderate degenerative arthritis with moderate sized undersurface spurs. The AC joint is normal. There is a type II acromion. No undersurface spurring. The subacromial space is preserved. Small calcification on the Y view in the expected region of the infraspinatus tendon, likely calcific tendinopathy. Remainder of the soft tissue and bony structures appear normal. XR/XR shoulder RT min 2V IMPRESSION: No acute bony abnormalities. Moderate degenerative arthritis glenohumeral joint. Suspect calcific tendinopathy of the infraspinatus tendon. Electronically signed by: Haresh Hutchinson MD 02/08/2025 02:15 PM EDT
== END 2025-02-08 11:41 | disposition home or self-care (01) ==
LOC: HO.HMGCX 11:40
PROVIDERS: PCP Internal Medicine; Visit Provider Nurse Practitioner Family
DX: S49.91XA Unspecified injury of right shoulder and upper arm, initial encounter (principal); M25.511 Pain in right shoulder
CPT/HCPCS: 73030; 99212

== ENCOUNTER → 2025-02-08 13:30 | Outpatient (BNV) | payer MEDICARE, SELFPAY | PROVIDERS: PCP Internal Medicine; Visit Provider Radiology Diagnostic Radiology | DX: M19.011 Primary osteoarthritis, right shoulder (principal) | CPT/HCPCS: 73030 ==

== ENCOUNTER 2025-03-05 11:06 | Outpatient (AMB) | payer MEDICARE, SELFPAY ==
--- NOTE | 2025-03-05 11:11 | A.OFFPC_ITS ---
Vital Signs 03/05/25 11:12 Height 5 ft 8 in Weight 163 lb 2 oz BMI 24.8 BP 140/80 H Blood Pressure Location Lt brachial Position Sitting Pulse 96 Pulse Source Pulse Oximeter Temp 97.3 F Temp Source Temporal Artery Scan Pulse Oximetry (%) 96 Oxygen Delivery Method Room Air Intake Visit Reasons: DONALD DR Clark - see comments Intake Note: Patient is here today for DONALD from Dr Clark Facing Grinder Required: No Certified Medical Coding Specialist: Not Required per policy Accompanied by: Self / Same As Patient Allergies acetaminophen [From TYLENOL] Adverse Reaction (Intermediate, Verified 03/05/25 11:26) DIZZINESS, VOMITING levofloxacin [From LEVAQUIN] Adverse Reaction (Intermediate, Verified 03/05/25 11:26) NAUSEA & VOMITING Medication List - Last Reconciled 03/05/25 by Jennifer Gordillo PA-C alendronate 70 mg PO QWEEK aspirin 81 mg PO BEDTIME budesonide-formoterol 160-4.5 mcg/actuation 2 puffs inhalation BID buspirone 5 mg PO BID calcium carbonate-vitamin D3 600 mg-10 mcg (400 unit) 1 tab PO DAILY cyclobenzaprine 5 mg PO BEDTIME PRN docusate sodium 100 mg PO BID PRN dronedarone (Multaq) 400 mg PO BID fenofibrate nanocrystallized 145 mg PO DAILY [grab bar As directed] mirabegron ER (Myrbetriq) 50 mg PO DAILY naproxen 250 mg PO BID PRN nitroglycerin 0.4 mg sublingual Q5M PRN omeprazole 20 mg PO DAILY rosuvastatin 40 mg PO DAILY sennosides (Senna Laxative) 17.2 mg (2 x 8.6 mg) PO BEDTIME [shower chair As directed] sucralfate 1 g PO Q4H triamcinolone acetonide 0.5% 1 appl topical TID venlafaxine ER 150 mg PO QAM vitamin B complex (B Complex-Vitamin B12 tablet) 1 tab PO BEDTIME vitamin E 200 units PO BEDTIME Tobacco use date assessed: 03/05/25 Fall risk assessment: No Falls in past year Last assessed Fall Risk: 03/05/25 Dental Screening Dental Screen Date: 03/05/25 Did you have a dental visit in the last 12 months?: Yes Did you have a dental problem in the last 6 months where you did not have access to dental care?: No Was dental information given to patient?: Patient has dentist HPI DONALD DR Clark - see comments HPI Details 79-year-old female with past medical his tory of paroxysmal atrial fibrillation, coronary artery disease, hyperlipidemia, overactive bladder, COPD, diabetic neuropathy, peripheral arterial disease last seen 08/[address] Clark coming in for transfer of care. In review of the notes, patient was seen by Cardiology 01/2025 for symptomatic atrial fibrillation continue on Multaq and she requires EKGs every 3 months. Target LDL goal of less than 70 for coronary artery disease with prior stenting of RCA. Follows with Urology yearly for overactive bladder. Presenting with peripheral neuropathy. Initially described as progressive leg pain and burning, the patient has undergone various treatments including g abapentin, pregabalin, and amitriptyline, with inconsistent benefits. Pain management interventions with needle treatments and topical applications provided no relief. Anxiety around symptom management, particularly while driving, is reported. The patient's history includes significant bereavement and chronic anxiety and depression managed through venlafaxine. Leg swelling and varicose veins may exacerbate the condition, with referral to podiatry previously recommended but not pursued. [facility] Medical History Atrial fibrillation with rapid ventricular response Presence of Watchman left atrial appendage closure device Paroxysmal atrial fibrillation Atherosclerotic cardiovascular disease Retention of urine Post-menopausal Screening for diabetes mellitus COVID-19 vaccine series completed Mixed hyperlipidemia CAD (coronary artery disease) Surgical History History of colonoscopy History of rotator cuff surgery Stented coronary artery History of cataract surgery History of bladder surgery History of hysterectomy History of cholecystectomy Family History Father Cancer Mother Heart disease Pancreatic cancer Sister Heart disease Social History Household Members: None Housing: Condominium Alcohol intake: former Patient Tobacco Use Status: Never used Tobacco e-Cigarette/Vaping Use: Never Used Second Hand Smoke Exposure: No Advance Directives Date on File: 07/20/23 service: No Current occupational status: retired Cognitive needs: Yes (cane) Hearing needs: Yes (Hearing aide) Vision needs: Yes (Glasses) Questionnaire PHQ-9 Over the last 2 weeks, how often have you been bothered by any of the following problems? 1. Little interest or pleasure in doing things: more than half the days 2. Feeling down, depressed, or hopeless: more than half the days 3. Trouble falling or staying asleep, or sleeping too much: several days 4. Feeling tired or having little energy: not at all 5. Poor appetite or overeating: several days 6. Feeling bad about yourself - or that you are a failure or have let yourself or your family down: more than half the days 7. Trouble concentrating on things, such as reading the newspaper or watching television: several days 8. Moving or speaking so slowly that other people could have noticed. Or the opposite - being so fidgety or restless that you have been moving around a lot more than usual: several days 9. Thoughts that you would be better off or of hurting yourself in some way: not at all Total score: 10 Depression Screening Interpretation: Positive Depression Screening Follow-up: Existing condition and In treatment Depression Screening Done: Yes Source: Developed by Drs. Neto Franco, Jacqueline Fry, Jones smalls, with an educational dre from [employer]. Thrive Questionnaire Date Thrive assessed: 03/05/25 AUDIT C Alcohol Use Questionnaire (AUDIT-C) 1. How often do you have a drink containing alcohol?: Never Total Score: 0 VERENA-7 AMB Questionnaire VERENA-7 Date VERENA - 7 assessed: 03/05/25 Feeling nervous, anxious, or on edge: 1 = Several days Not being able to stop or control worryin = Several days Worrying too much about different things: 1 = Several days Trouble relaxin = Several days Being so restless that it is hard to sit still: 1 = Several days Becoming easily annoyed or irritable: 1 = Several days Feeling afraid as if something awful might happen: 1 = Several days Total VERENA-7 score (0-4 normal; 5-9 mild; 10-14 moderate; 15-21 severe): 7 Source: Developed by Drs. Neto Franco, Jones Alatorre Kroenke and colleagues, with an educational dre from [employer]. Review of Systems Const Denies body aches, Denies chills, Denies fever(s), Denies headache(s) and Denies poor appetite Eyes Reports no additional complaints ENT Denies dizziness and Denies headache(s) Card Denies chest pain, Denies lightheadedness and Denies dyspnea Resp Denies cough and Denies dyspnea GI Denies diarrhea, Denies nausea and Denies vomiting Reports no additional complaints Musc Reports as per HPI and Denies abnormal gait Skin/Breast Reports system reviewed and no additional complaints, except as documented Neuro Reports as per HPI, Denies abnormal gait, Denies dizziness and Denies headache(s) Psych Reports no additional complaints Physical exam (Primary Care) Vital Signs: Last Vital Signs Temp 97.3 F 03/05/25 11:12 Pulse 96 03/05/25 11:12 BP 140/80 H 03/05/25 11:12 Pulse Ox 96 03/05/25 11:12 Oxygen Delivery Method Room Air 03/05/25 11:12 BMI result Body Mass Index 24.8 Tobacco/Smoking Status: Tobacco use Status Tobacco use date assessed 03/05/25 03/05/25 11:19 Patient Tobacco Use Status Never used Tobacco 03/05/25 11:19 e-Cigarette/Vaping Use Never Used 03/05/25 11:19 PHQ-9: PHQ-9 Score PHQ-9: Total score 10 03/05/25 11:43 Depression Screening Interpretation: Positive Depression Screening Follow-up: Existing condition and In treatment Thrive Assessment: Date of Thrive Assessment Date Thrive assessed 03/05/25 03/05/25 11:19 Const General: cooperative, healthy appearing, comfortable and no acute distress Orientation/consciousness: patient oriented x3 HENMT Head: Yes normocephalic Ears: hearing grossly normal bilaterally General nose exam: Normal external nose present Eyes General: appearance normal, both eyes and all related structures Conjunctivae: conjunctivae normal Neck Neck: Yes full ROM and Yes no lymphadenopathy Resp Effort & Inspection: normal respiratory effort Auscultation: clear to auscultation bilaterally, no crackles, no rales, no rhonchi and no wheezes Cardio Rate: regular rate Rhythm: regular rhythm Skin General skin exam: no rashes or lesions noted Neuro General: patient oriented x3 Gait exam (Neuro): Normal gait present Extrem General: Yes normal to inspection, Yes full ROM and No edema Psych Affect: normal affect Attitude: cooperative Insight: Good insight present (Psych) Judgement: Good judgement present (Psych) Coding Level of Care Code Est Pt Level 4 (46909) Diagnoses CAD (coronary artery disease) I25.10 Mixed hyperlipidemia E78.2 Overactive bladder N32.81 Anxiety and depression F41.9; F32.A Paroxysmal atrial fibrillation I48.0 Hypertension I10 Aortic stenosis I35.0 Peripheral neuropathy G62.9 Assessment & Plan Assessment & Plan (1) CAD (coronary artery disease): Code(s): I25.10 - Atherosclerotic heart disease of [place] coronary artery without angina pectoris Category: Medical Plan: Advised good control of the cholesterol, blood sugars and blood pressures. Blood pressure mildly elevated today 140/80 prescription was sent to pharmacy for blood pressure kit and advised patient to monitor the blood pressure daily. Consider initiation of blood pressure medication. Currently on aspirin 81 mg (2) Mixed hyperlipidemia: Code(s): E78.2 - Mixed hyperlipidemia Category: Medical Plan: Avoid foods that are high in cholesterol such as red meat, fried foods, eggs and baked goods. Triglyceride goal of less than 150 and LDL goal of less than 70. Continue on fenofibrate and rosuvastatin 40 (3) Overactive bladder: Code(s): N32.81 - Overactive bladder Category: Medical Plan: Patient is currently on Myrbetriq and follows with Urology. (4) Anxiety and depression: Code(s): F41.9 - Anxiety disorder, unspecified; F32.A - Depression, unspecified Category: Medical Plan: Patient feels her symptoms are well managed with BuSpar and venlafaxine. (5) Paroxysmal atrial fibrillation: Code(s): I48.0 - Paroxysmal atrial fibrillation Category: Medical Plan: Patient currently following with Cardiology has a history of known symptomatic atrial fibrillation and follows every 3 months with repeat EKGs. She is currently on Multaq and heart appears to be in sinus rhythm today. (6) Hypertension: Code(s): I10 - Essential (primary) hypertension Category: Medical Plan: Continue on current blood pressure medication. Avoid salt intake and encourage healthy diet and regular exercise. Blood pressure mildly elevated today 140/80 recommend taking blood pressure at home daily using blood pressure kit had discussed normal limits with blood pressure. Plan to follow up in 6 weeks (7) Aortic stenosis: Code(s): I35.0 - Nonrheumatic aortic (valve) stenosis Category: Medical Plan: Currently following with cardiology for this concern. (8) Peripheral neuropathy: Code(s): G62.9 - Polyneuropathy, unspecified Category: Medical Plan: Patient has extensive history of peripheral neuropathy. She was evaluated by Neurology and advised to start on the gabapentin. Plan to obtain these notes as well. She was seen by vascular surgery and advised to follow up with a lead customer service representative given presence of bone spurs. Referral was placed to Podiatry as well. She has also seen pain management in the past and did not find benefit with this. Plan to obtain neurology notes and management to follow up. Plan I will review the prior neurologist's notes to guide further management of the patient's peripheral neuropathy effectively. A podiatry referral is in progress to address mechanical leg vein contributors. Recent labs will guide cholesterol monitoring, with specific home blood pressure monitoring advised. Current medications for anxiolytic and antidepressant management will continue unchanged unless further issues surface. Blood pressure monitoring at home is encouraged using a cuff, emphasizing needs for maintaining levels below recommended thresholds. A follow-up will be necessary post-bloodwork to ensure optimal patient management. This note was constructed using voice recognition software. While every effort has been made to ensure accuracy and beauty therapist, still areas may have been included sometimes these areas may affect the content or meeting of the given symptoms. Total time spent caring for the patient today was 30 minutes. This includes time spent before the visit reviewing the chart, time spent during the visit, and time spent after the visit and documentation. Patient was informed and verbally consented to the use of an ambient scribe for clinic note documentation during this visit. Orders: Orders Lipid Panel Today E78.00 - Pure hypercholesterolemia, unspecified, E78.5 - Hyperlipidemia, unspecified Comprehensive Met. Panel Today I25.10 - Atherosclerotic heart disease of [place] coronary artery without angina pectoris, Z00.00 - Encounter for general adult medical examination without abnormal findings Free T4 (Free Thyroxine) Today I25.10 - Atherosclerotic heart disease of [place] coronary artery without angina pectoris, Z00.00 - Encounter for general adult medical examination without abnormal findings TSH reflex Free T4 Today I25.10 - Atherosclerotic heart disease of [place] coronary artery without angina pectoris, Z00.00 - Encounter for general adult medical examination without abnormal findings Complete Blood Count Auto Diff Today I25.10 - Atherosclerotic heart disease of [place] coronary artery without angina pectoris, Z00.00 - Encounter for general adult medical examination without abnormal findings Vitamin B12 and Folate Today G62.9 - Polyneuropathy, unspecified, Z00.00 - Encounter for general adult medical examination without abnormal findings Vitamin D 25-OH Total Today G62.9 - Polyneuropathy, unspecified, Z00.00 - Encounter for general adult medical examination without abnormal findings Referrals Podiatry Referral G62.9 - Polyneuropathy, unspecified, M77.9 - Enthesopathy, unspecified Medications: New blood pressure monitor As directed; check BP daily 1 ea 0RF I25.10 - Atherosclerotic heart disease of [place] coronary artery without angina pectoris
[2025-03-05 11:12] VITALS: BP 140/80; PULSE 96; TEMP 36.3; O2SAT 96; BMI 24.8
== END 2025-03-05 11:53 | disposition home or self-care (01) ==
LOC: HO.HMCH 11:07
DX: I25.10 Atherosclerotic heart disease of native coronary artery without angina pectoris (principal); E78.2 Mixed hyperlipidemia; N32.81 Overactive bladder; F41.9 Anxiety disorder, unspecified; F32.A Depression, unspecified; I48.0 Paroxysmal atrial fibrillation; I10 Essential (primary) hypertension; I35.0 Nonrheumatic aortic (valve) stenosis; G62.9 Polyneuropathy, unspecified

== ENCOUNTER → 2025-03-05 11:06 | Outpatient (BNVA) | payer MEDICARE, SELFPAY | PROVIDERS: PCP Internal Medicine | DX: I25.10 Atherosclerotic heart disease of native coronary artery without angina pectoris (principal); E78.2 Mixed hyperlipidemia; N32.81 Overactive bladder; F41.9 Anxiety disorder, unspecified; F32.A Depression, unspecified; I48.0 Paroxysmal atrial fibrillation; I10 Essential (primary) hypertension; I35.0 Nonrheumatic aortic (valve) stenosis; G62.9 Polyneuropathy, unspecified | CPT/HCPCS: 99212 ==

== ENCOUNTER 2025-04-16 11:59 | Emergency (ER) | payer MEDICARE, SELFPAY ==
--- NOTE | ~2025-04-16 | US_ITS ---
CLINICAL HISTORY: B L calf tenderness, swelling Venous duplex ultrasound bilateral lower extremity COMPARISON: None provided. FINDINGS: The visualized deep veins are fully compressible with normal Doppler color flow and spectral tracings. No popliteal cyst. IMPRESSION: 1. Negative for bilateral lower extremity deep vein thrombosis. This document has been electronically signed by: Sarkis Gonzalez MD on 04/16/2025 17:29:43
--- NOTE | ~2025-04-16 | XR_ITS ---
CLINICAL HISTORY: LE edema Single view of the chest. COMPARISON: None provided. FINDINGS: Patient is rotated to the right. Borderline cardiomegaly. Atherosclerotic thoracic aorta. No consolidation. Calcified granuloma along the lateral right lung. No definite pleural effusion. No pneumothorax. Levocurvature of the mid to lower thoracic spine. No acute fracture. IMPRESSION: 1. No consolidation. This document has been electronically signed by: Sarkis Gonzalez MD on 04/16/2025 18:11:16
[2025-04-16 12:17] VITALS: BP 189/105; PULSE 99; RESP 18; TEMP 36.7; O2SAT 96; BMI 26.3
--- NOTE | 2025-04-16 12:18 | ED.GENADULT ---
HPI - General Adult General Chief complaint: General Medical Stated complaint: Uropathy Time Seen by Provider: 04/16/25 14:36 History of Present Illness ED Provider: Satya Wade PA-C HPI narrative: 80-year-old female past medical history of hyperlipidemia, CAD with RCA stent, paroxysmal atrial fibrillation suppressed with Multaq, Watchman device, TIA, on aspirin and Plavix, COPD, PAD, Presents to the ED today due to 1 week of bilateral feet swelling. Patient said she woke up this morning and had difficulty putting her shoes on stating the swelling is the worst it has been all week. She denies increased physical activity. She states the feet swelling is also associated with increased neuropathy and burning pain. Patient says she has a chronic cough due to COPD which is worse when it is humid and hot outside. Denies Recent travel, sick contacts, chest pain, dizziness, weakness, shortness of breath, nausea, vomiting, black / tarry stools, urinary symptoms. MD complaint: B/L feet swelling Onset (ago): week(s) (1) Location: lower extremity (B/L feet) Radiation: non-radiation Severity: mild Quality: burning Related Data Home Medications ?Medication ?Instructions ?Recorded ?Confirmed budesonide-formoterol HFA 160 2 puff inhalation BID 12/30/20 03/05/25 mcg-4.5 mcg/actuation aerosol inhaler calcium 600 mg (as 1 tab PO DAILY 12/30/20 03/05/25 carbonate)-vitamin D3 10 mcg (400 unit) tablet aspirin 81 mg tablet,delayed 81 mg PO BEDTIME 02/18/21 03/05/25 release vitamin B complex (B 1 tab PO BEDTIME 06/30/21 03/05/25 Complex-Vitamin B12 tablet) vitamin E 200 unit capsule 200 unit PO BEDTIME 06/30/21 03/05/25 alendronate 70 mg tablet 70 mg PO QWEEK 05/03/24 03/05/25 sucralfate 1 gram tablet 1 g PO Q4H 05/03/24 03/05/25 Previous Rx's ?Medication ?Instructions ?Recorded docusate sodium 100 mg capsule 100 mg PO BID PRN for constipation 07/19/23 #180 caps rosuvastatin 40 mg tablet 40 mg PO DAILY #90 tabs 03/15/24 grab bar #1 ea 07/03/24 shower chair #1 ea 07/03/24 dronedarone 400 mg tablet (Multaq) 400 mg PO BID #60 tabs 07/31/24 triamcinolone acetonide 0.5 % 1 appl topical TID #15 grams 08/20/24 topical cream fenofibrate nanocrystallized 145 145 mg PO DAILY #90 tabs 09/27/24 mg tablet sennosides 8.6 mg tablet (Senna 17.2 mg (2 x 8.6 mg) PO BEDTIME 09/28/24 Laxative) #180 tabs omeprazole 20 mg capsule,delayed 20 mg PO DAILY #90 caps 12/20/24 release nitroglycerin 0.4 mg sublingual 0.4 mg sublingual Q5M PRN chest 01/21/25 tablet pain #30 tabs cyclobenzaprine 5 mg tablet 5 mg PO BEDTIME PRN muscle spasm 02/08/25 #7 tabs naproxen 250 mg tablet 250 mg PO BID PRN pain #30 tabs 02/08/25 mirabegron 50 mg tablet,extended 50 mg PO DAILY #90 tabs 02/11/25 release 24 hr (Myrbetriq) buspirone 5 mg tablet 5 mg PO BID #180 tabs 02/15/25 venlafaxine 150 mg 150 mg PO QAM #90 caps 02/15/25 capsule,extended release 24 hr blood pressure monitor #1 ea 03/05/25 Allergies Allergy/AdvReac Type Severity Reaction Status Date / Time acetaminophen (From TYLENOL) AdvReac Intermediate DIZZINESS, Verified 04/16/25 12:20 VOMITING levofloxacin (From LEVAQUIN) AdvReac Intermediate NAUSEA & Verified 04/16/25 12:20 VOMITING Review of Systems Review of Systems: CONST: Negative for fever, body aches and chills. HENT: Negative for neck pain/stiffness, headache, congestion, sore throat, swelling. EYES: Negative for discharge/pain or vision changes. RESP: Negative for cough/hemoptysis and shortness of breath. CV: Negative chest pain, difficulty breathing, palpitations. ABD: Negative pain, nausea, vomiting. : Negative increase frequency, dysuria, blood in urine or stool. MUSC: Negative for muscle aches, edema. POS B/L feet swelling, neuropathy SKIN: Negative rash, lesions/sores. NEURO: Negative headache, dizziness, weakness. [facility] Past Medical History Attestation statement: The following information was validated with the patient. Source: old records reviewed, obtained from family ( son at bedside corroborating history) and nursing notes reviewed Medical History Atrial fibrillation with rapid ventricular response Presence of Watchman left atrial appendage closure device Paroxysmal atrial fibrillation Atherosclerotic cardiovascular disease Retention of urine Post-menopausal Screening for diabetes mellitus COVID-19 vaccine series completed Mixed hyperlipidemia CAD (coronary artery disease) Surgical History History of colonoscopy History of rotator cuff surgery Stented coronary artery History of cataract surgery History of bladder surgery History of hysterectomy History of cholecystectomy Family History Family History Father Cancer Mother Heart disease Pancreatic cancer Sister Heart disease Social History Social History Household Members: None Housing: Condominium Alcohol intake: former Patient Tobacco Use Status: Never used Tobacco Smoked in Last 30 Days: No e-Cigarette/Vaping Use: Never Used Second Hand Smoke Exposure: No Use of substances other than those prescribed or required for medical reasons: No Advance Directives: Yes Advance Directives on File: Yes Advance Directives Date on File: 07/20/23 Do you have a plan to hurt others: No Plan service: No Current occupational status: retired Cognitive needs: Yes (cane) Hearing needs: Yes (Hearing aide) Vision needs: Yes (Glasses) Physical Exam ED Vital Signs: Vital Signs - 24 hr 04/16/25 12:17 04/16/25 18:29 Temperature 98.1 F 97.7 F Pulse Rate 99 76 Respiratory Rate 18 18 Blood Pressure 189/105 H 204/108 H Pulse Oximetry 96 96 Oxygen Delivery Method Room Air Room Air BMI result Body Mass Index 26.3 GENERAL APPEARANCE: ?AxOx4, generally well-appearing, no acute distress. HEENT: ?NC, AT. MMM. EOMI, clear conjunctiva, oropharynx clear. NECK: ?Supple without lymphadenopathy.? No stiffness or restricted ROM. HEART:? Normal rate and regular rhythm, normal S1/S1, no m/r/g LUNGS:? CTAB, moving air well. No crackles or wheezes are heard. ABDOMEN: ?Soft, nontender, nondistended with good bowel sounds heard. BACK: No CVAT, no obvious deformity. EXTREMITIES: ?B/L feet/ankle swelling, no pitting edema, no erythema, no warmth. Pedal pulses 2+ B/L with appropriate capillary refill. NEUROLOGICAL: ?Grossly nonfocal. Alert and oriented, moving all 4 extremities. Observed to ambulate with normal gait. Skin: ?Warm and dry without any rash. Course Course Course Narrative: This is an RME performed by Derrick Torres CNP: Additional HPI, ROS, PE not included below will be deferred to primary provider. patient is an 80-year-old female past medical history of hyperlipidemia, CAD with RCA stent, paroxysmal atrial fibrillation suppressed with Multaq, Watchman device, TIA, on aspirin and Plavix, COPD, PAD, neuropathy who presents emergency department for evaluation, reports symptoms of 2024 she was diagnosed with neuropathy of the bilateral lower extremities and has since been experiencing associated swelling to the legs. Over the past 2 days pain has increased as well as the swelling (L>R) with lesions to both legs. She states she is not on diuretics. Has history of COPD with baseline shortness of breath in the humidity does not believe this has increased. plan: Serum labs Reevaluation(s) Reevaluation #1: 6:31 PM 04/16/2025 (Cristian OLIVERA): Patient is signed out to this provider at shift change, in summary the patient is an 80-year-old female presenting to the ED for evaluation of chronic worsening bilateral lower extremity edema, without history of CHF or diuretics. Patient's laboratory evaluation reportedly is reassuring, BNP mildly elevated at 181, chest x-ray was ordered. The patient has completed a bilateral lower extremity ultrasound which shows no DVT. Per sign-out the patient is likely suffering from dependent edema. Patient was signed out pending chest x-ray. At this time x-ray has resulted and shows no acute cardiothoracic process, no pleural effusion or consolidation, there is question of borderline cardiomegaly. Has been educated on need for compression stockings, elevation of extremities, and outpatient follow-up with PCP. Patient will be discharged to follow up. Of note, when patient was being informed of plan for discharge, patient and family questioned the patient's elevated blood pressure. Patient's most recent blood pressure was elevated at 200/108. Patient is having no headache or chest pain, lab review reveals no evidence of MINAL. Shows the patient was discontinued from amlodipine in December and according to dispense history and patient's medication list provided by the patient's son, patient does not currently take a antihypertensive. Patient and son educated on the lack of indication for emergent IV blood pressure management in the ED given reassuring labs and no symptoms of hypertensive emergency. Patient and son were advised to follow up with PCP tomorrow to discuss re-initiation of amlodipine or another antihypertensive medication. Medical Decision Making Medical Decision Making MDM Narrative: 80-year-old female past medical history of hyperlipidemia, CAD with RCA stent, paroxysmal atrial fibrillation suppressed with Multaq, Watchman device, TIA, on aspirin and Plavix, COPD, PAD, Presents to the ED today due to 1 week of bilateral feet swelling. Patient said she woke up this morning and had difficulty putting her shoes on stating the swelling is the worst it has been all week. She denies increased physical activity. She states the feet swelling is also associated with increased neuropathy and burning pain. Patient says she has a chronic cough due to COPD which is worse when it is humid and hot outside. On chart review patient had follow up with vascular surgery, and pain management, had nerve conduction study done that indicated neuropathy. Patient was offered pharmacological therapy to manage neuropathy pain that is likely due to PAD, patient declined new medications as she did not like gabapentin and did not want to take anymore daily meds. I believe the patient is having increased neuropathy due to PAD and would benefit with follow-up to vascular surgery since last follow up was last year 08/09 VSS, no acute distress, nontoxic appearing. On physical exam there is bilateral feet/ ankle swelling, without pitting edema, no erythema, no warmth, pedal pulses 2+ bilaterally, appropriate capillary refill, 5/5 strength bilaterally, sensations intact bilaterally. There is calf tenderness to palpation bilaterally. Due to patient's AFib history we will evaluate for DVT with bilateral ultrasound Doppler study. EKG normal sinus rhythm, without ST elevation /depression, T-wave abnormality, patient without chest pain, shortness of breath- less likely dysrhythmia. Labs reveal mildly elevated BNP of 181, without pitting edema, lungs clear to auscultation bilaterally, will obtain CXR for further evaluation. Currently awaiting U/S ultrasound and CXR. Course 17:43- US Doppler negative for DVT. Awaiting CXR. Differential Diagnosis Differential Diagnoses: The differential diagnosis associated with the presentation includes DVT CHF exacerbation Dysrhythmia Dependent edema Admission/Observation Consideration of admission/observation: Escalation of care including admission/observation considered Lab Data MDM Lab Attestation statement: I reviewed the patient's lab results. 04/16/25 12:34 04/16/25 12:34 Labs: Lab Results 04/16/25 Range/Units 12:34 WBC 5.0 (4.8-10.8) X10*3/uL RBC 4.51 (4.20-5.50) X10*6/uL Hgb 11.7 L (12.0-16.0) g/dl Hct 36.3 L (37.0-47.0) % MCV 80.5 (80.0-98.0) fL MCH 25.9 L (27.0-33.0) pg MCHC 32.2 (31.0-35.0) g/dl RDW 15.9 (11.0-16.0) % Plt Count 197 (160-400) X10*3/uL MPV 9.6 (9.4-12.3) fL Immature Gran % (Auto) 0.4 (0.0-0.4) % Neut % (Auto) 59.4 (45-73) % Lymph % (Auto) 24.6 (20-40) % Waldo % (Auto) 7.9 (2-11) % Eos % (Auto) 6.9 H (0-4) % Baso % (Auto) 0.8 (0-2) % Lymph # (Auto) 1.2 (1.2-4.9) X10*3/uL Waldo # (Auto) 0.4 (0.1-1.2) X10*3/uL Eos # (Auto) 0.4 (0.0-0.4) X10*3/uL Baso # (Auto) 0.0 (0.0-0.2) X10*3/uL Abs Immat Gran (auto) 0.02 (0.00-0.03) X10*3/uL Absolute Neuts (auto) 3.0 (2.0-8.3) x10*3/uL Absolute Nucleated RBC 0.000 (0.0-0.012) X10*3/uL Nucleated RBC % (auto) 0.0 (0.0-0.2) /100WBC Sodium 140 (135-145) mmol/L Potassium 4.1 (3.3-5.1) mmol/L Chloride 105 (96-108) mmol/L Carbon Dioxide 28 (22-29) mmol/L Anion Gap 11 L (12-20) BUN 24 H (9-16) mg/dL Creatinine 0.98 (0.5-1.4) mg/dL Estim Creat Clear Calc 46.2 Estimated GFR 54 Random Glucose 119 H (60-115) mg/dL Calcium 9.6 (8.4-10.2) mg/dL Total Bilirubin 0.5 (0.0-1.0) mg/dL AST 32 H (5-31) U/L ALT 14 (0-31) U/L Alkaline Phosphatase 38 L (39-117) U/L B-Natriuretic Peptide 181 H (<100) pg/mL Total Protein 6.5 (6.5-8.0) g/dL Albumin 4.2 (3.5-5.0) g/dL Independent Interpretation I performed an independent interpretation of an: EKG and Ultrasound Interpretation: I independently interpreted the EKG Vent. Rate : 67 BPM Atrial Rate : 67 BPM P-R Int : 160 ms QRS Dur : 84 ms QT Int : 430 ms P-R-T Axes : 47 54 29 degrees QTcB Int : 454 ms Normal sinus rhythm Normal ECG When compared with ECG of 29-Nov-2023 15:02, No significant change was found Radiology Impression Discussion of test interpretation with radiology: I have reviewed the radiologist's reading. External Record Review External record reviewed: Inpatient record, Office record and Outpatient record Chronic Conditions Patient?s care impacted by: Hypertension and Other (PAfib with Watchman in place, CAD, PAD,) Discharge Plan Discharge Clinical Impression: Bilateral swelling of feet Patient Disposition: Home, Self-Care Instructions: Leg Edema (ED) Additional Instructions: Thank you for choosing [facility]'s Emergency Department for your care today. At this time there is no evidence of an acute process requiring admission to the hospital or continued ED observation, and it is safe to discharge you home. Thankfully your chest x-ray showed no evidence of fluid retention in your lungs, and your ultrasound shows no evidence of a blood clot in your legs. Your laboratory evaluation was largely reassuring. Your lower extremity edema is likely dependent edema. Please wear compression stockings and elevate your legs to reduce swelling. Your blood pressure in the ED today was significantly elevated. While this may be contributing to your lower extremity swelling, thankfully your laboratory evaluation shows no evidence of organ damage as a result of your elevated blood pressure. Additionally, you thankfully are not experiencing any symptoms of an elevated blood pressure such as headache or chest pain. As such there is no indication for emergent control of your blood pressure in the ED tonight. It is extremely important however that you follow-up with your primary care provider and/or air tool operator to discuss reinitiating your high blood pressure medication that was discontinued in December. Please follow up with your primary care physician for re-evaluation, consideration of antihypertensive medication, additional management of your symptoms, and continued preventative care. If you do not have a primary care physician, please call the [facility] at [phone] to establish a new primary care physician. While waiting to establish your new primary care physician, you can call our [facility] at [phone] for non-emergency needs. Please return to the emergency department if you develop a severe or sudden change in your symptoms, a fever over 100.4 that does not improve with Tylenol or Ibuprofen, recurrent vomiting, or any other new or worsening symptoms or concerns. Prescriptions: No Action docusate sodium 100 mg capsule 100 mg PO BID PRN (Reason: for constipation) Qty: 180 3RF rosuvastatin 40 mg tablet 40 mg PO DAILY Qty: 90 3RF (DME) shower chair See Rx Instructions .Route .MEDSUPPLY Qty: 1 0RF Rx Instructions: As directed (DME) grab bar See Rx Instructions .Route .MEDSUPPLY Qty: 1 0RF Rx Instructions: As directed fenofibrate nanocrystallized 145 mg tablet 145 mg PO DAILY Qty: 90 3RF sennosides [Senna Laxative] 8.6 mg tablet 17.2 mg PO BEDTIME Qty: 180 4RF omeprazole 20 mg capsule,delayed release(DR/EC) 20 mg PO DAILY Qty: 90 8RF nitroglycerin 0.4 mg tablet, sublingual 0.4 mg sublingual Q5M PRN (Reason: chest pain) Qty: 30 3RF Rx Instructions: do not exceed 3 doses per episode Myrbetriq 50 mg tablet extended release 24 hr 50 mg PO DAILY Qty: 90 3RF venlafaxine 150 mg capsule,extended release 24hr 150 mg PO QAM Qty: 90 0RF buspirone 5 mg tablet 5 mg PO BID Qty: 180 0RF aspirin 81 mg Tablet,Delayed Release (Dr/Ec) 81 mg PO BEDTIME budesonide-formoterol 160-4.5 mcg/actuation HFA aerosol inhaler 2 puff inhalation BID calcium carbonate-vitamin D3 600 mg(1,500mg) -400 unit tablet 1 tab PO DAILY vitamin E 200 unit capsule 200 unit PO BEDTIME vitamin B complex [B Complex-Vitamin B12] Tablet 1 tab PO BEDTIME sucralfate 1 gram tablet 1 g PO Q4H Rx Instructions: before meal and at bedtime alendronate 70 mg tablet 70 mg PO QWEEK triamcinolone acetonide 0.5 % cream 1 appl topical TID Qty: 15 3RF (DME) blood pressure monitor Kit See Rx Instructions .Route Qty: 1 0RF Rx Instructions: As directed; check BP daily Multaq 400 mg tablet 400 mg PO BID Qty: 60 5RF Rx Instructions: must administer with a meal/food naproxen 250 mg tablet 250 mg PO BID PRN (Reason: pain) Qty: 30 0RF Rx Instructions: Take one tablet up to twice a day as needed for pain. cyclobenzaprine 5 mg tablet 5 mg PO BEDTIME PRN (Reason: muscle spasm) Qty: 7 0RF Rx Instructions: Take one tablet at bedtime as needed for muscle pain/spasms. Referrals: Jennifer Gordillo PA-C [Primary Care Provider, Internal Medicine] Clinical Impression: Bilateral swelling of feet Print Language: [place]
[2025-04-16 12:39] LABS: MANUAL DIFF FLAG NO
[2025-04-16 12:41] LABS: Hematocrit 36.3 % (37.0-47.0); Hemoglobin 11.7 g/dl (12.0-16.0); Imm Gran Abs Auto 0.02 X10*3/uL (0.00-0.03); Imm Gran Pct Auto 0.4 % (0.0-0.4); Lymphocytes Absolute Auto 1.2 X10*3/uL (1.2-4.9); Mean Corpuscular HGB Conc 32.2 g/dl (31.0-35.0); Mean Corpuscular Hemoglobin 25.9 pg (27.0-33.0); Mean Corpuscular Volume 80.5 fL (80.0-98.0); NRBC Abs Auto 0.000 X10*3/uL (0.0-0.012); NRBC Pct Auto 0.0 /100WBC (0.0-0.2); Platelet Count 197 X10*3/uL (160-400); Red Blood Count 4.51 X10*6/uL (4.20-5.50); White Blood Count 5.0 X10*3/uL (4.8-10.8)
[2025-04-16 12:53] LABS: Alanine Aminotransferase 14 U/L (0-31); Albumin Level 4.2 g/dL (3.5-5.0); Alkaline Phosphatase 38 U/L (39-117); Anion Gap 11 (12-20); Aspartate Amino Transferase 32 U/L (5-31); Blood Urea Nitrogen 24 mg/dL (9-16); Calcium 9.6 mg/dL (8.4-10.2); Carbon Dioxide 28 mmol/L (22-29); Chloride 105 mmol/L (96-108); Creatinine Clr Calc Pharmacy 46.2; Estimated Glomerular Filt Rate 54; Potassium 4.1 mmol/L (3.3-5.1); Sodium 140 mmol/L (135-145); Total Protein 6.5 g/dL (6.5-8.0)
[2025-04-16 12:59] LABS: B Type Natriuretic Peptide 181 pg/mL (<100)
--- NOTE | 2025-04-16 15:09 | ECG_ITS ---
Test Reason : WEAKNESS Blood Pressure : */* mmHG Vent. Rate : 67 BPM Atrial Rate : 67 BPM P-R Int : 160 ms QRS Dur : 84 ms QT Int : 430 ms P-R-T Axes : 47 54 29 degrees QTcB Int : 454 ms Normal sinus rhythm Normal ECG When compared with ECG of 29-Nov-2023 15:02, No significant change was found Referred By: Sheri Hernadez Electronically Signed By: KAREN LAU MD
[2025-04-16 18:29] VITALS: BP 204/108; PULSE 76; RESP 18; TEMP 36.5; O2SAT 96
--- NOTE | 2025-04-16 18:57 | PC.NURSE ---
MD aware of patient's blood pressure, cleared PT for discharge.
[2025-04-16 19:02] VITALS: BP 227/113; PULSE 77; RESP 17; TEMP 36.4; O2SAT 96
[2025-04-16 19:09] VITALS: BP 227/113; PULSE 77; RESP 17; TEMP 36.4; O2SAT 96
== END 2025-04-16 19:13 | disposition home or self-care (01) ==
PROVIDERS: Nurse Practitioner Family; Emergency Provider Emergency Medicine Emergency Medical Services
DX: R60.0 Localized edema (principal); I25.10 Atherosclerotic heart disease of native coronary artery without angina pectoris; J44.9 Chronic obstructive pulmonary disease, unspecified; R05.9 Cough, unspecified; G62.9 Polyneuropathy, unspecified; R06.02 Shortness of breath; Z79.899 Other long term (current) drug therapy
CPT/HCPCS: 36415; 71045; 80053; 83880; 85025; 93005; 93970; 99284

== ENCOUNTER → 2025-04-16 15:09 | Outpatient (BNV) | payer MEDICARE, SELFPAY | PROVIDERS: Emergency Provider Emergency Medicine Emergency Medical Services; Visit Provider Internal Medicine Cardiovascular Disease | DX: R53.1 Weakness (principal) | CPT/HCPCS: 93010 ==

== ENCOUNTER → 2025-04-16 15:14 | Outpatient (BNV) | payer MEDICARE, SELFPAY | PROVIDERS: Emergency Provider Emergency Medicine Emergency Medical Services; Visit Provider Radiology Diagnostic Radiology | DX: R68.89 Other general symptoms and signs (principal); R22.43 Localized swelling, mass and lump, lower limb, bilateral; M79.662 Pain in left lower leg; M79.661 Pain in right lower leg; R60.0 Localized edema | CPT/HCPCS: 71045; 93970 ==

== ENCOUNTER 2025-05-16 14:02 | Outpatient (AMB) | payer MEDICARE, SELFPAY ==
--- NOTE | 2025-05-16 14:04 | MHC.PC.OV ---
Vital Signs 05/16/25 14:07 Height 5 ft 6 in Weight 166 lb BMI 26.8 BP 138/88 Blood Pressure Location Lt brachial Position Sitting Pulse Source Pulse Oximeter Temp Source Temporal Artery Scan Oxygen Delivery Method Room Air Intake Visit Reasons: f/u BP Peripheral Equipment Operator Required: No Accompanied by: Self / Same As Patient Allergies acetaminophen (From TYLENOL) Adverse Reaction (Intermediate, Verified 05/16/25 14:15) DIZZINESS, VOMITING levofloxacin (From LEVAQUIN) Adverse Reaction (Intermediate, Verified 05/16/25 14:15) NAUSEA & VOMITING Medication List - Last Reconciled 05/16/25 by Jennifer Gordillo PA-C alendronate 70 mg PO QWEEK aspirin 81 mg PO BEDTIME blood pressure monitor As directed; check BP daily budesonide-formoterol 160-4.5 mcg/actuation 2 puffs inhalation BID buspirone 5 mg PO BID calcium carbonate-vitamin D3 600 mg-10 mcg (400 unit) 1 tab PO DAILY cyclobenzaprine 5 mg PO BEDTIME PRN docusate sodium 100 mg PO BID PRN dronedarone (Multaq) 400 mg PO BID fenofibrate nanocrystallized 145 mg PO DAILY [grab bar As directed] lisinopril 5 mg PO DAILY mirabegron ER (Myrbetriq) 50 mg PO DAILY naproxen 250 mg PO BID PRN nitroglycerin 0.4 mg sublingual Q5M PRN omeprazole 20 mg PO DAILY rosuvastatin 40 mg PO DAILY sennosides (Senna Laxative) 17.2 mg (2 x 8.6 mg) PO BEDTIME [shower chair As directed] sucralfate 1 g PO Q4H triamcinolone acetonide 0.5% 1 appl topical TID venlafaxine ER 150 mg PO QAM vitamin B complex (B Complex-Vitamin B12 tablet) 1 tab PO BEDTIME vitamin E 200 units PO BEDTIME Tobacco use date assessed: 05/16/25 Fall risk assessment: No Falls in past year Last assessed Fall Risk: 05/16/25 Dental Screening Dental Screen Date: 05/16/25 Did you have a dental visit in the last 12 months?: Yes Did you have a dental problem in the last 6 months where you did not have access to dental care?: No Was dental information given to patient?: Patient has dentist HPI f/u BP HPI Details 80-year-old female with past medical history of paroxysmal atrial fibrillation, coronary artery disease, hyperlipidemia, overactive bladder, COPD, diabetic neuropathy, peripheral arterial disease last seen 02/2025 coming in for follow up. She reports significant leg swelling, especially at night, with fluid accumulation. She has a history of rash and neuropathy, which are ongoing issues. Previous evaluations showed normal kidney and liver function, but elevated BNP. An echocardiogram in January was normal and patient is clinically euvolemic. She has previously seen by vascular surgery for the leg swelling determined not to be a vascular issue but advised to follow up yearly with repeat imaging. She was recommended to see a tobacco stripping machine operator however an appointment has not been made as of yet. [facility] Medical History Atrial fibrillation with rapid ventricular response Presence of Watchman left atrial appendage closure device Paroxysmal atrial fibrillation Atherosclerotic cardiovascular disease Retention of urine Post-menopausal Screening for diabetes mellitus COVID-19 vaccine series completed Mixed hyperlipidemia CAD (coronary artery disease) Surgical History History of colonoscopy History of rotator cuff surgery Stented coronary artery History of cataract surgery History of bladder surgery History of hysterectomy History of cholecystectomy Family History Father Cancer Mother Heart disease Pancreatic cancer Sister Heart disease Social History Household Members: None Housing: Condominium Alcohol intake: former Patient Tobacco Use Status: Never used Tobacco e-Cigarette/Vaping Use: Never Used Second Hand Smoke Exposure: No Advance Directives Date on File: 07/20/23 service: No Current occupational status: retired Cognitive needs: Yes (cane) Hearing needs: Yes (Hearing aide) Vision needs: Yes (Glasses) Questionnaire Thrive Questionnaire Date Thrive assessed: 05/16/25 VERENA-7 AMB Questionnaire VERENA-7 Date VERENA - 7 assessed: 05/16/25 Source: Developed by Drs. Neto Franco, Jacqueline Fry, Jones Valdivia and colleagues, with an educational dre from [employer]. Review of Systems Const Denies body aches, Denies chills, Denies fever(s), Denies headache(s) and Denies poor appetite Eyes Reports no additional complaints ENT Denies dysphagia, Denies dizziness, Denies headache(s) and Denies odynophagia Card Denies chest pain, Denies syncope, Denies edema, Denies irregular heart rhythm, Denies lightheadedness and Denies dyspnea Resp Denies cough and Denies dyspnea GI Denies abdominal pain, Denies constipation, Denies dysphagia, Denies diarrhea, Denies nausea, Denies odynophagia and Denies vomiting Reports no additional complaints Musc Reports no additional complaints and Denies abnormal gait Skin/Breast Reports system reviewed and no additional complaints, except as documented Neuro Denies abnormal gait, Denies dizziness, Denies syncope and Denies headache(s) Psych Reports no additional complaints Physical exam (Primary Care) Vital Signs: Last Vital Signs BP 138/88 05/16/25 14:07 Oxygen Delivery Method Room Air 05/16/25 14:07 BMI result Body Mass Index 26.8 Tobacco/Smoking Status: Tobacco use Status Tobacco use date assessed 05/16/25 05/16/25 14:17 Patient Tobacco Use Status Never used Tobacco 05/16/25 14:17 e-Cigarette/Vaping Use Never Used 05/16/25 14:17 Thrive Assessment: Date of Thrive Assessment Date Thrive assessed 05/16/25 05/16/25 14:17 Const General: cooperative, healthy appearing, comfortable and no acute distress Orientation/consciousness: patient oriented x3 HENMT Head: Yes normocephalic Ears: hearing grossly normal bilaterally General nose exam: Normal external nose present Eyes General: appearance normal, both eyes and all related structures Conjunctivae: conjunctivae normal Neck Neck: Yes full ROM and Yes no lymphadenopathy Resp Effort & Inspection: normal respiratory effort Auscultation: clear to auscultation bilaterally, no crackles, no rales, no rhonchi and no wheezes Cardio Rate: regular rate Rhythm: regular rhythm Skin General skin exam: no rashes or lesions noted Neuro General: patient oriented x3 Gait exam (Neuro): Normal gait present Extrem General: Yes normal to inspection, Yes full ROM and No edema Psych Affect: normal affect Attitude: cooperative Insight: Good insight present (Psych) Judgement: Good judgement present (Psych) Coding Level of Care Code Est Pt Level 3 (20662) Diagnoses CAD (coronary artery disease) I25.10 Mixed hyperlipidemia E78.2 Primary hypertension I10 Hypertension type: primary hypertension Peripheral neuropathy G62.9 PAD (peripheral artery disease) I73.9 Assessment & Plan Assessment & Plan (1) CAD (coronary artery disease): Code(s): I25.10 - Atherosclerotic heart disease of redding coronary artery without angina pectoris Category: Medical Plan: Advised good control of the cholesterol, blood sugars and blood pressures. Continue on aspirin 81 mg. Patient was provided with blood pressure cuff at last visit to monitor blood pressures at home. Continue on Lisinopril (2) Mixed hyperlipidemia: Code(s): E78.2 - Mixed hyperlipidemia Category: Medical Plan: Avoid foods that are high in cholesterol such as red meat, fried foods, eggs and baked goods. Triglyceride goal of less than 150 and LDL goal of less than 70. Continue on fenofibrate and rosuvastatin 40. Reminded patient about blood work (3) Hypertension: Code(s): I10 - Essential (primary) hypertension Category: Medical Qualifiers: Hypertension type: primary hypertension Qualified Code(s): I10 - Essential (primary) hypertension Plan: Continue on current blood pressure medication. Avoid salt intake and encourage healthy diet and regular exercise. Blood pressures at home have been normal and blood pressure in the office is normal. Continue on Lisinopril. (4) Peripheral neuropathy: Code(s): G62.9 - Polyneuropathy, unspecified Category: Medical Plan: Patient has extensive history of peripheral neuropathy. Currently on gabapentin for symptom management. Continue to follow with Neurology and vascular surgery. (5) PAD (peripheral artery disease): Code(s): I73.9 - Peripheral vascular disease, unspecified Category: Medical Plan: Patient has already been evaluated by vascular surgery for her bilateral leg swelling. On exam today there is very minimal leg swelling if any. She states the leg swelling is typically worse at the end of the day I did advised compression stockings and leg elevation. She will continue to follow with vascular surgery and agrees to reach out to Podiatry as well. Plan The patient is advised to continue monitoring her blood pressure at home and maintain her current antihypertensive regimen with lisinopril, as her blood pressure is well-controlled. She should also complete the pending blood work, ensuring fasting for 8 to 10 hours prior to the test. Additionally, the patient is encouraged to follow up with a tobacco stripping machine operator for her foot issues, as a referral has been made. This note was constructed using voice recognition software. While every effort has been made to ensure accuracy and wholesale loan processor, still areas may have been included sometimes these areas may affect the content or meeting of the given symptoms. Total time spent caring for the patient today was 20 minutes. This includes time spent before the visit reviewing the chart, time spent during the visit, and time spent after the visit and documentation. Patient was informed and verbally consented to the use of an ambient scribe for clinic note documentation during this visit. Orders: Referrals Vascular Surgery Referral I73.9 - Peripheral vascular disease, unspecified, I83.11 - Varicose veins of right lower extremity with inflammation Medications: Refilled lisinopril 5 mg PO DAILY 90 tabs 2RF
[2025-05-16 14:07] VITALS: BP 138/88; BMI 26.8
--- OUTSIDE RECORDS SUMMARY | 2025-05-16 14:18 | XMS_ITS | Clinical Summary ---
Author Organization [address] [facility] Address [address] [place] [address] Phone Care Team Providers Care Primary Products Inspectors Name Role Phone Jennifer Gordillo Primary Care Provider [phone] Medications albuterol HFA (PROAIR HFA ; PROVENTIL HFA ; VENTOLIN HFA) 90 mcg/actuation inhaler Inhale 2 puffs by mouth 3 (three) times a day. every 4 to 6 hours as needed 5 Active alendronate (FOSAMAX) 70 mg tablet Take 1 tablet (70 mg total) by mouth every 7 (seven) days. 5 Active amiodarone (PACERONE) 200 mg tablet Take 1 tablet (200 mg total) by mouth 1 (one) time each day. 4 Active amLODIPine (NORVASC) 10 mg tablet Take 1 tablet (10 mg total) by mouth 1 (one) time each day. 5 Active amitriptyline (ELAVIL) 50 mg tablet Take 1 tablet (50 mg total) by mouth at bedtime. at bedtime for 30 days 5 Active Symbicort 160-4.5 mcg/actuation inhaler Inhale 2 puffs by mouth 2 (two) times a day. 5 Active busPIRone (BUSPAR) 5 mg tablet Take 1 tablet (5 mg total) by mouth 2 (two) times a day. 5 Active calcium carbonate-vitam in D 600 mg-10 mcg (400 unit) per tablet Take 1 tablet by mouth 1 (one) time each day. 5 Active cyclobenzaprine (FLEXERIL) 5 mg tablet Take 1 tablet (5 mg total) by mouth at bedtime. 5 Active doxycycline (MONODOX) 100 mg capsule Take 1 capsule (100 mg total) by mouth 2 (two) times a day. 4 Active Multaq 400 mg tablet Take 1 tablet (400 mg total) by mouth 2 (two) times a day with meals. 5 Active fenofibrate (TRICOR) 145 mg tablet Take 1 tablet (145 mg total) by mouth 1 (one) time each day. 5 Active lidocaine-prilo jannet (EMLA) 2.5-2.5 % cream Apply 1 Application topically 1 (one) time. 4 Active lisinopriL (PRINIVIL,ZESTR IL) 5 mg tablet Take 1 tablet (5 mg total) by mouth 1 (one) time each day. 5 Active metoprolol succinate (TOPROL-XL) 25 mg 24 hr tablet Take 1 tablet (25 mg total) by mouth 1 (one) time each day. 5 Active Myrbetriq 50 mg tablet extended release 24 hr 24 hr tablet Take 1 tablet (50 mg total) by mouth 1 (one) time each day. 5 Active naproxen (NAPROSYN) 250 mg tablet Take 1 tablet (250 mg total) by mouth 2 (two) times a day if needed. for pain 5 Active nitroglycerin (NITROSTAT) 0.[address] 1 tablet (0.4 mg total) under the tongue every 5 (five) minutes if needed. 5 Active omeprazole (PriLOSEC) [address] capsule Take 1 capsule (20 mg total) by mouth 1 (one) time each day. 5 Active pregabalin (LYRICA) 150 mg capsule Take 1 capsule (150 mg total) by mouth 1 (one) time each day. Max Daily Amount: 150 mg 5 Active rosuvastatin (CRESTOR) 40 mg tablet Take 1 tablet (40 mg total) by mouth 1 (one) time each day. 5 Active senna 8.6 mg tablet Take 2 tablets (17.2 mg total) by mouth 1 (one) time each day. at bedtime Active traMADoL (ULTRAM) 50 mg tablet Take 1 tablet (50 mg total) by mouth at bedtime. Max Daily Amount: 50 mg Active triamcinolone (KENALOG) 0.5 % cream Apply topically 2 (two) times a day. Active venlafaxine XR (EFFEXOR-XR) 150 mg 24 hr capsule Take 1 capsule (150 mg total) by mouth 1 (one) time each day in the morning. Active Active Problems Problem Noted Date Diagnosed Date Lung disease, emphysema ([facility] V24, [facility] V2 8) 04/24/2025 Osteoporosis 04/24/2025 A-fib ([facility] V24, [facility] V28) 04/24/2025 Neuropathy involving both lower extremities 06/2025 Rotator cuff tear 04/24/2025 Encounters Date Type Department Care Team Description 04/24/2025 1:00 PM EDT Office Visit Pulmonolgy - [address] [phone] Ceci Barton MD Chronic obstructive pulmonary disease, unspecified COPD type ([facility] V24, [facility] V28) (Primary Dx); Chronic a-fib ([facility] V24, [facility] V28); Localized osteoporosis without current pathological fracture; Primary hypertension from Last 3 Months Social History Tobacco Use Types Packs/Day Years Used Date Smoking Tobacco: Never Smokeless Tobacco: Never Comments Unknown Sex and Gender Information Value Date Recorded Sex Assigned at Not on file Legal Sex Female 7:37 PM EST Gender Identity Not on file Sexual Orientation Not on file Obstetrics History Last Filed Vital Signs Vital Sign Reading Time Taken Comments Blood Pressure 152/97 04/24/2025 1:27 PM EDT Pulse 87 04/24/2025 1:27 PM EDT Temperature 36.7 C (98 F) 04/24/2025 1:27 PM EDT Respiratory Rate 20 04/24/2025 1:27 PM EDT Oxygen Saturation 98% 04/24/2025 1:27 PM EDT Inhaled Oxygen Concentration - - Weight 75.8 kg (167 lb) 04/24/2025 1:27 PM EDT Height 167.6 cm (5' 6 ) 04/24/2025 1:27 PM EDT Body Mass Index 26.95 04/24/2025 1:27 PM EDT Plan of Treatment Upcoming Encounters Date Type Department Care Team ([facility] st Contact Info) Description 07/31/2025 2:15 PM EDT [facility] [address] [place] [id number] 07/31/2025 3:00 PM EDT [facility] [address] [place] [phone] Ceci Barton MD [address] [id number] Health Maintenance Due Date Last Done Comments DTaP,Tdap,and Td Vaccines (1 - Tdap) 1964 Zoster Vaccines (2 of 2) 04/08/2023 02/11/2023 Depression Screening 10/17/2024 COVID-19 Vaccine ( season) 2025 08/02/2024, 11/10/2023, 09/02/2022, Additional history exists Cholesterol Screening (Lipid Panel) 04/19/2025 Falls Risk Assessment 04/19/2025 Medicare Annual Wellness Visit 04/19/2025 Social Influencers of Health Screening 04/19/2025 Hypertension/CHF/CAD Annual BMP Blood Test 04/24/2025 Influenza Vaccine (#1) 2025 , 07/27/2023, 08/10/2022, Additional history exists Osteoporosis Screening (Bone Density Screening) 05/12/2031 05/12/2021 Pneumococcal Vaccine: 50+ Years Completed 08/24/2018, 08/11/2018, 07/23/2015 RSV Immunization Adult Patients Completed 11/10/2023 HIB Vaccines Aged Out No longer eligi ble based on patient's age to complete this topic HPV Vaccines Aged Out No longer eligi ble based on patient's age to complete this topic Hepatitis A Vaccines Aged Out No long er eligible based on patient's age to complete this topic Hepatitis B Vaccines Aged Out No long er eligible based on patient's age to complete this topic IPV Vaccines Aged Out No longer eligi ble based on patient's age to complete this topic MMR Vaccines Aged Out No longer eligi ble based on patient's age to complete this topic Meningococcal ACWY Vaccine Aged Out N o longer eligible based on patient's age to complete this topic Meningococcal B Vaccine Aged Out No l onger eligible based on patient's age to complete this topic RSV Immunization Patients Under 20 months Aged Out No longer eligible based on patient's age to complete this topic Varicella Vaccines Aged Out No longer eligible based on patient's age to complete this topic Procedures Procedure Name Priority Date/Time Associated Diagnosis Comments [facility] DEXA AXIAL SKELETON Routine 05/12/2021 3:00 PM EDT Other specified disorders of bone density and structure, multiple sites from Last 3 Months or Most Recently Relevant to Health Maintenance Results * [facility] DEXA AXIAL SKELETON (05/12/2021 3:00 PM EDT) Anatomical Region Laterality Modality Mammography 05/12/2021 12:5 1 PM EDT Narrative 05/12/2021 3:00 PM EDT [facility] Diagnostic Imaging Department [address] [place] [address] Patient: EDIE LEACH /Age/Sex: 1945 - 76 - F Unit#: [id number] Location/Status: SPDIMAM/REG CLI Mnemonic/Ordering Site: MAMDEXAAX/SPMAM Ordering Physician: CECI BARTON MD Aamir Dexa Axial Skeleton - 05/12/21 - 7943 HISTORY: The patient is a 76-year-old postmenopausal female with clinical concern for metabolic bone disease. FINDINGS: Dual energy x-ray absorptiometry of the lumbar spine and femurs is performed. The mean bone mineral density at L1-L4 (with the exclusion of L2 and L3) is 0.986 gm/cm2 which is 81% of that of young normals and 95% of that of age matched controls. This yields a T-score of -1.9 and a Z-score of -0.5 which is diagnostic of osteopenia. The mean bone mineral density of the femurs bilaterally is 0.777 gm/cm2 which is 77% of that of young normals and 96% of that of age matched controls. This yields a T-score of -1.8 and a Z-score of -0.2 which is diagnostic of osteopenia. IMPRESSION: 1. Osteopenia. There has been an increase of 9.9% in bone mineral density in the lumbar spine since the prior examination of 05/26/2016. There has been an increase of 13.7% in bone mineral density in the right femur and a decrease of 1.2% in bone mineral density in the left femur. 2. FRAX analysis yields a 10-year probability of major osteoporotic fracture of 13.5% and a 10-year probability of hip fracture of 3.5%. Code 78648 Dictating Physician: KEANU PRINGLE MD Electronically Signed by: KEANU PRINGLE MD Dic Date/Time: 05/12/21 1458 Sign date/Time: 05/12/21 1500 Procedure Note Keanu Pringle MD - 10/13/2022 [facility] Diagnostic Imaging Department [address] [place] [id number] Patient: EDIE LEACH/Age/Sex: 1945 - 76 - F Unit#: [id number] Location/Status: SPDIMAM/REG CLI Mnemonic/Ordering Site: MAMDEXAAX/SPMAM Ordering Physician: CECI BARTON MD Aamir Dexa Axial Skeleton - 05/12/21 - 1319 HISTORY: The patient is a 76-year-old postmenopausal female withclinical concern for metabolic bone disease. FINDINGS: Dual energy x-ray absorptiometry of the lumbar spine and femursis performed. The mean bone mineral density at L1-L4 (with the exclusion ofL2 and L3) is 0.986 gm/cm2 which is 81% of that of young normals and 95% of thatof age matched controls. This yields a T-score of -1.9 and a Z-score of -0.5which is diagnostic of osteopenia. The mean bone mineral density of the femurs bilaterally is 0.777 gm/hl9mfliy is 77% of that of young normals and 96% of that of age matched controls.This yields a T-score of -1.8 and a Z-score of -0.2 which is diagnostic of osteopenia. IMPRESSION: 1. Osteopenia. There has been an increase of 9.9% in bone mineral densityin the lumbar spine since the prior examination of 05/26/2016. There has beenan increase of 13.7% in bone mineral density in the right femur and adecrease of 1.2% in bone mineral density in the left femur. 2. FRAX analysis yields a 10-year probability of major osteoporoticfracture of 13.5% and a 10-year probability of hip fracture of 3.5%. Code 84504 Dictating Physician: KEANU PRINGLE MD Electronically Signed by: KEANU PRINGLE MD Dic Date/Time: 05/12/21 2862 Sign date/Time: 05/12/21 1500 us Ceci Barton MD IMG BI PROCEDURES Final Resu lt from Last 3 Months or Most Recently Relevant to Health Maintenance Insurance [employer] MEDICARE [place]ICAID - [place] Care Teams Primary Products Inspectors Relationship Specialty Start Date End Date Jennifer Gordillo PA [address] [place] [address] PCP - General 04/24/25
== END 2025-05-16 14:40 | disposition home or self-care (01) ==
LOC: HO.HMCH 14:03
PROVIDERS: PCP Internal Medicine
DX: I25.10 Atherosclerotic heart disease of native coronary artery without angina pectoris (principal); E78.2 Mixed hyperlipidemia; I10 Essential (primary) hypertension; G62.9 Polyneuropathy, unspecified; I73.9 Peripheral vascular disease, unspecified

== ENCOUNTER → 2025-05-16 14:02 | Outpatient (BNVA) | payer MEDICARE, SELFPAY | PROVIDERS: PCP Internal Medicine | DX: I25.10 Atherosclerotic heart disease of native coronary artery without angina pectoris (principal); E78.2 Mixed hyperlipidemia; I10 Essential (primary) hypertension; G62.9 Polyneuropathy, unspecified; I73.9 Peripheral vascular disease, unspecified | CPT/HCPCS: 99212 ==

== ENCOUNTER 2025-06-05 12:20 | Outpatient (REF) | payer MEDICARE, MEDICAID, SELFPAY ==
[2025-06-05 12:38] LABS: MANUAL DIFF FLAG NO
--- OUTSIDE RECORDS SUMMARY | 2025-06-05 13:20 | XMS_ITS | Clinical Summary ---
Author Organization 175 [facility] Address 175 [place] [address] Phone Care Team Providers Care Tree Faller Name Role Phone Jennifer Gordillo Primary Care Provider [phone] Medications albuterol HFA (PROAIR HFA ; PROVENTIL [...] Noted Date Diagnosed Date Lung disease, emphysema ([facility] V24, [facility] V2 8) 04/24/2025 Osteoporosis 04/24/2025 A-fib ([facility] V24, [facility] V28) 04/24/2025 Neuropathy involving both lower extremities 06/2025 Rotator cuff tear 04/24/2025 Encounters Date Type Department Care Team Description 04/24/2025 1:00 PM EDT Office Visit Pulmonolgy - [address] [address] Ceci Barton MD Chronic obstructive pulmonary disease, unspecified COPD type ([facility] V24, [facility] V28) (Primary Dx); Chronic a-fib ([facility] V24, [facility] V28); Localized osteoporosis without current pathological fracture; [...] Upcoming Encounters Date Type Department Care Team ([facility] st Contact Info) Description 07/31/2025 2:15 PM EDT [facility] [address] [place] [phone] 07/31/2025 3:00 PM EDT [facility] [address] [place] [phone] Ceci Barton MD [address] [address] Health Maintenance Due Date Last Done Comments [...] Procedure Name Priority Date/Time Associated Diagnosis Comments [facility] DEXA AXIAL SKELETON Routine 05/12/2021 3:00 PM EDT Other specified disorders of bone density and structure, multiple sites from Last 3 Months or Most Recently Relevant to Health Maintenance Results * [facility] DEXA AXIAL SKELETON (05/12/2021 3:00 PM EDT) Anatomical Region Laterality Modality Mammography 05/12/2021 12:5 1 PM EDT Narrative 05/12/2021 3:00 PM EDT [facility] Diagnostic Imaging Department [address] [place] [address] Patient: EDIE LEACH /Age/Sex: 1945 - 76 - F Unit#: [id number] Location/Status: SPDIMAM/REG CLI Mnemonic/Ordering Site: MAMDEXAAX/SPMAM Ordering Physician: CECI BARTON MD Aamir Dexa Axial Skeleton - 05/12/21 - 4913 HISTORY: The patient is a 76-year-old postmenopausal [...] probability of hip fracture of 3.5%. Code 90722 Dictating Physician: KEANU PRINGLE MD Electronically Signed by: KEANU PRINGLE MD Dic Date/Time: 05/12/21 1458 Sign date/Time: 05/12/21 1500 Procedure Note Keanu Pringle MD - 10/13/2022 [facility] Diagnostic Imaging Department [address] [place] [address] Patient: EDIE LEACH/Age/Sex: 1945 - 76 - F Unit#: [id number] Location/Status: SPDIMAM/REG CLI Mnemonic/Ordering Site: MAMDEXAAX/SPMAM Ordering [...] density of the femurs bilaterally is 0.777 gm/[id number] is 77% of that of young normals [...] probability of hip fracture of 3.5%. Code 00595 Dictating Physician: KEANU PRINGLE MD Electronically Signed by: KEANU PRINGLE MD Dic Date/Time: 05/12/21 1849 Sign date/Time: 05/12/21 1500 us Ceci Barton MD IMG BI PROCEDURES Final Resu lt from Last 3 Months or Most Recently Relevant to Health Maintenance Insurance [employer] [place] [address] MEDICAID - [place] Care Teams Tree Faller Relationship Specialty Start Date End Date Jennifer Gordillo PA [address] [place] [address] PCP - General 04/24/25
[2025-06-05 13:51] LABS: Hematocrit 39.9 % (37.0-47.0); Hemoglobin 12.2 g/dl (12.0-16.0); Imm Gran Abs Auto 0.02 X10*3/uL (0.00-0.03); Imm Gran Pct Auto 0.4 % (0.0-0.4); Lymphocytes Absolute Auto 1.1 X10*3/uL (1.2-4.9); Mean Corpuscular HGB Conc 30.6 g/dl (31.0-35.0); Mean Corpuscular Hemoglobin 25.3 pg (27.0-33.0); Mean Corpuscular Volume 82.8 fL (80.0-98.0); NRBC Abs Auto 0.000 X10*3/uL (0.0-0.012); NRBC Pct Auto 0.0 /100WBC (0.0-0.2); Platelet Count 245 X10*3/uL (160-400); Red Blood Count 4.82 X10*6/uL (4.20-5.50); White Blood Count 4.5 X10*3/uL (4.8-10.8)
[2025-06-05 14:37] LABS: Alanine Aminotransferase 17 U/L (0-31); Albumin Level 4.3 g/dL (3.5-5.0); Alkaline Phosphatase 36 U/L (39-117); Anion Gap 12 (12-20); Aspartate Amino Transferase 35 U/L (5-31); Blood Urea Nitrogen 25 mg/dL (9-16); Calcium 9.6 mg/dL (8.4-10.2); Carbon Dioxide 31 mmol/L (22-29); Chloride 105 mmol/L (96-108); Cholesterol 130 mg/dL (<200); Estimated Glomerular Filt Rate 58; HDL Cholesterol 65 mg/dL (>40); Potassium 4.3 mmol/L (3.3-5.1); Sodium 144 mmol/L (135-145); Total Protein 6.9 g/dL (6.5-8.0); Triglycerides 50 mg/dL (<150)
[2025-06-05 14:43] LABS: Free T4 (Free Thyroxine) 0.97 ng/dL (0.71-1.85)
[2025-06-05 15:09] LABS: Folate 6.3 ng/mL (> or = 4.0); Vitamin B12 1319 pg/mL (200-900)
== END 2025-06-05 12:21 | disposition home or self-care (01) ==
LOC: HO.LAB 12:20
DX: Z00.00 Encounter for general adult medical examination without abnormal findings (principal); G62.9 Polyneuropathy, unspecified; I25.10 Atherosclerotic heart disease of native coronary artery without angina pectoris; E78.00 Pure hypercholesterolemia, unspecified; Z79.82 Long term (current) use of aspirin; Z79.899 Other long term (current) drug therapy
CPT/HCPCS: 36415; 80053; 80061; 82306; 82607; 82746; 84439; 84443; 85025; 99212

== ENCOUNTER 2025-06-05 13:32 | Outpatient (AMB) | payer MEDICARE, SELFPAY ==
--- NOTE | 2025-06-05 13:49 | A.OFFVIS_ITS ---
Vital Signs 06/05/25 13:49 Height 5 ft 6 in Intake Visit Reasons: 3 month f/u Allergies acetaminophen (From TYLENOL) Adverse Reaction (Intermediate, Verified 06/05/25 13:53) DIZZINESS, VOMITING levofloxacin (From LEVAQUIN) Adverse Reaction (Intermediate, Verified 06/05/25 13:53) NAUSEA & VOMITING Medication List - Last Reconciled 06/05/25 by Elsy Rowan, MICHAEL alendronate 70 mg PO QWEEK amitriptyline 50 mg PO BEDTIME aspirin 81 mg PO BEDTIME blood pressure monitor As directed; check BP daily budesonide-formoterol 160-4.5 mcg/actuation 2 puffs inhalation BID buspirone 5 mg PO BID calcium carbonate-vitamin D3 600 mg-10 mcg (400 unit) 1 tab PO DAILY cyclobenzaprine 5 mg PO BEDTIME PRN docusate sodium 100 mg PO BID PRN dronedarone (Multaq) 400 mg PO BID fenofibrate nanocrystallized 145 mg PO DAILY [grab bar As directed] lisinopril 5 mg PO DAILY mirabegron ER (Myrbetriq) 50 mg PO DAILY naproxen 250 mg PO BID PRN nitroglycerin 0.4 mg sublingual Q5M PRN omeprazole 20 mg PO DAILY rosuvastatin 40 mg PO DAILY sennosides (Senna Laxative) 17.2 mg (2 x 8.6 mg) PO BEDTIME [shower chair As directed] sucralfate 1 g PO Q4H tramadol 50 mg orally 1 tab at bedtime and 1 tab daily as needed; triamcinolone acetonide 0.5% 1 appl topical TID venlafaxine ER 150 mg PO QAM vitamin B complex (B Complex-Vitamin B12 tablet) 1 tab PO BEDTIME vitamin E 200 units PO BEDTIME HPI Comments Details: She was doing about the same. Pain in feet continues. She stopped amitriptyline for period of time at some point, but was back to taking medication. Tramadol as needed helped and she was able to sleep better with medication, but she ran out of medication. Still has swelling in feet, L > R, and has upcoming appointment with vascular. She was seen at [facility] in 04/16/2025 for this. No falls. Aching, burning, cramping pains and feet swelling up, L > R. Did not like how pregabalin made her feel. She was not taking medication for a period of time and it was unclear if she ever tried increased dose.?She tried Aleve as needed without any relief. Pain in legs is worse after walking or sitting for period of time. She needs to elevate her legs when sitting or else she gets pulsating feeling in legs. Sleep was disrupted. Needs more help around the house and children help her. Had fall and injured R rotator cuff.? Pain worse to L leg, felt like needles, burning-type and cramping pain. Pain from arch of left foot up to around mid-persaud level. Worse when resting, sitting, or in bed, and disrupted sleep. Swelling in legs, L > R. No significant improvement with pregabalin 150mg twice a day. Son helps to manage her medications. NCV c/w sensory axonal neuropathy. Had vascular evaluation by Dr. Roper. Her feet feel like glass balls in the feet. Right knee gave out in the past. Gabapentin caused dizziness and felt edgy, so it was stopped. Amitriptyline was better. She had 4-5 months of pins and needles in her feet and toes felt bubble wrapped. She cannot walk any distance and has pain in her feet. Found to be in afib and was cardioverted. [facility] Medical History Atrial fibrillation with rapid ventricular response Presence of Watchman left atrial appendage closure device Paroxysmal atrial fibrillation Atherosclerotic cardiovascular disease Retention of urine Post-menopausal Screening for diabetes mellitus COVID-19 vaccine series completed Mixed hyperlipidemia CAD (coronary artery disease) Surgical History History of colonoscopy History of rotator cuff surgery Stented coronary artery History of cataract surgery History of bladder surgery History of hysterectomy History of cholecystectomy Family History Father Cancer Mother Heart disease Pancreatic cancer Sister Heart disease Social History Household Members: None Housing: Condominium Alcohol intake: former Patient Tobacco Use Status: Never used Tobacco e-Cigarette/Vaping Use: Never Used Second Hand Smoke Exposure: No Advance Directives Date on File: 07/20/23 service: No Current occupational status: retired Cognitive needs: Yes (cane) Hearing needs: Yes (Hearing aide) Vision needs: Yes (Glasses) Review of Systems Const Denies chills, Denies daytime sleepiness, Reports difficulty sleeping, Reports fatigue, Denies fever(s), Denies frequent falls, Reports headache(s), Denies increased appetite, Denies poor appetite, Denies snoring, Denies weakness, Denies weight gain and Denies weight loss Eyes Denies loss of vision ENT Denies vertigo, Denies dizziness, Reports headache(s) and Denies neck pain Card Denies chest pain at rest, Denies chest pain with activity, Denies syncope, Denies leg edema, Denies palpitations, Denies dyspnea and Denies dyspnea on exertion Resp Denies cough, Denies dyspnea, Denies dyspnea on exertion and Denies snoring GI Denies abdominal pain, Denies constipation, Denies heartburn, Denies diarrhea and Denies nausea Denies urinary frequency, Denies urinary incontinence and Denies urinary urgency Musc Denies abnormal gait, Denies back pain, Reports myalgias, Reports arthralgias, Denies neck pain, Reports numbness and Reports tingling Neuro Denies abnormal gait, Denies vertigo, Denies dizziness, Denies syncope, Denies frequent falls, Reports headache(s), Denies lack of coordination, Denies loss of vision, Denies memory loss, Reports numbness, Denies Other visual disturbances, Denies restless legs, Denies seizure-like activity, Reports tingling, Denies paresthesias, Denies tremor(s) and Denies weakness Psych Reports anxiety, Reports depression, Denies auditory hallucinations, Denies memory loss and Denies visual hallucinations Endo Reports fatigue and Denies palpitations Physical Exam Const Other: General Appearance:? normal, in no acute distress. Heart:? S1, S2 normal, no murmurs. Lungs:? clear anteriorly and posteriorly. Musculoskeletal:? normal. Extremities:? no edema. Psych:? alert, oriented, cognitive function intact, cooperative with exam. Neuro Other: Abnormal Neurological Findings:?blunting of pin prick below lower 1/3 of leg, Impaired vibration to mid tarsal level on left and ankle on right. Absent ankle reflexes. Atrophy of EDB muscles. Mental Status: alert and oriented X 3. Normal attention, orientation, memory, and affect. Cranial Nerves: Pupils are equal, round, and reactive to light. External ocular muscles are intact. Visual graham are full, no ptosis. Face is symmetrical, no facial weakness or droop. Facial sensations are normal. Tongue protrudes in midline. Palate elevates symmetrically. Shoulder shrugging is normal Motor Examination: As above. Sensory Exam: As above. Coordination: No ataxia. No titubation. Gait Exam: Within normal limits. Cerebellar Signs: [id number] and yehk-[id number]-[id number] is normal. No dysdiadochokinesia. Extrapyramidal System: No tremor, rigidity with normal facial expressions. No bradykinesia. No bradyphrenia. Normal arm swing and posture. No propulsion or retropulsion. Speech: Normal. No dysphasia or dysarthria. Results Reviewed Results Reviewed: 09/02/21 NCV/EMG ALL Normal motor and sensory nerve conduction velocities in the upper extremities. Sensory axonal neuropathy with mild prolonged distal latencies compared to the study done in 2017. Normal EMG of the left C5-T1 innervated muslces. EMG of the L4-S1 innervated muscles is consistent with neuropathic changes in neuropathy. XR L ankle 09/2024: ok Assessment & Plan Assessment & Plan (1) Peripheral neuropathy: Code(s): G62.9 - Polyneuropathy, unspecified Category: Medical Qualifiers: Peripheral neuropathy type: polyneuropathy, unspecified Qualified Code(s): G62.9 - Polyneuropathy, unspecified Plan: Continue amitriptyline 50mg 1 tablet at bedtime Continue tramadol 50mg 1 tablet at bedtime and 1 tablet daily as needed #40 for 30 days She saw pain management in the past and tried topical treatment which did not help, and was not interested in follow up/referral to pain management at this time. Follow up with vascular as scheduled. Plan Meds tried: Could not take Pregabalin or Gabapentin because of side effects, amitriptyline Medications: New tramadol 50 mg orally 1 tab at bedtime and 1 tab daily as needed; 30 tabs 2RF 30 days Coding Level of Care Code Est Pt Level 4 (30329) Diagnoses Peripheral polyneuropathy G62.9 Peripheral neuropathy type: polyneuropathy, unspecified
== END 2025-06-05 14:14 | disposition home or self-care (01) ==
LOC: HO.HSM 13:34
PROVIDERS: PCP Internal Medicine; Referring Provider Internal Medicine; Visit Provider Registered Nurse
DX: G62.9 Polyneuropathy, unspecified (principal)
CPT/HCPCS: 99214

== ENCOUNTER 2025-07-23 13:53 | Outpatient (REF) | payer MEDICARE, SELFPAY ==
--- NOTE | ~2025-07-23 | US_ITS ---
EXAMINATION: US NONINVASIVE ASSESSMENT OF THE bilateral LOWER EXTREMITY WITH ARTERIAL DUPLEX AND ANKLE BRACHIAL INDICES (ABIS) CLINICAL INFORMATION: Peripheral vascular disease COMPARISON: Previous exam June 2024 TECHNIQUE: Duplex Doppler techniques with waveform analysis and measurement of velocities in the common femoral, profunda femoris, superficial femoral, popliteal and tibial arteries were performed. In addition, ankle pulse volume recordings, ankle pressure measurements and ankle brachial indices were obtained of the bilateral lower extremity arterial system. The study was performed only at rest. FINDINGS: NONINVASIVE ASSESSMENT OF THE ARTERIES OF BILATERAL LOWER EXTREMITIES WITH ABIs: RIGHT LEG: Ankle-brachial index: Patient could not tolerate Ankle PVR: Normal LEFT LEG: Ankle-brachial index: 1.21 Left ankle PVR: Normal JR Reference: 0.9 - 1.4 = normal - no significant arterial disease 0.7 - 0.89 = mild peripheral arterial disease 0.51 - 0.69 = moderate peripheral arterial disease 0.50 = severe peripheral arterial disease RIGHT LOWER EXTREMITY DUPLEX ULTRASOUND: Diffuse atherosclerotic plaque. Common femoral artery: 116 cm/s. Diastolic flow reversal: Yes. Triphasic Profunda femoris artery: 40 cm/s. Diastolic flow reversal: Yes. Biphasic Superficial femoral artery (proximal): 121 cm/s. Diastolic flow reversal: Yes biphasic Superficial femoral artery (mid): 111 cm/s. Diastolic flow reversal: Yes biphasic Superficial femoral artery (distal): 77 cm/s. Diastolic flow reversal: Yes triphasic Popliteal artery: 54 cm/s. Diastolic flow reversal: Yes biphasic Posterior tibial artery: 69 cm/s Diastolic flow reversal: Yes phasic The right anterior tibial artery and dorsalis pedis artery are patent. LEFT LOWER EXTREMITY DUPLEX ULTRASOUND: Common femoral artery: 87 cm/s. Diastolic flow reversal: Yes triphasic Profunda femoris artery: 32 cm/s. Diastolic flow reversal: Yes biphasic Superficial femoral artery (proximal): 68 cm/s. Diastolic flow reversal: Yes biphasic Superficial femoral artery (mid): 93 cm/s. Diastolic flow reversal: Yes biphasic Superficial femoral artery (distal): 68 cm/s. Diastolic flow reversal: Yes biphasic Popliteal artery: 59 cm/s Diastolic flow reversal: Yes biphasic Posterior tibial artery: 82 cm/s Diastolic flow reversal: Yes biphasic Left anterior tibial artery and dorsalis pedis artery are patent. US/US arterial duplex BI w/ JR IMPRESSION: Mild atherosclerotic disease. The patient could not tolerate right JR. Left JR is normal measuring 1.2. Normal PVRs. No increased peak systolic velocity to suggest stenosis. Biphasic to triphasic waveforms throughout both extremities. Electronically signed by: Adalgisa Toledo MD 07/23/2025 04:12 PM EDT RP
--- OUTSIDE RECORDS SUMMARY | 2025-07-23 17:10 | XMS_ITS | Clinical Summary ---
Author Organization 175 [facility] Address [address] [place] [address] Phone Care Team Providers Care Manager Story Name Role Phone Jennifer Gordillo Primary Care Provider [phone] Medications albuterol HFA (PROAIR HFA ; PROVENTIL [...] Noted Date Diagnosed Date Lung disease, emphysema ([facility] V24, [facility] V2 8) 04/24/2025 Osteoporosis 04/24/2025 A-fib ([facility] V24, [facility] V28) 04/24/2025 Neuropathy involving both lower extremities 06/2025 Rotator cuff tear 04/24/2025 Encounters Date Type Department Care Team Description 04/24/2025 1:00 PM EDT Office Visit Pulmonology - [address] [phone] Ceci Barton MD Chronic obstructive pulmonary disease, unspecified COPD type ([facility] V24, [facility] V28) (Primary Dx); Chronic a-fib ([facility] V24, [facility] V28); Localized osteoporosis without current pathological fracture; [...] Upcoming Encounters Date Type Department Care Team (Late st Contact Info) Description 07/31/2025 2:15 PM EDT Ancillary Procedure Pulmonology [facility] 175 [facility] [address] [place] [phone] 07/31/2025 3:00 PM EDT Office Visit Pulmonology [facility] 175 [facility] [address] [place] [phone] Ceci Barton MD [address] [place] [phone] Health Maintenance Due Date Last Done Comments DTaP,Tdap,and Td Vaccines (1 - Tdap) 1964 Zoster Vaccines (2 of 2) 04/08/2023 02/11/2023 Depression Screening 10/17/2024 Cholesterol Screening (Lipid Panel) 04/19/2025 Falls Risk Assessment 04/19/2025 Medicare Annual Wellness Visit 04/19/2025 Social Influencers of Health Screening 04/19/2025 Hypertension/CHF/CAD Annual BMP Blood Test 04/24/2025 COVID-19 Vaccine ( season) 2025 08/02/2024, 11/10/2023, 09/02/2022, Additional history exists Influenza Vaccine (#1) 2025 , 07/27/2023, 08/10/2022, [...] Procedure Name Priority Date/Time Associated Diagnosis Comments [facility] DEXA AXIAL SKELETON Routine 05/12/2021 3:00 PM EDT Other specified disorders of bone density and structure, multiple sites from Last 3 Months or Most Recently Relevant to Health Maintenance Results * [facility] DEXA AXIAL SKELETON (05/12/2021 3:00 PM EDT) Anatomical Region Laterality Modality Mammography 05/12/2021 12:5 1 PM EDT Narrative 05/12/2021 3:00 PM EDT [facility] Diagnostic Imaging Department [address] [place] [address] Patient: EDIE LEACHO.B./Age/Sex: 1945 - 76 - F Unit#: [id number] Location/Status: SPDIMAM/REG CLI Mnemonic/Ordering Site: MAMDEXAAX/SPMAM Ordering Physician: CECI BARTON MD Aamir Dexa Axial Skeleton - 05/12/21 - 1312 HISTORY: The patient is a 76-year-old postmenopausal [...] probability of hip fracture of 3.5%. Code 45800 Dictating Physician: KEANU PRINGLE MD Electronically Signed by: KEANU PRINGLE MD Dic Date/Time: 05/12/21 1458 Sign date/Time: 05/12/21 1500 Procedure Note Keanu Pringle MD - 10/13/2022 [facility] Diagnostic Imaging Department [address] [place] [address] Patient: EDIE LEACH/Age/Sex: 1945 - 76 - F Unit#: [id number] Location/Status: SPDIMAM/REG CLI Mnemonic[facility] Ordering Physician: CECI BARTON MD Aamir Dexa [...] density of the femurs bilaterally is 0.777 gm/[id number] is 77% of that of young normals [...] probability of hip fracture of 3.5%. Code 10108 Dictating Physician: KEANU PRINGLE MD Electronically Signed by: KEANU PRINGLE MD Dic Date/Time: 05/12/21 1455 Sign date/Time: 05/12/21 1500 us Ceci Barton MD IMG BI PROCEDURES Final Resu lt from Last 3 Months or Most Recently Relevant to Health Maintenance Insurance [employer] MEDICARE MEDICAID - [place] Care Teams Manager Story Relationship Specialty Start Date End Date Jennifer Gordillo PA [address] [place] [address] PCP - General 04/24/25
== END 2025-07-23 13:54 | disposition home or self-care (01) ==
LOC: HO.US 13:53
PROVIDERS: Visit Provider Surgery Vascular Surgery
DX: I73.9 Peripheral vascular disease, unspecified (principal)
CPT/HCPCS: 93922; 93925

== ENCOUNTER → 2025-07-23 14:04 | Outpatient (BNV) | payer MEDICARE, SELFPAY | PROVIDERS: Visit Provider Radiology Diagnostic Radiology | DX: I73.9 Peripheral vascular disease, unspecified (principal) | CPT/HCPCS: 93922; 93925 ==

== ENCOUNTER 2025-08-06 13:49 | Outpatient (AMB) | payer MEDICARE, SELFPAY ==
--- NOTE | 2025-08-06 13:53 | MHC.OFFVIS ---
Vital Signs 08/06/25 13:54 Height 5 ft 6 in Weight 174 lb 2.643 oz BMI 28.1 BP 128/78 Blood Pressure Location Lt brachial Position Sitting Pulse 108 H Intake Visit Reasons: 6 mth f/up w/ ekg Intake Note: 6 sathya follow-up with ekg c/o have short runs of afib Pattern Storage Clerk Required: No Allergies acetaminophen (From TYLENOL) Adverse Reaction (Intermediate, Verified 06/05/25 13:53) DIZZINESS, VOMITING levofloxacin (From LEVAQUIN) Adverse Reaction (Intermediate, Verified 06/05/25 13:53) NAUSEA & VOMITING Medication List - Last Reconciled 08/06/25 by Jose Alberto Vang MD alendronate 70 mg PO QWEEK amitriptyline 50 mg PO BEDTIME aspirin 81 mg PO BEDTIME blood pressure monitor As directed; check BP daily budesonide-formoterol 160-4.5 mcg/actuation 2 puffs inhalation BID buspirone 5 mg PO BID calcium carbonate-vitamin D3 600 mg-10 mcg (400 unit) 1 tab PO DAILY cyclobenzaprine 5 mg PO BEDTIME PRN docusate sodium 100 mg PO BID PRN dronedarone (Multaq) 400 mg PO BID fenofibrate nanocrystallized 145 mg PO DAILY [grab bar As directed] lisinopril 5 mg PO DAILY mirabegron ER (Myrbetriq) 50 mg PO DAILY naproxen 250 mg PO BID PRN nitroglycerin 0.4 mg sublingual Q5M PRN omeprazole 20 mg PO DAILY rosuvastatin 40 mg PO DAILY sennosides (Senna Laxative) 17.2 mg (2 x 8.6 mg) PO BEDTIME [shower chair As directed] sucralfate 1 g PO Q4H tramadol 50 mg orally 1 tab at bedtime and 1 tab daily as needed; 30 days triamcinolone acetonide 0.5% 1 appl topical TID venlafaxine ER 150 mg PO QAM vitamin B complex (B Complex-Vitamin B12 tablet) 1 tab PO BEDTIME vitamin E 200 units PO BEDTIME HPI Comments Details: Edie comes for follow-up. She continues to have symptoms with bilateral lower extremity discomfort, initially diagnose neuropathy been seen by Neurology and has been referred to vascular surgery for home she is undergoing workup. She is very frustrated with overall held and says that she feels bored. She has been noticing some increased symptoms of palpitation with short runs of fluttering in his chest happening more frequently especially when she tries to whitt. She takes all her medications. No prolonged episode of palpitations. Denies any changes in his overall health. [facility] Medical History Atrial fibrillation with rapid ventricular response Presence of Watchman left atrial appendage closure device Paroxysmal atrial fibrillation Atherosclerotic cardiovascular disease Retention of urine Post-menopausal Screening for diabetes mellitus COVID-19 vaccine series completed Mixed hyperlipidemia CAD (coronary artery disease) Surgical History History of colonoscopy History of rotator cuff surgery Stented coronary artery History of cataract surgery History of bladder surgery History of hysterectomy History of cholecystectomy Family History Father Cancer Mother Heart disease Pancreatic cancer Sister Heart disease Social History Household Members: None Housing: Condominium Alcohol intake: former Patient Tobacco Use Status: Never used Tobacco e-Cigarette/Vaping Use: Never Used Second Hand Smoke Exposure: No Advance Directives Date on File: 07/20/23 service: No Current occupational status: retired Cognitive needs: Yes (cane) Hearing needs: Yes (Hearing aide) Vision needs: Yes (Glasses) Review of Systems Const Denies chills, Denies fatigue, Denies fever(s), Denies frequent falls, Denies weakness, Denies weight gain and Denies weight loss ENT Denies dizziness Card Denies chest pain, Denies leg edema, Denies lightheadedness, Reports palpitations, Denies dyspnea, Denies dyspnea on exertion, Denies orthopnea and Denies other (loss of consciousness) Resp Denies cough, Denies dyspnea and Denies dyspnea on exertion GI Denies hematochezia and Denies change in stool character Musc Denies abnormal gait, Denies muscle weakness, Denies numbness, Denies radiating pain into limb and Denies tingling Neuro Denies abnormal gait, Denies dizziness, Denies frequent falls, Denies numbness, Denies tingling and Denies weakness Endo Denies fatigue and Reports palpitations Physical Exam Vital Signs: Last Vital Signs Pulse 108 H 08/06/25 13:54 BP 128/78 08/06/25 13:54 BMI result Body Mass Index 28.1 Const General: cooperative, healthy appearing, comfortable and no acute distress Orientation/consciousness: patient oriented x3 Neck Neck: Yes normal visual inspection Resp Effort & Inspection: normal respiratory effort Auscultation: clear to auscultation bilaterally, no crackles, no rales, no rhonchi and no wheezes Cardio Jugular venous distension: no JVD Rate: tachycardic Rhythm: regular rhythm and abnormal rhythm with ectopic beats Heart sounds: S1 normal heart sound present, S2 normal heart sound present, Murmur heart sound present (2/6 systolic, right sternal border) systolic mid, decrescendo and crescendo and no rubs Skin General skin exam: no rashes or lesions noted and ecchymosis Neuro General: patient oriented x3 Extrem General: Yes normal to inspection Psych Appearance: grossly normal Mental Status: mental status grossly normal Speech and movement: Normal speech and movement present Office Procedures EKG Details: EKG shows sinus tachycardia with PACs with poor R-wave progression most likely lead placement 13486-[id number], Complete Assessment & Plan Assessment & Plan (1) Paroxysmal atrial fibrillation: Code(s): I48.0 - Paroxysmal atrial fibrillation Category: Medical Plan: Paroxysmal atrial fibrillation oral has remained suppressed on dronedarone therapy with increased symptoms recently more likely related to stress. She has elevated heart rate as well as PACs on today's EKGs. Will suggest to start metoprolol 25 mg to her regimen. Avoidance of soft stress and stress mitigation strategies were discussed. Avoidance of stimulants was discussed. She understands agrees. Status post Watchman device. Continue low-dose aspirin therapy. Holter monitor in 1 month's time. (2) CAD (coronary artery disease): Code(s): I25.10 - Atherosclerotic heart disease of [place] coronary artery without angina pectoris Category: Medical Plan: CAD status post prior stenting to the RCA. No current symptoms of angina. Continue aggressive medical therapy. Currently on low-dose aspirin therapy which will be continued. Blood pressure is currently well optimized. Currently on high-intensity statin therapy along with ezetimibe and fibrate therapy. LDL is well optimized. Will follow up in the clinic in 3 months for EKG in 6 months with me. Thank you for allowing me to partake in her care Orders: Orders ECG 7 day holter monitor 1 Month I48.0 - Paroxysmal atrial fibrillation Medications: New metoprolol succinate ER (Toprol XL) 25 mg PO DAILY 30 tabs 5RF Coding Level of Care Code Est Pt Level 4 (23907) Complex EM visit Add On G2211 Diagnoses Paroxysmal atrial fibrillation I48.0 CAD (coronary artery disease) I25.10 CPT Codes EKG - CPT: 02147-Sxabmafeucglxyuzj, Complete ([id number])
[2025-08-06 13:54] VITALS: BP 128/78; PULSE 108; BMI 28.1
--- OUTSIDE RECORDS SUMMARY | 2025-08-06 18:28 | XMS_ITS | Clinical Summary ---
Author Organization [address] [facility] Address [address] [place] [address] Phone Care Team Providers Care Industrial Editor Name Role Phone Jennifer Gordillo Primary Care Provider Medications albuterol HFA (PROAIR HFA ; PROVENTIL [...] (one) time each day. 5 Active lidocaine-prilo ajnnet (EMLA) 2.5-2.5 % cream Apply 1 Application [...] Noted Date Diagnosed Date Lung disease, emphysema ([facility] V24, [facility] V2 8) 04/24/2025 Osteoporosis 04/24/2025 A-fib ([facility] V24, [facility] V28) 04/24/2025 Neuropathy involving both lower extremities 06/2025 Rotator cuff tear 04/24/2025 Social History Tobacco Use Types Packs/Day Years [...] Care Team (Late st Contact Info) Description 08/08/2025 1:00 PM EDT Ancillary Procedure Pulmonology - [address] [place] [address] 08/08/2025 1:45 PM EDT Office Visit Pulmonology - [address] [place] [address] Ceci Barton MD [facility] [place] [address] Health Maintenance Due Date Last Done Comments DTaP,Tdap,and Td Vaccines (1 - Tdap) 1964 Zoster Vaccines (2 of 2) 04/08/2023 02/11/2023 Depression Screening 10/17/2024 Falls Risk Assessment 04/19/2025 Medicare Annual Wellness Visit 04/19/2025 Social Influencers of Health Screening 04/19/2025 COVID-19 Vaccine ( season) 2025 08/02/2024, 11/10/2023, [...] Procedure Name Priority Date/Time Associated Diagnosis Comments AAMIR DEXA AXIAL SKELETON Routine 05/12/2021 3:00 PM EDT Other specified disorders of bone density and structure, multiple sites from Last 3 Months or Most Recently Relevant to Health Maintenance Results * [facility] DEXA AXIAL SKELETON (05/12/2021 3:00 PM EDT) Anatomical Region Laterality Modality Mammography 05/12/2021 12:5 1 PM EDT Narrative 05/12/2021 3:00 PM EDT [facility] Diagnostic Imaging Department [address] [place], [place] [id number] Patient: EDIE LEACH /Age/Sex: 1945 - 76 - F Unit#: [id number] [facility] CLI Mnemonic[facility] Ordering Physician: CECI BARTON MD [facility] Dexa Axial Skeleton - 05/12/21 - 1769 HISTORY: The patient is a 76-year-old postmenopausal [...] probability of hip fracture of 3.5%. Code 73246 Dictating Physician: KEANU PRINGLE MD Electronically Signed by: KEANU PRINGLE MD Dic Date/Time: 05/12/21 1458 Sign date/Time: 05/12/21 1500 Procedure Note Keanu Pringle MD - 10/13/2022 [facility] Diagnostic Imaging Department [address] [place] [address] Patient: EDIE LEACHO.B./Age/Sex: 1945 - 76 - F Unit#: [id number] Location/Status: SPDIMAM/REG CLI Mnemonic/Ordering Site: MAMDEXAAX/SPMAM Ordering [...] density of the femurs bilaterally is 0.777 gm/ju8drdqm is 77% of that of young normals [...] probability of hip fracture of 3.5%. Code 33743 Dictating Physician: KEANU PRINGLE MD Electronically Signed by: KENAU PRINGLE MD Dic Date/Time: 05/12/21 1458 Sign date/Time: 05/12/21 1500 Ceci Barton MD IMG BI PROCEDURES Final Resu lt from Last 3 Months or Most Recently Relevant to Health Maintenance Insurance [employer] MEDICARE MEDICAID - [place] Care Teams Industrial Editor Relationship Specialty Start Date End Date Jennifer Gordillo PA [address] [place] [address] PCP - General 04/24/25
== END 2025-08-06 14:15 | disposition home or self-care (01) ==
LOC: HO.HCS 13:51
PROVIDERS: PCP Internal Medicine; Visit Provider Internal Medicine Cardiovascular Disease
DX: I48.0 Paroxysmal atrial fibrillation (principal); I25.10 Atherosclerotic heart disease of native coronary artery without angina pectoris
CPT/HCPCS: 93010; 99214; G2211

== ENCOUNTER → 2025-08-06 13:49 | Outpatient (BNVA) | payer MEDICARE, SELFPAY | PROVIDERS: PCP Internal Medicine; Visit Provider Internal Medicine Cardiovascular Disease | DX: I48.0 Paroxysmal atrial fibrillation (principal); I25.10 Atherosclerotic heart disease of native coronary artery without angina pectoris; Z95.5 Presence of coronary angioplasty implant and graft | CPT/HCPCS: 93005; 99212 ==

== ENCOUNTER 2025-08-07 13:19 | Outpatient (AMB) | payer MEDICARE, MEDICAID, SELFPAY ==
--- NOTE | 2025-08-07 13:31 | A.OFFVIS_ITS ---
Intake Visit Reasons: 1 year follow up Intake Note: Patient presents today for a 1yr follow-up Urology Meds- Myrbetriq, VITAMIN B12, Amitriptyline Allergies to Antibiotic- Levofloxacin Blood Thinner- Aspirin PVR:0ml Director Of Revenue Required: No Allergies acetaminophen (From TYLENOL) Adverse Reaction (Intermediate, Verified 08/07/25 13:31) DIZZINESS, VOMITING levofloxacin (From LEVAQUIN) Adverse Reaction (Intermediate, Verified 08/07/25 13:31) NAUSEA & VOMITING HPI Comments Details: 08/07/25--Edie is an 80-year-old female who is followed for overactive bladder symptoms comorbidity history of TIA. She also has a history of atrial fibrillation She has had sacral neuromodulation with Medtronic InterStim currently on Myrbetriq 50 mg. Results - Urinalysis: Negative for blood and leukocytes Plan Overactive Bladder - Continue Mirabegron 50 mg as it effectively manages symptoms. - Follow-up scheduled in nine months to reassess symptoms and medication effica cy. 08/02/24--Edie is a 79-year-old female who presents today to the office for a follow-up for OAB. h/o TIA, h/o Medtronic interstim, on Myrbetriq 50 mg daily. She states she is doing well. Annual FU. 08/04/23? She is followed today for OAB, LUTS. She was last seen by me on 01/20/23 for urinary frequency. The patient was advised to continue Myrbetriq 50 mg QD. She states that she recently hospitalized for TIA and she is slowly improving. She states her bladder symptoms are stable. Last visit: 01/20/2023-- Edie is a 77-year-old female who is on Myrbetriq 50 mg QD. The patient underwent Medtronic interstim placement in 2014.? On 02/23/2021-- the patient had new battery/pacemaker placed by Dr. Darnell.? The patient states her Medtronic interstim is working well.? States since she was last seen in the office she had shingles on her right cheek and bilateral lower limbs.? The patient wears a pad which is usually dry.? Denies having UTI in the past.? Evaluation today: Blood: negative, leukocytes: negative. Bladder scan PVR: 0 mL.? [facility] Medical History Atrial fibrillation with rapid ventricular response Presence of Watchman left atrial appendage closure device Paroxysmal atrial fibrillation Atherosclerotic cardiovascular disease Retention of urine Post-menopausal Screening for diabetes mellitus COVID-19 vaccine series completed Mixed hyperlipidemia CAD (coronary artery disease) Surgical History History of colonoscopy History of rotator cuff surgery Stented coronary artery History of cataract surgery History of bladder surgery History of hysterectomy History of cholecystectomy Family History Father Cancer Mother Heart disease Pancreatic cancer Sister Heart disease Social History Household Members: None Housing: Condominium Alcohol intake: former Patient Tobacco Use Status: Never used Tobacco e-Cigarette/Vaping Use: Never Used Second Hand Smoke Exposure: No Advance Directives Date on File: 07/20/23 service: No Current occupational status: retired Cognitive needs: Yes (cane) Hearing needs: Yes (Hearing aide) Vision needs: Yes (Glasses) Review of Systems Const All systems reviewed & are unremarkable except as noted in HPI and below Reports no additional complaints Eyes Reports no additional complaints ENT Reports no additional complaints Card Reports no additional complaints Resp Reports no additional complaints GI Reports no additional complaints Reports as per HPI Musc Reports no additional complaints Skin/Breast Reports system reviewed and no additional complaints, except as documented Neuro Reports no additional complaints Psych Reports no additional complaints Endo Reports no additional complaints Mariano/Lymph Reports no additional complaints Aller/Immun Reports no additional complaints Assessment & Plan Assessment & Plan (1) Overactive bladder: Code(s): N32.81 - Overactive bladder Category: Medical Plan Continue Myrbetriq 50 mg. Timed Voiding. Medications: Refilled mirabegron ER (Myrbetriq) 50 mg PO DAILY 90 tabs 3RF Patient Instructions: The patient had an opportunity to ask questions regarding treatment plan. The patient expressed understanding and agreement with the above treatment plan. The patient is aware they should contact our office by phone for worsening of their current condition or the appearance of new symptoms. Compliance is encouraged with any medications and followup testing that is ordered. It is a privilege to be allowed the opportunity to participate in the urologic care of your patient. If you have any questions or concerns regarding treatment for the above conditions please do not hesitate to contact me. The office telephone contact is [phone]. This note is constructed in part using voice recognition software. While every effort has been made to ensure accuracy talent associate errors may have been included. Yours sincerely, Bella Villa MD Scribe Plan - Not visible on output: Patient was informed and verbally consented to the use of an ambient scribe for clinic note documentation during this visit. Coding Level of Care Code Est Pt Level 3 (57148) Diagnoses Overactive bladder N32.81
== END 2025-08-07 14:14 | disposition home or self-care (01) ==
LOC: HO.HUSH 13:20
PROVIDERS: PCP Internal Medicine; Visit Provider Urology
DX: N32.81 Overactive bladder (principal)
CPT/HCPCS: 99213

== ENCOUNTER → 2025-08-07 13:19 | Outpatient (BNVA) | payer MEDICARE, MEDICAID, SELFPAY | PROVIDERS: PCP Internal Medicine; Visit Provider Urology | DX: N32.81 Overactive bladder (principal) | CPT/HCPCS: 51798; 81003; 99212 ==

== ENCOUNTER 2025-08-16 09:08 | Outpatient (REF) | payer MEDICARE, MEDICAID, SELFPAY ==
--- NOTE | ~2025-08-16 | US_ITS ---
CLINICAL HISTORY: R79.89 - Other specified abnormal findings of blood chemistry US abdomen complete with color Doppler Comparison: XA - IR ANGIO ABDOMINAL W RUNOFF - 05/11/23 10:27 EDT Findings: The visualized pancreas, aorta, and inferior vena cava are unremarkable. Liver normal size and echotexture. Right lobe 12.6 cm length. No focal hepatic masses. Borderline intrahepatic ductal dilatation. Common duct twelve mm diameter. Post cholecystectomy. No sonographic Stone sign. Right kidney normal size, 10.2 cm in length. Normal cortical width and echotexture. No nephrolithiasis. Borderline hydronephrosis.Renal cortical cyst lower pole measuring 2.0 x 1.2 x 1.0 cm simple bosniak type 1 cyst. Left kidney normal, 10.6 cm in length. Normal cortical width and echotexture. No nephrolithiasis. No hydronephrosis.Benign renal cortical cyst upper pole measuring 7 x 5 x 6 mm Spleen measures 9.7 cm. No splenic masses. No ascites. No lymphadenopathy. Impression: 1. Post cholecystectomy. Dilated common bile duct without sonographic evidence of choledocholithiasis. Borderline intrahepatic ductal dilatation. Consider MRCP correlation. 2. Mild hydronephrosis on the right may be present no nephrolithiasis. Incidental renal cortical cysts bilaterally. This document has been electronically signed by: Dominik Burkett MD on 08/16/2025 21:16:56
--- OUTSIDE RECORDS SUMMARY | 2025-08-16 10:03 | XMS_ITS | Clinical Summary ---
Author Organization [address] [facility] Address [address] [place] [address] Phone Care Team Providers Care Director Agency & Strategic Partnerships Name Role Phone Jennifer Gordillo Primary Care Provider [phone] Allergies Active Allergy Reactions Criticality Noted Date Comments Acetaminophen 08/08/2025 Levofloxacin 08/08/2025 pt reports she got dizzy, and sick to her stomach Medications albuterol HFA (PROAIR HFA ; PROVENTIL [...] 1 (one) time each day. at bedtime 5 Active traMADoL (ULTRAM) 50 mg tablet Take 1 tablet (50 mg total) by mouth at bedtime. Max Daily Amount: 50 mg 5 Active triamcinolone (KENALOG) 0.5 % cream Apply topically 2 (two) times a day. 5 Active venlafaxine XR (EFFEXOR-XR) 150 mg 24 hr capsule Take 1 capsule (150 mg total) by mouth 1 (one) time each day in the morning. 5 Active budesonide-form oteroL (SYMBICORT) 160-4.5 mcg/actuation inhaler Inhale 2 puffs by mouth 2 (two) times a day. Rinse mouth with water after use to reduce aftertaste and incidence of candidiasis. Do not swallow. 10.6 g 11 5 Active albuterol HFA (Ventolin HFA) 90 mcg/actuation inhaler Inhale 2 puffs by mouth every 6 (six) hours if needed for wheezing or shortness of breath. 18 g 11 5 08/08/20 26 Active Active Problems Problem Noted Date Diagnosed Date Lung disease, emphysema ([facility] V24, [facility] V2 8) 04/24/2025 Osteoporosis 04/24/2025 A-fib ([facility] V24, [facility] V28) 04/24/2025 Neuropathy involving both lower extremities 06/2025 Rotator cuff tear 04/24/2025 Encounters Date Type Department Care Team Description 08/08/2025 1:45 PM EDT Office Visit Pulmonology - [address] [address] Ceci Barton MD Emphysema of lung ([facility] V24, [facility] V28) (Primary Dx); Neuropathy involving both lower extremities; Overweight (BMI 25.0-29.9); Primary hypertension 08/08/2025 1:00 PM EDT Ancillary Procedure Pulmonology - [address] [phone] Chronic obstructive pulmonary disease, unspecified COPD type (CMS/HCC V24, CMS/HCC V28) from Last 3 Months Social History Tobacco Use Types Packs/Day Years Used Date Smoking Tobacco: Never Smokeless Tobacco: Never Tobacco Cessation:Counseling Given: Not Answered Comments Unknown Sex and Gender Information Value Date Recorded Sex Assigned at Not on file Legal Sex Female 7:37 PM EST Gender Identity Not on file Sexual Orientation Not on file Obstetrics History Last Filed Vital Signs Vital Sign Reading Time Taken Comments Blood Pressure 140/79 08/08/2025 1:41 PM EDT Pulse 97 08/08/2025 1:41 PM EDT Temperature 35.9 C (96.6 F) 08/08/2025 1:41 PM EDT Respiratory Rate 20 08/08/2025 1:41 PM EDT Oxygen Saturation 98% 08/08/2025 1:41 PM EDT Inhaled Oxygen Concentration - - Weight 73.9 kg (163 lb) 08/08/2025 1:41 PM EDT Height 167.6 cm (5' 6 ) 08/08/2025 1:41 PM EDT Body Mass Index 26.31 08/08/2025 1:41 PM EDT Plan of Treatment Upcoming Encounters Date Type Department Care Team ([facility] st Contact Info) Description 11/12/2025 1:45 PM EST Office Visit Pulmonology - [place] [address] [phone] Ceci Barton MD [address] [place] [phone] Health Maintenance Due Date Last Done Comments DTaP,Tdap,and Td Vaccines (1 - Tdap) 1964 Zoster Vaccines (2 of 2) 04/08/2023 02/11/2023 Depression Screening 10/17/2024 Cholesterol Screening (Lipid Panel) 04/19/2025 Falls Risk Assessment 04/19/2025 Medicare Annual Wellness Visit 04/19/2025 Social Influencers of Health Screening 04/19/2025 Influenza Vaccine (#1) 2025 , 07/27/2023, 08/10/2022, Additional history exists Hypertension/CHF/CAD Annual BMP Blood Test 08/08/2025 COVID-19 Vaccine ( season) 2025 07/03/2025, 08/02/2024, 11/10/2023, Additional history exists Osteoporosis Screening (Bone Density [...] Procedure Name Priority Date/Time Associated Diagnosis Comments PULMONARY FUNCTION TESTING Routine 08/08/2025 1:22 PM EDT Chronic obstructive pulmonary disease, unspecified COPD type ([facility] V24, [facility] V28) AAMIR DEXA AXIAL SKELETON Routine 05/12/2021 3:00 PM EDT Other specified disorders of bone density and structure, multiple sites from Last 3 Months or Most Recently Relevant to Health Maintenance Results * Pulmonary function testing: Carbon Monoxide Diffusing Capacity, Flow Volume Loop, Helium Dilution Lung Volumes, Spirometry with Bronchodilator, Vital Capacity Test, Spirometry (08/08/2025 1:22 PM EDT) Impressions Ceci Barton MD - 08/08/2025 1:22 PM EDT Pulmonary function test interpretation. Spirometry done today reveals FEV1 of 1.07 which is 51% of the predicted value, FVC is 2.42 which is 86% of the predicted value, FEV1 to FVC ratio is 59% of the predicted value, there is no bronchodilator response. Flow-volume is consistent with obstructive pattern. Static lung volumes are either within normal limit or elevated there is significant air trapping. Diffusion lung capacity is severely reduced after correction for alveolar volume. This study is consistent with moderate obstructive lung disease without bronchodilator response with significant air trapping and moderate reduction in diffusion lung capacity suggestive of diagnosis of emphysema however clinical correlation is recommended. us Ceci Barton MD PFT ORDERABLES Final Result * [facility] DEXA AXIAL SKELETON (05/12/2021 3:00 PM EDT) Anatomical Region Laterality Modality Mammography 05/12/2021 12:5 1 PM EDT Narrative 05/12/2021 3:[address] [facility] Diagnostic Imaging Department [address] [place] [address] Patient: EDIE LEACH /Age/Sex: 1945 - 76 - F Unit#: [id number] Location/Status: SPDIMAM/REG CLI Mnemonic/Ordering Site: MAMDEXAAX/SPMAM Ordering Physician: CECI BARTON MD Aamir Dexa Axial Skeleton - 05/12/21 - 6473 HISTORY: The patient is a 76-year-old postmenopausal [...] probability of hip fracture of 3.5%. Code 89572 Dictating Physician: KEANU PRINGLE MD Electronically Signed by: KEANU PRINGLE MD Dic Date/Time: 05/12/21 1458 Sign date/Time: 05/12/21 1500 Procedure Note Keanu Pringle MD - 10/13/2022 [facility] Diagnostic Imaging Department [address] [place] [address] Patient: EDIE LEACH/Age/Sex: 1945 - 76 - F Unit#: [id number] Location/Status: SPDIMAM/REG CLI [facility] Ordering Physician: CECI BARTON MD Aamir Dexa Axial Skeleton - 05/12/21 - 1318 HISTORY: The patient is a 76-year-old postmenopausal [...] density of the femurs bilaterally is 0.777 gm/xz2ghews is 77% of that of young normals [...] probability of hip fracture of 3.5%. Code 31605 Dictating Physician: KEANU PRINGLE MD Electronically Signed by: KEANU PRINGLE MD Dic Date/Time: 05/12/21 1458 Sign date/Time: 05/12/21 1500 us Ceci Barton MD IMG BI PROCEDURES Final Resu lt from Last 3 Months or Most Recently Relevant to Health Maintenance Insurance [employer] MEDICARE MEDICAID - [place] Care Teams Director Agency & Strategic Partnerships Relationship Specialty Start Date End Date Jennifer Gordillo PA [address] [place] [phone] PCP - General 04/24/25
== END 2025-08-16 09:09 | disposition home or self-care (01) ==
LOC: HO.HMGCX 09:08
DX: R79.89 Other specified abnormal findings of blood chemistry (principal)
CPT/HCPCS: 76700

== ENCOUNTER → 2025-08-16 09:11 | Outpatient (BNV) | payer MEDICARE, MEDICAID, SELFPAY | PROVIDERS: Visit Provider Radiology Diagnostic Radiology | DX: R79.89 Other specified abnormal findings of blood chemistry (principal) | CPT/HCPCS: 76700 ==

== ENCOUNTER 2025-08-20 14:05 | Outpatient (AMB) | payer MEDICARE, SELFPAY ==
[2025-08-20 14:10] VITALS: BP 160/100; PULSE 66; TEMP 36.3; O2SAT 95; BMI 27.0
--- NOTE | 2025-08-20 14:10 | A.OFFPC_ITS ---
Vital Signs 3 08/20/25 14:10 08/20/25 14:42 Height 5 ft 6 in Weight 167 lb 4 oz BMI 27.0 BP 160/100 H 160/72 H Blood Pressure Location Lt brachial Lt brachial Position Sitting Sitting Pulse 66 Pulse Source Pulse Oximeter Temp 97.3 F Temp Source Temporal Artery Scan Pulse Oximetry (%) 95 Oxygen Delivery Method Room Air Intake Visit Reasons: 3 mnth f/u/ annual exam - see comments Allergies acetaminophen (From TYLENOL) Adverse Reaction (Intermediate, Verified 08/20/25 14:15) DIZZINESS, VOMITING levofloxacin (From LEVAQUIN) Adverse Reaction (Intermediate, Verified 08/20/25 14:15) NAUSEA & VOMITING Medication List - Last Reconciled 08/20/25 by Jennifer Gordillo PA-C alendronate 70 mg PO QWEEK amitriptyline 50 mg PO BEDTIME aspirin 81 mg PO BEDTIME blood pressure monitor As directed; check BP daily budesonide-formoterol 160-4.5 mcg/actuation 2 puffs inhalation BID buspirone 5 mg PO BID calcium carbonate-vitamin D3 600 mg-10 mcg (400 unit) 1 tab PO DAILY cyclobenzaprine 5 mg PO BEDTIME PRN docusate sodium 100 mg PO BID PRN dronedarone (Multaq) 400 mg PO BID fenofibrate nanocrystallized 145 mg PO DAILY [grab bar As directed] lisinopril 5 mg PO DAILY metoprolol succinate ER (Toprol XL) 25 mg PO DAILY mirabegron ER (Myrbetriq) 50 mg PO DAILY naproxen 250 mg PO BID PRN nitroglycerin 0.4 mg sublingual Q5M PRN omeprazole 20 mg PO DAILY rosuvastatin 40 mg PO DAILY sennosides (Senna Laxative) 17.2 mg (2 x 8.6 mg) PO BEDTIME [shower chair As directed] sucralfate 1 g PO Q4H tramadol 50 mg orally 1 tab at bedtime and 1 tab daily as needed; 30 days triamcinolone acetonide 0.5% 1 appl topical TID venlafaxine ER 150 mg PO QAM vitamin B complex (B Complex-Vitamin B12 tablet) 1 tab PO BEDTIME vitamin E 200 units PO BEDTIME Tobacco use date assessed: 05/16/25 Fall risk assessment: No Falls in past year Last assessed Fall Risk: 08/20/25 Dental Screening Dental Screen Date: 08/20/25 Did you have a dental visit in the last 12 months?: Yes Did you have a dental problem in the last 6 months where you did not have access to dental care?: No Was dental information given to patient?: Patient has dentist HPI 3 mnth f/u/ annual exam - see comments 2 HPI0 Details 80-year-old female with past medical his tory of atrial fibrillation, coronary artery disease, hyperlipidemia, overactive bladder, COPD, diabetic neuropathy, peripheral arterial disease last seen 04/2025 coming in for annual exam. In review of the notes, patient was seen by Urology 07/2025 continued on Myrbetriq reinforced time voiding. Seen by Cardiology 07/2025 started on metoprolol and plan for Holter monitor in month. Seen by neurology 05/2025 for peripheral neuropathy continued on amitriptyline and tramadol. Presenting for a follow-up visit to review recent ultrasound results, manage multiple chronic conditions including hypertension and COPD, and address a new issue with her leg. An abdominal ultrasound was recently performed due to elevated liver tests, which revealed a widened common bile duct and hepatic duct without visible gallstones or blockage. She has been on metoprolol for about three or four years, which was started after her first heart attack; she was recently restarted on this medication. Her blood pressure at home has been elevated prior to the metoprolol initiation. Bone density: ordered Mammogram: 08/2024 she will call and schedule Vaccinations: [facility] Medical History Atrial fibrillation with rapid ventricular response Presence of Watchman left atrial appendage closure device Paroxysmal atrial fibrillation Atherosclerotic cardiovascular disease Retention of urine Post-menopausal Screening for diabetes mellitus COVID-19 vaccine series completed Mixed hyperlipidemia CAD (coronary artery disease) Surgical History History of colonoscopy History of rotator cuff surgery Stented coronary artery History of cataract surgery History of bladder surgery History of hysterectomy History of cholecystectomy Family History Father Cancer Mother Heart disease Pancreatic cancer Sister Heart disease Social History Household Members: None Housing: Condominium Alcohol intake: former Patient Tobacco Use Status: Never used Tobacco e-Cigarette/Vaping Use: Never Used Second Hand Smoke Exposure: No Advance Directives Date on File: 07/20/23 service: No Current occupational status: retired Cognitive needs: Yes (cane) Hearing needs: Yes (Hearing aide) Vision needs: Yes (Glasses) Questionnaire PHQ-9 Over the last 2 weeks, how often have you been bothered by any of the following problems? 1. Little interest or pleasure in doing things: more than half the days 2. Feeling down, depressed, or hopeless: several days 3. Trouble falling or staying asleep, or sleeping too much: several days 4. Feeling tired or having little energy: several days 5. Poor appetite or overeating: more than half the days 6. Feeling bad about yourself - or that you are a failure or have let yourself or your family down: more than half the days 7. Trouble concentrating on things, such as reading the newspaper or watching television: several days 8. Moving or speaking so slowly that other people could have noticed. Or the opposite - being so fidgety or restless that you have been moving around a lot more than usual: several days 9. Thoughts that you would be better off or of hurting yourself in some way: not at all Total score: 11 Depression Screening Interpretation: Positive Depression Screening Follow-up: Existing condition and In treatment Depression Screening Done: Yes Source: Developed by Drs. Neto Franco, Jacqueline Fry, Jones Valdivia and colleagues, with an educational dre from [employer]. Thrive Questionnaire Date Thrive assessed: 03/05/25 I am a: Patient What is your living situation today?: I have a steady place to live Within the past 12 months, did the food you bought not last and you didn't have the money to get more?: Never true Within the past 12 months, did you worry whether your food would run out before you got money to buy more?: Never true Do you have trouble paying for medicines?: No Do you have trouble getting transportation to medical appointments?: Yes Do you have trouble paying your heating and electricity bill?: No Do you have trouble taking care of your child, family member or friend?: No Do you have trouble with day-to-day activities such as bathing, preparing meals, shopping, managing finances, etc.?: No Are you currently unemployed and looking for a job?: No Are you interested in more education?: No Please select the resources that you would like help with: None THRIVE Score: 1 AUDIT C Alcohol Use Questionnaire (AUDIT-C) 1. How often do you have a drink containing alcohol?: Never Total Score: 0 VERENA-7 AMB Questionnaire VERENA-7 Date VERENA - 7 assessed: 05/16/25 Feeling nervous, anxious, or on edge: 3 = Nearly every day Not being able to stop or control worryin = Nearly every day Worrying too much about different things: 3 = Nearly every day Trouble relaxin = Nearly every day Being so restless that it is hard to sit still: 3 = Nearly every day Becoming easily annoyed or irritable: 3 = Nearly every day Feeling afraid as if something awful might happen: 3 = Nearly every day Total VERENA-7 score (0-4 normal; 5-9 mild; 10-14 moderate; 15-21 severe): 21 Source: Developed by Drs. Neto Franco, Jacqueline Fry, Jones Valdivia and colleagues, with an educational dre from [employer]. Review of Systems Const Denies body aches, Denies chills, Denies fever(s), Denies headache(s) and Denies poor appetite Eyes Reports no additional complaints ENT Denies dysphagia, Denies dizziness, Denies headache(s) and Denies odynophagia Card Denies chest pain, Denies syncope, Denies edema, Denies irregular heart rhythm, Denies lightheadedness and Denies dyspnea Resp Denies cough and Denies dyspnea GI Denies constipation, Denies dysphagia, Denies diarrhea, Denies nausea, Denies odynophagia and Denies vomiting Reports no additional complaints Musc Reports no additional complaints and Denies abnormal gait Skin/Breast Reports system reviewed and no additional complaints, except as documented Neuro Denies abnormal gait, Denies dizziness, Denies syncope and Denies headache(s) Psych Reports no additional complaints Physical exam (Primary Care) Vital Signs: Last Vital Signs Temp 97.3 F 08/20/25 14:10 Pulse 66 08/20/25 14:10 BP 160/72 H 08/20/25 14:42 Pulse Ox 95 08/20/25 14:10 Oxygen Delivery Method Room Air 08/20/25 14:10 BMI result Body Mass Index 27.0 Tobacco/Smoking Status: Tobacco use Status Tobacco use date assessed 05/16/25 08/20/25 14:13 Patient Tobacco Use Status Never used Tobacco 08/20/25 14:13 e-Cigarette/Vaping Use Never Used 08/20/25 14:13 PHQ-9: PHQ-9 Score PHQ-9: Total score 11 08/20/25 14:41 Depression Screening Interpretation: Positive Depression Screening Follow-up: Existing condition and In treatment Thrive Assessment: Date of Thrive Assessment Date Thrive assessed 03/05/25 08/20/25 14:13 Const General: cooperative, healthy appearing, comfortable and no acute distress Orientation/consciousness: patient oriented x3 HENMT Head: Yes normocephalic Ears: hearing grossly normal bilaterally General nose exam: Normal external nose present Face and sinus: Yes normal facial exam and Yes sinuses nontender Mouth: Normal oral and palatal mucosa present and tongue normal Throat: Yes posterior oropharynx normal Eyes General: appearance normal, both eyes and all related structures Conjunctivae: conjunctivae normal Pupils: Equal, round and reactive pupils present EOM: EOMs intact bilaterally and No Nystagmus present Neck Neck: Yes full ROM and Yes no lymphadenopathy Chest Chest palpation & inspection: normal inspection of the chest Resp Effort & Inspection: normal respiratory effort Auscultation: clear to auscultation bilaterally, no crackles, no rales, no rhonchi and no wheezes Cardio Rate: regular rate Rhythm: regular rhythm Peripheral pulses: radial pulses present and dorsalis pedis present GI Inspection: Yes normal to inspection and No Abdominal wall edema Palpation (GI): Soft to palpation, not firm and nontender Auscultation: normal bowel sounds Rectal Exam - Female: deferred General: Yes no CVA tenderness Back/Spine/Pelvis Back: no CVA tenderness Skin General skin exam: no rashes or lesions noted Full body images: 2 1. area of erythema and warmth without drainage Neuro General: patient oriented x3 Cranial nerves: Yes Equal, round and reactive pupils present, Yes Midline tongue present, Yes Ability to bilaterally elevate shoulders present and No Nystagmus present Gait exam (Neuro): Normal gait present Extrem General: Yes normal to inspection, Yes full ROM and No edema Psych Speech and movement: Normal speech and movement present Affect: normal affect Attitude: cooperative Insight: Good insight present (Psych) Judgement: Good judgement present (Psych) Coding Level of Care Code Est Pt Prev Care >65y(47234) Diagnoses Physical exam Z00.00 Anxiety and depression F41.9; F32.A Primary hypertension I10 Hypertension type: primary hypertension Aortic stenosis I35.0 CAD (coronary artery disease) I25.10 Paroxysmal atrial fibrillation I48.0 Hyperlipidemia E78.5 Osteoporosis M81.0 Common bile duct dilatation K83.8 Overactive bladder N32.81 Peripheral polyneuropathy G62.9 Peripheral neuropathy type: polyneuropathy, unspecified Chronic obstructive pulmonary disease, unspecified COPD type J44.9 COPD type: unspecified COPD Cellulitis L03.90 Assessment & Plan Assessment & Plan (1) Physical exam: Code(s): Z00.00 - Encounter for general adult medical examination without abnormal findings Category: Medical Plan: Patient is up-to-date on all recommended routine screenings and vaccinations for her age. Healthy diet and regular exercise is encouraged. Blood work is up-to-date and has been reviewed with the patient today. To follow up in 3 months or sooner as needed (2) Anxiety and depression: Code(s): F41.9 - Anxiety disorder, unspecified; F32.A - Depression, unspecified Category: Medical Plan: Continue on current medication at this time. (3) Hypertension: Code(s): I10 - Essential (primary) hypertension Category: Medical Qualifiers: Hypertension type: primary hypertension Qualified Code(s): I10 - Essential (primary) hypertension Plan: Continue on current blood pressure medication. Avoid salt intake and encourage healthy diet and regular exercise. Blood pressures at home have been normal and blood pressure in the office is normal. Continue on Lisinopril. Patient's blood pressure is elevated while in the office today. She reports having received a new medication metoprolol which she has been on in the past. She would like to hold off on increasing her lisinopril at this time as she was just started on metoprolol and would like to give it time to work. I discussed with the patient take the blood pressure at home 4-5 times per week and reach out to the office with values. I will call patient in 1 week to receive these values and consider increasing lisinopril at that time. (4) Aortic stenosis: Code(s): I35.0 - Nonrheumatic aortic (valve) stenosis Category: Medical Plan: She is asymptomatic at this time and she will continue to follow with Cardiology (5) CAD (coronary artery disease): Code(s): I25.10 - Atherosclerotic heart disease of [place] [place] coronary artery without angina pectoris Category: Medical Plan: Advised good control of the cholesterol, blood sugars and blood pressures. Continue on aspirin 81 mg. Patient was provided with blood pressure cuff at last visit to monitor blood pressures at home. 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 (7) Hyperlipidemia: Code(s): E78.5 - Hyperlipidemia, unspecified Category: Medical Plan: Avoid foods that are high in cholesterol such as red meat, fried foods, eggs and baked goods. Triglyceride goal of less than 150 and LDL goal of less than 70. Continue on rosuvastatin and fenofibrate (8) Osteoporosis: Code(s): M81.0 - Age-related osteoporosis without current pathological fracture Category: Medical Plan: Currently on alendronate (9) Common bile duct dilatation: Code(s): K83.8 - Other specified diseases of biliary tract Category: Medical Plan: Patient having common bile duct dilation without evidence of choledocholithiasis on abdominal ultrasound. At this time referral was placed to gastroenterology for further evaluation and treatment. She is asymptomatic at this time (10) Overactive bladder: Code(s): N32.81 - Overactive bladder Category: Medical Plan: Continue to follow with Urology and on Myrbetriq with good benefit (11) Peripheral neuropathy: Code(s): G62.9 - Polyneuropathy, unspecified Category: Medical Qualifiers: Peripheral neuropathy type: polyneuropathy, unspecified Qualified Code(s): G62.9 - Polyneuropathy, unspecified Plan: Patient has extensive history of peripheral neuropathy. Currently on gabapentin for symptom management. Continue to follow with Neurology and vascular surgery. (12) COPD (chronic obstructive pulmonary disease): Code(s): J44.9 - Chronic obstructive pulmonary disease, unspecified Category: Medical Qualifiers: COPD type: unspecified COPD Qualified Code(s): J44.9 - Chronic obstructive pulmonary disease, unspecified Plan: Continue on current inhalers feels her breathing is well managed at this time (13) Cellulitis: Code(s): L03.90 - Cellulitis, unspecified Category: Medical Plan: Physical examination of the patient's leg revealed erythema, warmth, and swelling, concerning for a bacterial skin infection. A prescription for Keflex, one capsule four times daily for seven days, will be sent to her pharmacy to treat the infection. She is advised to monitor the area and report if the redness and swelling do not improve. Plan This note was constructed using voice recognition software. While every effort has been made to ensure accuracy and beater operator, still areas may have been included sometimes these areas may affect the content or meeting of the given symptoms. Total time spent caring for the patient today was 30 minutes. This includes time spent before the visit reviewing the chart, time spent during the visit, and time spent after the visit and documentation. Patient was informed and verbally consented to the use of an ambient scribe for clinic note documentation during this visit. Orders: Orders 2 XR DEXA axial skeleton 08/20/25 Z78.0 - Asymptomatic menopausal state Medications: New 2 cephalexin 500 mg PO QID 28 caps 0RF 7 days
[2025-08-20 14:42] VITALS: BP 160/72
--- OUTSIDE RECORDS SUMMARY | 2025-08-20 17:08 | XMS_ITS | Clinical Summary ---
Author Organization [address] [facility] Address [address] [place] [address] Phone Care Team Providers Care Range Aide Name Role Phone Jennifer Gordillo Primary Care Provider [phone] Allergies Active Allergy Reactions Criticality Noted Date [...] Noted Date Diagnosed Date Lung disease, emphysema ([facility] V24, [facility] V2 8) 04/24/2025 Osteoporosis 04/24/2025 A-fib ([facility] V24, [facility] V28) 04/24/2025 Neuropathy involving both lower extremities 06/2025 Rotator cuff tear 04/24/2025 Encounters Date Type Department Care Team Description 08/08/2025 1:45 PM EDT Office Visit Pulmonology - [address] [phone] Ceci Barton MD Emphysema of lung ([facility] V24, [facility] V28) (Primary Dx); Neuropathy involving both lower extremities; Overweight (BMI 25.0-29.9); Primary hypertension 08/08/2025 1:00 PM EDT Ancillary Procedure Pulmonology - [address] [phone] Chronic obstructive pulmonary disease, unspecified COPD type [...] Upcoming Encounters Date Type Department Care Team ([facility] st Contact Info) Description 11/12/2025 1:45 PM EST Office Visit Pulmonology - [place] [address] [phone] Ceci Barton MD [address] [place] [phone] Health Maintenance Due Date Last Done [...] Chronic obstructive pulmonary disease, unspecified COPD type ([facility] V24, [facility] V28) AAMIR DEXA AXIAL SKELETON Routine 05/12/2021 [...] Barton MD PFT ORDERABLES Final Result * [facility] DEXA AXIAL SKELETON (05/12/2021 3:00 PM EDT) Anatomical Region Laterality Modality Mammography 05/12/2021 12:5 1 PM EDT Narrative 05/12/2021 3:00 PM EDT [facility] Diagnostic Imaging Department [address] [place] [address] Patient: EDIE LEACH /Age/Sex: 1945 - 76 - F Unit#: [id number] Location/Status: SPDIMAM/REG CLI Mnemonic/Ordering Site: [facility] Ordering Physician: CECI BARTON MD Aamir Dexa Axial Skeleton - 05/12/21 - 1763 HISTORY: The patient is a 76-year-old postmenopausal [...] probability of hip fracture of 3.5%. Code 23606 Dictating Physician: KEANU PRINGLE MD Electronically Signed by: KEANU PRINGLE MD Dic Date/Time: 05/12/21 1458 Sign date/Time: 05/12/21 1500 Procedure Note Keanu Pringle MD - 10/13/2022 [facility] Diagnostic Imaging Department [address] [place] [id number] Patient: EDIE LEACH/Age/Sex: 1945 - 76 - F Unit#: [id number] Location/Status: SPDIMAM/REG CLI Mnemonic[facility] Ordering Physician: CECI BARTON MD Aamir Dexa [...] density of the femurs bilaterally is 0.777 gm/iq4moqol is 77% of that of young normals [...] probability of hip fracture of 3.5%. Code 18235 Dictating Physician: KEANU PRINGLE MD Electronically Signed by: KEANU PRINGLE MD Dic Date/Time: 05/12/21 1458 Sign date/Time: 05/12/21 1500 us Ceci Barton MD IMG BI PROCEDURES Final Resu lt from Last 3 Months or Most Recently Relevant to Health Maintenance Insurance [employer] MEDICARE MEDICAID - [place] Care Teams Range Aide Relationship Specialty Start Date End Date Jennifer Gordillo PA [address] [place] [phone] PCP - General 04/24/25
== END 2025-08-20 14:58 | disposition home or self-care (01) ==
LOC: HO.HMCH 14:06
PROVIDERS: PCP Internal Medicine
DX: Z00.00 Encounter for general adult medical examination without abnormal findings (principal); F41.9 Anxiety disorder, unspecified; I48.0 Paroxysmal atrial fibrillation; J44.9 Chronic obstructive pulmonary disease, unspecified; F32.A Depression, unspecified; I10 Essential (primary) hypertension; I35.0 Nonrheumatic aortic (valve) stenosis; I25.10 Atherosclerotic heart disease of native coronary artery without angina pectoris; E78.5 Hyperlipidemia, unspecified; M81.0 Age-related osteoporosis without current pathological fracture; K83.8 Other specified diseases of biliary tract; N32.81 Overactive bladder

== ENCOUNTER → 2025-08-20 14:05 | Outpatient (BNVA) | payer MEDICARE, SELFPAY | PROVIDERS: PCP Internal Medicine | DX: Z00.00 Encounter for general adult medical examination without abnormal findings (principal); I10 Essential (primary) hypertension; I35.0 Nonrheumatic aortic (valve) stenosis; I25.10 Atherosclerotic heart disease of native coronary artery without angina pectoris; M81.0 Age-related osteoporosis without current pathological fracture; K83.8 Other specified diseases of biliary tract; N32.81 Overactive bladder; G62.9 Polyneuropathy, unspecified; J44.9 Chronic obstructive pulmonary disease, unspecified; L03.90 Cellulitis, unspecified; F41.9 Anxiety disorder, unspecified; F32.A Depression, unspecified; Z13.31 Encounter for screening for depression | CPT/HCPCS: 96127; 99397 ==

== ENCOUNTER 2025-08-29 14:13 | Outpatient (AMB) | payer MEDICARE, SELFPAY ==
--- NOTE | 2025-08-29 14:17 | MHC.OFFVIS ---
Vital Signs 08/29/25 14:19 Height 5 ft 6 in Weight 167 lb BMI 27.0 Intake Visit Reasons: 1 year follow up Arterial US 07/23/25 Intake Note: 1 yr follow up arterial US 07/23/25. Pt states rash on bilateral LE, cramping, pins and needles w/ or w/o ambulation Insights Manager Required: No Accompanied by: Self / Same As Patient Allergies acetaminophen (From TYLENOL) Adverse Reaction (Intermediate, Verified 08/29/25 14:22) DIZZINESS, VOMITING levofloxacin (From LEVAQUIN) Adverse Reaction (Intermediate, Verified 08/29/25 14:22) NAUSEA & VOMITING HPI HPI 1 year follow up Arterial US 07/23/25: Details: Very complex 80-year-old female presents for follow-up regarding peripheral vascular disease. She had undergone an angiogram in the past which demonstrated no significant flow-limiting stenosis. She is now for annual follow-up with noninvasive testing. She continues to complain about her feet. She has seen pain management and Neurology. She was unable to tolerate gabapentin an other medication and has been maintained on tramadol. She continues to complain about that and it seems to be her biggest focus and concern at the current time. [facility] Medical History Atrial fibrillation with rapid ventricular response Presence of Watchman left atrial appendage closure device Paroxysmal atrial fibrillation Atherosclerotic cardiovascular disease Retention of urine Post-menopausal Screening for diabetes mellitus COVID-19 vaccine series completed Mixed hyperlipidemia CAD (coronary artery disease) Surgical History History of colonoscopy History of rotator cuff surgery Stented coronary artery History of cataract surgery History of bladder surgery History of hysterectomy History of cholecystectomy Family History Father Cancer Mother Heart disease Pancreatic cancer Sister Heart disease Social History Household Members: None Housing: Condominium Alcohol intake: former Patient Tobacco Use Status: Never used Tobacco e-Cigarette/Vaping Use: Never Used Second Hand Smoke Exposure: No Advance Directives Date on File: 07/20/23 service: No Current occupational status: retired Cognitive needs: Yes (cane) Hearing needs: Yes (Hearing aide) Vision needs: Yes (Glasses) Review of Systems Const All systems reviewed & are unremarkable except as noted in HPI and below Reports no additional complaints ENT Reports Normal hearing present Card Denies chest pain, Denies chest pain at rest, Denies chest pain with activity and Denies pedal edema Resp Denies cough GI Denies abdominal pain Musc Denies abnormal gait, Denies muscle cramps and Denies radiating pain into limb Skin/Breast Denies skin ulcer and Denies wounds Neuro Reports Normal hearing present and Denies abnormal gait Psych Reports no additional complaints Physical Exam Vital Signs: BMI result Body Mass Index 27.0 Const General: cooperative, healthy appearing and comfortable Orientation/consciousness: oriented to person, oriented to place and oriented to time HEENT Head: Yes normal to inspection Neck Neck: Yes normal visual inspection Carotids: no bruits Chest Chest palpation & inspection: normal inspection of the chest Resp Effort & Inspection: normal respiratory effort and able to speak in complete sentences Auscultation: clear to auscultation bilaterally, no crackles, no rales, no rhonchi and no wheezes Cardio Other: Palpable bilateral dorsalis pedis pulses Rate: regular rate Rhythm: regular rhythm Heart sounds: S1 normal heart sound present and S2 normal heart sound present Bruits: no carotid bruits Peripheral pulses: Peripheral pulses 2+ throughout GI Inspection: Yes normal to inspection Skin Other: Pretibial surface papular rashes Wounds: no wounds Hair: normal Neuro General: oriented to person, oriented to place and oriented to time Cranial nerves: Yes CN's II-XII intact bilaterally and Yes Normal hearing present Cognition (Neuro): normal cognition Motor exam (neuro): 5/5 motor strength present throughout Extrem Other: venous exam: No significant superficial varicosities or spider telangiectasias, minimal edema General: No clubbing, No cyanosis and No edema Psych Appearance: grossly normal Mental Status: mental status grossly normal Speech and movement: Normal speech and movement present Results Reviewed Results Reviewed: Noninvasive arterial testing dated 07/23/2025 demonstrates JR on the right could not be obtained but normal PVRs and on the left of 1.21 with normal PVRs. Assessment & Plan Assessment & Plan (1) PAD (peripheral artery disease): Code(s): I73.9 - Peripheral vascular disease, unspecified Category: Medical Plan: In short patient has stable arterial status. We did discuss risk factor modification. I do believe that the majority of her problems are related to her neuropathy. In addition she has developed pretibial papular rashes.. This does not appear to be arterial or venous in nature. I do recommend dermatologic follow-up. She will follow up with us on an as-needed basis. Thank you for allowing us to assist in her care. Coding Level of Care Code Est Pt Level 4 (60115) Diagnoses PAD (peripheral artery disease) I73.9
[2025-08-29 14:19] VITALS: BMI 27.0
--- OUTSIDE RECORDS SUMMARY | 2025-08-29 17:39 | XMS_ITS | Clinical Summary ---
Author Organization [address] [facility] Address [address] [place] [address] Phone Care Team Providers Care Scanner Operator Name Role Phone Jennifer Gordillo Primary Care Provider [phone] Allergies Active Allergy Reactions Criticality Noted Date [...] Noted Date Diagnosed Date Lung disease, emphysema ([facility] V24, [facility] V2 8) 04/24/2025 Osteoporosis 04/24/2025 A-fib ([facility] V24, [facility] V28) 04/24/2025 Neuropathy involving both lower extremities 06/2025 Rotator cuff tear 04/24/2025 Encounters Date Type Department Care Team Description 08/08/2025 1:45 PM EDT Office Visit Pulmonology - [address] [phone] Ceci Barton MD Emphysema of lung ([facility] V24, [facility] V28) (Primary Dx); Neuropathy involving both lower extremities; Overweight (BMI 25.0-29.9); Primary hypertension 08/08/2025 1:00 PM EDT Ancillary Procedure Pulmonology - [address] [phone] Chronic obstructive pulmonary disease, unspecified COPD type [...] Upcoming Encounters Date Type Department Care Team ([facility] st Contact Info) Description 11/12/2025 1:45 PM EST Office Visit Pulmonology - [place] [address] [phone] Ceci Barton MD [address] [place] [phone] Health Maintenance Due Date Last Done [...] Chronic obstructive pulmonary disease, unspecified COPD type ([facility] V24, [facility] V28) [facility] DEXA AXIAL SKELETON Routine 05/12/2021 [...] Barton MD PFT ORDERABLES Final Result * [facility] DEXA AXIAL SKELETON (05/12/2021 3:00 PM EDT) Anatomical Region Laterality Modality Mammography 05/12/2021 12:5 1 PM EDT Narrative 05/12/2021 3:00 PM EDT [facility] Diagnostic Imaging Department [address] [place] [address] Patient: EDIE LEACH /Age/Sex: 1945 - 76 - F Unit#: [id number] Location/Status: SPDIMAM/REG CLI Mnemonic/Ordering Site: [facility] Ordering Physician: CECI BARTON MD [facility] Dexa Axial Skeleton - 05/12/21 - 3526 HISTORY: The patient is a 76-year-old postmenopausal [...] probability of hip fracture of 3.5%. Code 19083 Dictating Physician: KEANU PRINGLE MD Electronically Signed by: KEANU PRINGLE MD Dic Date/Time: 05/12/21 1458 Sign date/Time: 05/12/21 1500 Procedure Note Keanu Pringle MD - 10/13/2022 [facility] Diagnostic Imaging Department [address] [place] [id number] Patient: EDIE LEACH/Age/Sex: 1945 - 76 - F Unit#: [id number] Location/Status: SPDIMAM/REG CLI Mnemonic[facility] Ordering Physician: CECI BARTON MD Aamir [...] density of the femurs bilaterally is 0.777 gm/[id number] is 77% of that of young normals [...] probability of hip fracture of 3.5%. Code 24869 Dictating Physician: KEANU PRINGLE MD Electronically Signed by: KEANU PRINGLE MD Dic Date/Time: 05/12/21 1458 Sign date/Time: 05/12/21 1500 us Ceci Barton MD IMG BI PROCEDURES Final Resu lt from Last 3 Months or Most Recently Relevant to Health Maintenance Insurance [employer] MEDICARE [place]ICAID - [place] Care Teams Scanner Operator Relationship Specialty Start Date End Date Jennifer Gordillo PA [address] [place] [phone] PCP - General 04/24/25
== END 2025-08-29 14:37 | disposition home or self-care (01) ==
LOC: HO.HVS 14:13
PROVIDERS: Visit Provider Surgery Vascular Surgery
DX: I73.9 Peripheral vascular disease, unspecified (principal)
CPT/HCPCS: 99214

== ENCOUNTER → 2025-08-29 14:13 | Outpatient (BNVA) | payer MEDICARE, SELFPAY | PROVIDERS: Visit Provider Surgery Vascular Surgery | DX: I73.9 Peripheral vascular disease, unspecified (principal); R25.2 Cramp and spasm; R23.8 Other skin changes; Z95.5 Presence of coronary angioplasty implant and graft | CPT/HCPCS: 99212 ==

== ENCOUNTER → 2025-09-02 12:42 | Outpatient (REF) | payer MEDICARE, SELFPAY | LOC: HO.CARD 12:42 | PROVIDERS: Visit Provider Internal Medicine Cardiovascular Disease | DX: I48.0 Paroxysmal atrial fibrillation (principal) | CPT/HCPCS: 93242 ==

== ENCOUNTER → 2025-09-02 12:45 | Outpatient (BNV) | payer MEDICARE, SELFPAY | PROVIDERS: Visit Provider Internal Medicine Cardiovascular Disease | DX: I49.1 Atrial premature depolarization (principal) | CPT/HCPCS: 93244 ==